=== PATIENT | female | born 1955 | race Caucasian/White ===

== ENCOUNTER → 2021-11-18 11:15 | Outpatient (BNVA) | payer MEDICARE, BC, SELFPAY | PROVIDERS: Visit Provider Family Medicine | DX: E11.9 Type 2 diabetes mellitus without complications (principal); E78.2 Mixed hyperlipidemia; I48.91 Unspecified atrial fibrillation; Z76.89 Persons encountering health services in other specified circumstances; Z85.3 Personal history of malignant neoplasm of breast | CPT/HCPCS: 80053; 80061; 83036; 85025 ==

== ENCOUNTER → 2022-02-05 14:11 | Outpatient (BNVA) | payer MEDICARE, BC, SELFPAY | PROVIDERS: PCP Family Medicine; Visit Provider Internal Medicine | DX: I48.11 Longstanding persistent atrial fibrillation (principal); Z79.01 Long term (current) use of anticoagulants; E78.2 Mixed hyperlipidemia; E11.9 Type 2 diabetes mellitus without complications; Z79.84 Long term (current) use of oral hypoglycemic drugs; R06.02 Shortness of breath | CPT/HCPCS: 93005; 99203; 99204 ==

== ENCOUNTER 2022-03-11 08:36 | Outpatient (CLI) | payer MEDICARE, BC, SELFPAY ==
--- NOTE | 2022-03-11 08:48 | MM_ITS ---
WS: [id number] DIAGNOSTIC RIGHT DIGITAL TOMOSYNTHESIS MAMMOGRAPHY WITH CAD. HISTORY: previous history of breast cancer. LT mastectomy. COMPARISON: 02/11/2021, 01/05/2020 and 11/29/2018 Technique: CC, MLO and ML views. Breast composition: There are scattered areas of fibroglandular density. Stable RIGHT breast. There is a well-circumscribed 6 mm nodule in the central breast which has been present over multiple prior years. No suspicious mass or calcification. No distortion. MM/[place] [id number] IMPRESSION: BI-RADS: 2-Benign FOLLOW UP: 1 Year Follow-up
== END 2022-03-11 08:37 | disposition home or self-care (01) ==
LOC: RAD 08:36
PROVIDERS: PCP Family Medicine; Visit Provider Family Medicine
DX: Z85.3 Personal history of malignant neoplasm of breast (principal)
CPT/HCPCS: 77061

== ENCOUNTER 2022-04-02 14:04 | Outpatient (CLI) | payer MEDICARE, BC, SELFPAY ==
--- NOTE | 2022-04-02 14:30 | USCV_ITS ---
Alix Kearns Age: 66 Gender: F : 1955 Exam Date: 04/02/2022 14:37 Ordering Phys: Balbir Major M.D ([email or web address]) Technologist: Alec Muñoz Exam Location: [facility] – [place] Indication: sob BP: 130 / 82 HR: 62 Rhythm: Sinus Technical Quality: Adequate MEASUREMENTS (Male / Female) Normal Values 2D ECHO LV Diastolic Diameter PLAX 3.0 cm 4.2 - 5.9 / 3.9 - 5.3 cm LV Systolic Diameter PLAX 1.8 cm IVS Diastolic Thickness 1.1 cm 0.6 - 1.0 / 0.6 - 0.9 cm IVS Systolic Thickness 1.1 cm LVPW Diastolic Thickness 1.0 cm 0.6 - 1.0 / 0.6 - 0.9 cm LVPW Systolic Thickness 1.8 cm LVOT Diameter 2.0 cm LV Ejection Fraction 2D Teich 73.0 % LV Ejection Fraction MOD 2C 53.9 % LV Ejection Fraction 2C AL 55.4 % LA Diameter 3.4 cm LA Width 3.8 cm LA Height 5.9 cm RA Width 4.7 cm RA Height 5.1 cm Aorta at Sinotubular Diameter 2.0 cm IVC Diameter 2.0 cm M-MODE Aortic Annulus Diameter 2.7 cm LA Ao Ratio MM 1.3 MV E Point Septal Separation 1.0 cm DOPPLER AV Peak Velocity 133.0 cm/s LVOT Peak Velocity 77.0 cm/s AV Area Cont Eq vti 1.8 cm squared AV Area Cont Eq pk 1.8 cm squared MV Peak Velocity 169.0 cm/s MV Area PHT 6.3 cm squared Mitral E to A Ratio 2.8 MV E' Velocity 70.0 cm/s Mitral E to MV E' Ratio 12.3 Mitral E to LV E' Lateral Ratio 11.0 Mitral E to LV E' Septal Ratio 14.0 TR Peak Velocity 357.7 cm/s TR Peak Gradient 51.2 mmHg TR Mean Velocity 279.9 cm/s TR Mean Gradient 34.2 mmHg TR Velocity Time Integral 120.4 cm Right Atrial Pressure 3.0 mmHg Pulmonary Artery Systolic Pressu 54.2 mmHg PV Peak Velocity 90.0 cm/s RV Acceleration Time 0.1 s RV Ejection Time 0.3 s RV AcT/ET 0.3 FINDINGS Left Ventricle Left ventricle is normal in size. LV systolic function is normal with EF 55 to 60%. No regional wall motion abnormalities are seen. Right Ventricle Normal in size and function Right Atrium Normal in size Left Atrium Normal in size Mitral Valve Mild mitral annular calcification. Mild mitral regurgitation. Aortic Valve Aortic valve is thickened. No significant aortic stenosis. Mild aortic regurgitation seen. Tricuspid Valve Mild tricuspid regurgitation. RVSP is 50 to 55 mmHg. This is consistent with moderate pulmonary hypertension Pulmonic Valve Not well-visualized. Mild pulmonic regurgitation. Pericardium Normal Aorta Normal in size IVC Appears to be normal. RA pressure is normal. CONCLUSIONS LV systolic function is normal with EF of 55-60% Mild mitral annular calcification. Mild mitral regurgitation Mild aortic regurgitation Mild tricuspid regurgitation. Moderate pulmonary hypertension Mild pulmonic regurgitation No comparison studies are available Balbir Major MD (Electronically Signed) Final Date: 15 April 2022 11:57 S
== END 2022-04-02 14:05 | disposition home or self-care (01) ==
PROVIDERS: PCP Family Medicine; Visit Provider Internal Medicine
DX: I08.3 Combined rheumatic disorders of mitral, aortic and tricuspid valves (principal); R06.02 Shortness of breath
CPT/HCPCS: 93306

== ENCOUNTER → 2022-07-30 08:09 | Outpatient (BNVA) | payer MEDICARE, SELFPAY | PROVIDERS: PCP Family Medicine; Visit Provider Family Medicine | DX: E11.9 Type 2 diabetes mellitus without complications (principal); Z85.3 Personal history of malignant neoplasm of breast; E55.9 Vitamin D deficiency, unspecified; E78.2 Mixed hyperlipidemia; I48.11 Longstanding persistent atrial fibrillation | CPT/HCPCS: 80053; 80061; 82306; 83036; 85025 ==

== ENCOUNTER → 2022-08-06 14:49 | Outpatient (BNVA) | payer MEDICARE, SELFPAY | PROVIDERS: PCP Family Medicine; Visit Provider Internal Medicine | DX: I48.11 Longstanding persistent atrial fibrillation (principal); E78.2 Mixed hyperlipidemia; E11.9 Type 2 diabetes mellitus without complications; Z79.01 Long term (current) use of anticoagulants; Z79.84 Long term (current) use of oral hypoglycemic drugs | CPT/HCPCS: 99214 ==

== ENCOUNTER → 2022-09-25 08:44 | Outpatient (BNVA) | payer MEDICARE, SELFPAY | PROVIDERS: PCP Family Medicine; Visit Provider Family Medicine | DX: R30.0 Dysuria (principal) | CPT/HCPCS: 81000; 87077; 87086; 87184 ==

== ENCOUNTER 2022-10-13 05:50 | Inpatient (IN) | payer MEDICARE, SELFPAY ==
[2022-10-13] VITALS (15 sets, daily range): BP systolic 125–183; BP diastolic 75–111; PULSE 78–116; RESP 16–22; TEMP 36.4–36.8; O2SAT 86–99; BMI 35.4
--- NOTE | 2022-10-13 06:05 | ED_ITS ---
HPI - Epistaxis General: Chief complaint: Epistaxis Stated complaint: Nose Bleed Time Seen by Provider: 10/13/22 05:52 Source: patient Mode of arrival: ambulatory History of Present Illness: 67-year-old female presents to the emergency room with complaints of epistaxis. However on account of the patient she has minimal bleeding from the right nare. Patient is on Eliquis she tells me she has been on that for quite some time for atrial fibrillation. She is also noted to be extremely short of breath tachypneic and chronically hypoxic. She denies any chest pain she states with any activity she gets extremely short of breath this is been the case for the past 10 months since she had COVID she had COVID while at [facility] and was treated at [place] her she was not hospitalized. She denies any hemoptysis denies any fevers sweats or chills. She does have a history of previous breast cancer. MD complaint: epistaxis Location: right nostril Onset (ago): hour(s) Duration: intermittent Context: other anticoagulant use Associated symptoms: Deny fever(s), headache(s), sinus pain, syncope, vomiting or weakness Treatment prior to arrival: nose pinching Review of Systems Const: Denies: fever(s) or chills ENMT: Denies: throat pain, nasal congestion, nasal obstruction or sinus pain Card: Denies: chest pain, palpitations or syncope Resp: Denies: dyspnea, productive cough or non-productive cough GI: Denies: vomiting : Denies: flank pain, difficulty voiding, dysuria, urinary frequency or urinary urgency Skin/Breast: Denies: rash or pruritus Neuro: Denies: headache(s) [facility] ED PFSH: Medical History Acquired deviated nasal septum Atrial fibrillation Bipolar 1 disorder Deafness in left ear Glaucoma Heart failure with preserved ejection fraction EF 55-60% on echo 04/2022 History of breast cancer left sided, had mastectomy in 2010, no chemo or radiation History of colon polyps on endoscopy in 2020, benign Insomnia takes trazodone Mixed hyperlipidemia Type 2 diabetes mellitus without complications Surgical History H/O sternectomy History of D&C (1993) History of ear surgery (1984) left History of hernia surgery abdominal hernia repair x 4 between [id number] History of mastectomy (2010) left Family History Denies family history of Clotting disorder Bleeding disorder Social History Smoking and tobacco status: never smoked Alcohol intake: never Substance/Drug Use: never Housing: Assisted Living Facility Marital status: Marital status details: spouse has Parkinson's Previous occupational history: worked for [employer] Physical Exam Const: GENERAL APPEARANCE: cooperative and comfortable ORIENTATION/CONSCIOUSNESS: Yes awake, Yes oriented to person, Yes oriented to place and Yes oriented to time HENMT: COMMON NORMALS: normocephalic, atraumatic and hearing grossly normal bilaterally HEAD & SCALP: normocephalic and atraumatic OTHER: Scant bleeding from the right nare Resp: EFFORT & INSPECTION: Yes tachypneic AUSCULTATION: diminished lung sounds on the right Cardio: COMMON NORMALS: regular rate, regular rhythm and No murmurs present (Cardio) RATE: regular rate RHYTHM: regular rhythm GI: COMMON NORMALS: Soft to palpation and No hepatosplenomegaly present AUSCULTATION: Yes normoactive bowel sounds PALPATION: Yes Soft to palpation, No Tenderness to palpation present (GI), No Guarding due to palpation present (GI) and Yes No hepatosplenomegaly present Extremity: COMMON NORMALS: normal to inspection, capillary refill normal, no clubbing, cyanosis or edema, no calf tenderness and no pedal edema Neuro: SENSORIUM/ORIENTATION: Yes oriented to person, Yes oriented to place and Yes oriented to time Skin: COMMON NORMALS: no rashes or lesions noted GENERAL SKIN EXAM: no rashes or lesions noted Course Vital Signs: Vital signs: Vital Signs Temperature 97.7 F 10/14/22 03:58 Pulse Rate 90 10/14/22 05:13 Respiratory Rate 18 10/14/22 03:58 Blood Pressure 167/88 10/14/22 03:58 Pulse Oximetry 93 10/14/22 03:58 Oxygen Delivery Me thod Nasal Cannula 10/14/22 03:58 Oxygen Flow Rate 1 10/14/22 03:58 MDM - Epistaxis Medical Decision Making History of atrial fibrillation. Is on Eliquis. Scant bleeding from the right nare also noted to be hypoxic when arrived here. She states she is so short of breath. Oxymetazoline nasal spray 2 sprays in each nostril and a nose clamp applied. Bleeding continued after this. We contacted Dr. Deleon on-call and patient was brought from the ER to a clinic where he cauterized. This was done because Dr. Deleon has better equipment more appropriate equipment to treat the patient in his office than we have available in the emergency room. While the patient was here redosed she was chronically hypoxic and required 2 L by nasal cannula. Chest x-ray showed a large pleural effusion on decub view it did not lay her out really well. CTA of the chest was done that showed pulmonary emboli with right heart strain and what appeared to be a loculated pleural effusion. Discussed with the patient that despite her presenting complaint was a nosebleed she actually has more pressing issues particularly the pulmonary embolism large pleural effusion the right heart strain. This is concerning because she had this occurred evidently while she was still on the Eliquis. She is on anastrozole for her breast cancer. Also and should be considered whether or not this is more related to her recurrence of her breast cancer than the episode of COVID she had 10 months ago. We did give her Lovenox in the emergency room which she tolerated well. Discussed with Dr. Floyd will admit. Lab Data 10/13/22 06:25 10/13/22 06:46 Radiology Impressions Chest X-Ray 10/13/22 07:31 IMPRESSION: Large right pleural effusion. Chest CTA 10/13/22 08:27 IMPRESSION: 1. Quality of the study is compromised by respiratory motion artifact. 2. Pulmonary emboli are present. The exact extent of the embolic burden is difficult to determine secondary to the motion. 3. Marked RIGHT heart enlargement with marked tricuspid regurgitation into hepatic veins. 4. Moderate to large layering RIGHT pleural effusion. 5. Cirrhosis. 6. Soft tissue anasarca and mesenteric edema. Notified Adilson Isaac DO at 10/13/2022 9:36 AM. Laboratory Results WBC 8.2 10^3/uL (4.0-10.0) 10/13/22 06:25 RBC 5.84 10^6/uL (4.1-5.3) H 10/13/22 06:25 Hgb 14.8 g/dL (11.5-15.3) 10/13/22 06:25 Hct 45.5 % (37.0-47.0) 10/13/22 06:25 MCV 77.9 fl (81-99) L 10/13/22 06:25 MCH 25.3 pg (28.0-34.0) L 10/13/22 06:25 MCHC 32.5 g/dL (30.0-36.0) 10/13/22 06:25 RDW 16.8 % (12.1-15.1) H 10/13/22 06:25 Plt Count 240 10^3/cmm (130-400) 10/13/22 06:25 MPV 11.2 fL (7.4-10.4) H 10/13/22 06:25 Neut % (Auto) 71.4 % 10/13/22 06:25 Lymph % (Auto) 18.6 % 10/13/22 06:25 [place] % (Auto) 7.0 % 10/13/22 06:25 Eos % (Auto) 1.8 % 10/13/22 06:25 Baso % (Auto) 1.0 % 10/13/22 06:25 Neut # (Auto) 5.83 10^3/uL (1.8-7.7) 10/13/22 06:25 Lymph # (Auto) 1.5 10^3/uL (0.8-4.8) 10/13/22 06:25 [place] # (Auto) 0.6 10^3/uL (0.2-0.9) 10/13/22 06:25 Eos # (Auto) 0.2 10^3/uL (0.0-0.8) 10/13/22 06:25 Baso # (Auto) 0.1 10^3/uL (0.0-0.1) 10/13/22 06:25 Nucleated RBC % (auto) 0 % 10/13/22 06:25 Nucleated RBCs # 0.0 /100WBC 10/13/22 06:25 Sodium 128 mmol/L (136-145) L 10/13/22 06:46 Potassium 4.3 mmol/L (3.5-5.1) 10/13/22 06:46 Chloride 96 mmol/L (98-107) L 10/13/22 06:46 Carbon Dioxide 18 mmol/L (22-29) L 10/13/22 06:46 Anion Gap 18.3 (5-19) 10/13/22 06:46 BUN 23 mg/dL (8-23) 10/13/22 06:46 Creatinine 0.7 mg/dL (0.5-0.9) 10/13/22 06:46 GFR Calculation 83.0 mL/min (90-130) L 10/13/22 06:46 Glucose 139 mg/dL (65-115) H 10/13/22 06:46 Calculated Osmolality 272 mOsm/kg (285-295) L 10/13/22 06:46 Calcium 9.3 mg/dL (8.5-10.5) 10/13/22 06:46 Total Bilirubin 0.6 mg/dL (0.15-1.2) 10/13/22 06:46 Direct Bilirubin 0.40 mg/dL (0.00-0.30) H 10/13/22 06:46 AST 13 U/L (0-32) 10/13/22 06:46 ALT 11 U/L (0-33) 10/13/22 06:46 Alkaline Phosphatase 111 U/L (35-105) H 10/13/22 06:46 NT-Pro-B Natriuret Pep 75396 pg/mL (0-125) H 10/13/22 06:46 Total Protein 7.3 g/dL (6.6-8.7) 10/13/22 06:46 Albumin 4.1 g/dL (3.5-5.2) 10/13/22 06:46 Globulin 3.2 g/dL (1.3-4.6) 10/13/22 06:46 Discharge Plan Discharge Patient Disposition: Admitted As Inpatient Admit Provider: Amber Floyd Clinical Impression: Pulmonary embolism, Pleural effusion on right, Type 2 diabetes mellitus without complications, Hypoxemia, Atrial fibrillation, Epistaxis, recurrent Condition: Stable Coding Level of Care Code ED Sorter Operator for Chg Ania
--- NOTE | 2022-10-13 06:05 | XR_ITS ---
WS: [id number] XR chest 1V portable [id number] REASON FOR EXAM: dyspnea/cough FINDINGS: Cardiomegaly. Large right pleural effusion and atelectasis in the right lower lung. XR/XR chest 1V portable [id number] IMPRESSION: Cardiomegaly and right pleural effusion.
[2022-10-13] MEDS: oxymetazoline 0.05% Nasal Spray 15 mL 2 SPRAY NOSTRIL-B (06:09)
--- NOTE | 2022-10-13 06:10 | PC.NURSE ---
Patients sats 88% RA. Per pt she does not wear oxygen @ home. Covid within the last year and feels that she has had to work harder to breathe since. States that she has told her pcp about it. Dr Isaac notified.
[2022-10-13 06:30] LABS: Basophils # 0.1 10^3/uL (0.0-0.1); Eosinophils # 0.2 10^3/uL (0.0-0.8); Eosinophils % 1.8 %; Hematocrit 45.5 % (37.0-47.0); Hemoglobin 14.8 g/dL (11.5-15.3); Lymphocytes # 1.5 10^3/uL (0.8-4.8); Lymphocytes % 18.6 %; Mean Corpuscular HGB Conc 32.5 g/dL (30.0-36.0); Mean Corpuscular Hemoglobin 25.3 pg (28.0-34.0); Mean Corpuscular Volume 77.9 fl (81-99); Mean Platelet Volume 11.2 fL (7.4-10.4); Monocytes # 0.6 10^3/uL (0.2-0.9); Neutrophils # 5.83 10^3/uL (1.8-7.7); Neutrophils % 71.4 %; Nucleated Red Blood Cells % 0 %; Platelet Count 240 10^3/cmm (130-400); Red Blood Count 5.84 10^6/uL (4.1-5.3); Red Cell Distribution Width 16.8 % (12.1-15.1); White Blood Count 8.2 10^3/uL (4.0-10.0)
[2022-10-13 07:08] LABS: Anion Gap 18.3 (5-19); Blood Urea Nitrogen 23 mg/dL (8-23); Calcium 9.3 mg/dL (8.5-10.5); Carbon Dioxide 18 mmol/L (22-29); Chloride 96 mmol/L (98-107); Glucose 139 mg/dL (65-115); Osmolality Calculated 272 mOsm/kg (285-295); Potassium 4.3 mmol/L (3.5-5.1); Sodium 128 mmol/L (136-145)
--- NOTE | 2022-10-13 07:31 | XR_ITS ---
WS: [id number] XR chest RT decubitus [id number] REASON FOR EXAM: pleural effusion FINDINGS: Right lateral decubitus examination demonstrates significant free pleural fluid component to right lo wer chest opacity. XR/XR chest RT decubitus [id number] IMPRESSION: Large right pleural effusion.
--- NOTE | 2022-10-13 07:36 | PC.NURSE ---
Took nose clamp off at [address] Isaac.
--- NOTE | 2022-10-13 08:06 | PC.PHAR ---
pt states she takes care of her own medications-pt states she takes lasix 40mg daily prn ext shows last filled 07/28/22 90d/s 40mg daily and kcl 10meq daily prn rx filled 07/28/22 90d/s 10meq daily-pt states not taken kcl for a month-pt states she uses her families albuterol inhaler prn-
--- NOTE | 2022-10-13 08:27 | CT_ITS ---
WS: [id number] CT CHEST ANGIOGRAPHY WITH REFORMATS HISTORY: dyspnea, abnormal CXR TECHNIQUE: Contiguous axial images are obtained through the chest during arterial injection of intrav enous contrast. Images are reconstructed to evaluate the pulmonary arteries. MIP imaging also reviewe d. All CT scans at [facility] use at least one of these dose optimization techniques: automat ed exposure control; mA and/or kV adjustment per patient size (includes targeted exams where dose is matched to clinical indication); or iterative reconstruction. CONTRAST: Omnipaque 350; 100 mL IV. DLP: 462.37 mGy.cm COMPARISON: None available. Mild motion artifact. Filling defects within the pulmonary arterial system. There is no central large pulmonary emboli but there are small filling defects in the segmental branches. There is a defect wi thin the RIGHT main pulmonary artery but this area is also being obscured by motion and contrast from the SVC. Enlarged RIGHT heart with marked tricuspid regurgitation. There is very minimal flattening of the int erventricular septum. Heart is enlarged. No pericardial effusion. Moderate to large layering RIGHT pleural effusion. Scattered mild hazy attenuation throughout the herve gs in part due to the respiratory motion artifact. There is no pneumothorax. No LEFT pleural effusion . Mild atherosclerosis aorta. No mediastinal or hilar adenopathy. Mild soft tissue anasarca throughout the thorax. Prior cholecystectomy. No adrenal mass. Visualized p ancreas is atrophied. Mesenteric edema in the upper abdomen. Cirrhosis. Mild curvature thoracic spine . CT/CT angio chest PE protcl [id number] IMPRESSION: 1. Quality of the study is compromised by respiratory motion artifact. 2. Pulmonary emboli are present. The exact extent of the embolic burden is dif ficult to determine secondary to the motion. 3. Marked RIGHT heart enlargement with marked tricuspid regurgitation into hep atic veins. 4. Moderate to large layering RIGHT pleural effusion. 5. Cirrhosis. 6. Soft tissue anasarca and mesenteric edema. Notified Adilson Isaac DO at 10/13/2022 9:36 AM.
[2022-10-13] MEDS: dexamethasone 10 mg/mL INJ IVP (08:43)
[2022-10-13] MEDS: diphenhydrAMINE 50 mg/mL SDV 1mL IVP (08:43)
[2022-10-13] MEDS: iohexol 350 mg/mL 500 mL Btl (per mL) IV (09:13)
[2022-10-13 10:05] LABS: Alanine Aminotransferase 11 U/L (0-33); Albumin Level 4.1 g/dL (3.5-5.2); Alkaline Phosphatase 111 U/L (35-105); Aspartate Amino Transferase 13 U/L (0-32); Globulin 3.2 g/dL (1.3-4.6); Total Bilirubin 0.6 mg/dL (0.15-1.2); Total Protein 7.3 g/dL (6.6-8.7)
[2022-10-13] MEDS: enoxaparin 100 mg/mL Syringe 90 MG SUBCUT (11:10)
--- NOTE | 2022-10-13 13:14 | PM.HP ---
Providers/Chief Complaint Admitting Physician: Amber Floyd MD Primary Care Provider: Jesus James MD Chief Complaint: Nose Bleed History of Present Illness Alix Kearns is a 67 year old female who presented to the emergency room with chief complaint of epistaxis. She has actually had several nosebleeds over the last week or 2. One occurred maybe a week ago, another 2 days ago and then last night at around 9 PM her right nares started bleeding. She described it as spurting . She is chronically on Eliquis due to a history of atrial fibrillation. With the continued nosebleed overnight she presented to the emergency room this morning. She had bleeding noted from the right nares. Oxine metolazone and some packing helped but was noted to have some bleeding vessels. Hemoglobin was normal. ENT was contacted and she did undergo cautery with silver nitrate to several areas in the right nares by Dr. Deleon. No active bleeding was noted during the procedure. A large clot was removed with suction at the beginning of the process. A contributing factor was severely deviated nasal septum to the right side and prior nasal fracture. During Mrs. Kearns's evaluation in the emergency room she was noted to be hypoxemic. She does not have a known history of hypoxemia. Saturations were as low as 86% on room air. Chest x-ray was performed demonstrating evidence of a large right pleural effusion. In talking with Mrs. Kearns, she has been short of breath particularly with exertion for some time. She had COVID last fall and noted that the shortness of breath started to worsen during that timeframe. She had been on anticoagulation with Eliquis prior to sustaining COVID and maintained anticoagulation thereafter, though has been on 2.5 mg eliquis bid rather than 5mg. She has a history of CHF for which she is on Lasix as needed. Last echocardiogram in March 2022 showed an ejection fraction at 55 to 60% with moderate pulmonary hypertension identified. With the large effusion noted on plain film, patient subsequently underwent CTA of the chest. Study was limited due to motion artifact though notable for pulmonary emboli/filling defects in segmental branches. Patient has no known prior history of PE or blood clots elsewhere. She does not describe any pleuritic type chest pain. No hemoptysis other than that which has been associated after epistaxis episodes the last week and a half or so. She walks with her walker around her house every day though is limited in the number of steps she can take before having to rest. She denies any calf pain or tenderness. No recent surgeries. She does have a history of breast cancer with left mastectomy back in 2010. She is chronically on anastrozole. Not a smoker. No other known malignancy. Marked right-sided heart enlargement was noted on CT imaging with minimal flattening of the interventricular septum. The pleural effusion was noted to be moderate to large with layering. Soft tissue anasarca and mesenteric edema also appreciated. Mrs. Kearns describes progressively worsening shortness of breath over the last 6 months to the point that lately she has only been able to walk a few feet before having to rest due to dyspnea. She has a history of multiple abdominal hernia repairs and reports that the left side of her abdomen is always larger than the right side of her abdomen. She tends to always lie on her left side because of this. Again she has not required home oxygen previously. Given degree of hypoxemia requiring oxygen therapy, large right pleural effusion and newly identified pulmonary emboli while on anticoagulation with Eliquis, patient is being admitted to the hospital for further evaluation and treatment. Review of Systems General: Reports: Other (ROS as per HPI or as otherwise noted here) Const: Reports: change in weight (Reports weight gain not weight loss, 40 pounds since 11/2021), fatigue, night sweats and other (Difficulty sleeping); Denies: fever(s) ENMT: Reports: nasal congestion and epistaxis Card: Reports: edema, dyspnea on exertion and orthopnea; Denies: chest pain or palpitations Resp: Reports: dyspnea and non-productive cough; Denies: hemoptysis GI: Denies: nausea, vomiting, change in bowel habits, hematochezia or melena : Denies: difficulty voiding Musc: Reports: back pain and muscle cramps (Reports occasional charley horse) Neuro: Reports: difficulty walking (Uses a walker at baseline) Psych: Reports: other (Stable mood on Geodon and trazodone + diphenhydramine for sleep) Pradip/Lymph: Reports: easy bruising and easy bleeding (Epistaxis recently) Medications/Allergies Home Medications Medication Instructions Recorded Confirmed Last Taken Type latanoprost 0.005 % eye drops 1 drp ophthalmic (eye) BEDTIME 11/18/21 10/13/22 Unknown History cyanocobalamin (vitamin B-12) 1,000 mcg PO QAM 02/05/22 10/13/22 10/12/22 History 1,000 mcg tablet vitamin E mixed 400 unit capsule 400 unit PO QAM 02/05/22 10/13/22 10/12/22 History metoprolol tartrate 50 mg tablet 50 mg PO BID #180 tabs 07/28/22 10/13/22 10/12/22 Rx amoxicillin 500 mg-potassium 1 tab PO TID #30 tabs 10/06/22 10/13/22 10/12/22 Rx clavulanate 125 mg tablet rx filled (Augmentin) 10/06/22 10d blood sugar diagnostic (Accu-Chek #100 ea 10/06/22 10/13/22 Unknown Rx Patti Plus test strips) lancing device with lancets kit #100 ea 10/06/22 10/13/22 Unknown Rx (Accu-Chek Softclix Lancing Device+Lancets kit) blood sugar diagnostic (Accu-Chek #100 ea 10/08/22 10/13/22 Unknown Rx Guide test strips) lancets (Accu-Chek Softclix #100 ea 10/10/22 10/13/22 Unknown Rx Lancets) albuterol sulfate 90 mcg/actuation 2 puff inhalation QID PRN 10/13/22 10/13/22 Unknown History aerosol inhaler Shortness Of Breath anastrozole 1 mg tablet 1 mg PO QAM 10/13/22 10/13/22 10/12/22 History apixaban 5 mg tablet (Eliquis) 5 mg PO BID 10/13/22 10/13/22 10/12/22 History diltiazem HCl 240 mg capsule,24 240 mg PO QAM 10/13/22 10/13/22 10/12/22 History hr,extended release diphenhydramine HCl 50 mg capsule 100 mg PO BEDTIME 10/13/22 10/13/22 10/12/22 History (Sleep Aid (diphenhydramine)) furosemide 40 mg tablet 40 mg PO DAILY PRN Edema 10/13/22 10/13/22 Unknown History metformin 500 mg tablet 500 mg PO BID 10/13/22 10/13/22 10/12/22 History potassium chloride 10 mEq 10 meq PO DAILY PRN unknown 10/13/22 10/13/22 1 Month Ago History capsule,extended release ~09/12/22 trazodone 100 mg tablet 100 mg PO BEDTIME 10/13/22 10/13/22 10/12/22 History ziprasidone HCl 80 mg capsule 80 mg PO BEDTIME 10/13/22 10/13/22 10/12/22 History Allergies Allergy/AdvReac Type Severity Reaction Status Date / Time aspirin [From Norgesic] Allergy Intermediate vomits Verified 10/13/22 08:05 adhesive Allergy Unknown Verified 10/13/22 08:05 caffeine [From Norgesic] Allergy Unknown Verified 08/06/22 15:04 carrot Allergy Unknown Verified 10/13/22 08:04 iodine Allergy Unknown Verified 10/13/22 08:05 mushroom Allergy Unknown Verified 10/13/22 08:04 orphenadrine [From Norgesic] Allergy Unknown Verified 10/13/22 08:05 Pork/Porcine Containing Allergy Unknown Verified 10/13/22 08:04 Products cephalexin AdvReac Intermediate vomitting Verified 10/13/22 08:05 Sulfa (Sulfonamide AdvReac Intermediate adv-vomitti Verified 10/13/22 08:05 Antibiotics) ng byetta Allergy Intermediate vomitting Uncoded 08/06/22 15:04 all fruits Allergy Unknown Uncoded 10/13/22 08:04 roberson Allergy Unknown Uncoded 10/13/22 08:04 Additional Medication Information Pork allergy is from skin testing. Patient takes multiple medications that contain pork products without known adverse event specifically related to the pork. PFSH Acute PFSH: Medical History (Updated 10/13/22 @ 16:10 by Amber Floyd MD) Acquired deviated nasal septum Atrial fibrillation Bipolar 1 disorder Deafness in left ear Glaucoma Heart failure with preserved ejection fraction EF 55-60% on echo 04/2022 History of breast cancer left sided, had mastectomy in 2010, no chemo or radiation History of colon polyps on endoscopy in 2020, benign Insomnia takes trazodone Mixed hyperlipidemia Type 2 diabetes mellitus without complications Surgical History (Updated 10/13/22 @ 13:37 by Amber Floyd MD) H/O sternectomy History of D&C (1993) History of ear surgery (1984) left History of hernia surgery abdominal hernia repair x 4 between [id number] History of mastectomy (2010) left Family History (Updated 10/13/22 @ 15:24 by Amber Floyd MD) Denies family history of Clotting disorder Bleeding disorder Social History (Updated 10/13/22 @ 16:11 by Amber Floyd MD) Smoking and tobacco status: never smoked Alcohol intake: never Substance/Drug Use: never Marital status: Marital status details: spouse has Parkinson's Previous occupational history: worked for [employer] Vitals/I&O/Wt Last Vital Signs Temp 97.6 F 10/13/22 05:59 Pulse 109 H 10/13/22 12:32 Resp 16 10/13/22 05:59 BP 140/90 10/13/22 12:32 Pulse Ox 95 10/13/22 12:32 O2 Del Method Room Air 10/13/22 07:29 O2 Flow Rate 3 10/13/22 09:19 Weight last 48 hrs Weight 90.718 kg Physical Exam Narrative: Patient is aware he can alert, able to provide history. She looks pale, ill appearance. Hair is short by her choice. Pupils are equally reactive, extraocular movements are intact, oropharynx with moist mucous membranes. Nares with oxygen by nasal cannula in place. Right nares with some dried blood and evidence of recent cautery noted. No active bleeding appreciated. Neck is supple. Lungs with decreased breath sounds on the right, only audible breath sounds on the right or in the apices. Clear on the left. Patient is lying in bed leaning towards the left which she states is her usual. Evidence of left mastectomy. Palpated along old surgical scars. No solid soft tissue mass noted though there is an irregularity in the skin incision medially that if located elsewhere I would think was an incisional hernia. Abdomen is soft, several surgical scars noted. Abdomen is rotund more prominent on the left side of the abdomen than the right. Lower pannus with peau d'orange appearance. There is just to the right of midline under the pannus and area of pinpoint erythema and an approximately 2 x 3 inch area that looks to be healing rather than acute. Remainder of skin underneath the pannus looks clear presently. 4+ pitting edema noted to both lower extremities. Scattered ecchymoses noted to upper extremities predominantly. Capillary refill is brisk. Speech is clear, not pressured. Face is symmetric. Handgrip is equal. Toes are downgoing. Data 10/13/22 06:25 10/13/22 06:46 Other Labs: Radiology Impressions Chest X-Ray 10/13/22 07:31 IMPRESSION: Large right pleural effusion. Chest CTA 10/13/22 08:27 IMPRESSION: 1. Quality of the study is compromised by respiratory motion artifact. 2. Pulmonary emboli are present. The exact extent of the embolic burden is difficult to determine secondary to the motion. 3. Marked RIGHT heart enlargement with marked tricuspid regurgitation into hepatic veins. 4. Moderate to large layering RIGHT pleural effusion. 5. Cirrhosis. 6. Soft tissue anasarca and mesenteric edema. Notified Adilson Isaac DO at 10/13/2022 9:36 AM. Laboratory Results WBC 8.2 10^3/uL (4.0-10.0) 10/13/22 06:25 RBC 5.84 10^6/uL (4.1-5.3) H 10/13/22 06:25 Hgb 14.8 g/dL (11.5-15.3) 10/13/22 06:25 Hct 45.5 % (37.0-47.0) 10/13/22 06:25 MCV 77.9 fl (81-99) L 10/13/22 06:25 MCH 25.3 pg (28.0-34.0) L 10/13/22 06:25 MCHC 32.5 g/dL (30.0-36.0) 10/13/22 06:25 RDW 16.8 % (12.1-15.1) H 10/13/22 06:25 Plt Count 240 10^3/cmm (130-400) 10/13/22 06:25 MPV 11.2 fL (7.4-10.4) H 10/13/22 06:25 Neut % (Auto) 71.4 % 10/13/22 06:25 Lymph % (Auto) 18.6 % 10/13/22 06:25 Scurry % (Auto) 7.0 % 10/13/22 06:25 Eos % (Auto) 1.8 % 10/13/22 06:25 Baso % (Auto) 1.0 % 10/13/22 06:25 Neut # (Auto) 5.83 10^3/uL (1.8-7.7) 10/13/22 06:25 Lymph # (Auto) 1.5 10^3/uL (0.8-4.8) 10/13/22 06:25 Scurry # (Auto) 0.6 10^3/uL (0.2-0.9) 10/13/22 06:25 Eos # (Auto) 0.2 10^3/uL (0.0-0.8) 10/13/22 06:25 Baso # (Auto) 0.1 10^3/uL (0.0-0.1) 10/13/22 06:25 Nucleated RBC % (auto) 0 % 10/13/22 06:25 Nucleated RBCs # 0.0 /100WBC 10/13/22 06:25 Sodium 128 mmol/L (136-145) L 10/13/22 06:46 Potassium 4.3 mmol/L (3.5-5.1) 10/13/22 06:46 Chloride 96 mmol/L (98-107) L 10/13/22 06:46 Carbon Dioxide 18 mmol/L (22-29) L 10/13/22 06:46 Anion Gap 18.3 (5-19) 10/13/22 06:46 BUN 23 mg/dL (8-23) 10/13/22 06:46 Creatinine 0.7 mg/dL (0.5-0.9) 10/13/22 06:46 GFR Calculation 83.0 mL/min (90-130) L 10/13/22 06:46 Glucose 139 mg/dL (65-115) H 10/13/22 06:46 Calculated Osmolality 272 mOsm/kg (285-295) L 10/13/22 06:46 Calcium 9.3 mg/dL (8.5-10.5) 10/13/22 06:46 Total Bilirubin 0.6 mg/dL (0.15-1.2) 10/13/22 06:46 Direct Bilirubin 0.40 mg/dL (0.00-0.30) H 10/13/22 06:46 AST 13 U/L (0-32) 10/13/22 06:46 ALT 11 U/L (0-33) 10/13/22 06:46 Alkaline Phosphatase 111 U/L (35-105) H 10/13/22 06:46 Total Protein 7.3 g/dL (6.6-8.7) 10/13/22 06:46 Albumin 4.1 g/dL (3.5-5.2) 10/13/22 06:46 Globulin 3.2 g/dL (1.3-4.6) 10/13/22 06:46 A&P Assessment and plan (1) Epistaxis, recurrent: In a patient on chronic anticoagulation. Hemostasis has been obtained and she has undergone silver nitrate cautery by Dr. Deleon. Hemoglobin stable though noted to have low MCV suggestive of iron deficiency. Monitor for recurrent bleeding particularly with need to continue full anticoagulation Check TIBC (2) Hypoxemia: Present on admission in a patient describing gradually worsening shortness of breath with exertion over the last 6 months or so. Exact etiology is not clear currently. She has a large right-sided effusion. She also has PE identified on imaging. Either one could be the primary cause of hypoxemia or it is combination of both. Has not required oxygen previously. No known pulmonary disease. Non-smoker. Oxygen supplementation as needed, weaning as able (3) Pulmonary embolism: Present on admission, with filling defects and segmental branches. A defect also seen in the right main pulmonary artery but is obscured by motion and contrast from the superior vena cava. These emboli have occurred while patient has been on anticoagulation for Eliquis, though at 2.5 mg bid with eGFR of 83. Exact onset of pulmonary emboli is not clear at this time. She does have marked right heart and large amount with some mild flattening of the interventricular septum which potentially points to a more acute event but again difficult to ascertain at this time. She has had progressive shortness of breath with less and less exertion over the last 6 months. She is chronically on anastrozole which may be a contributing factor. Her history of breast cancer and a large effusion are also a concern in this regard. No prior history of any form of blood clot. Anticoagulation with heparin currently Aware of pork/porcine allergy, tolerated Lovenox x1 dose in the emergency room; will need to monitor closely with second administration though I will note she is on multiple medications with a port component without issue Heparin drip will need to be held prior to planned thoracentesis with resumption thereafter At discharge from the hospital anticipate transition to subcu Lovenox for minimum of 3 months of treatment given apparent new PE while on eliquis as per discussion with heme-onc. Mrs. Kearns has previously administered shots to herself without difficulty. After 3 months or so, an alternative anticoagulant can be chosen other than Eliquis going forward versus increased dosing of 5mg bid thereafter depending on renal function and consideration of clinical condition at time Current plans as outlined to change anticoagulation upon discharge has been discussed with Mrs. Kearns and her family (4) Pleural effusion on right: Large, no prior imaging for comparison. No prior known history of effusion. Has been on antibiotics recently for skin rash. Has had shortness of breath and a cough but no report of any fever. Does not take diuretics regularly, only when needed. Reviewed with patient and family present in the room that differential includes heart failure, infection, breast cancer or other malignancy among other possibilities. IV diuresis Ultrasound-guided thoracentesis by interventional radiology on Thursday after 48 hours have passed since last dose of Eliquis Orders for pleural fluid entered for morning of 10/15/2022 (5) Chronic anticoagulation: Has been on Eliquis chronically secondary to known history of atrial fibrillation Eliquis will need to be stopped as it appears that Mrs. Kearns has developed pulmonary emboli while on treatment and compliant with it After completion of treatment for PE, alternative chronic anticoagulation should be considered among other direct oral anticoagulants with close follow-up thereafter Check baseline PT and PTT (6) Heart failure with preserved ejection fraction: Acute on chronic,, has as needed furosemide for edema chronically, last ejection fraction 55 to 60% in April 2022 Given right-sided heart enlargement and PE of unclear onset along with large pleural effusion, will repeat echocardiogram IV diuresis, monitoring response Potassium supplementation with diuresis Crowder catheter for accurate monitoring of urine output and an incontinent patient Check BNP (7) History of breast cancer: Left breast, treated with mastectomy and has been on anastrozole. Had previously followed with Dr. Graciela Castillo, oncology in [place], where she moved from in November 2021. Further details are not currently known. Stop anastrozole and do not resume secondary to pulmonary embolism: personally discussed with patient, her and her [id number] Will need outpatient referral to oncology locally to establish ongoing care We will request records from her oncologist in [place] to have available for future care (8) Type 2 diabetes mellitus without complications: [id number]. Chronically on metformin, hemoglobin A1c in July of this year 7.0 Low-dose sliding scale insulin currently She did receive a dose of dexamethasone in the emergency room as pretreatment for contrast administration so sugars may be more elevated transiently (9) Atrial fibrillation: Longstanding persistent atrial fibrillation. Chronically on rate controlling agents of diltiazem and metoprolol and has been on Eliquis chronically until the date of this admission Continue home diltiazem dosing, lower dose of beta-blockade if will tolerate such dosing while on IV diuresis Telemetry monitoring (10) Bipolar 1 disorder: Chronically on Geodon at bedtime Continue home dosing of ziprasidone (11) Glaucoma: Chronically on latanoprost Continue home eyedrops (12) Insomnia: Chronically on trazodone and takes variable amount of diphenhydramine for sleep Continue home trazodone and as needed Benadryl for sleep Plan Inpatient admission VTE prophylaxis: On treatment dose full anticoagulation presently, SCDs also ordered GI Prophylaxis: PPI Telemetry: Telemetry monitoring given pulmonary emboli, pleural effusion, atrial fibrillation Crowder: For close monitoring of accurate urine output in a patient on diuretics Line(s): Peripheral IVs Disposition plan: Currently resides at the [facility] and anticipate disposition back, possibly with home health, possibly with oxygen therapy. Will need follow-up closely with primary care provider, would benefit from referral to local oncology and possibly pulmonology for followup. Follows with Dr. Major from a cardiac standpoint, last seen in 08/2022 Code Status: Full code per discussion with Mrs. Kearns who is very clear about her wishes Attestations Medical Necessity Statement*: Anticipated stay greater than two midnights in this patient presenting with epistaxis while on anticoagulation who was noted to be significantly hypoxemic. She has been found to have large right-sided pleural effusion and evidence of pulmonary emboli despite chronic anticoagulation. Comorbid conditions as a degree of complexity to overall management as patient is at high risk of bleeding from nares with continuation of anticoagulation and at significant risk for further hypoxemia/respiratory compromise without appropriate management of PE and pleural effusion. Given these complexities requires monitoring in the inpatient setting, IV diuresis, continuous heparin drip, and plan for thoracentesis in approximately 48 hours, both diagnostic and therapeutic. and High Time for a total of 80 minutes, includes reviewing past or interval history, examining/interviewing patient, placing orders, communicating with other healthcare providers and documenting encounter Diagnoses Epistaxis, recurrent R04.0 Hypoxemia R09.02 Pulmonary embolism I26.99 Pleural effusion on right J90 Chronic anticoagulation Z79.01 Heart failure with preserved ejection fraction I50.30 History of breast cancer Z85.3 Type 2 diabetes mellitus without complications E11.9 Atrial fibrillation I48.91 Bipolar 1 disorder F31.9 Glaucoma H40.9 Insomnia G47.00
--- NOTE | 2022-10-13 15:46 | USCV_ITS ---
Alix Kearns Age: 67 Gender: F : 1955 Exam Date: 10/13/2022 18:37 Ordering Phys: Amber Floyd MD Technologist: ALBERTO Exam Location: [facility] [place] Indication: CHF, new PE while on anticoagulation, large pleural effusion. No history of cardiac intervention per patient. BP: 140 / 75 HR: 105 Rhythm: Atrial fibrillation Technical Quality: Adequate, Suboptimal MEASUREMENTS (Male / Female) Normal Values 2D ECHO LV Diastolic Diameter PLAX 4.1 cm 4.2 - 5.9 / 3.9 - 5.3 cm LV Systolic Diameter PLAX 3.6 cm IVS Diastolic Thickness 1.5 cm 0.6 - 1.0 / 0.6 - 0.9 cm IVS Systolic Thickness 1.6 cm LVPW Diastolic Thickness 1.1 cm 0.6 - 1.0 / 0.6 - 0.9 cm LVPW Systolic Thickness 1.1 cm LVOT Diameter 1.7 cm LV Ejection Fraction 2D Teich 28.5 % LV Ejection Fraction MOD 2C 41.2 % LV Ejection Fraction 2C AL 42.4 % LA Diameter 4.2 cm LA Width 3.8 cm LA Height 5.8 cm RA Width 4.4 cm RA Height 6.3 cm Aorta at Sinotubular Diameter 2.8 cm IVC Diameter 2.5 cm M-MODE Aortic Annulus Diameter 3.1 cm LA Ao Ratio MM 1.3 MV E Point Septal Separation 0.6 cm DOPPLER AV Peak Velocity 74.0 cm/s LVOT Peak Velocity 51.0 cm/s AV Area Cont Eq vti 1.7 cm squared AV Area Cont Eq pk 1.6 cm squared MV Peak Velocity 97.0 cm/s MV Area PHT 5.9 cm squared MV E' Velocity 54.5 cm/s Mitral E to MV E' Ratio 16.5 Mitral E to LV E' Lateral Ratio 14.4 Mitral E to LV E' Septal Ratio 19.6 TR Peak Velocity 330.3 cm/s TR Peak Gradient 43.6 mmHg TV Peak E Velocity 86.0 cm/s Right Atrial Pressure 10.0 mmHg Pulmonary Artery Systolic Pressu 53.6 mmHg PV Peak Velocity 80.0 cm/s RV Acceleration Time 0.0 s RV Ejection Time 0.2 s RV AcT/ET 0.2 FINDINGS Left Ventricle The exam was technically suboptimal due to the atrial fibrillation. There are no obvious wall motion disturbances. Overall, the ejection fraction appears to be mildly reduced in a global fashion. The ejection fraction is 45 to 50%. Diastolic dysfunction cannot be determined due to the rhythm.flattened septum in systole consistent with right ventricle pressure overload. Right Ventricle Mildly increased right ventricular size. Mildly decreased right ventricular systolic function. Moderate pulmonary hypertension, RVSP 53.6 mmHg. Right Atrium Mildly increased right atrial size. Right atrial pressure 10 mmHg. Left Atrium Moderately increased left atrial size. Mitral Valve Structurally normal mitral valve. Mild mitral valve regurgitation. Aortic Valve Structurally normal trileaflet aortic valve. Thickened aortic valve. No aortic valve stenosis. Trace aortic valve regurgitation. Tricuspid Valve Structurally normal tricuspid valve. Moderate tricuspid valve regurgitation. Pulmonic Valve Pulmonic valve not well visualized. [id number] pulmonary valve regurgitation. Pericardium No pericardial effusion. There is at least a right pleural effusion. Aorta Normal ascending aorta dimension. IVC The inferior vena cava does not quite collapse normally with respiration. Right atrial pressure 10 mmHg. CONCLUSIONS The exam was technically suboptimal due to the atrial fibrillation. There are no obvious wall motion disturbances. Overall, the ejection fraction appears to be mildly reduced in a global fashion. The ejection fraction is 45 to 50%. Diastolic dysfunction cannot be determined due to the rhythm.flattened septum in systole consistent with right ventricle pressure overload. Mildly increased right ventricular size. Mildly decreased right ventricular systolic function. Moderate pulmonary hypertension, RVSP 53.6 mmHg. Mildly increased right atrial size. Right atrial pressure 10 mmHg. Moderately increased left atrial size. Structurally normal mitral valve. Mild mitral valve regurgitation. Structurally normal trileaflet aortic valve. Thickened aortic valve. No aortic valve stenosis. Trace aortic valve regurgitation. Structurally normal tricuspid valve. Moderate tricuspid valve regurgitation. No pericardial effusion. There is at least a right pleural effusion. The inferior vena cava does not quite collapse normally with respiration. Right atrial pressure 10 mmHg. From the previous echo done in April of last year, the overall left ventricular function is probably mildly diminished, atrial fibrillation is new, the biatrial enlargement is new. The pulmonary hypertension is the same. Dr. Rakesh White MD (Electronically Signed) Final Date: 14 October 2022 08:44 S
[2022-10-13 15:48] LABS: NT Pro B Type Natriuretic Pept 12079 pg/mL (0-125)
[2022-10-13 16:11] LABS: INR 2.04 (0.8-1.2); Partial Thromboplastin Time 35.7 SECONDS (23.9-36.7)
[2022-10-13] MEDS: FUROsemide 10 mg/mL SDV 4mL 40 MG IVP (16:27)
[2022-10-13 17:02] LABS: Glucose Point of Care 180 mg/dL (70-110)
[2022-10-13] MEDS: metoprolol tartrate 25 mg Tablet PO ×2 (17:10→21:07)
[2022-10-13] MEDS: insulin lispro 100 unit/1 mL SUBCUT ×2 (17:24→22:52)
[2022-10-13 17:32] LABS: Add Urine Culture? No; Add Urine Microscopic? YES; Bacteria Urine TRACE /hpf; Bilirubin Urine 1+ (Negative); Blood Urine Neg (Negative); Glucose Urine UA Norm (Normal); Ketones Urine 1+ (Negative); Leukocyte Esterase Urine Trace (Negative); Nitrate Urine Negative (Negative); Protein Urine 2+ (Negative); RBC Urine 0-4 /hpf (0-2); Specific Gravity, Urine 1.015 (1.005-1.030); Squamous Epithelial Cell Urine 0-4 /hpf (0-5); Urine Appearance Clear (CLEAR); Urine Color Yellow (Yellow); Urobilinogen Urine 1 mg/dL (Negative); WBC Urine 0-4 /hpf (0-5); pH Urine 5 (5-7)
[2022-10-13 17:39] LABS: Urine Creatinine 99 mg/dL (28-217)
[2022-10-13 17:40] LABS: Urine Random Sodium 16 mmol/L
--- NOTE | 2022-10-13 17:42 | PC.NURSE ---
Patient arrived to unit, SOB, calm and cooperative, on oxygen supplementation and elevated BP with remaining vss. Placed on a heart monitor, chávez placed with good UOP, tolerating diet, moisture damage to groin and perineal area that appears chronic. Patient is incontinent at home. She came from [facility]. at bedside, Room clean and clutter free with call light and tv remote by her.
[2022-10-13] MEDS: diphenhydrAMINE 50 mg Capsule PO (20:39)
[2022-10-13] MEDS: amoxicillin-clav 500-125 mg Tablet 1 TAB PO (20:39)
[2022-10-13] MEDS: ziprasidone hcl 40 mg Capsule 80 MG PO (20:39)
[2022-10-13] MEDS: trazodone 100 mg Tablet PO (20:39)
[2022-10-13 21:13] LABS: Glucose Point of Care 201 mg/dL (70-110)
[2022-10-13] MEDS: latanoprost 0.005% Op Soln 2.5 mL Btl 1 DROP EYE-BOTH (22:53)
[2022-10-13] MEDS: heparin drip 25,000 UNIT/500 ML PREMIX 15 UNIT IV (23:38)
[2022-10-14] VITALS (13 sets, daily range): BP systolic 117–167; BP diastolic 86–101; PULSE 58–94; RESP 14–21; TEMP 36.3–36.7; O2SAT 93–95; BMI 35.1
[2022-10-14 06:40] LABS: Basophils % 0.2 %; Eosinophils % 0.1 %; Hematocrit 41.5 % (37.0-47.0); Hemoglobin 13.4 g/dL (11.5-15.3); Lymphocytes # 0.9 10^3/uL (0.8-4.8); Lymphocytes % 10.3 %; Mean Corpuscular HGB Conc 32.3 g/dL (30.0-36.0); Mean Corpuscular Hemoglobin 25.3 pg (28.0-34.0); Mean Corpuscular Volume 78.3 fl (81-99); Mean Platelet Volume 11.7 fL (7.4-10.4); Monocytes # 0.6 10^3/uL (0.2-0.9); Monocytes % 6.6 %; Neutrophils % 82.4 %; Nucleated Red Blood Cells % 0 %; Platelet Count 254 10^3/cmm (130-400); Red Cell Distribution Width 16.6 % (12.1-15.1)
[2022-10-14 07:01] LABS: Glucose Point of Care 140 mg/dL (70-110)
[2022-10-14 07:07] LABS: Partial Thromboplastin Time 39.3 SECONDS (23.9-36.7)
[2022-10-14 07:12] LABS: Alanine Aminotransferase 11 U/L (0-33); Albumin Level 3.9 g/dL (3.5-5.2); Alkaline Phosphatase 99 U/L (35-105); Anion Gap 16.1 (5-19); Aspartate Amino Transferase 13 U/L (0-32); Blood Urea Nitrogen 21 mg/dL (8-23); Calcium 8.8 mg/dL (8.5-10.5); Carbon Dioxide 23 mmol/L (22-29); Chloride 97 mmol/L (98-107); Globulin 2.9 g/dL (1.3-4.6); Glomerular Filtration Rate 71.1 mL/min (90-130); Glucose 124 mg/dL (65-115); Iron 29 ug/dL (37-145); Magnesium 1.6 mg/dL (1.7-2.3); Osmolality Calculated 278 mOsm/kg (285-295); Percent Saturation 8.8 % (20-50); Potassium 4.1 mmol/L (3.5-5.1); Sodium 132 mmol/L (136-145); Total Bilirubin 0.6 mg/dL (0.15-1.2); Total Iron Binding Capacity 328 mcg/dl; Total Protein 6.8 g/dL (6.6-8.7); Unsaturated Iron Binding 299 ug/dL (112-347)
[2022-10-14] MEDS: potassium chloride ER 20 mEq Tablet PO (08:40)
[2022-10-14] MEDS: amoxicillin-clav 500-125 mg Tablet 1 TAB PO ×3 (08:40→20:59)
[2022-10-14] MEDS: metoprolol tartrate 50 mg Tablet PO ×2 (08:40→21:02)
[2022-10-14] MEDS: dilTIAZem ER (24HR) 240 mg Capsule PO (08:40)
[2022-10-14] MEDS: pantoprazole DR 40 mg Tablet PO (08:40)
[2022-10-14] MEDS: zinc oxide oint 30 gm 1 APPLIC TOPICAL (10:22)
--- NOTE | 2022-10-14 10:29 | PC.CHAP ---
Pastoral Care Encounter/Spiritual Assessment Type of Contact [] Declined beauty school instructor visit [] Patient/Family/Request visit [] Outpatient visit [] Follow-up visit [] Physician referral [] Code/Alert [] Routine visit [] Staff referral [] Actively dying [] Patient sleeping [] Family support [] [] Out of room [] Palliative care [] [x] Receiving care in room [] Pre-surgical visit [] Trauma [] Long length of stay [] ICU visit [] Other: Relational/Emotional Strength [] Patient feels connected with others/family/visitors/staff [] Distress [] Loneliness/isolation [] Abandonment Spirituality of Patient [] Person of Elise [] Attends Lutheran of their Elise [] Believes in Prayer [] Reads Bible or Mormon materials [] There are Spiritual issues to be addressed [place] Interventions [] Prayer [] Active listening [] Non-anxious presence [] Spiritual/emotional support [] Crisis/trauma care [] Spiritual counseling [] Bereavement support [] Provided bereavement packet [] Provided Bible/devotional materials [] Provided toy/stuffed animal, coloring book to patient or family member [] Provided Communion [] Anointing/[place] [] Salvation [] Completed spiritual assessment [] Other: Impact on Illness or Injury [] Angry [] Fearful [] Anxious [] Often cries [] Exhaustion [] Unable to work [] Unable to attend mu-ism [] Unable to walk/stand [] Unable to read [] Unable to drive [] Unable to eat/drink [] Unable to sleep [] Unable to be with family [] Patient intubated [] Other: Summary Time spent with patient
[2022-10-14 11:27] LABS: Glucose Point of Care 111 mg/dL (70-110)
[2022-10-14 13:57] LABS: Partial Thromboplastin Time 60.7 SECONDS (23.9-36.7)
[2022-10-14] MEDS: FUROsemide 10 mg/mL SDV 4mL 40 MG IVP (15:29)
[2022-10-14 16:24] LABS: Glucose Point of Care 141 mg/dL (70-110)
--- NOTE | 2022-10-14 17:03 | P.PN_ITS ---
Subjective Subjective: No new complaints today. Dyspnea stable. Oxygen supplementation at 2 L/min. Awaiting thoracentesis tomorrow. Continue heparin drip. Hemoglobin is stable. Medications: Reviewed: Yes Medication Review Details: Pork allergy is from skin testing. Patient takes multiple medications that co ntain pork products without known adverse event specifically related to the pork. Vitals/I&O/Wt Last Vital Signs Temp 98.1 F 10/14/22 12:00 Pulse 77 10/14/22 14:00 Resp 21 H 10/14/22 12:00 BP 132/90 10/14/22 12:00 Pulse Ox 95 10/14/22 12:00 O2 Del Method Nasal Cannula 10/14/22 11:00 O2 Flow Rate 2 10/14/22 11:00 10/14/22 10/14/22 10/14/22 06:59 14:59 22:59 Intake Total 100 / 700 716.5 / 716.5 Output Total 350 / 450 Balance -250 / 250 716.5 / 716.5 Weight last 48 hrs Weight 89.953 kg Weight 90.718 kg Physical Exam Narrative: General: No acute distress, AO x3 HEENT: PERRLA, pupils bilaterally equal and reactive, pallors not present Chest: Normal vesicular breath sounds, no added sounds, equal good air entry bilaterally CVS: S1-S2 regular, no murmurs, no tachycardia, no gallops, no rubs Abdomen: Soft, nontender, no organomegaly, bowel sounds present Neuro: No focal deficits, no facial deformity, AO x3, power 5/5 in all limbs Urinary Catheter Management: Crowder: Cath Placed During This Visit: yes Reason for Continuing Indwelling Catheter: Acute Urinary Retention or Obstruction Urinary Catheter Date of Insertion: 10/13/22 Urinary Catheter Time of Insertion: 16:00 Data 10/14/22 06:10 10/14/22 06:10 A&P Assessment and plan (1) Epistaxis, recurrent: This is currently resolved after ENT intervention yesterday. (2) Hypoxemia: Multifactorial related to PE, large pleural effusion, pulmonary hypertension and right-sided heart failure (3) Pulmonary embolism: This occurred while patient was on Eliquis. Currently on heparin drip. Once thoracentesis is completed we will change to Lovenox, if patient tolerates will likely discharge with 3 months of anticoagulation. This was discussed by Dr. Floyd with heme-onc yesterday. (4) Pleural effusion on right: 6 large right pleural effusion plan for thoracentesis tomorrow. Pleural fluid analysis to establish nature of effusion. (5) Heart failure with preserved ejection fraction: IV diuresis, monitoring response Crowder catheter for accurate monitoring of urine output and an incontinent patient (6) Type 2 diabetes mellitus without complications: Low-dose sliding scale insulin currently (7) Atrial fibrillation: Longstanding persistent atrial fibrillation. Chronically on rate controlling agents of diltiazem and metoprolol a Attestations Medical Necessity Statement*: planned thoracentesis, iv diuresis, heparin gtt Coding Level of Care Code Acute Code for Chg Fwd Diagnoses Epistaxis, recurrent R04.0 Hypoxemia R09.02 Pulmonary embolism I26.99 Pleural effusion on right J90 Heart failure with preserved ejection fraction I50.30 Type 2 diabetes mellitus without complications E11.9 Atrial fibrillation I48.91
[2022-10-14] MEDS: insulin lispro 100 unit/1 mL SUBCUT (17:06)
[2022-10-14 20:38] LABS: Partial Thromboplastin Time 65.9 SECONDS (23.9-36.7)
[2022-10-14] MEDS: trazodone 100 mg Tablet PO (20:59)
[2022-10-14] MEDS: diphenhydrAMINE 50 mg Capsule PO (20:59)
[2022-10-14] MEDS: latanoprost 0.005% Op Soln 2.5 mL Btl 1 DROP EYE-BOTH (21:00)
[2022-10-14] MEDS: ziprasidone hcl 40 mg Capsule 80 MG PO (21:00)
[2022-10-14 21:39] LABS: Glucose Point of Care 127 mg/dL (70-110)
[2022-10-15] VITALS (11 sets, daily range): BP systolic 122–151; BP diastolic 70–90; PULSE 63–89; RESP 12–26; TEMP 35.9–36.8; O2SAT 91–98
[2022-10-15 02:54] LABS: Partial Thromboplastin Time 68.4 SECONDS (23.9-36.7)
[2022-10-15 06:35] LABS: Glucose Point of Care 90 mg/dL (70-110)
[2022-10-15] MEDS: amoxicillin-clav 500-125 mg Tablet 1 TAB PO ×3 (08:46→21:33)
[2022-10-15] MEDS: pantoprazole DR 40 mg Tablet PO (08:46)
[2022-10-15] MEDS: dilTIAZem ER (24HR) 240 mg Capsule PO (08:46)
[2022-10-15] MEDS: potassium chloride ER 20 mEq Tablet PO (08:46)
[2022-10-15] MEDS: metoprolol tartrate 50 mg Tablet PO ×2 (08:46→21:34)
--- NOTE | 2022-10-15 10:00 | US_ITS ---
WS: [id number] ULTRASOUND-GUIDED THORACENTESIS CLINICAL INFORMATION: large right pleural effusion COMPARISON: CTA October 13, 2022 PROCEDURE: Informed consent: The risks, benefits, and alternatives of the procedure were discussed with the adelaide ent. Verbal and written consent was obtained. Timeout: A timeout was performed to confirm the correct patient, procedure, and site. Site: RIGHT thoracentesis Preparation: A suitable skin site was identified. The patient was prepped and draped in usual sterile fashion. Lidocaine 1% was used for local anesthesia. Catheter: 4 Maltese One-Step catheter. Fluid Volume: 1000 ml Color: Clear yellow Complications: None US/ thoracentesis [id number] IMPRESSION: 1. Uncomplicated ultrasound-guided RIGHT thoracentesis. 2. Removal of 1000 cc. 3. No pneumothorax.
--- NOTE | 2022-10-15 10:56 | XR_ITS ---
WS: [id number] CHEST XRAY TECHNIQUE: Portable chest. CLINICAL INFORMATION: thoracentisis COMPARISON: October 13, 2022 FINDINGS: Heart: Cardiomegaly. Aortic Calcification. Lungs: Post thoracentesis RIGHT lung with drainage of approximately 1000 cc. No pneumothorax. Improve d RIGHT pleural effusion. Subsegmental atelectasis RIGHT middle lobe with focal opacity measuring 2.9 x 2.1 cm. This corresponds to focal atelectasis RIGHT middle lobe on the recent CT. LEFT lung is wel l aerated. Bones: Normal visualized bony structures. XR/XR chest 1V portable [id number] IMPRESSION: 1. Improved RIGHT pleural effusion post thoracentesis. 2. No pneumothorax. 3. Subsegmental atelectasis RIGHT middle lobe 4. Cardiomegaly.
[2022-10-15 11:56] LABS: Glucose Point of Care 97 mg/dL (70-110)
[2022-10-15 12:08] LABS: Body Fluid Polynuclear #Cells 0.079; Body Fluid WBC 225 /uL; Monocytes # Body Fluid 0.146
[2022-10-15 12:16] LABS: Apprearance, Body Fluid CLEAR; Color, Body Fluid PALE YELLOW
[2022-10-15 12:17] LABS: Albumin Body Fluid 2.1 g/dL; Amylase Body Fluid 10 U/L; Cholesterol Body Fluid 53 mg/dL (0-200); Fluid Alkaline Phos. 37 IU/L; LDH Body Fluid 67 U/L; Total Protein Pleural Fluid 3.3 g/dL; Triglycerides Body Fluid 28 mg/dL (0-150); Uric Acid Body Fluid 7 mg/dL
[2022-10-15 12:18] LABS: Cyto Order Verification Order Verified; Fluid Laterality RIGHT THORACENTESIS
[2022-10-15] MEDS: FUROsemide 10 mg/mL SDV 4mL 40 MG IVP (15:14)
[2022-10-15] MEDS: diphenhydrAMINE cream 30 gm 1 APPLIC TOPICAL (15:15)
--- NOTE | 2022-10-15 15:58 | P.PN_ITS ---
Subjective Subjective: Patient underwent right-sided thoracentesis today which she tolerated well, removal of 1 L of pleural fluid. Patient states she feels better since undergoing the procedure. Feels like her breathing is easier. Currently on room air. net -2.5 L over last 24 hours. Medications: Reviewed: Yes Medication Review Details: Pork allergy is from skin testing. Patient takes multiple medications that contain pork products without known adverse event specifically related to the pork. Vitals/I&O/Wt Last Vital Signs Temp 97.9 F 10/15/22 15:04 Pulse 63 10/15/22 15:04 Resp 18 10/15/22 15:04 BP 151/90 10/15/22 15:04 Pulse Ox 91 10/15/22 15:04 O2 Del Method Nasal Cannula 10/15/22 15:04 O2 Flow Rate 1 10/15/22 08:00 10/15/22 10/15/22 10/15/22 06:59 14:59 22:59 Intake Total 382.783 / 1099.283 360 / 360 Output Total 1125 / 2475 400 / 400 400 / 800 Balance -742.217 / -1375.717 -40 / -40 -400 / -440 Weight last 48 hrs Weight 88.995 kg Weight 89.953 kg Physical Exam Narrative: General: No acute distress, AO x3 HEENT: PERRLA, pupils bilaterally equal and reactive, pallors not present Chest: Normal vesicular breath sounds, no added sounds, equal good air entry bilaterally CVS: S1-S2 regular, no murmurs, no tachycardia, no gallops, no rubs Abdomen: Soft, nontender, no organomegaly, bowel sounds present Neuro: No focal deficits, no facial deformity, AO x3, power 5/5 in all limbs Urinary Catheter Management: Crowder: Cath Placed During This Visit: yes Reason for Continuing Indwelling Catheter: Acute Urinary Retention or Obstruction Urinary Catheter Date of Insertion: 10/13/22 Urinary Catheter Time of Insertion: 16:00 Data 10/14/22 06:10 10/14/22 06:10 A&P Assessment and plan (1) Epistaxis, recurrent: This is currently resolved after ENT intervention (2) Hypoxemia: Multifactorial related to PE, large pleural effusion, pulmonary hypertension and right-sided heart failure (3) Pulmonary embolism: This occurred while patient was on Eliquis. Currently on heparin drip---> transition to 1 mg/kg every 12 hours with anticipated discharge on Lovenox. Patient is willing to continue giving herself injections until follow-up with heme-onc. Reports that her past history to poor case with food pork only. This manifested as diarrhea several years ago. Currently she has done well with heparin. (4) Pleural effusion on right: Status post thoracentesis today with removal of 1 L of fluid. Patient feels breathing is improved after removal of fluid Does not appear to be exudative based on pleural fluid analysis. (5) Heart failure with preserved ejection fraction: IV diuresis,tolerating well, change to po today Crowder catheter for accurate monitoring of urine output and an incontinent p atient (6) Type 2 diabetes mellitus without complications: Low-dose sliding scale insulin currently (7) Atrial fibrillation: Longstanding persistent atrial fibrillation. Chronically on rate controlling agents of diltiazem and metoprolol a Attestations Medical Necessity Statement*: change iv to po diuretics, s/p thoracentesis, convert heparin to lovenox Coding Level of Care Code Acute Code for Chg Fwd Diagnoses Epistaxis, recurrent R04.0 Hypoxemia R09.02 Pulmonary embolism I26.99 Pleural effusion on right J90 Heart failure with preserved ejection fraction I50.30 Type 2 diabetes mellitus without complications E11.9 Atrial fibrillation I48.91
[2022-10-15 17:14] LABS: Glucose Point of Care 144 mg/dL (70-110)
[2022-10-15] MEDS: enoxaparin 100 mg/mL Syringe 90 MG SUBCUT (17:41)
[2022-10-15] MEDS: insulin lispro 100 unit/1 mL SUBCUT (17:41)
[2022-10-15 21:17] LABS: Glucose Point of Care 122 mg/dL (70-110)
[2022-10-15] MEDS: ziprasidone hcl 40 mg Capsule 80 MG PO (21:33)
[2022-10-15] MEDS: trazodone 100 mg Tablet PO (21:34)
[2022-10-15] MEDS: diphenhydrAMINE 50 mg Capsule PO (21:34)
[2022-10-15] MEDS: latanoprost 0.005% Op Soln 2.5 mL Btl 1 DROP EYE-BOTH (21:35)
[2022-10-16] VITALS (8 sets, daily range): BP systolic 127–149; BP diastolic 77–94; PULSE 66–79; RESP 17–19; TEMP 36.4–36.9; O2SAT 88–96
[2022-10-16 04:56] LABS: Basophils # 0.1 10^3/uL (0.0-0.1); Basophils % 0.8 %; Eosinophils # 0.3 10^3/uL (0.0-0.8); Eosinophils % 3.6 %; Hematocrit 40.6 % (37.0-47.0); Hemoglobin 12.9 g/dL (11.5-15.3); Lymphocytes # 1.5 10^3/uL (0.8-4.8); Lymphocytes % 18.6 %; Mean Corpuscular HGB Conc 31.8 g/dL (30.0-36.0); Mean Corpuscular Hemoglobin 25.1 pg (28.0-34.0); Mean Corpuscular Volume 79.1 fl (81-99); Mean Platelet Volume 12.1 fL (7.4-10.4); Monocytes # 0.7 10^3/uL (0.2-0.9); Monocytes % 8.2 %; Neutrophils # 5.45 10^3/uL (1.8-7.7); Neutrophils % 68.4 %; Nucleated Red Blood Cells % 0 %; Platelet Count 242 10^3/cmm (130-400); Red Blood Count 5.13 10^6/uL (4.1-5.3); Red Cell Distribution Width 16.6 % (12.1-15.1)
[2022-10-16] MEDS: enoxaparin 100 mg/mL Syringe 90 MG SUBCUT ×2 (05:04→16:37)
[2022-10-16 05:21] LABS: Alanine Aminotransferase 12 U/L (0-33); Albumin Level 3.2 g/dL (3.5-5.2); Alkaline Phosphatase 98 U/L (35-105); Anion Gap 12.8 (5-19); Aspartate Amino Transferase 18 U/L (0-32); Blood Urea Nitrogen 22 mg/dL (8-23); Calcium 8.9 mg/dL (8.5-10.5); Carbon Dioxide 27 mmol/L (22-29); Chloride 99 mmol/L (98-107); Creatinine Clr Calc Pharmacy 70.2386; Globulin 2.8 g/dL (1.3-4.6); Glomerular Filtration Rate 71.1 mL/min (90-130); Glucose 104 mg/dL (65-115); Lactate Dehydrogenase 177 U/L (135-214); Osmolality Calculated 284 mOsm/kg (285-295); Potassium 3.8 mmol/L (3.5-5.1); Sodium 135 mmol/L (136-145); Total Bilirubin 0.6 mg/dL (0.15-1.2)
[2022-10-16 06:47] LABS: Glucose Point of Care 106 mg/dL (70-110)
[2022-10-16] MEDS: dilTIAZem ER (24HR) 240 mg Capsule PO (08:20)
[2022-10-16] MEDS: pantoprazole DR 40 mg Tablet PO (08:20)
[2022-10-16] MEDS: amoxicillin-clav 500-125 mg Tablet 1 TAB PO ×2 (08:20→15:01)
[2022-10-16] MEDS: potassium chloride ER 20 mEq Tablet PO (08:20)
[2022-10-16] MEDS: FUROsemide 40 mg Tablet PO (08:21)
[2022-10-16] MEDS: metoprolol tartrate 50 mg Tablet PO (08:21)
[2022-10-16] MEDS: diphenhydrAMINE cream 30 gm 1 APPLIC TOPICAL (08:22)
--- NOTE | 2022-10-16 08:53 | PC.SOCIAL ---
Imm update Imm updated with patient at bedside. Copy of page 2 provided. Patient verbalized understanding. Copy in chart initialed, dated and timed.
[2022-10-16 11:16] LABS: Glucose Point of Care 131 mg/dL (70-110)
--- NOTE | 2022-10-16 13:22 | PM.DCS ---
Discharge Providers Date of Admission: 10/13/22 15:23 Date of Discharge: October 16, 2022 Attending Provider at Admission: Amber Floyd MD Attending Provider at Discharge: Dai Gardner MD Primary Care Provider: Jesus James MD Diagnoses at Discharge Discharge Diagnosis (1) Epistaxis, recurrent: Status: Acute (2) Hypoxemia: Status: Acute (3) Pulmonary embolism: Status: Acute Permanent problem details: while on anastrazole and eliquis, timing unclear, identified on 10/13/2022 due to hypoxemia during an ED visit (4) Pleural effusion on right: Status: Acute (5) Heart failure with preserved ejection fraction: Status: Chronic Permanent problem details: EF 55-60% on echo 04/2022 (6) Type 2 diabetes mellitus without complications: Status: Chronic (7) Atrial fibrillation: Status: Chronic Reason for Visit Reason for Visit: Nose Bleed Hospital Course Hospital Course 67-year-old lady who presented to the emergency room with chief complaints of epistaxis wherein she had several nosebleeds over the past 2 weeks. She was seen in the emergency room by ENT and she underwent cautery with silver nitrate which controlled her bleeding. During her evaluation in the ER she was noted to be hypoxemic. Saturations were as low as 86% on room air. Chest x-ray was performed which showed evidence of a large right pleural effusion. On review of systems patient endorsed feeling short of breath on exertion for quite some time. CTA of the chest was performed which showed pulmonary emboli/filling defects within the segmental branches. She underwent right-sided thoracentesis on October 14, 2022 with removal of 1 L of pleural fluid. Effusion is transudative per lights criteria. Echocardiogram was performed which showed ejection fraction of 45 to 50%, diastolic dysfunction could not be determined because of A-fib. She had a flattened septum in systole consistent with right ventricular pressure overload and moderate pulmonary hypertension with RVSP of 53. Thickened aortic valve was noted. She was also noted to have dilated biatrial enlargement which was new compared to prior echo in 03/2022. She did not have any complaints of chest pain on this current admission. Following the thoracentesis, she states that her dyspnea was significantly improved. She can breathe easier. She was also given IV diuresis for pulmonary hypertension. This is being transitioned to oral diuretics. Since her PE developed on low-dose Eliquis, case was discussed by Dr. Floyd with heme-onc and it was recommended that patient continue on 3 months of Lovenox and follow-up with hematology as outpatient. A referral has been provided for the same. Recommended to follow-up with primary care provider for pending studies from pleural fluid in the next 1 week and then with heme-onc and cardiology. Physical Exam Narrative: General: No acute distress, AO x3 HEENT: PERRLA, pupils bilaterally equal and reactive, pallors not present Chest: Normal vesicular breath sounds, no added sounds, equal good air entry bilaterally CVS: S1-S2 regular, no murmurs, no tachycardia, no gallops, no rubs Abdomen: Soft, nontender, no organomegaly, bowel sounds present Neuro: No focal deficits, no facial deformity, AO x3, power 5/5 in all limbs Urinary Catheter Management: Crowder: Cath Placed During This Visit: yes, but has since been removed by the nurse Reason for Continuing Indwelling Catheter: Decision to DC Catheter Urinary Catheter Date of Insertion: 10/13/22 Urinary Catheter Time of Insertion: 16:00 Date Urinary Catheter Removed: 10/16/22 Time Urinary Catheter Discontinued: 12:20 Discharge Data Studies Completed and Pending Completed Studies During Hospitalization Category Date Time Status CT angio chest PE protcl [id number] Stat Cat Scan 10/13/22 08:27 Completed CXRP [XR chest 1V portable [id number]] Stat Exams 10/15/22 10:56 Completed XR chest 1V portable [id number] Stat Exams 10/13/22 06:05 Completed XR chest RT decubitus [id number] Stat Exams 10/13/22 07:31 Completed CV. echo complete* [id number] Routine Ultrasound 10/13/22 15:46 Completed US thoracentesis [id number] Routine Ultrasound 10/15/22 Completed Pending at discharge Category Date Time Status Anaerobic Culture Routine Lab 10/15/22 Received Body Fluid Culture & GS Routine Lab 10/15/22 Received Cytology [PTH] Routine Pth 10/15/22 07:00 Received Radiology Impressions Chest CTA 10/13/22 08:27 IMPRESSION: 1. Quality of the study is compromised by respiratory motion artifact. 2. Pulmonary emboli are present. The exact extent of the embolic burden is difficult to determine secondary to the motion. 3. Marked RIGHT heart enlargement with marked tricuspid regurgitation into hepatic veins. 4. Moderate to large layering RIGHT pleural effusion. 5. Cirrhosis. 6. Soft tissue anasarca and mesenteric edema. Notified Adilson Isaac DO at 10/13/2022 9:36 AM. Thoracentesis Ultrasound 10/15/22 10:00 IMPRESSION: 1. Uncomplicated ultrasound-guided RIGHT thoracentesis. 2. Removal of 1000 cc. 3. No pneumothorax. Chest X-Ray 10/15/22 10:56 IMPRESSION: 1. Improved RIGHT pleural effusion post thoracentesis. 2. No pneumothorax. 3. Subsegmental atelectasis RIGHT middle lobe 4. Cardiomegaly. Laboratory Results WBC 8.0 10^3/uL (4.0-10.0) 10/16/22 03:50 RBC 5.13 10^6/uL (4.1-5.3) 10/16/22 03:50 Hgb 12.9 g/dL (11.5-15.3) 10/16/22 03:50 Hct 40.6 % (37.0-47.0) 10/16/22 03:50 MCV 79.1 fl (81-99) L 10/16/22 03:50 MCH 25.1 pg (28.0-34.0) L 10/16/22 03:50 MCHC 31.8 g/dL (30.0-36.0) 10/16/22 03:50 RDW 16.6 % (12.1-15.1) H 10/16/22 03:50 Plt Count 242 10^3/cmm (130-400) 10/16/22 03:50 MPV 12.1 fL (7.4-10.4) H 10/16/22 03:50 Neut % (Auto) 68.4 % 10/16/22 03:50 Lymph % (Auto) 18.6 % 10/16/22 03:50 [place] % (Auto) 8.2 % 10/16/22 03:50 Eos % (Auto) 3.6 % 10/16/22 03:50 Baso % (Auto) 0.8 % 10/16/22 03:50 Neut # (Auto) 5.45 10^3/uL (1.8-7.7) 10/16/22 03:50 Lymph # (Auto) 1.5 10^3/uL (0.8-4.8) 10/16/22 03:50 [place] # (Auto) 0.7 10^3/uL (0.2-0.9) 10/16/22 03:50 Eos # (Auto) 0.3 10^3/uL (0.0-0.8) 10/16/22 03:50 Baso # (Auto) 0.1 10^3/uL (0.0-0.1) 10/16/22 03:50 Nucleated RBC % (auto) 0 % 10/16/22 03:50 Nucleated RBCs # 0.0 /100WBC 10/16/22 03:50 PT 23.80 SECONDS (12.1-14.9) H 10/13/22 15:30 INR 2.04 (0.8-1.2) H 10/13/22 15:30 APTT 68.4 SECONDS (23.9-36.7) H 10/15/22 01:57 Sodium 135 mmol/L (136-145) L 10/16/22 03:50 Potassium 3.8 mmol/L (3.5-5.1) 10/16/22 03:50 Chloride 99 mmol/L (98-107) 10/16/22 03:50 Carbon Dioxide 27 mmol/L (22-29) 10/16/22 03:50 Anion Gap 12.8 (5-19) 10/16/22 03:50 BUN 22 mg/dL (8-23) 10/16/22 03:50 Creatinine 0.8 mg/dL (0.5-0.9) 10/16/22 03:50 GFR Calculation 71.1 mL/min (90-130) L 10/16/22 03:50 Glucose 104 mg/dL (65-115) 10/16/22 03:50 POC Glucose 131 mg/dL (70-110) H 10/16/22 11:13 Calculated Osmolality 284 mOsm/kg (285-295) L 10/16/22 03:50 Calcium 8.9 mg/dL (8.5-10.5) 10/16/22 03:50 Phosphorus 4.0 mg/dL (2.5-4.5) 10/14/22 06:10 Magnesium 1.6 mg/dL (1.7-2.3) L 10/14/22 06:10 Iron 29 ug/dL (37-145) L 10/14/22 06:10 TIBC 328 mcg/dl 10/14/22 06:10 % Saturation 8.8 % (20-50) L 10/14/22 06:10 Unsat Iron Binding 299 ug/dL (112-347) 10/14/22 06:10 Total Bilirubin 0.6 mg/dL (0.15-1.2) 10/16/22 03:50 Direct Bilirubin 0.40 mg/dL (0.00-0.30) H 10/13/22 06:46 AST 18 U/L (0-32) 10/16/22 03:50 ALT 12 U/L (0-33) 10/16/22 03:50 Alkaline Phosphatase 98 U/L (35-105) 10/16/22 03:50 Lactate Dehydrogenase 177 U/L (135-214) 10/16/22 03:50 NT-Pro-B Natriuret Pep 45935 pg/mL (0-125) H 10/13/22 06:46 Total Protein 6.0 g/dL (6.6-8.7) L 10/16/22 03:50 Albumin 3.2 g/dL (3.5-5.2) L 10/16/22 03:50 Globulin 2.8 g/dL (1.3-4.6) 10/16/22 03:50 Urine Color Yellow (Yellow) 10/13/22 16:23 Urine Appearance Clear (CLEAR) 10/13/22 16:23 Urine pH 5 (5-7) 10/13/22 16:23 Ur Specific [place] 1.015 (1.005-1.030) 10/13/22 16:23 Urine Protein 2+ (Negative) H 10/13/22 16:23 Urine Glucose (UA) Norm (Normal) 10/13/22 16:23 Urine Ketones 1+ (Negative) H 10/13/22 16:23 Urine Blood Neg (Negative) 10/13/22 16: Urine Nitrate Negative (Negative) 10/13/22 16:23 Urine Bilirubin 1+ (Negative) H 10/13/22 16:23 Urine Urobilinogen 1 mg/dL (Negative) H 10/13/22 16:23 Ur Leukocyte Esterase Trace (Negative) H 10/13/22 16:23 Urine RBC 0-4 /hpf (0-2) H 10/13/22 16:23 Urine WBC 0-4 /hpf (0-5) H 10/13/22 16:23 Ur Squamous Epith Cells 0-4 /hpf (0-5) H 10/13/22 16:23 Amorphous Sediment Not Reportable 10/13/22 16:23 Urine Bacteria Trace /hpf (NONE) 10/13/22 16:23 Ur Random Sodium 16 mmol/L 10/13/22 16:23 Urine Creatinine 99 mg/dL (28-217) 10/13/22 16:23 Fluid Color Pale yellow 10/15/22 Unknown Fluid Appearance Clear 10/15/22 Unknown Fluid Specific Grav 8.000 10/15/22 Unknown Fluid pH 8.0 10/15/22 Unknown Fluid WBC 225 /uL 10/15/22 Unknown Fluid RBC 1.000 10^3/uL 10/15/22 Unknown Fld Polynuclear WBCs # 0.079 10/15/22 Unknown Fld Polynuclear WBCs % 35.100 % 10/15/22 Unknown Fl Mononucl WBCs #(Auto) 0.146 10/15/22 Unknown Fl Mononuclear % Auto 64.900 % 10/15/22 Unknown Fld Crystal Laterality Right thoracentesis 10/15/22 Unknown Fluid Glucose 91.0 mg/dL 10/15/22 Unknown Fluid Albumin 2.1 g/dL 10/15/22 Unknown Fluid LDH 67 U/L 10/15/22 Unknown Fluid Amylase 10 U/L 10/15/22 Unknown Fluid Alk Phosphatase 37 IU/L 10/15/22 Unknown Fluid Cholesterol 53 mg/dL (0-200) 10/15/22 Unknown Fluid Triglycerides 28 mg/dL (0-150) 10/15/22 Unknown Fluid Uric Acid 7 mg/dL 10/15/22 Unknown Pleural Total Protein 3.3 g/dL 10/15/22 Unknown Vitals Last Vital Signs Temp 98.3 F 10/16/22 11:17 Pulse 66 10/16/22 11:17 Resp 17 10/16/22 03:56 BP 127/89 10/16/22 11:17 Pulse Ox 92 10/16/22 11:17 O2 Del Method Nasal Cannula 10/16/22 08:00 O2 Flow Rate 2 10/16/22 08:00 Discharge Plan Discharge Patient Disposition: Home Condition: Stable Prescriptions: New pantoprazole 40 mg Tablet,Delayed Release (Dr/Ec) 40 mg PO DAILY 30 Days Qty: 30 0RF enoxaparin 100 mg/mL Syringe 90 mg SUBCUT Q12H 90 Days Qty: 162 0RF Continued cyanocobalamin (vitamin B-12) 1,000 mcg tablet 1,000 mcg PO QAM vitamin E mixed 400 unit capsule 400 unit PO QAM metoprolol tartrate 50 mg tablet 50 mg PO BID Qty: 180 3RF latanoprost 0.005 % drops 1 drp ophthalmic (eye) BEDTIME amoxicillin-pot clavulanate [Augmentin] 500-125 mg tablet 1 tab PO TID Qty: 30 0RF (DME) lancing device with lancets [Accu-Chek Soft Dev Lancets] Kit See Rx Instructions .Route Qty: 100 3RF Rx Instructions: to uses once daily to check blood sugar 90 day supply (DME) Accu-Chek Patti Plus test strp Strip See Rx Instructions .Route Qty: 100 3RF Rx Instructions: to use once daily with accu-chek meter 90 day suppy (DME) Accu-Chek Guide test strips Strip See Rx Instructions .Route Qty: 100 3RF Rx Instructions: to use once daily in accu-check meter 90 day supply (DME) lancets [Accu-Chek Softclix Lancets] Misc See Rx Instructions .Route Qty: 100 3RF Rx Instructions: As directed metformin 500 mg tablet 500 mg PO BID Sleep Aid (diphenhydramine) 50 mg Capsule 100 mg PO BEDTIME albuterol sulfate 90 mcg/actuation Hfa Aerosol Inhaler 2 puff INHALATION QID PRN (Reason: Shortness Of Breath) ziprasidone HCl 80 mg capsule 80 mg PO BEDTIME anastrozole 1 mg tablet 1 mg PO QAM potassium chloride 10 mEq capsule, extended release 10 meq PO DAILY PRN (Reason: unknown) diltiazem HCl 240 mg capsule,extended release 24 hr 240 mg PO QAM trazodone 100 mg tablet 100 mg PO BEDTIME Changed furosemide 40 mg tablet 40 mg PO DAILY 15 Days Qty: 15 0RF Discontinued Eliquis 5 mg tablet 5 mg PO BID Discharge Orders: Discharge Order (Routine); Ordered 10/16/22 Ordered By: Dai Gardner Referrals: Jesus James MD [Primary Care Provider] - 1 week Christopher Garcia MD [Hospitalist] - 1 month Balbir Major M.D [Physician] - 1 month Discharge Diet: Usual diet Discharge Activity: Resume usual activity Patient Instructions: Opioid Safety Discharge Attestations Time Spent in Discharge Care*: greater than 30 min Quality Metrics Clinical Quality Measures [ Venous Thromboembolism { Contraindication to Overlap Therapy: None; Overlap threrpy ordered; VTE Discharge Education: Education about anticoagulant therapy/Care Notes given; Deep Vein Thrombosis/Pulmonary Embolism Present on Admission: Yes;}] Coding Level of Care Code Acute Code for Chg Fwd Diagnoses Epistaxis, recurrent R04.0 Hypoxemia R09.02 Pulmonary embolism I26.99 Pleural effusion on right J90 Heart failure with preserved ejection fraction I50.30 Type 2 diabetes mellitus without complications E11.9 Atrial fibrillation I48.91
[2022-10-16 17:02] LABS: Glucose Point of Care 155 mg/dL (70-110)
[2022-10-16] MEDS: insulin lispro 100 unit/1 mL SUBCUT (17:17)
== END 2022-10-16 17:57 | disposition home health service (06) | DRG 186 ==
LOC: ER 11:53 → MEDSURG 17:47
PROVIDERS: Internal Medicine; Admitting Provider Hospitalist; Emergency Provider Family Medicine; PCP Family Medicine; Visit Provider Student in an Organized Health Care Education/Training Program
DX: J90 Pleural effusion, not elsewhere classified (principal); I26.99 Other pulmonary embolism without acute cor pulmonale; I50.33 Acute on chronic diastolic (congestive) heart failure; I48.11 Longstanding persistent atrial fibrillation; Z79.01 Long term (current) use of anticoagulants; Z86.16 Personal history of COVID-19; F31.9 Bipolar disorder, unspecified; H91.92 Unspecified hearing loss, left ear; H40.9 Unspecified glaucoma; G47.00 Insomnia, unspecified; E78.2 Mixed hyperlipidemia; E11.9 Type 2 diabetes mellitus without complications; Z79.84 Long term (current) use of oral hypoglycemic drugs; C50.912 Malignant neoplasm of unspecified site of left female breast; Z90.12 Acquired absence of left breast and nipple; I27.20 Pulmonary hypertension, unspecified; R09.02 Hypoxemia; R04.0 Epistaxis; J34.2 Deviated nasal septum
CPT/HCPCS: 32555; 36415; 36416; 51702; 71045; 71275; 80048; 80053; 80076; 80503; 81001; 82042; 82150; 82465; 82570; 82945; 82962; 83540; 83550; 83615; 83735; 83880; 83986; 84075; 84100; 84157; 84300; 84315; 84478; 84560; 85025; 85610; 85730; 87070; 87075; 87205; 88112; 88305; 89050; 93306; 94760; 96372; 96374; 96375; 99202; 99285; J1100; J1200; J1644; J1650; J1815; J1940; Q0163; Q9967

== ENCOUNTER → 2022-10-13 09:44 | Outpatient (BNVA) | payer MEDICARE, SELFPAY | PROVIDERS: PCP Family Medicine; Visit Provider Otolaryngology | DX: R04.0 Epistaxis (principal); J34.2 Deviated nasal septum; I48.91 Unspecified atrial fibrillation; I48.11 Longstanding persistent atrial fibrillation; E11.9 Type 2 diabetes mellitus without complications; Z79.84 Long term (current) use of oral hypoglycemic drugs | CPT/HCPCS: 30901; 99203 ==

== ENCOUNTER 2022-10-17 23:45 | Emergency (ER) | payer MEDICARE, SELFPAY ==
[2022-10-17 23:48] VITALS: BP 115/86; PULSE 88; RESP 20; TEMP 36.8; O2SAT 92; BMI 35.4
[2022-10-18 00:38] VITALS: BP 115/88; RESP 16; O2SAT 87
[2022-10-18] MEDS: oxymetazoline 0.05% Nasal Spray 15 mL 2 SPRAY NOSTRIL-R (01:02)
[2022-10-18] MEDS: tranexamic acid 1,000 mg/10mL SDV 1000 MG IRRIGATION (01:02)
[2022-10-18] MEDS: gelatin 12-7 mm Sponge 1 EACH TOPICAL (01:02)
[2022-10-18 01:05] VITALS: BP 176/123; PULSE 104; RESP 16; O2SAT 89
[2022-10-18] MEDS: silver nitrate applicator 3 EACH TOPICAL (02:18)
[2022-10-18 02:19] VITALS: BP 132/106; RESP 16; O2SAT 92
[2022-10-18 02:54] VITALS: BP 132/106; PULSE 104; RESP 16; TEMP 36.8; O2SAT 92
--- NOTE | 2022-10-18 03:06 | W.ED.EPISTAX ---
HPI - Epistaxis General: Chief complaint: Epistaxis Stated complaint: NOSE BLEED Time Seen by Provider: 10/17/22 23:53 History of Present Illness: 67-year-old female who is anticoagulated on Lovenox. She had a history of recurrent pulmonary embolism despite being on Eliquis recently. She had a episode of epistaxis requiring cautery by ENT earlier this week. She presents with recurrent epistaxis. She is coughing up some clot. Bleeding is mainly coming from the right side. MD complaint: epistaxis Location: right nostril Onset (ago): hour(s) Duration: constant Context: history of previous and other anticoagulant use Associated symptoms: Deny fever(s), headache(s), sinus pain, syncope, vomiting or weakness Treatment prior to arrival: nose pinching Review of Systems Const: Denies: fever(s) Eyes: Denies: change in vision ENMT: Denies: throat pain or sinus pain Card: Denies: chest pain or syncope Resp: Denies: dyspnea GI: Denies: abdominal pain or vomiting Neuro: Denies: headache(s) PFS ED PFSH: Medical History Acquired deviated nasal septum Atrial fibrillation Bipolar 1 disorder Deafness in left ear Glaucoma Heart failure with preserved ejection fraction EF 55-60% on echo 04/2022 History of breast cancer left sided, had mastectomy in 2010, no chemo or radiation History of colon polyps on endoscopy in 2020, benign Insomnia takes trazodone Mixed hyperlipidemia Type 2 diabetes mellitus without complications Surgical History H/O sternectomy History of D&C (1993) History of ear surgery (1984) left History of hernia surgery abdominal hernia repair x 4 between [id number] History of mastectomy (2010) left Family History Denies family history of Clotting disorder Bleeding disorder Social History Smoking and tobacco status: never smoked Alcohol intake: never Substance/Drug Use: never Housing: Assisted Living Facility Marital status: Marital status details: spouse has Parkinson's Previous occupational history: worked for [employer] Physical Exam Const: COMMON NORMALS: no acute distress GENERAL APPEARANCE: cooperative and frail appearing HENMT: COMMON NORMALS: normocephalic and atraumatic HEAD & SCALP: normocephalic and atraumatic FACE & SINUS: normal facial exam, sinuses nontender and face symmetric NOSE: Epistaxis present on the right anterior source, active bleeding and clots present THROAT: posterior oropharynx normal Eye: COMMON NORMALS: Equal, round and reactive pupils present and EOMs intact bilaterally PUPIL: Yes Equal, round and reactive pupils present Neck/C-Spine: GENERAL: Yes trachea midline Chest: CHEST: Yes Symmetrical chest wall rise Resp: COMMON NORMALS: normal respiratory effort, No use of accessory muscles and clear to auscultation bilaterally AUSCULTATION: clear to auscultation bilaterally Cardio: COMMON NORMALS: regular rate and regular rhythm RATE: regular rate RHYTHM: regular rhythm GI: COMMON NORMALS: Normal to inspection, nondistended, normoactive bowel sounds present and Soft to palpation PALPATION: Yes Soft to palpation Procedures Epistaxis Control Time Out Performed: No Nostril: right Nose Prepped With: phenylephrine Direct Inspection: yes and anterior source identified Clots Removed by: suction Cautery Used: silver nitrate Patient Tolerated Procedure: well and no complications Course Vital Signs: Vital signs: Vital Signs Temperature 98.3 F 10/18/22 02:54 Pulse Rate 104 H 10/18/22 02:54 Respiratory Rate 16 10/18/22 02:54 Blood Pressure 132/106 10/18/22 02:54 Pulse Oximetry 92 10/18/22 02:54 Oxygen Delivery Me thod Room Air 10/17/22 23:48 MDM - Epistaxis Medical Decision Making Patient's nares were prepped with Afrin, followed by tranexamic acid soaked Gelfoam placement. Following this, Gelfoam was removed, and cautery was used post suction with silver nitrate. Bleeding stopped. She will require follow-up with ENT surgeon given return of epistaxis, on Lovenox. No evidence of bleeding from other sources. With resolution, she will be allowed discharge, to return for any worsening symptoms Discharge Plan Discharge Patient Disposition: Home Clinical Impression: Epistaxis, recurrent Condition: Stable Prescriptions: No Action cyanocobalamin (vitamin B-12) 1,000 mcg tablet 1,000 mcg PO QAM vitamin E mixed 400 unit capsule 400 unit PO QAM metoprolol tartrate 50 mg tablet 50 mg PO BID Qty: 180 3RF latanoprost 0.005 % drops 1 drp ophthalmic (eye) BEDTIME amoxicillin-pot clavulanate [Augmentin] 500-125 mg tablet 1 tab PO TID Qty: 30 0RF (DME) lancing device with lancets [Accu-Chek Soft Dev Lancets] Kit See Rx Instructions .Route Qty: 100 3RF Rx Instructions: to uses once daily to check blood sugar 90 day supply (DME) Accu-Chek Patti Plus test strp Strip See Rx Instructions .Route Qty: 100 3RF Rx Instructions: to use once daily with accu-chek meter 90 day suppy (DME) Accu-Chek Guide test strips Strip See Rx Instructions .Route Qty: 100 3RF Rx Instructions: to use once daily in accu-check meter 90 day supply (DME) lancets [Accu-Chek Softclix Lancets] Misc See Rx Instructions .Route Qty: 100 3RF Rx Instructions: As directed metformin 500 mg tablet 500 mg PO BID Sleep Aid (diphenhydramine) 50 mg Capsule 100 mg PO BEDTIME albuterol sulfate 90 mcg/actuation Hfa Aerosol Inhaler 2 puff INHALATION QID PRN (Reason: Shortness Of Breath) ziprasidone HCl 80 mg capsule 80 mg PO BEDTIME anastrozole 1 mg tablet 1 mg PO QAM potassium chloride 10 mEq capsule, extended release 10 meq PO DAILY PRN (Reason: unknown) diltiazem HCl 240 mg capsule,extended release 24 hr 240 mg PO QAM trazodone 100 mg tablet 100 mg PO BEDTIME pantoprazole 40 mg Tablet,Delayed Release (Dr/Ec) 40 mg PO DAILY 30 Days Qty: 30 0RF enoxaparin 100 mg/mL Syringe 90 mg SUBCUT Q12H 90 Days Qty: 162 0RF furosemide 40 mg tablet 40 mg PO DAILY 15 Days Qty: 15 0RF Discharge Orders: Discharge ED (Routine); Ordered 10/18/22 Ordered By: Kvng Aguilar Referrals: Keshawn Deleon MD [Physician] - 1-3 days Jesus James MD [Primary Care Provider] - Discharge Diet: Advance as tolerated Discharge Activity: Limit activity as instructed Patient Instructions: Nosebleed (ED) Activity Restrictions/Additional Instructions: Do not attempt to blow your nose at least for the next 48 hours. Humidified air may help. Return for recurrence of significant bleeding, passing clots, other concerning symptoms. Call the ENT surgery clinic Thursday morning for a follow-up appointment this coming week. Coding Level of Care Code ED Autom[employer] Station Attendant for Brianna Jorge
== END 2022-10-18 02:56 | disposition home or self-care (01) ==
PROVIDERS: Emergency Provider Emergency Medicine; PCP Family Medicine
DX: R04.0 Epistaxis (principal); Z79.84 Long term (current) use of oral hypoglycemic drugs; I50.9 Heart failure, unspecified; Z85.3 Personal history of malignant neoplasm of breast; E11.9 Type 2 diabetes mellitus without complications; E78.2 Mixed hyperlipidemia
CPT/HCPCS: 30901; 36415; 80048; 85025; 85610; 85730; 96374; 96375; 99283; 99284; J2250; J2765; J3010

== ENCOUNTER 2022-10-18 07:59 | Emergency (ER) | payer MEDICARE, SELFPAY ==
[2022-10-18 08:06] VITALS: BP 155/75; PULSE 113; RESP 14; O2SAT 98; BMI 35.4
--- NOTE | 2022-10-18 08:15 | ED_ITS ---
HPI - Epistaxis General: Chief complaint: Epistaxis Stated complaint: nose bleed Time Seen by Provider: 10/18/22 08:14 COUNT INCLUDES THE [facility] ED PFSH: Medical History Acquired deviated nasal septum Atrial fibrillation Bipolar 1 disorder Deafness in left ear Glaucoma Heart failure with preserved ejection fraction EF 55-60% on echo 04/2022 History of breast cancer left sided, had mastectomy in 2010, no chemo or radiation History of colon polyps on endoscopy in 2020, benign Insomnia takes trazodone Mixed hyperlipidemia Type 2 diabetes mellitus without complications Surgical History H/O sternectomy History of D&C (1993) History of ear surgery (1984) left History of hernia surgery abdominal hernia repair x 4 between [id number] History of mastectomy (2010) left Family History Denies family history of Clotting disorder Bleeding disorder Social History Smoking and tobacco status: never smoked Alcohol intake: never Substance/Drug Use: never Housing: Assisted Living Facility Marital status: Marital status details: spouse has Parkinson's Previous occupational history: worked for [employer] Vital Signs: Vital signs: Vital Signs Pulse Rate 113 H 10/18/22 08:06 Respiratory Rate 14 10/18/22 08:06 Blood Pressure 155/75 10/18/22 08:06 Pulse Oximetry 98 10/18/22 08:06 Oxygen Delivery Me thod Room Air 10/18/22 08:06 Discharge Plan Discharge Condition: Stable Prescriptions: No Action cyanocobalamin (vitamin B-12) 1,000 mcg tablet 1,000 mcg PO QAM vitamin E mixed 400 unit capsule 400 unit PO QAM metoprolol tartrate 50 mg tablet 50 mg PO BID Qty: 180 3RF latanoprost 0.005 % drops 1 drp ophthalmic (eye) BEDTIME amoxicillin-pot clavulanate [Augmentin] 500-125 mg tablet 1 tab PO TID Qty: 30 0RF (DME) lancing device with lancets [Accu-Chek Soft Dev Lancets] Kit See Rx Instructions .Route Qty: 100 3RF Rx Instructions: to uses once daily to check blood sugar 90 day supply (DME) Accu-Chek Patti Plus test strp Strip See Rx Instructions .Route Qty: 100 3RF Rx Instructions: to use once daily with accu-chek meter 90 day suppy (DME) Accu-Chek Guide test strips Strip See Rx Instructions .Route Qty: 100 3RF Rx Instructions: to use once daily in accu-check meter 90 day supply (DME) lancets [Accu-Chek Softclix Lancets] Misc See Rx Instructions .Route Qty: 100 3RF Rx Instructions: As directed metformin 500 mg tablet 500 mg PO BID Sleep Aid (diphenhydramine) 50 mg Capsule 100 mg PO BEDTIME albuterol sulfate 90 mcg/actuation Hfa Aerosol Inhaler 2 puff INHALATION QID PRN (Reason: Shortness Of Breath) ziprasidone HCl 80 mg capsule 80 mg PO BEDTIME anastrozole 1 mg tablet 1 mg PO QAM potassium chloride 10 mEq capsule, extended release 10 meq PO DAILY PRN (Reason: unknown) diltiazem HCl 240 mg capsule,extended release 24 hr 240 mg PO QAM trazodone 100 mg tablet 100 mg PO BEDTIME pantoprazole 40 mg Tablet,Delayed Release (Dr/Ec) 40 mg PO DAILY 30 Days Qty: 30 0RF enoxaparin 100 mg/mL Syringe 90 mg SUBCUT Q12H 90 Days Qty: 162 0RF furosemide 40 mg tablet 40 mg PO DAILY 15 Days Qty: 15 0RF Referrals: Jesus James MD [Primary Care Provider] - Coding Level of Care Code ED Picker Machine Operator for Brianna Jorge
--- NOTE | 2022-10-18 08:29 | ED_ITS ---
Documented by User: AMOS Vallecillo 10/18/22 12:56 HPI - Epistaxis General: Chief complaint: Epistaxis Stated complaint: nose bleed Time Seen by Provider: 10/18/22 08:14 Source: patient Mode of arrival: ambulatory Limitations: no limitations History of Present Illness: Patient presents emergency department today for continued epistaxis. Chart review shows patient was seen yesterday for similar complaints. She denied any trauma prior to onset but, is anticoagulated on Lovenox. Patient has a history of recurrent PE and A-fib. Patient has had issues with epistaxis in the past requiring cautery through ENT. Her evaluation yesterday indicated she was treat ed with Afrin, Gelfoam, and cautery here in the ER. It appears the bleeding had resolved at the time of discharge but, patient states on the way home started bleeding again. She comes in now as it had continued bleeding through the night. Patient denies coughing up or spitting up any blood. She denies any pain. Chart review also indicates she had had recent lab work and patient's coagulation studies from the previous 24 hours were used last night as reference-no repeat PT/INR was collected. Review of Systems General: Reports: 10 or more systems reviewed and unremarkable except in HPI and below PFSH ED PFSH: Medical History Acquired deviated nasal septum Atrial fibrillation Bipolar 1 disorder Chronic anticoagulation Impression: Stable Plan: As per Dr. Medina Deafness in left ear Epistaxis Epistaxis, recurrent Glaucoma Heart failure with preserved ejection fraction EF 55-60% on echo 04/2022 History of breast cancer left sided, had mastectomy in 2010, no chemo or radiation History of colon polyps on endoscopy in 2020, benign Insomnia takes trazodone Mixed hyperlipidemia Pleural effusion on right Pulmonary embolism while on anastrazole and eliquis, timing unclear, identified on 10/13/2022 due to hypoxemia during an ED visit Type 2 diabetes mellitus without complications Surgical History H/O sternectomy History of D&C (1993) History of ear surgery (1984) left History of hernia surgery abdominal hernia repair x 4 between [id number] History of mastectomy (2010) left Family History Denies family history of Clotting disorder Bleeding disorder Social History Smoking and tobacco status: never smoked Alcohol intake: never Substance/Drug Use: never Housing: Assisted Living Facility Marital status: Marital status details: spouse has Parkinson's Previous occupational history: worked for [employer] Physical Exam Const: COMMON NORMALS: no acute distress, patient oriented x3 and alert HENMT: OTHER: Upon my arrival to the patient's room, she currently has a nasal clamp in place. She still has a small trickle of bleeding from the right nasal passage. Patient had crusted and dried blood across her face from wiping it away. Eye: COMMON NORMALS: Equal, round and reactive pupils present, EOMs intact bilaterally and conjunctivae normal CONJUNCTIVA: Yes conjunctivae normal PUPIL: Yes Equal, round and reactive pupils present Neck/C-Spine: COMMON NORMALS: no JVD Lymph: LYMPHATIC: no lymphadenopathy noted Resp: COMMON NORMALS: normal respiratory effort, No retractions and No use of accessory muscles Cardio: COMMON NORMALS: no JVD and regular rate RATE: regular rate : COMMON NORMALS: Yes no CVA tenderness BLADDER/KIDNEY EXAM: Yes no CVA tenderness Back/Pelvis: COMMON NORMALS: no CVA tenderness, thoracic and lumbar spine normal to inspection and thoraco-lumbar ROM normal Extremity: COMMON NORMALS: normal to inspection, full ROM and no pedal edema Neuro: COMMON NORMALS: patient oriented x3 SENSORIUM/ORIENTATION: Yes alert Skin: COMMON NORMALS: no rashes or lesions noted and turgor normal GENERAL SKIN EXAM: no rashes or lesions noted and turgor normal Procedures Procedural Sedation Indication: other (Rhino Rocket insertion) Presedation Evaluation: Timeout was performed. Patient's airway was patent at start of sedation. Time of Last PO Intake: 10:00 (Small amount of apple juice, no food since ) Preparation: lunchroom monitor applied, pulse oximeter, capnometry used, supplemental O2 applied, suction/airway equipment at bedside and IV secured Fentanyl: IV Fentanyl dose (mcg): 50 Midazolam: IV Midazolam dose (mg): 2 Patient Tolerated Procedure: well and no complications Complications: none Interventions: oxygen applied (mask held over face occasionally) and airway repositioned Additional Comments: Sedation was administered by Dr. Qureshi. Respiratory, nursing, advanced practitioner, and physician at bedside for entire procedure. Rhino Rocket was placed and secured while patient was under conscious sedation. Patient responded well to coming out of her sedation and quickly returned to her typical baseline. Patient had no loss of airway during her procedure. Vital signs remained stable. Course Vital Signs: Vital signs: Vital Signs Pulse Rate 115 H 10/18/22 11:25 Respiratory Rate 16 10/18/22 11:25 Blood Pressure 100/56 10/18/22 11:25 Pulse Oximetry 91 10/18/22 11:25 Oxygen Delivery Me thod Room Air 10/18/22 11:25 MDM - Epistaxis Medical Decision Making Patient presents with constant epistaxis from the nose. Patient currently has a nasal clamp in place but, is still bleeding. Patient has occasional retching and dry heaving with blood in the posterior pharynx. We did attempt Afrin and 20 minutes of nasal clamping here in the ER without success. Coagulation studies shows patient INR at 1.25. Attempt for Rhino Rocket in the room without success. Patient unable to tolerate placement of the Rhino Rocket with insertion only approximately long term up the balloon. I did reach out to [facility] regarding transfer for further ENT care as we do not currently have ENT specialty services at this time. Transfer services allowed me to speak with the emergency department and talk to Dr. Fuentes. She had concerns that we were not able to place the Rhino Rocket and recommended trying again. Explained patient has a deviated septum and we are struggling to find topical numbing options to comfortably place the Rhino Rocket. She indicated that she would be more comfortable if ENT was consulted and, if ENT believe patient needed the transfer, they would accept the patient. I spoke with Hong, advanced practitioner with ENT services who also indicated patient needs Rhino Rocket in place but, would agree to a patient transfer. I discussed all of this with Dr. Qureshi. Unfortunately, the only option found to give patient the ability to tolerate the procedure was a conscious sedation. We did apply a numbing spray inside the nasal passage prior to the sedation but, sedation was still required. Sedation paperwork was discussed and signed. Respiratory, nurse, PA, and MD all at bedside for procedure. There was still difficulty inserting the Rhino Rocket past half or two thirds up the balloon as the patient's deviated septum does make it very difficult to advance any further. Balloon was inflated and taped/secured to the patient's cheek. Bleeding does appear somewhat improved though there is still some leaking around the balloon. At this time, we are arranging for transfer by EMS to [facility] for further evaluation. Patient tolerated her sedation without any difficulty and had return to her baseline at the time of transfer. Differential Diagnosis Likely anterior epistaxis and posterior epistaxis (Complication of anticoagulation) Lab Data 10/18/22 09:20 10/18/22 09:20 Laboratory Results WBC 8.0 10^3/uL (4.0-10.0) 10/18/22 09:20 RBC 5.66 10^6/uL (4.1-5.3) H 10/18/22 09:20 Hgb 14.1 g/dL (11.5-15.3) 10/18/22 09:20 Hct 44.5 % (37.0-47.0) 10/18/22 09:20 MCV 78.6 fl (81-99) L 10/18/22 09:20 MCH 24.9 pg (28.0-34.0) L 10/18/22 09:20 MCHC 31.7 g/dL (30.0-36.0) 10/18/22 09:20 RDW 16.9 % (12.1-15.1) H 10/18/22 09:20 Plt Count 266 10^3/cmm (130-400) 10/18/22 09:20 MPV 12.3 fL (7.4-10.4) H 10/18/22 09:20 Neut % (Auto) 74.4 % 10/18/22 09:20 Lymph % (Auto) 15.7 % 10/18/22 09:20 [place] % (Auto) 7.8 % 10/18/22 09:20 Eos % (Auto) 0.9 % 10/18/22 09:20 Baso % (Auto) 0.8 % 10/18/22 09:20 Neut # (Auto) 5.93 10^3/uL (1.8-7.7) 10/18/22 09:20 Lymph # (Auto) 1.3 10^3/uL (0.8-4.8) 10/18/22 09:20 [place] # (Auto) 0.6 10^3/uL (0.2-0.9) 10/18/22 09:20 Eos # (Auto) 0.1 10^3/uL (0.0-0.8) 10/18/22 09:20 Baso # (Auto) 0.1 10^3/uL (0.0-0.1) 10/18/22 09:20 Nucleated RBC % (auto) 0 % 10/18/22 09:20 Nucleated RBCs # 0.0 /100WBC 10/18/22 09:20 PT 16.10 SECONDS (12.1-14.9) H 10/18/22 09:20 INR 1.25 (0.8-1.2) H 10/18/22 09:20 APTT 31.2 SECONDS (23.9-36.7) 10/18/22 09:20 Sodium 131 mmol/L (136-145) L 10/18/22 09:20 Potassium 3.5 mmol/L (3.5-5.1) 10/18/22 09:20 Chloride 93 mmol/L (98-107) L 10/18/22 09:20 Carbon Dioxide 27 mmol/L (22-29) 10/18/22 09:20 Anion Gap 14.5 (5-19) 10/18/22 09:20 BUN 21 mg/dL (8-23) 10/18/22 09:20 Creatinine 0.9 mg/dL (0.5-0.9) 10/18/22 09:20 GFR Calculation 62.1 mL/min (90-130) L 10/18/22 09:20 Glucose 142 mg/dL (65-115) H 10/18/22 09:20 Calculated Osmolality 277 mOsm/kg (285-295) L 10/18/22 09:20 Calcium 9.2 mg/dL (8.5-10.5) 10/18/22 09:20 Discharge Plan Discharge Patient Disposition: Transfer to ED Clinical Impression: Chronic anticoagulation, Epistaxis Condition: Stable Prescriptions: No Action cyanocobalamin (vitamin B-12) 1,000 mcg tablet 1,000 mcg PO QAM vitamin E mixed 400 unit capsule 400 unit PO QAM metoprolol tartrate 50 mg tablet 50 mg PO BID Qty: 180 3RF latanoprost 0.005 % drops 1 drp ophthalmic (eye) BEDTIME (DME) lancing device with lancets [Accu-Chek Soft Dev Lancets] Kit See Rx Instructions .Route Qty: 100 3RF Rx Instructions: to uses once daily to check blood sugar 90 day supply (DME) Accu-Chek Patti Plus test strp Strip See Rx Instructions .Route Qty: 100 3RF Rx Instructions: to use once daily with accu-chek meter 90 day suppy (DME) Accu-Chek Guide test strips Strip See Rx Instructions .Route Qty: 100 3RF Rx Instructions: to use once daily in accu-check meter 90 day supply (DME) lancets [Accu-Chek Softclix Lancets] Misc See Rx Instructions .Route Qty: 100 3RF Rx Instructions: As directed amoxicillin-pot clavulanate 875-125 mg tablet 1 tab PO BID Qty: 14 0RF pantoprazole 40 mg tablet,delayed release (DR/EC) 40 mg PO QAM metformin 500 mg tablet 500 mg PO BID diphenhydramine HCl [Sleep Aid (diphenhydramine)] 50 mg Capsule 100 mg PO BEDTIME albuterol sulfate 90 mcg/actuation Hfa Aerosol Inhaler 2 puff INHALATION QID PRN (Reason: Shortness Of Breath) ziprasidone HCl 80 mg capsule 80 mg PO BEDTIME anastrozole 1 mg tablet 1 mg PO QAM potassium chloride 10 mEq capsule, extended release 10 meq PO DAILY diltiazem HCl 240 mg capsule,extended release 24 hr 240 mg PO QAM trazodone 100 mg tablet 100 mg PO BEDTIME enoxaparin 100 mg/mL Syringe 90 mg SUBCUT Q12H 90 Days Qty: 162 0RF Hold Instructions: Resume on 10/26/22. furosemide 40 mg tablet 40 mg PO DAILY 15 Days Qty: 15 0RF Referrals: Jesus James MD [Primary Care Provider] - Coding Level of Care Code ED Micro Computer Specialist for Chg Fwd Documented by User: Silvestre Qureshi MD 10/28/22 02:38 HPI - Epistaxis General: Chief complaint: Epistaxis Stated complaint: nose bleed Time Seen by Provider: 10/18/22 08:14 PFS ED PFSH: Medical History Acquired deviated nasal septum Atrial fibrillation Bipolar 1 disorder Chronic anticoagulation Impression: Stable Plan: As per Dr. Medina Deafness in left ear Epistaxis Epistaxis, recurrent Glaucoma Heart failure with preserved ejection fraction EF 55-60% on echo 04/2022 History of breast cancer left sided, had mastectomy in 2010, no chemo or radiation History of colon polyps on endoscopy in 2020, benign Insomnia takes trazodone Mixed hyperlipidemia Pleural effusion on right Pulmonary embolism while on anastrazole and eliquis, timing unclear, identified on 10/13/2022 due to hypoxemia during an ED visit Type 2 diabetes mellitus without complications Surgical History H/O sternectomy History of D&C (1993) History of ear surgery (1984) left History of hernia surgery abdominal hernia repair x 4 between [id number] History of mastectomy (2010) left Family History Denies family history of Clotting disorder Bleeding disorder Social History Smoking and tobacco status: never smoked Alcohol intake: never Substance/Drug Use: never Housing: Assisted Living Facility Marital status: Marital status details: spouse has Parkinson's Previous occupational history: worked for [employer] Vital Signs: Vital signs: Vital Signs Pulse Rate 115 H 10/18/22 11:25 Respiratory Rate 16 10/18/22 11:25 Blood Pressure 100/56 10/18/22 11:25 Pulse Oximetry 91 10/18/22 11:25 Oxygen Delivery Me thod Room Air 10/18/22 11:25 MDM - Epistaxis Medical Decision Making Patient presents with constant epistaxis from the nose. Patient currently has a nasal clamp in place but, is still bleeding. Patient has occasional retching and dry heaving with blood in the posterior pharynx. We did attempt Afrin and 20 minutes of nasal clamping here in the ER without success. Coagulation studies shows patient INR at 1.25. Attempt for Rhino Rocket in the room without success. Patient unable to tolerate placement of the Rhino Rocket with inse rtion only approximately long term up the balloon. I did reach out to [facility] regarding transfer for further ENT care as we do not currently have ENT specialty services at this time. Transfer services allowed me to speak with the emergency department and talk to Dr. Fuentes. She had concerns that we were not able to place the Rhino Rocket and recommended trying again. Explained patient has a deviated septum and we are struggling to find topical numbing options to comfortably place the Rhino Rocket. She indicated that she would be more comfortable if ENT was consulted and, if ENT believe patient needed the transfer, they would accept the patient. I spoke with Hong, advanced practitioner with ENT services who also indicated patient needs Rhino Rocket in place but, would agree to a patient transfer. I discussed all of this with Dr. Qureshi. Unfortunately, the only option found to give patient the ability to tolerate the procedure was a conscious sedation. We did apply a numbing spray inside the nasal passage prior to the sedation but, sedation was still required. Sedation paperwork was discussed and signed. Respiratory, nurse, PA, and MD all at bedside for procedure. There was still difficulty inserting the Rhino Rocket past half or two thirds up the balloon as the patient's deviated septum does make it very difficult to advance any further. Balloon was inflated and taped/secured to the patient's cheek. Bleeding does appear somewhat improved though there is still some leaking around the balloon. At this time, we are arranging for transfer by EMS to [facility] for further evaluation. Patient tolerated her sedation without any difficulty and had return to her baseline at the time of transfer. I discussed this case with AMOS Weaver. I personally saw and evaluated the patient. I reperformed chapman portions of E/M. Overall challenging situation. Reattempted conservative measures without adequate hemostasis. Unable to visualize a particular bleeding vessel. Attempted placement of Rhino Rocket which the patient did not tolerate. In order to control bleeding Rhino Rocket must be placed and therefore patient consented for procedural sedation. She is not an ideal candidate however risk outweighs benefit. With difficulty and incomplete ability to insert the full length of the Rhino Rocket the Rhino Rocket was placed under procedural sedation with apparent hemostasis. Given clinical history, exam, difficulty with placement, baseline medical conditions including anticoagulation I believe that the patient requires ENT evaluation and therefore requires transfer as we do not have ENT on-call. Silvestre Qureshi MD Emergency Medicine Lab Data 10/18/22 09:20 10/18/22 09:20 Laboratory Results WBC 8.0 10^3/uL (4.0-10.0) 10/18/22 09:20 RBC 5.66 10^6/uL (4.1-5.3) H 10/18/22 09:20 Hgb 14.1 g/dL (11.5-15.3) 10/18/22 09:20 Hct 44.5 % (37.0-47.0) 10/18/22 09:20 MCV 78.6 fl (81-99) L 10/18/22 09:20 MCH 24.9 pg (28.0-34.0) L 10/18/22 09:20 MCHC 31.7 g/dL (30.0-36.0) 10/18/22 09:20 RDW 16.9 % (12.1-15.1) H 10/18/22 09:20 Plt Count 266 10^3/cmm (130-400) 10/18/22 09:20 MPV 12.3 fL (7.4-10.4) H 10/18/22 09:20 Neut % (Auto) 74.4 % 10/18/22 09:20 Lymph % (Auto) 15.7 % 10/18/22 09:20 [place] % (Auto) 7.8 % 10/18/22 09:20 Eos % (Auto) 0.9 % 10/18/22 09:20 Baso % (Auto) 0.8 % 10/18/22 09:20 Neut # (Auto) 5.93 10^3/uL (1.8-7.7) 10/18/22 09:20 Lymph # (Auto) 1.3 10^3/uL (0.8-4.8) 10/18/22 09:20 [place] # (Auto) 0.6 10^3/uL (0.2-0.9) 10/18/22 09:20 Eos # (Auto) 0.1 10^3/uL (0.0-0.8) 10/18/22 09:20 Baso # (Auto) 0.1 10^3/uL (0.0-0.1) 10/18/22 09:20 Nucleated RBC % (auto) 0 % 10/18/22 09:20 Nucleated RBCs # 0.0 /100WBC 10/18/22 09:20 PT 16.10 SECONDS (12.1-14.9) H 10/18/22 09:20 INR 1.25 (0.8-1.2) H 10/18/22 09:20 APTT 31.2 SECONDS (23.9-36.7) 10/18/22 09:20 Sodium 131 mmol/L (136-145) L 10/18/22 09:20 Potassium 3.5 mmol/L (3.5-5.1) 10/18/22 09:20 Chloride 93 mmol/L (98-107) L 10/18/22 09:20 Carbon Dioxide 27 mmol/L (22-29) 10/18/22 09:20 Anion Gap 14.5 (5-19) 10/18/22 09:20 BUN 21 mg/dL (8-23) 10/18/22 09:20 Creatinine 0.9 mg/dL (0.5-0.9) 10/18/22 09:20 GFR Calculation 62.1 mL/min (90-130) L 10/18/22 09:20 Glucose 142 mg/dL (65-115) H 10/18/22 09:20 Calculated Osmolality 277 mOsm/kg (285-295) L 10/18/22 09:20 Calcium 9.2 mg/dL (8.5-10.5) 10/18/22 09:20 Critical Care Time Critical Care Time: Critical Care Time: Yes Total Critical Care Time: 35 Attestation: Due to a high probability of clinically significant, possibly life threatening deterioration, the patient required my highest level of attention and preparedness to intervene emergently and I personally spent this critical care time directly and personally managing the patient. This critical care time included obtaining a history; examining the patient; pulse oximetry; ordering and review of laboratory and imaging studies; arranging urgent treatment with development of a management plan; evaluation of patient's response to treatment; frequent reassessment; and, discussions with other providers as applicable. It was exclusive of separately billable procedures. Primary system involved is vascular. Discharge Plan Discharge Patient Disposition: Transfer to ED Clinical Impression: Chronic anticoagulation, Epistaxis Condition: Stable Prescriptions: No Action cyanocobalamin (vitamin B-12) 1,000 mcg tablet 1,000 mcg PO QAM vitamin E mixed 400 unit capsule 400 unit PO QAM metoprolol tartrate 50 mg tablet 50 mg PO BID Qty: 180 3RF latanoprost 0.005 % drops 1 drp ophthalmic (eye) BEDTIME (DME) lancing device with lancets [Accu-Chek Soft Dev Lancets] Kit See Rx Instructions .Route Qty: 100 3RF Rx Instructions: to uses once daily to check blood sugar 90 day supply (DME) Accu-Chek Patti Plus test strp Strip See Rx Instructions .Route Qty: 100 3RF Rx Instructions: to use once daily with accu-chek meter 90 day suppy (DME) Accu-Chek Guide test strips Strip See Rx Instructions .Route Qty: 100 3RF Rx Instructions: to use once daily in accu-check meter 90 day supply (DME) lancets [Accu-Chek Softclix Lancets] Misc See Rx Instructions .Route Qty: 100 3RF Rx Instructions: As directed amoxicillin-pot clavulanate 875-125 mg tablet 1 tab PO BID Qty: 14 0RF pantoprazole 40 mg tablet,delayed release (DR/EC) 40 mg PO QAM metformin 500 mg tablet 500 mg PO BID diphenhydramine HCl [Sleep Aid (diphenhydramine)] 50 mg Capsule 100 mg PO BEDTIME albuterol sulfate 90 mcg/actuation Hfa Aerosol Inhaler 2 puff INHALATION QID PRN (Reason: Shortness Of Breath) ziprasidone HCl 80 mg capsule 80 mg PO BEDTIME anastrozole 1 mg tablet 1 mg PO QAM potassium chloride 10 mEq capsule, extended release 10 meq PO DAILY diltiazem HCl 240 mg capsule,extended release 24 hr 240 mg PO QAM trazodone 100 mg tablet 100 mg PO BEDTIME enoxaparin 100 mg/mL Syringe 90 mg SUBCUT Q12H 90 Days Qty: 162 0RF Hold Instructions: Resume on 10/26/22. furosemide 40 mg tablet 40 mg PO DAILY 15 Days Qty: 15 0RF Referrals: Jesus James MD [Primary Care Provider] - Coding Level of Care Code ED Micro Computer Specialist for Brianna Jorge
[2022-10-18] MEDS: oxymetazoline 0.05% Nasal Spray 15 mL 2 SPRAY NOSTRIL-B (09:04)
[2022-10-18 09:40] LABS: INR 1.25 (0.8-1.2)
[2022-10-18 09:41] LABS: Partial Thromboplastin Time 31.2 SECONDS (23.9-36.7)
[2022-10-18 10:21] VITALS: BP 144/77; PULSE 113; RESP 14; O2SAT 95
[2022-10-18 10:30] VITALS: BP 154/132; PULSE 119; RESP 16; O2SAT 92
[2022-10-18 11:15] VITALS: BP 168/130; PULSE 130; PULSE 135; RESP 14; O2SAT 95
[2022-10-18] MEDS: midazolam 1 mg/mL INJ 2 mL 2 MG IVP (11:16)
[2022-10-18] MEDS: metoclopramide 5 mg/mL SDV 2 mL 10 MG IVP (11:18)
[2022-10-18] MEDS: fentaNYL 50 mcg/mL INJ 2mL IVP (11:18)
[2022-10-18 11:20] VITALS: BP 156/136; PULSE 131; RESP 14; O2SAT 90
[2022-10-18] MEDS: cetacaine Spray 5 gm Can 1 SPRAY TOPICAL (11:21)
[2022-10-18 11:25] VITALS: BP 100/56; PULSE 115; RESP 16; O2SAT 91
[2022-10-18 11:57] LABS: Basophils # 0.1 10^3/uL (0.0-0.1); Basophils % 0.8 %; Eosinophils # 0.1 10^3/uL (0.0-0.8); Eosinophils % 0.9 %; Hematocrit 44.5 % (37.0-47.0); Hemoglobin 14.1 g/dL (11.5-15.3); Lymphocytes # 1.3 10^3/uL (0.8-4.8); Lymphocytes % 15.7 %; Mean Corpuscular HGB Conc 31.7 g/dL (30.0-36.0); Mean Corpuscular Hemoglobin 24.9 pg (28.0-34.0); Mean Corpuscular Volume 78.6 fl (81-99); Mean Platelet Volume 12.3 fL (7.4-10.4); Monocytes # 0.6 10^3/uL (0.2-0.9); Monocytes % 7.8 %; Neutrophils # 5.93 10^3/uL (1.8-7.7); Neutrophils % 74.4 %; Nucleated Red Blood Cells % 0 %; Platelet Count 266 10^3/cmm (130-400); Red Blood Count 5.66 10^6/uL (4.1-5.3); Red Cell Distribution Width 16.9 % (12.1-15.1)
[2022-10-18 12:18] LABS: Anion Gap 14.5 (5-19); Blood Urea Nitrogen 21 mg/dL (8-23); Calcium 9.2 mg/dL (8.5-10.5); Carbon Dioxide 27 mmol/L (22-29); Chloride 93 mmol/L (98-107); Glomerular Filtration Rate 62.1 mL/min (90-130); Glucose 142 mg/dL (65-115); Osmolality Calculated 277 mOsm/kg (285-295); Potassium 3.5 mmol/L (3.5-5.1); Sodium 131 mmol/L (136-145)
== END 2022-10-18 12:45 ==
PROVIDERS: Emergency Medicine; Emergency Provider Physician Assistant; PCP Family Medicine
DX: R04.0 Epistaxis (principal); Z79.01 Long term (current) use of anticoagulants; Z79.84 Long term (current) use of oral hypoglycemic drugs; I50.9 Heart failure, unspecified; Z85.3 Personal history of malignant neoplasm of breast; E78.2 Mixed hyperlipidemia; E11.9 Type 2 diabetes mellitus without complications
CPT/HCPCS: 36415; 80048; 85025; 85610; 85730; 96374; 96375; 99284; J2250; J2765; J3010

== ENCOUNTER 2022-10-20 06:02 | Emergency (ER) | payer MEDICARE, SELFPAY ==
[2022-10-20 06:03] VITALS: BMI 45.4
[2022-10-20 06:05] VITALS: BP 156/118; PULSE 98; RESP 16; TEMP 36.7; O2SAT 95
[2022-10-20 06:28] LABS: Basophils # 0.1 10^3/uL (0.0-0.1); Basophils % 0.9 %; Eosinophils # 0.2 10^3/uL (0.0-0.8); Eosinophils % 2.9 %; Hematocrit 40.4 % (37.0-47.0); Hemoglobin 12.8 g/dL (11.5-15.3); Lymphocytes # 1.4 10^3/uL (0.8-4.8); Lymphocytes % 18.9 %; Mean Corpuscular HGB Conc 31.7 g/dL (30.0-36.0); Mean Corpuscular Hemoglobin 24.7 pg (28.0-34.0); Mean Corpuscular Volume 77.8 fl (81-99); Mean Platelet Volume 11.5 fL (7.4-10.4); Monocytes # 0.6 10^3/uL (0.2-0.9); Monocytes % 8.3 %; Neutrophils # 5.25 10^3/uL (1.8-7.7); Neutrophils % 68.7 %; Nucleated Red Blood Cells % 0 %; Platelet Count 249 10^3/cmm (130-400); Red Blood Count 5.19 10^6/uL (4.1-5.3); Red Cell Distribution Width 16.8 % (12.1-15.1); White Blood Count 7.6 10^3/uL (4.0-10.0)
[2022-10-20 06:47] LABS: Alanine Aminotransferase 18 U/L (0-33); Albumin Level 3.7 g/dL (3.5-5.2); Alkaline Phosphatase 108 U/L (35-105); Anion Gap 18.3 (5-19); Aspartate Amino Transferase 16 U/L (0-32); Blood Urea Nitrogen 15 mg/dL (8-23); Calcium 9.2 mg/dL (8.5-10.5); Carbon Dioxide 24 mmol/L (22-29); Chloride 95 mmol/L (98-107); Globulin 3.2 g/dL (1.3-4.6); Glucose 123 mg/dL (65-115); Osmolality Calculated 280 mOsm/kg (285-295); Potassium 3.3 mmol/L (3.5-5.1); Sodium 134 mmol/L (136-145); Total Protein 6.9 g/dL (6.6-8.7)
[2022-10-20 06:49] VITALS: BP 165/106; PULSE 110; O2SAT 90
[2022-10-20 06:52] LABS: INR 1.08 (0.8-1.2); Partial Thromboplastin Time 32.1 SECONDS (23.9-36.7)
[2022-10-20 07:20] VITALS: BP 165/100; PULSE 112; O2SAT 92
[2022-10-20] MEDS: oxymetazoline 0.05% Nasal Spray 15 mL 2 SPRAY NOSTRIL-B (07:30)
[2022-10-20] MEDS: saline nasal spray 44mL Btl 1 SPRAY NASAL (07:30)
[2022-10-20 08:36] VITALS: BP 168/102; PULSE 100; O2SAT 94
--- NOTE | 2022-10-20 09:21 | ED_ITS ---
HPI - Epistaxis General: Chief complaint: Epistaxis Stated complaint: Nose bleed Time Seen by Provider: 10/20/22 06:04 Source: patient Mode of arrival: ambulatory History of Present Illness: 67-year-old female returns emergency room she is having a small amount of bleeding from the right nare. She was seen On 10/13 with epistaxis was very minor however she was very short of breath on the course of her work-up she was found to have a PE subpulmonary effusion she was admitted for the PE she had been on Eliquis when she developed a PE she was changed to Lovenox. This time she was admitted Dr. Deleon was consulted we actually had her taken to his office from the ER cautery was done she return to the ER and was admitted. At discharge home she was discharged home on Lovenox she returned over the weekend twice. Dr. Aguilar saw her and cauterized areas of concern. Second time she was sedated and nasal packing was placed she continued to bleed so she was transferred to [place] by the time she arrived there there was no active bleeding and she was discharged home she returns today she has a occasional small amount of bleeding from around the pack the plaque is been displaced anteriorly and part of the balloon is exteriorized. There is no active bleeding posteriorly or anteriorly at this time other than occasionally she will dab at the nare and get a small amount of blood on the paper towel. She denies any fev er sweats or chills. MD complaint: epistaxis Location: right nostril Duration: intermittent Context: history of previous and other anticoagulant use Associated symptoms: Reports no associated symptoms; Deny fever(s) or vomiting Treatment prior to arrival: other (Rhino Rocket in place in the right nare) Review of Systems Const: Denies: fever(s), chills, body aches, change in appetite, fatigue or malaise ENMT: Denies: throat pain, ear or mastoid pain, nasal discharge or nasal congestion Card: Denies: chest pain, edema, dyspnea on exertion or orthopnea Resp: Denies: dyspnea, productive cough or non-productive cough GI: Denies: abdominal pain, nausea, vomiting, hematemesis, coffee ground emesis, diarrhea, constipation, bloating, hematochezia or melena : Denies: flank pain, difficulty voiding, dysuria, urinary frequency or urinary urgency Skin/Breast: Denies: rash or pruritus PFSH ED PFSH: Medical History Acquired deviated nasal septum Atrial fibrillation Bipolar 1 disorder Deafness in left ear Glaucoma Heart failure with preserved ejection fraction EF 55-60% on echo 04/2022 History of breast cancer left sided, had mastectomy in 2010, no chemo or radiation History of colon polyps on endoscopy in 2020, benign Insomnia takes trazodone Mixed hyperlipidemia Type 2 diabetes mellitus without complications Surgical History H/O sternectomy History of D&C (1993) History of ear surgery (1984) left History of hernia surgery abdominal hernia repair x 4 between [id number] History of mastectomy (2010) left Family History Denies family history of Clotting disorder Bleeding disorder Social History Smoking and tobacco status: never smoked Alcohol intake: never Substance/Drug Use: never Housing: Assisted Living Facility Marital status: Marital status details: spouse has Parkinson's Previous occupational history: worked for [employer] Physical Exam Const: GENERAL APPEARANCE: cooperative and comfortable ORIEN TATION/CONSCIOUSNESS: Yes awake, Yes oriented to person, Yes oriented to place and Yes oriented to time HENMT: COMMON NORMALS: normocephalic, atraumatic and hearing grossly normal bilaterally HEAD & SCALP: normocephalic and atraumatic OTHER: Balloon protruding from the right nare of the Rhino Rocket there is a small amount of oozing moderate amount of crusted bloody eschar around the nasal's no active bleeding patient is not expectorating any blood. Resp: COMMON NORMALS: normal respiratory effort, No retractions, No use of accessory muscles and clear to auscultation bilaterally AUSCULTATION: clear to auscultation bilaterally Cardio: COMMON NORMALS: regular rate, regular rhythm and No murmurs present (Cardio) RATE: regular rate RHYTHM: regular rhythm Extremity: COMMON NORMALS: normal to inspection, capillary refill normal, no clubbing, cyanosis or edema, no calf tenderness and no pedal edema Neuro: SENSORIUM/ORIENTATION: Yes oriented to person, Yes oriented to place and Yes oriented to time Skin: COMMON NORMALS: no rashes or lesions noted GENERAL SKIN EXAM: no r ashes or lesions noted Course Vital Signs: Vital signs: Vital Signs Temperature 98.1 F 10/20/22 06:05 Pulse Rate 100 10/20/22 08:36 Respiratory Rate 16 10/20/22 06:05 Blood Pressure 168/102 10/20/22 08:36 Pulse Oximetry 94 10/20/22 08:36 Oxygen Delivery Me thod Room Air 10/20/22 07:20 MDM - Epistaxis Medical Decision Making During last hospitalization we had noted the patient a fairly large PE she had developed this while on Eliquis so she was switched to Lovenox. She is breathing is better but she still is having the epistaxis. It is relatively minor. I consulted with on-call ENT they recommend not removing the balloon and just applying a 4 x 4 inferior to the balloon. She is not bleeding from the left nare at all. I also recommend starting on Augmentin. She has previously seen Dr. Deleon to me to follow-up appoint with Dr. Mondragon reviewed with her that were not going to remove the balloon or repacked the nose because of the previous complication she had and is not a significant mount of bleeding now. Case management make arrangements for a follow-up with ENT within the next couple of days. Medical Records I reviewed the patient's medical records. Lab Data I reviewed the patient's lab results. 10/20/22 06:20 10/20/22 06:20 Laboratory Results WBC 7.6 10^3/uL (4.0-10.0) 10/20/22 06:20 RBC 5.19 10^6/uL (4.1-5.3) 10/20/22 06:20 Hgb 12.8 g/dL (11.5-15.3) 10/20/22 06:20 Hct 40.4 % (37.0-47.0) 10/20/22 06:20 MCV 77.8 fl (81-99) L 10/20/22 06:20 MCH 24.7 pg (28.0-34.0) L 10/20/22 06:20 MCHC 31.7 g/dL (30.0-36.0) 10/20/22 06:20 RDW 16.8 % (12.1-15.1) H 10/20/22 06:20 Plt Count 249 10^3/cmm (130-400) 10/20/22 06:20 MPV 11.5 fL (7.4-10.4) H 10/20/22 06:20 Neut % (Auto) 68.7 % 10/20/22 06:20 Lymph % (Auto) 18.9 % 10/20/22 06:20 [place] % (Auto) 8.3 % 10/20/22 06:20 Eos % (Auto) 2.9 % 10/20/22 06:20 Baso % (Auto) 0.9 % 10/20/22 06:20 Neut # (Auto) 5.25 10^3/uL (1.8-7.7) 10/20/22 06:20 Lymph # (Auto) 1.4 10^3/uL (0.8-4.8) 10/20/22 06:20 [place] # (Auto) 0.6 10^3/uL (0.2-0.9) 10/20/22 06:20 Eos # (Auto) 0.2 10^3/uL (0.0-0.8) 10/20/22 06:20 Baso # (Auto) 0.1 10^3/uL (0.0-0.1) 10/20/22 06:20 Nucleated RBC % (auto) 0 % 10/20/22 06:20 Nucleated RBCs # 0.0 /100WBC 10/20/22 06:20 PT 14.30 SECONDS (12.1-14.9) 10/20/22 06:20 INR 1.08 (0.8-1.2) 10/20/22 06:20 APTT 32.1 SECONDS (23.9-36.7) 10/20/22 06:20 Sodium 134 mmol/L (136-145) L 10/20/22 06:20 Potassium 3.3 mmol/L (3.5-5.1) L 10/20/22 06:20 Chloride 95 mmol/L (98-107) L 10/20/22 06:20 Carbon Dioxide 24 mmol/L (22-29) 10/20/22 06:20 Anion Gap 18.3 (5-19) 10/20/22 06:20 BUN 15 mg/dL (8-23) 10/20/22 06:20 Creatinine 0.7 mg/dL (0.5-0.9) 10/20/22 06:20 GFR Calculation 83.0 mL/min (90-130) L 10/20/22 06:20 Glucose 123 mg/dL (65-115) H 10/20/22 06:20 Calculated Osmolality 280 mOsm/kg (285-295) L 10/20/22 06:20 Calcium 9.2 mg/dL (8.5-10.5) 10/20/22 06:20 Total Bilirubin 1.0 mg/dL (0.15-1.2) 10/20/22 06:20 AST 16 U/L (0-32) 10/20/22 06:20 ALT 18 U/L (0-33) 10/20/22 06:20 Alkaline Phosphatase 108 U/L (35-105) H 10/20/22 06:20 Total Protein 6.9 g/dL (6.6-8.7) 10/20/22 06:20 Albumin 3.7 g/dL (3.5-5.2) 10/20/22 06:20 Globulin 3.2 g/dL (1.3-4.6) 10/20/22 06:20 Discharge Plan Discharge Patient Disposition: Home Clinical Impression: Epistaxis, recurrent, Acquired deviated nasal septum, Pulmonary embolism, Atrial fibrillation Condition: Stable Prescriptions: New amoxicillin-pot clavulanate 875-125 mg tablet 1 tab PO BID Qty: 14 0RF No Action cyanocobalamin (vitamin B-12) 1,000 mcg tablet 1,000 mcg PO QAM vitamin E mixed 400 unit capsule 400 unit PO QAM metoprolol tartrate 50 mg tablet 50 mg PO BID Qty: 180 3RF latanoprost 0.005 % drops 1 drp ophthalmic (eye) BEDTIME amoxicillin-pot clavulanate [Augmentin] 500-125 mg tablet 1 tab PO TID Qty: 30 0RF (DME) lancing device with lancets [Accu-Chek Soft Dev Lancets] Kit See Rx Instructions .Route Qty: 100 3RF Rx Instructions: to uses once daily to check blood sugar 90 day supply (DME) Accu-Chek Patti Plus test strp Strip See Rx Instructions .Route Qty: 100 3RF Rx Instructions: to use once daily with accu-chek meter 90 day suppy (DME) Accu-Chek Guide test strips Strip See Rx Instructions .Route Qty: 100 3RF Rx Instructions: to use once daily in accu-check meter 90 day supply (DME) lancets [Accu-Chek Softclix Lancets] Misc See Rx Instructions .Route Qty: 100 3RF Rx Instructions: As directed metformin 500 mg tablet 500 mg PO BID Sleep Aid (diphenhydramine) 50 mg Capsule 100 mg PO BEDTIME albuterol sulfate 90 mcg/actuation Hfa Aerosol Inhaler 2 puff INHALATION QID PRN (Reason: Shortness Of Breath) ziprasidone HCl 80 mg capsule 80 mg PO BEDTIME anastrozole 1 mg tablet 1 mg PO QAM potassium chloride 10 mEq capsule, extended release 10 meq PO DAILY PRN (Reason: unknown) diltiazem HCl 240 mg capsule,extended release 24 hr 240 mg PO QAM trazodone 100 mg tablet 100 mg PO BEDTIME pantoprazole 40 mg Tablet,Delayed Release (Dr/Ec) 40 mg PO DAILY 30 Days Qty: 30 0RF enoxaparin 100 mg/mL Syringe 90 mg SUBCUT Q12H 90 Days Qty: 162 0RF furosemide 40 mg tablet 40 mg PO DAILY 15 Days Qty: 15 0RF Discharge Orders: Discharge ED (Routine); Ordered 10/20/22 Ordered By: Adilson Isaac Referrals: Jesus James MD [Primary Care Provider] - Discharge Diet: Usual diet Discharge Activity: Increase activity as tolerated Patient Instructions: Opioid Safety, Pain Management Activity Restrictions/Additional Instructions: Case management make arrangements to follow-up with Dr. Deleon in the ENT clinic in the next few days. Start Augmentin 1 pill twice a day continue your other previously prescribed medications. Coding Level of Care Code ED [place] Machine Operator for Brianna Jorge
== END 2022-10-20 08:37 | disposition home or self-care (01) ==
PROVIDERS: Emergency Medicine; Emergency Provider Family Medicine; PCP Family Medicine
DX: R04.0 Epistaxis (principal); J34.2 Deviated nasal septum; I26.99 Other pulmonary embolism without acute cor pulmonale; I48.91 Unspecified atrial fibrillation; Z79.01 Long term (current) use of anticoagulants
CPT/HCPCS: 80053; 85025; 85610; 85730; 99283

== ENCOUNTER 2022-10-21 18:39 | Observation (INO) | payer MEDICARE, SELFPAY ==
[2022-10-21] VITALS (14 sets, daily range): BP systolic 102–202; BP diastolic 77–131; PULSE 68–106; RESP 15–28; TEMP 36.3–36.7; O2SAT 89–100
--- NOTE | 2022-10-21 20:29 | ED_ITS ---
HPI - Epistaxis General: Chief complaint: Epistaxis Stated complaint: Nose bleed Time Seen by Provider: 10/21/22 20:21 History of Present Illness: Patient presents here with complaints of bleeding out of both sides of her nostrils. Patient has had a Rhino Rocket in her right nostril that is bleeding around it. Patient has a stack of 4 x 4's around her nose and they are completely saturated with blood. Patient is on blood thinners at this time for PE. This is the patient's approximate fourth time in the last 3 days of being here for bleeding. Patient's had had to have a Rhino Rocket placed under conscious sedation on the . Patient is currently on Lovenox at this time. Review of Systems General: Reports: 10 or more systems reviewed and unremarkable except in HPI and below PFSH ED PFSH: Medical History Acquired deviated nasal septum Atrial fibrillation Bipolar 1 disorder Deafness in left ear Glaucoma Heart failure with preserved ejection fraction EF 55-60% on echo 04/2022 History of breast cancer left sided, had mastectomy in 2010, no chemo or radiation History of colon polyps on endoscopy in 2020, benign Insomnia takes trazodone Mixed hyperlipidemia Type 2 diabetes mellitus without complications Surgical History H/O sternectomy History of D&C (1993) History of ear surgery (1984) left History of hernia surgery abdominal hernia repair x 4 between [id number] History of mastectomy (2010) left Family History Denies family history of Clotting disorder Bleeding disorder Social History Smoking and tobacco status: never smoked Alcohol intake: never Substance/Drug Use: never Housing: Assisted Living Facility Marital status: Marital status details: spouse has Parkinson's Previous occupational history: worked for [employer] Physical Exam Const: COMMON NORMALS: no acute distress, average body habitus, patient oriented x3, no limitations, healthy appearing, alert and well nourished HENMT: COMMON NORMALS: normocephalic, atraumatic, hearing grossly normal bilaterally and external ears normal HEAD & SCALP: normocephalic and atraumatic EXTERNAL EAR: Yes external ears normal OTHER: Patient is a Rhino Rocket in the right nostril appears to be bleeding from both nostrils. Eye: COMMON NORMALS: Equal, round and reactive pupils present, EOMs intact bi laterally, conjunctivae normal and no scleral icterus CONJUNCTIVA: Yes co njunctivae normal PUPIL: Yes Equal, round and reactive pupils present Neck/C-Spine: COMMON NORMALS: full ROM, no lymphadenopathy, supple, no meningeal signs, no JVD and Thyroid normal THYROID: Thyroid normal Chest: COMMONS NORMALS: normal inspection of the chest and normal palpation of entire chest wall Resp: COMMON NORMALS: normal respiratory effort, No retractions, No use of accessory muscles and clear to auscultation bilaterally AUSCULTATION: clear t o auscultation bilaterally Cardio: COMMON NORMALS: no JVD, regular rate, regular rhythm, S1 normal heart sound present, S2 normal heart sound present, No gallops present (Cardio), No clicks present (Cardio), No murmurs present (Cardio) and No rub (Cardio) RATE: regular rate RHYTHM: regular rhythm HEART SOUNDS: S1 normal heart sound present and S2 normal heart sound present GI: COMMON NORMALS: Normal to inspection, nondistended, normoactive bowel sounds present, Soft to palpation, non-tender, No hepatosplenomegaly present and no masses PALPATION: Yes Soft to palpation and Yes No hepatosplenomegaly present Neuro: COMMON NORMALS: patient oriented x3 SENSORIUM/ORIENTATION: Yes alert MENINGEAL SIGNS: Yes no meningeal signs Procedures Epistaxis Control Time Out Performed: Yes Nostril: bilateral Direct Inspection: yes and unable to visualize Clots Removed by: suction Device Inserted: nasal tampon Patient Tolerated Procedure: well and no complications Procedural Sedation Presedation Evaluation: Patient is a 67-year-old female with bilateral nosebleeds uncontrolled with Rhino Rocket on the left side on daily Lovenox secondary to a PE. Rhino Rocket will be replaced on the right side and a new one inserted on the left side. ASA Class: II Preparation: vehicle monitor technician applied, pulse oximeter, supplemental O2 applied, suction/airway equipment at bedside and IV secured Fentanyl: IV Fentanyl dose (mcg): 25 Midazolam: IV Midazolam dose (mg): 2 Patient Tolerated Procedure: well and no complications Additional Comments: Bilateral Rhino Rocket's placed with no complications. Course Vital Signs: Vital signs: Vital Signs Temperature 98.0 F 10/21/22 18:45 Pulse Rate 91 10/21/22 21:38 Respiratory Rate 15 10/21/22 21:38 Blood Pressure 139/115 10/21/22 21:38 Pulse Oximetry 91 10/21/22 21:38 Oxygen Delivery Me thod Room Air 10/21/22 21:38 Oxygen Flow Rate 5 10/21/22 21:28 MDM - Epistaxis Medical Decision Making Talk with Dr. Farah who recommends is placing a Rhino Rocket on the left side and feeling both reservoirs with saline instead of air. Discussed this with the patient and she will not allow us to even attempt to place a Rhino Rocket without consciously sedating her like they did the last time. Patient was consciously sedated easily with 2 mg of Versed and 25 mcg of fentanyl. Rhino Rocket was removed from right nostril clot was removed and Rhino Rocket's were inserted into bilateral nostrils with saline in the bulb instead of air. Patient tolerated procedure well patient appeared not to be bleeding at the moment. Dr. Farah called back to see how patient was doing he was informed carmen she appeared stable at this moment and he suggested observation since patient has had so many problems. Dr. Arora was consulted he agreed for observation with consult for Dr. Farah in the morning. Differential Diagnosis Likely anterior epistaxis and posterior epistaxis; Unlikely nasal bone fracture Medical Records I reviewed the patient's medical records. Lab Data 10/21/22 22:25 Laboratory Results WBC 7.9 10^3/uL (4.0-10.0) 10/21/22 22:25 RBC 5.00 10^6/uL (4.1-5.3) 10/21/22 22:25 Hgb 12.5 g/dL (11.5-15.3) 10/21/22 22:25 Hct 39.0 % (37.0-47.0) 10/21/22 22:25 MCV 78.0 fl (81-99) L 10/21/22 22:25 MCH 25.0 pg (28.0-34.0) L 10/21/22 22:25 MCHC 32.1 g/dL (30.0-36.0) 10/21/22 22:25 RDW 17.2 % (12.1-15.1) H 10/21/22 22:25 Plt Count 241 10^3/cmm (130-400) 10/21/22 22:25 MPV 11.6 fL (7.4-10.4) H 10/21/22 22:25 Neut % (Auto) 58.3 % 10/21/22 22: Lymph % (Auto) 24.8 % 10/21/22 22:25 [place] % (Auto) 11.2 % 10/21/22 22:25 Eos % (Auto) 4.2 % 10/21/22 22: Baso % (Auto) 1.0 % 10/21/22: Neut # (Auto) 4.63 10^3/uL (1.8-7.7) 10/21/22 22: Lymph # (Auto) 2.0 10^3/uL (0.8-4.8) 10/21/22 22:25 [place] # (Auto) 0.9 10^3/uL (0.2-0.9) 10/21/22 22:25 Eos # (Auto) 0.3 10^3/uL (0.0-0.8) 10/21/22 22:25 Baso # (Auto) 0.1 10^3/uL (0.0-0.1) 10/21/22 22: Nucleated RBC % (auto) 0 % 10/21/22 22: Nucleated RBCs # 0.0 /100WBC 10/21/22 22:25 Discharge Plan Discharge Patient Disposition: Placed in Observation Clinical Impression: Epistaxis, recurrent, Chronic anticoagulation Condition: Stable Prescriptions: No Action cyanocobalamin (vitamin B-12) 1,000 mcg tablet 1,000 mcg PO QAM vitamin E mixed 400 unit capsule 400 unit PO QAM metoprolol tartrate 50 mg tablet 50 mg PO BID Qty: 180 3RF latanoprost 0.005 % drops 1 drp ophthalmic (eye) BEDTIME amoxicillin-pot clavulanate [Augmentin] 500-125 mg tablet 1 tab PO TID Qty: 30 0RF (DME) lancing device with lancets [Accu-Chek Soft Dev Lancets] Kit See Rx Instructions .Route Qty: 100 3RF Rx Instructions: to uses once daily to check blood sugar 90 day supply (DME) Accu-Chek Patti Plus test strp Strip See Rx Instructions .Route Qty: 100 3RF Rx Instructions: to use once daily with accu-chek meter 90 day suppy (DME) Accu-Chek Guide test strips Strip See Rx Instructions .Route Qty: 100 3RF Rx Instructions: to use once daily in accu-check meter 90 day supply (DME) lancets [Accu-Chek Softclix Lancets] Misc See Rx Instructions .Route Qty: 100 3RF Rx Instructions: As directed amoxicillin-pot clavulanate 875-125 mg tablet 1 tab PO BID Qty: 14 0RF metformin 500 mg tablet 500 mg PO BID Sleep Aid (diphenhydramine) 50 mg Capsule 100 mg PO BEDTIME albuterol sulfate 90 mcg/actuation Hfa Aerosol Inhaler 2 puff INHALATION QID PRN (Reason: Shortness Of Breath) ziprasidone HCl 80 mg capsule 80 mg PO BEDTIME anastrozole 1 mg tablet 1 mg PO QAM potassium chloride 10 mEq capsule, extended release 10 meq PO DAILY PRN (Reason: unknown) diltiazem HCl 240 mg capsule,extended release 24 hr 240 mg PO QAM trazodone 100 mg tablet 100 mg PO BEDTIME pantoprazole 40 mg Tablet,Delayed Release (Dr/Ec) 40 mg PO DAILY 30 Days Qty: 30 0RF enoxaparin 100 mg/mL Syringe 90 mg SUBCUT Q12H 90 Days Qty: 162 0RF furosemide 40 mg tablet 40 mg PO DAILY 15 Days Qty: 15 0RF Referrals: Jesus James MD [Primary Care Provider] - Coding Level of Care Code ED Sample Maker Original for Brianna Jorge
[2022-10-21] MEDS: oxymetazoline 0.05% Nasal Spray 15 mL 2 SPRAY NOSTRIL-B (20:49)
[2022-10-21] MEDS: fentaNYL 50 mcg/mL INJ 2mL IVP (21:07)
[2022-10-21] MEDS: midazolam 1 mg/mL INJ 2 mL 2 MG IVP (21:08)
[2022-10-21 22:28] LABS: Basophils # 0.1 10^3/uL (0.0-0.1); Eosinophils # 0.3 10^3/uL (0.0-0.8); Eosinophils % 4.2 %; Hemoglobin 12.5 g/dL (11.5-15.3); Lymphocytes % 24.8 %; Mean Corpuscular HGB Conc 32.1 g/dL (30.0-36.0); Mean Platelet Volume 11.6 fL (7.4-10.4); Monocytes # 0.9 10^3/uL (0.2-0.9); Monocytes % 11.2 %; Neutrophils # 4.63 10^3/uL (1.8-7.7); Neutrophils % 58.3 %; Nucleated Red Blood Cells % 0 %; Platelet Count 241 10^3/cmm (130-400); Red Cell Distribution Width 17.2 % (12.1-15.1); White Blood Count 7.9 10^3/uL (4.0-10.0)
--- NOTE | 2022-10-21 22:51 | P.HP_ITS ---
Providers/Chief Complaint Admitting Physician: Jose Alfredo Medina MD Primary Care Provider: Jesus James MD Chief Complaint: Nose bleed History of Present Illness Alix Kearns is a 67 year old female presenting to the hospital with recurrent nosebleed. Last hospital stay was October 13 through October 16. At that time she was diagnosed with a nosebleed, and pulmonary embolism. It was unclear whether she was a treatment failure on Eliquis, so this was discontinued and Lovenox initiated. She also had a pleural effusion at that time, and thoracentesis was performed. She reports her nose was bleeding on the left today, so came into the emergency department. Her last dose of anticoagulation, Lovenox, was tonight with supper. She reports she is not short of breath. She denies being on any other anticoagulation. In the emergency department course, her Rhino Rocket on the right was removed, and 2 were placed, 1 on each side, filled with saline instead of air. ENT was called and recommended observation overnight, and would consult in the morning. She apparently also has an appointment with ENT at the hospital, Dr. Deleon, as an outpatient tomorrow. Review of Systems General: Reports: 10 or more systems reviewed and unremarkable except in HPI and below ENMT: Reports: epistaxis Card: Denies: chest pain Resp: Denies: dyspnea GI: Denies: abdominal pain Medications/Allergies Home Medications Medication Instructions Recorded Confirmed Last Taken Type latanoprost 0.005 % eye drops 1 drp ophthalmic (eye) BEDTIME 11/18/21 10/13/22 Unknown History cyanocobalamin (vitamin B-12) 1,000 mcg PO QAM 02/05/22 10/13/22 10/12/22 History 1,000 mcg tablet vitamin E mixed 400 unit capsule 400 unit PO QAM 02/05/22 10/13/22 10/12/22 History metoprolol tartrate 50 mg tablet 50 mg PO BID #180 tabs 07/28/22 10/13/22 10/12/22 Rx amoxicillin 500 mg-potassium 1 tab PO TID #30 tabs 10/06/22 10/13/22 10/12/22 Rx clavulanate 125 mg tablet rx filled (Augmentin) 10/06/22 10d blood sugar diagnostic (Accu-Chek #100 ea 10/06/22 10/13/22 Unknown Rx Patti Plus test strips) lancing device with lancets kit #100 ea 10/06/22 10/13/22 Unknown Rx (Accu-Chek Softclix Lancing Device+Lancets kit) blood sugar diagnostic (Accu-Chek #100 ea 10/08/22 10/13/22 Unknown Rx Guide test strips) lancets (Accu-Chek Softclix #100 ea 10/10/22 10/13/22 Unknown Rx Lancets) albuterol sulfate 90 mcg/actuation 2 puff inhalation QID PRN 10/13/22 10/13/22 Unknown History aerosol inhaler Shortness Of Breath anastrozole 1 mg tablet 1 mg PO QAM 10/13/22 10/13/22 10/12/22 History diltiazem HCl 240 mg capsule,24 240 mg PO QAM 10/13/22 10/13/22 10/12/22 History hr,extended release diphenhydramine HCl 50 mg capsule 100 mg PO BEDTIME 10/13/22 10/13/22 10/12/22 History (Sleep Aid (diphenhydramine)) metformin 500 mg tablet 500 mg PO BID 10/13/22 10/13/22 10/12/22 History potassium chloride 10 mEq 10 meq PO DAILY PRN unknown 10/13/22 10/13/22 1 Month Ago History capsule,extended release ~09/12/22 trazodone 100 mg tablet 100 mg PO BEDTIME 10/13/22 10/13/22 10/12/22 History ziprasidone HCl 80 mg capsule 80 mg PO BEDTIME 10/13/22 10/13/22 10/12/22 History enoxaparin 100 mg/mL subcutaneous 90 mg (0.9 mL) SUBCUT Q12H 90 days 10/16/22 Unknown Rx syringe #162 mL furosemide 40 mg tablet 40 mg PO DAILY 15 days #15 tabs 10/16/22 10/13/22 Unknown Rx pantoprazole 40 mg tablet,delayed 40 mg PO DAILY 30 days #30 tabs 10/16/22 Unknown Rx release amoxicillin 875 mg-potassium 1 tab PO BID #14 tabs 10/20/22 Unknown Rx clavulanate 125 mg tablet Allergies Allergy/AdvReac Type Severity Reaction Status Date / Time aspirin [From Norgesic] Allergy Intermediate vomits Verified 10/13/22 08:05 adhesive Allergy Unknown Verified 10/13/22 08:05 caffeine [From Norgesic] Allergy Unknown Verified 08/06/22 15:04 carrot Allergy Unknown Verified 10/13/22 08:04 iodine Allergy Unknown Verified 10/13/22 08:05 mushroom Allergy Unknown Verified 10/13/22 08:04 orphenadrine [From Norgesic] Allergy Unknown Verified 10/13/22 08:05 Pork/Porcine Containing Allergy diarrhea Verified 10/15/22 16:03 Products cephalexin AdvReac Intermediate vomitting Verified 10/13/22 08:05 Sulfa (Sulfonamide AdvReac Intermediate adv-vomitti Verified 10/13/22 08:05 Antibiotics) ng byetta Allergy Intermediate vomitting Uncoded 08/06/22 15:04 all fruits Allergy Unknown Uncoded 10/13/22 08:04 roberson Allergy Unknown Uncoded 10/13/22 08:04 PFSH Acute PFSH: Medical History Acquired deviated nasal septum Atrial fibrillation Bipolar 1 disorder Deafness in left ear Glaucoma Heart failure with preserved ejection fraction EF 55-60% on echo 04/2022 History of breast cancer left sided, had mastectomy in 2010, no chemo or radiation History of colon polyps on endoscopy in 2020, benign Insomnia takes trazodone Mixed hyperlipidemia Type 2 diabetes mellitus without complications Surgical History H/O sternectomy History of D&C (1993) History of ear surgery (1984) left History of hernia surgery abdominal hernia repair x 4 between [id number] History of mastectomy (2010) left Family History Denies family history of Clotting disorder Bleeding disorder Social History Smoking and tobacco status: never smoked Alcohol intake: never Substance/Drug Use: never Housing: Assisted Living Facility Marital status: Marital status details: spouse has Parkinson's Previous occupational history: worked for [employer] Vitals/I&O/Wt Last Vital Signs Temp 98.0 F 10/21/22 18:45 Pulse 91 10/21/22 21:38 Resp 15 10/21/22 21:38 BP 139/115 10/21/22 21:38 Pulse Ox 91 10/21/22 21:38 O2 Del Method Room Air 10/21/22 21:38 O2 Flow Rate 5 10/21/22 21:28 Weight last 48 hrs Weight 81.647 kg Physical Exam Narrative: General exam is a white female, with bilateral Rhino Rocket's, with no evidence of active bleeding HEENT: Atraumatic and normocephalic. Oropharynx clear. Bilateral Rhino Rocke t's are noted. No posterior pharyngeal bleeding. Neck is supple no lymphadenopathy thyromegaly Cardiovascular, irregular without murmur Lungs clear no wheezing or crackles Abdomen: Soft nontender with positive bowel sounds. No obvious organomegaly exam is deferred Extremities no cyanosis clubbing or edema, cap refill brisk Skin no rash Neuro no focal deficits. Data 10/21/22 22:25 Other Labs: Yesterday demonstrated mild hypokalemia, normal LFTs with exception of alk phos of 108 X-ray October 15 demonstrated improved right pleural effusion, cardiomegaly Echo October 13 demonstrated an EF of 45 to 50%, moderate pulmonary hypertension A&P Assessment and plan (1) Epistaxis: Patient has recurrent epistaxis, with multiple visits to the institution for that including ER visits and admissions. ENT recommended observation overnight Observe, repeat CBC tomorrow, continue Rhino Rocket's with saline bilateral nares, ENT consult tomorrow Last dose of Lovenox was tonight. This will need to reorder tomorrow morning if she is not actively bleeding. Dosage decreased to her current weight, approximately 80 mg every 12 hours. This is being given secondary to pulmonary emboli, recent diagnosis. Continue Augmentin, secondary to nosebleed and Rhino Rocket's for infection prevention. (2) Atrial fibrillation: Continue patient's metoprolol and diltiazem (3) Pleural effusion on right: She has had a recent thoracentesis for transudative pleural effusion. Repeat x-ray. It has been approximately 1 week since this was done. Pathology currently is negative. She will need follow-up as previously scheduled. (4) Pulmonary embolism: There was concern she had pulmonary embolism, on Eliquis. She was placed on Lovenox. Dose will need to be decreased to 80 mg every 12 hours consistent with her weight currently. Plan Diabetes mellitus. Mild sliding scale insulin. Multiple other problems as outlined in her past medical history Full code SCDs for DVT prophylaxis, likely continue Lovenox but will reevaluate nose in the morning prior to ordering. Attestations Medical Necessity Statement*: Will need less than 2 midnight stay for evaluation and treatment of epistaxis, recurrent Diagnoses Epistaxis R04.0 Atrial fibrillation I48.91 Pleural effusion on right J90 Pulmonary embolism I26.99 Time Spent (min) 49
--- NOTE | 2022-10-21 22:54 | XRR_ITS ---
PROCEDURE INFORMATION: Exam: XR Chest Exam date and time: 10/21/2022 10:59 PM Age: 67 years old Clinical indication: Other: F/u pleural effusion; Additional info: Follow up pleural effusion TECHNIQUE: Imaging protocol: Radiologic exam of the chest. Views: 1 view. COMPARISON: CR XR chest 1V portable [id number] 10/15/2022 10:07 AM FINDINGS: Lungs: Minimal bibasilar atelectasis versus infiltrate. Pleural spaces: Unremarkable. No pleural effusion. No pneumothorax. Heart/Mediastinum: Unremarkable. No cardiomegaly. Bones/joints: Unremarkable. XR/XR chest 1V portable [id number] IMPRESSION: 1. Minimal bibasilar atelectasis versus infiltrate. 2. Negative for pleural effusion.
--- NOTE | 2022-10-21 23:41 | PC.NURSE ---
@ 4256 provider made aware of patients elevated bp. Dr Sow states that it is due to the pressure on her rhino rockets. Pt has no complaints of pain at this time. MInimal pressure in her nostril.
[2022-10-22] MEDS: ziprasidone hcl 40 mg Capsule 80 MG PO (00:54)
[2022-10-22] MEDS: trazodone 100 mg Tablet PO (00:55)
[2022-10-22 03:53] VITALS: BP 194/88; PULSE 78; RESP 18; TEMP 36.8; O2SAT 97
--- NOTE | 2022-10-22 04:29 | PM.CONSULT ---
Providers/Reason For Consult Consulting Physician/Specialty*: Dr. Danie Farah MD Otolaryngology Reason for Consult*: Epistaxis Requesting Physician: Dr. Jorge Medina MD Attending Physician: Jose Alfredo Medina MD Primary Care Provider: Jesus James MD History of Present Illness History of Present Illness Alix Kearns is a 67 yo wf with a h/o recurrent epistaxis who was admitted last night. The patient has had nasal packing placed on the left 2 days ago and had packing placed on the right last night in the ER. The patient has a h/o PE and is currently on Lovenox for this condition. The patient had the air in her nasal packing replaced with saline and her epistaxis has been controlled overnight. The patient reports that she is currently doing well and has minimal bleeding from her nose at present. Review of Systems General: Reports: 10 or more systems reviewed and unremarkable except in HPI and below Medications/Allergies Home Medications Medication Instructions Recorded Confirmed Last Taken Type latanoprost 0.005 % eye drops 1 drp ophthalmic (eye) BEDTIME 11/18/21 10/13/22 Unknown History cyanocobalamin (vitamin B-12) 1,000 mcg PO QAM 02/05/22 10/13/22 10/12/22 History 1,000 mcg tablet vitamin E mixed 400 unit capsule 400 unit PO QAM 02/05/22 10/13/22 10/12/22 History metoprolol tartrate 50 mg tablet 50 mg PO BID #180 tabs 07/28/22 10/13/22 10/12/22 Rx amoxicillin 500 mg-potassium 1 tab PO TID #30 tabs 10/06/22 10/13/22 10/12/22 Rx clavulanate 125 mg tablet rx filled (Augmentin) 10/06/22 10d blood sugar diagnostic (Accu-Chek #100 ea 10/06/22 10/13/22 Unknown Rx Patti Plus test strips) lancing device with lancets kit #100 ea 10/06/22 10/13/22 Unknown Rx (Accu-Chek Softclix Lancing Device+Lancets kit) blood sugar diagnostic (Accu-Chek #100 ea 10/08/22 10/13/22 Unknown Rx Guide test strips) lancets (Accu-Chek Softclix #100 ea 10/10/22 10/13/22 Unknown Rx Lancets) albuterol sulfate 90 mcg/actuation 2 puff inhalation QID PRN 10/13/22 10/13/22 Unknown History aerosol inhaler Shortness Of Breath anastrozole 1 mg tablet 1 mg PO QAM 10/13/22 10/13/22 10/12/22 History diltiazem HCl 240 mg capsule,24 240 mg PO QAM 10/13/22 10/13/22 10/12/22 History hr,extended release diphenhydramine HCl 50 mg capsule 100 mg PO BEDTIME 10/13/22 10/13/22 10/12/22 History (Sleep Aid (diphenhydramine)) metformin 500 mg tablet 500 mg PO BID 10/13/22 10/13/22 10/12/22 History potassium chloride 10 mEq 10 meq PO DAILY PRN unknown 10/13/22 10/13/22 1 Month Ago History capsule,extended release ~09/12/22 trazodone 100 mg tablet 100 mg PO BEDTIME 10/13/22 10/13/22 10/12/22 History ziprasidone HCl 80 mg capsule 80 mg PO BEDTIME 10/13/22 10/13/22 10/12/22 History enoxaparin 100 mg/mL subcutaneous 90 mg (0.9 mL) SUBCUT Q12H 90 days 10/16/22 Unknown Rx syringe #162 mL furosemide 40 mg tablet 40 mg PO DAILY 15 days #15 tabs 10/16/22 10/13/22 Unknown Rx pantoprazole 40 mg tablet,delayed 40 mg PO DAILY 30 days #30 tabs 10/16/22 Unknown Rx release amoxicillin 875 mg-potassium 1 tab PO BID #14 tabs 10/20/22 Unknown Rx clavulanate 125 mg tablet Allergies Allergy/AdvReac Type Severity Reaction Status Date / Time aspirin [From Norgesic] Allergy Intermediate vomits Verified 10/13/22 08:05 adhesive Allergy Unknown Verified 10/13/22 08:05 caffeine [From Norgesic] Allergy Unknown Verified 08/06/22 15:04 carrot Allergy Unknown Verified 10/13/22 08:04 iodine Allergy Unknown Verified 10/13/22 08:05 mushroom Allergy Unknown Verified 10/13/22 08:04 orphenadrine [From Norgesic] Allergy Unknown Verified 10/13/22 08:05 Pork/Porcine Containing Allergy diarrhea Verified 10/15/22 16:03 Products cephalexin AdvReac Intermediate vomitting Verified 10/13/22 08:05 Sulfa (Sulfonamide AdvReac Intermediate adv-vomitti Verified 10/13/22 08:05 Antibiotics) ng byetta Allergy Intermediate vomitting Uncoded 08/06/22 15:04 all fruits Allergy Unknown Uncoded 10/13/22 08:04 roberson Allergy Unknown Uncoded 10/13/22 08:04 Current Medications Generic Name Dose Route Start Last Admin Trade Name Kristian PRN Reason Stop Dose Admin Trazodone HCl 100 mg 10/21/22 23:40 10/22/22 00:55 Trazodone 100 Mg Tablet PO 100 mg BEDTIME MARIIA Administration PFSH Acute PFSH: Medical History Acquired deviated nasal septum Atrial fibrillation Bipolar 1 disorder Deafness in left ear Glaucoma Heart failure with preserved ejection fraction EF 55-60% on echo 04/2022 History of breast cancer left sided, had mastectomy in 2010, no chemo or radiation History of colon polyps on endoscopy in 2020, benign Insomnia takes trazodone Mixed hyperlipidemia Type 2 diabetes mellitus without complications Surgical History H/O sternectomy History of D&C (1993) History of ear surgery (1984) left History of hernia surgery abdominal hernia repair x 4 between 0593-6495 History of mastectomy (2010) left Family History Denies family history of Clotting disorder Bleeding disorder Social History Smoking and tobacco status: never smoked Alcohol intake: never Substance/Drug Use: never Housing: Assisted Living Facility Marital status: Marital status details: spouse has Parkinson's Previous occupational history: worked for [employer] Vitals/I&O/Wt Last Vital Signs Temp 98.2 F 10/22/22 03:53 Pulse 78 10/22/22 03:53 Resp 18 10/22/22 03:53 BP 194/88 10/22/22 03:53 Pulse Ox 97 10/22/22 03:53 O2 Del Method Room Air 10/22/22 03:53 O2 Flow Rate 5 10/21/22 21:28 Weight last 48 hrs Weight 81.647 kg Physical Exam Const: COMMON NORMALS: no acute distress, patient oriented x3, healthy appearing and alert GENERAL APPEARANCE: cooperative and well developed HENMT: COMMON NORMALS: normocephalic, atraumatic and hearing grossly normal bilaterally HEAD & SCALP: normocephalic and atraumatic FACE & SINUS: normal facial exam NOSE: Other nasal findings present (There are balloon packs present in the nose bilaterally.) MOUTH: other (There is no oral bleeding) Eye: COMMON NORMALS: EOMs intact bilaterally Neck/C-Spine: COMMON NORMALS: no lymphadenopathy Resp: COMMON NORMALS: No retractions and No use of accessory muscles Neuro: COMMON NORMALS: patient oriented x3 SENSORIUM/ORIENTATION: Yes alert Data 10/21/22 22:25 A&P Assessment and plan (1) Epistaxis, recurrent: Impression: 67 yo wf with a h/o recurrent epistaxis now controlled with bilateral nasal balloon packing Plan: - I recommend leaving the packing in place at least 5 days while her Lovenox dose is stabilizing. Consider surgical options at that point if epistaxis is unresolved - The patient has a f/u evaluatino with Dr. Deleon today which she should keep - Contact me for any recurrence of her bleeding until her f/u visit with Dr. Deleon (2) Chronic anticoagulation: Consult Attestations Medical Necessity Statement: I was contacted to assist in the management of the patient's epistaxis Coding Level of Care Code Acute Code for [facility] [place] Fwd Diagnoses Epistaxis, recurrent R04.0 Chronic anticoagulation Z79.01
[2022-10-22] MEDS: enoxaparin 80 mg/0.8 mL Syringe SUBCUT (06:15)
[2022-10-22] MEDS: dilTIAZem ER (24HR) 240 mg Capsule PO (06:15)
[2022-10-22 06:30] LABS: Basophils # 0.1 10^3/uL (0.0-0.1); Basophils % 0.9 %; Eosinophils # 0.1 10^3/uL (0.0-0.8); Eosinophils % 2.5 %; Hematocrit 34.6 % (37.0-47.0); Hemoglobin 10.9 g/dL (11.5-15.3); Lymphocytes # 0.9 10^3/uL (0.8-4.8); Lymphocytes % 16.6 %; Mean Corpuscular HGB Conc 31.5 g/dL (30.0-36.0); Mean Corpuscular Hemoglobin 25.2 pg (28.0-34.0); Mean Corpuscular Volume 79.9 fl (81-99); Mean Platelet Volume 11.8 fL (7.4-10.4); Monocytes # 0.8 10^3/uL (0.2-0.9); Monocytes % 13.4 %; Neutrophils # 3.66 10^3/uL (1.8-7.7); Neutrophils % 65.2 %; Nucleated Red Blood Cells % 0 %; Platelet Count 212 10^3/cmm (130-400); Red Blood Count 4.33 10^6/uL (4.1-5.3); Red Cell Distribution Width 17.2 % (12.1-15.1); White Blood Count 5.6 10^3/uL (4.0-10.0)
[2022-10-22 06:39] LABS: Glucose Point of Care 136 mg/dL (70-110)
[2022-10-22 07:36] VITALS: BP 166/84; PULSE 92; RESP 16; TEMP 36.4; O2SAT 91
[2022-10-22] MEDS: amoxicillin-clav 875-125 mg Tablet 1 TAB PO (08:14)
[2022-10-22] MEDS: FUROsemide 40 mg Tablet PO (08:14)
[2022-10-22] MEDS: pantoprazole DR 40 mg Tablet PO (08:14)
[2022-10-22] MEDS: metoprolol tartrate 50 mg Tablet PO (08:14)
[2022-10-22 10:04] LABS: Alanine Aminotransferase 14 U/L (0-33); Albumin Level 3.4 g/dL (3.5-5.2); Alkaline Phosphatase 86 U/L (35-105); Blood Urea Nitrogen 16 mg/dL (8-23); Calcium 8.4 mg/dL (8.5-10.5); Carbon Dioxide 22 mmol/L (22-29); Chloride 98 mmol/L (98-107); Globulin 2.9 g/dL (1.3-4.6); Glucose 139 mg/dL (65-115); Osmolality Calculated 279 mOsm/kg (285-295); Sodium 133 mmol/L (136-145); Total Bilirubin 0.6 mg/dL (0.15-1.2); Total Protein 6.3 g/dL (6.6-8.7)
[2022-10-22 10:06] LABS: Anion Gap 16.7 (5-19); Aspartate Amino Transferase 16 U/L (0-32); Potassium 3.7 mmol/L (3.5-5.1)
--- NOTE | 2022-10-22 10:08 | PM.DCS ---
Discharge Providers Date of Admission: 10/21/22 23:09 Date of Discharge: October 22, 2022 Attending Provider at Admission: Jose Alfredo Medina MD Attending Provider at Discharge: Sissy Carballo MD Primary Care Provider: Jesus James MD Diagnoses at Discharge Discharge Diagnosis (1) Epistaxis, recurrent: Status: Acute (2) Chronic anticoagulation: Status: Chronic Permanent problem details: Impression: Stable Plan: As per Dr. Medina Reason for Visit Reason for Visit: Nose bleed Hospital Course Hospital Course 67-year female who was admitted for recurrent epistaxis, she has recently started using Lovenox for her PE, her left nasal packing was done 2 days ago, during this ER visit right packing was done and ENT consulted. This morning when I examined the patient there was still minimal bleeding right nostril, Dr. Wan saw her and recommended use of normal saline with air to stop minimal bleeding, I spoke with Dr. Deleon 10/22 9:[address] Deleon is recommending discharging her from the hospital so he could examine her in the clinic, he is agreeable with Augmentin 5 to 6-day course, hold Lovenox until packing is removed, Dr. Deleon has the equipment in the clinic to cauterize if needed which she wont be able to do so in the hospital. I will discharge patient today. she is hemodynamically stable. Daughter is in agreement who is at the bedside Physical Exam Narrative: Rapid Rhino packing Right nostril minimal bleeding Abdomen soft S1, S2 Currently on room air Discharge Data Studies Completed and Pending Completed Studies During Hospitalization Category Date Time Status XR chest 1V portable [id number] Stat Exams 10/21/22 22:54 Completed Radiology Impressions Chest X-Ray 10/21/22 22:54 IMPRESSION: 1. Minimal bibasilar atelectasis versus infiltrate. 2. Negative for pleural effusion. Laboratory Results WBC 5.6 10^3/uL (4.0-10.0) 10/22/22 06:19 RBC 4.33 10^6/uL (4.1-5.3) 10/22/22 06:19 Hgb 10.9 g/dL (11.5-15.3) L 10/22/22 06:19 Hct 34.6 % (37.0-47.0) L 10/22/22 06:19 MCV 79.9 fl (81-99) L 10/22/22 06:19 MCH 25.2 pg (28.0-34.0) L 10/22/22 06:19 MCHC 31.5 g/dL (30.0-36.0) 10/22/22 06:19 RDW 17.2 % (12.1-15.1) H 10/22/22 06:19 Plt Count 212 10^3/cmm (130-400) 10/22/22 06:19 MPV 11.8 fL (7.4-10.4) H 10/22/22 06:19 Neut % (Auto) 65.2 % 10/22/22 06:19 Lymph % (Auto) 16.6 % 10/22/22 06:19 Avery % (Auto) 13.4 % 10/22/22 06:19 Eos % (Auto) 2.5 % 10/22/22 06:19 Baso % (Auto) 0.9 % 10/22/22 06:19 Neut # (Auto) 3.66 10^3/uL (1.8-7.7) 10/22/22 06:19 Lymph # (Auto) 0.9 10^3/uL (0.8-4.8) 10/22/22 06:19 Avery # (Auto) 0.8 10^3/uL (0.2-0.9) 10/22/22 06:19 Eos # (Auto) 0.1 10^3/uL (0.0-0.8) 10/22/22 06:19 Baso # (Auto) 0.1 10^3/uL (0.0-0.1) 10/22/22 06:19 Nucleated RBC % (auto) 0 % 10/22/22 06:19 Nucleated RBCs # 0.0 /100WBC 10/22/22 06:19 Sodium 133 mmol/L (136-145) L 10/22/22 09:23 Potassium 3.7 mmol/L (3.5-5.1) 10/22/22 09:23 Chloride 98 mmol/L (98-107) 10/22/22 09:23 Carbon Dioxide 22 mmol/L (22-29) 10/22/22 09:23 Anion Gap 16.7 (5-19) 10/22/22 09:23 BUN 16 mg/dL (8-23) 10/22/22 09:23 Creatinine 0.7 mg/dL (0.5-0.9) 10/22/22 09:23 GFR Calculation 83.0 mL/min (90-130) L 10/22/22 09:23 Glucose 139 mg/dL (65-115) H 10/22/22 09:23 POC Glucose 136 mg/dL (70-110) H 10/22/22 06:36 Calculated Osmolality 279 mOsm/kg (285-295) L 10/22/22 09:23 Calcium 8.4 mg/dL (8.5-10.5) L 10/22/22 09:23 Total Bilirubin 0.6 mg/dL (0.15-1.2) 10/22/22 09: AST 16 U/L (0-32) 10/22/22 09:23 ALT 14 U/L (0-33) 10/22/22 09:23 Alkaline Phosphatase 86 U/L (35-105) 10/22/22 09:23 Total Protein 6.3 g/dL (6.6-8.7) L 10/22/22 09:23 Albumin 3.4 g/dL (3.5-5.2) L 10/22/22 09:23 Globulin 2.9 g/dL (1.3-4.6) 10/22/22 09:23 Vitals Last Vital Signs Temp 97.6 F 10/22/22 07:36 Pulse 92 10/22/22 07:36 Resp 16 10/22/22 07:36 BP 166/84 10/22/22 07:36 Pulse Ox 91 10/22/22 07:36 O2 Del Method Room Air 10/22/22 07:36 O2 Flow Rate 5 10/21/22 21:28 Discharge Plan Discharge Patient Disposition: Home Condition: Stable Prescriptions: New amoxicillin-pot clavulanate 875-125 mg tablet 1 tab PO BID 6 Days Qty: 12 0RF Continued cyanocobalamin (vitamin B-12) 1,000 mcg tablet 1,000 mcg PO QAM vitamin E mixed 400 unit capsule 400 unit PO QAM metoprolol tartrate 50 mg tablet 50 mg PO BID Qty: 180 3RF latanoprost 0.005 % drops 1 drp ophthalmic (eye) BEDTIME (DME) lancing device with lancets [Accu-Chek Soft Dev Lancets] Kit See Rx Instructions .Route Qty: 100 3RF Rx Instructions: to uses once daily to check blood sugar 90 day supply (DME) Accu-Chek Patti Plus test strp Strip See Rx Instructions .Route Qty: 100 3RF Rx Instructions: to use once daily with accu-chek meter 90 day suppy (DME) Accu-Chek Guide test strips Strip See Rx Instructions .Route Qty: 100 3RF Rx Instructions: to use once daily in accu-check meter 90 day supply (DME) lancets [Accu-Chek Softclix Lancets] Misc See Rx Instructions .Route Qty: 100 3RF Rx Instructions: As directed amoxicillin-pot clavulanate 875-125 mg tablet 1 tab PO BID Qty: 14 0RF pantoprazole 40 mg tablet,delayed release (DR/EC) 40 mg PO QAM metformin 500 mg tablet 500 mg PO BID diphenhydramine HCl [Sleep Aid (diphenhydramine)] 50 mg Capsule 100 mg PO BEDTIME albuterol sulfate 90 mcg/actuation Hfa Aerosol Inhaler 2 puff INHALATION QID PRN (Reason: Shortness Of Breath) ziprasidone HCl 80 mg capsule 80 mg PO BEDTIME anastrozole 1 mg tablet 1 mg PO QAM potassium chloride 10 mEq capsule, extended release 10 meq PO DAILY diltiazem HCl 240 mg capsule,extended release 24 hr 240 mg PO QAM trazodone 100 mg tablet 100 mg PO BEDTIME furosemide 40 mg tablet 40 mg PO DAILY 15 Days Qty: 15 0RF Held enoxaparin 100 mg/mL Syringe 90 mg SUBCUT Q12H 90 Days Qty: 162 0RF Hold Instructions: Resume on 10/26/22. Discharge Orders: Discharge Order (Routine); Ordered 10/22/22 Ordered By: Sissy Carballo Referrals: Jesus James MD [Primary Care Provider] - 10/30/22 10:40 am Discharge Diet: Cardiac Discharge Activity: Increase activity as tolerated Patient Instructions: Opioid Safety Discharge Attestations Time Spent in Discharge Care*: greater than 30 min Quality Metrics Clinical Quality Measures [ No reported AMI, CVA or VTE this stay] Coding Level of Care Code Acute Code for [facility] Fwd Diagnoses Epistaxis, recurrent R04.0 Chronic anticoagulation Z79.01
[2022-10-22 10:49] LABS: INR 1.11 (0.8-1.2)
[2022-10-22 12:09] VITALS: BP 166/84; PULSE 92; RESP 16; TEMP 36.4; O2SAT 91
== END 2022-10-22 11:50 | disposition home health service (06) ==
LOC: ER 22:54 → MEDSURG 23:10
PROVIDERS: Admitting Provider Internal Medicine; Emergency Provider Emergency Medicine; PCP Family Medicine; Visit Provider Internal Medicine
DX: R04.0 Epistaxis (principal); Z79.01 Long term (current) use of anticoagulants; Z79.2 Long term (current) use of antibiotics; Z79.84 Long term (current) use of oral hypoglycemic drugs; I48.91 Unspecified atrial fibrillation; I11.0 Hypertensive heart disease with heart failure; I50.30 Unspecified diastolic (congestive) heart failure; E78.2 Mixed hyperlipidemia; E87.6 Hypokalemia; I26.99 Other pulmonary embolism without acute cor pulmonale
CPT/HCPCS: 12345; 36415; 36416; 71045; 80053; 82962; 85025; 85610; 94799; 96361; 96372; 96374; 96375; 99285; G0378; J1650; J2250; J3010

== ENCOUNTER → 2022-10-27 10:54 | Outpatient (BNVA) | payer MEDICARE, SELFPAY | PROVIDERS: PCP Family Medicine; Visit Provider Otolaryngology | DX: R04.0 Epistaxis (principal); J34.2 Deviated nasal septum | CPT/HCPCS: 99213 ==

== ENCOUNTER → 2022-11-07 12:02 | Outpatient (BNVA) | payer MEDICARE, SELFPAY | PROVIDERS: PCP Family Medicine; Visit Provider Otolaryngology | DX: R04.0 Epistaxis (principal) | CPT/HCPCS: 99213 ==

== ENCOUNTER 2022-12-03 14:24 | Oncology outpatient (recurring) (ONCR) | payer MEDICARE, SELFPAY | END 2023-01-01 23:59 | disposition home or self-care (01) | PROVIDERS: PCP Family Medicine; Visit Provider Internal Medicine Medical Oncology | DX: Z79.01 Long term (current) use of anticoagulants; I26.99 Other pulmonary embolism without acute cor pulmonale; I48.20 Chronic atrial fibrillation, unspecified | CPT/HCPCS: 80048; 83880; 99203 ==

== ENCOUNTER → 2023-01-13 10:23 | Outpatient (BNVA) | payer MEDICARE, SELFPAY | PROVIDERS: PCP Family Medicine; Visit Provider Podiatrist Foot & Ankle Surgery | DX: E11.9 Type 2 diabetes mellitus without complications (principal); L60.3 Nail dystrophy; I73.9 Peripheral vascular disease, unspecified; Z79.84 Long term (current) use of oral hypoglycemic drugs | CPT/HCPCS: 11721; 99203 ==

== ENCOUNTER 2023-01-22 08:49 | Outpatient (CLI) | payer MEDICARE, SELFPAY ==
[2023-01-22 09:03] LABS: Add Urine Microscopic? NO; Charge for UA Resulting for Rev
[2023-01-22 09:15] LABS: Bilirubin Urine Neg (Negative); Blood Urine Neg (Negative); Glucose Urine UA Norm (Normal); Ketones Urine Negative (Negative); Leukocyte Esterase Urine Negative (Negative); Nitrate Urine Negative (Negative); Protein Urine Neg (Negative); Urine Appearance Clear (CLEAR); Urine Color Yellow (Yellow); Urobilinogen Urine Norm (Negative); pH Urine 7 (5-7)
[2023-01-22 09:32] LABS: Estmated Average Glucose 137; Hemoglobin A1C 6.4 % (4.0-6.0)
[2023-01-22 09:40] LABS: Alanine Aminotransferase 9 U/L (0-33); Albumin Level 3.7 g/dL (3.5-5.2); Alkaline Phosphatase 137 U/L (35-105); Anion Gap 16.4 (5-19); Aspartate Amino Transferase 12 U/L (0-32); Blood Urea Nitrogen 16 mg/dL (8-23); Calcium 8.7 mg/dL (8.5-10.5); Carbon Dioxide 26 mmol/L (22-29); Chloride 95 mmol/L (98-107); Globulin 3.5 g/dL (1.3-4.6); Glomerular Filtration Rate 49.2 mL/min (90-130); Glucose 148 mg/dL (65-115); NT Pro B Type Natriuretic Pept 14250 pg/mL (0-125); Osmolality Calculated 282 mOsm/kg (285-295); Potassium 3.4 mmol/L (3.5-5.1); Sodium 134 mmol/L (136-145); Total Bilirubin 0.6 mg/dL (0.15-1.2); Total Protein 7.2 g/dL (6.6-8.7)
== END 2023-01-22 08:50 | disposition home or self-care (01) ==
PROVIDERS: PCP Family Medicine; Visit Provider Family Medicine
DX: Z01.89 Encounter for other specified special examinations (principal)
CPT/HCPCS: 80053; 81003; 83036; 83880; 87077; 87086; 87186

== ENCOUNTER → 2023-02-04 14:37 | Outpatient (BNVA) | payer MEDICARE, SELFPAY | PROVIDERS: Visit Provider Internal Medicine | DX: I48.91 Unspecified atrial fibrillation (principal); E78.2 Mixed hyperlipidemia; E11.9 Type 2 diabetes mellitus without complications; Z79.01 Long term (current) use of anticoagulants; Z79.84 Long term (current) use of oral hypoglycemic drugs | CPT/HCPCS: 99213 ==

== ENCOUNTER → 2023-04-08 09:57 | Outpatient (BNVA) | payer MEDICARE, SELFPAY | PROVIDERS: PCP Family Medicine; Visit Provider Podiatrist Foot & Ankle Surgery | DX: I73.9 Peripheral vascular disease, unspecified (principal); L60.3 Nail dystrophy; E11.9 Type 2 diabetes mellitus without complications; Z79.84 Long term (current) use of oral hypoglycemic drugs | CPT/HCPCS: 11721 ==

== ENCOUNTER 2023-07-02 09:24 | Outpatient (CLI) | payer MEDICARE, SELFPAY ==
[2023-07-02 09:49] LABS: Basophils # 0.1 10^3/uL (0.0-0.1); Basophils % 1.2 %; Eosinophils # 0.4 10^3/uL (0.0-0.8); Eosinophils % 4.2 %; Hematocrit 41.4 % (36-47); Lymphocytes # 2.2 10^3/uL (0.8-4.8); Lymphocytes % 26.3 %; Mean Corpuscular HGB Conc 31.6 g/dL (30-55); Mean Corpuscular Hemoglobin 28.3 pg (27-33); Mean Corpuscular Volume 89.4 fl (85-98); Mean Platelet Volume 11.3 fL (7.4-10.4); Monocytes # 0.6 10^3/uL (0.2-0.9); Monocytes % 7.7 %; Neutrophils # 4.96 10^3/uL (1.8-7.7); Neutrophils % 60.1 %; Nucleated Red Blood Cells % 0 %; Platelet Count 249 10^3/cmm (157-399); Red Blood Count 4.63 10^6/uL (3.85-5.65); Red Cell Distribution Width 13.6 % (12.1-15.1); White Blood Count 8.26 10^3/uL (3.29-11.43)
[2023-07-02 10:41] LABS: Estmated Average Glucose 120; Hemoglobin A1C 5.8 % (4.0-6.0)
[2023-07-02 10:46] LABS: Alanine Aminotransferase 13 U/L (0-33); Albumin Level 4.1 g/dL (3.5-5.2); Alkaline Phosphatase 89 U/L (35-105); Aspartate Amino Transferase 15 U/L (0-32); Blood Urea Nitrogen 21 mg/dL (8-23); Calcium 9.3 mg/dL (8.5-10.5); Carbon Dioxide 20 mmol/L (22-29); Chloride 103 mmol/L (98-107); Chol HDL Ratio 3.25 mg/dL (0.0-4.40); Cholesterol 182 mg/dL (0-200); Globulin 2.8 g/dL (1.3-4.6); Glomerular Filtration Rate 44.4 mL/min (90-130); Glucose 172 mg/dL (65-115); HDL Cholesterol 56 mg/dL (60-100); LDL Cholesterol Calculated 107 mg/dL (50-129); LDL HDL Ratio 1.91 RATIO (0.00-3.22); Magnesium 1.9 mg/dL (1.7-2.3); Osmolality Calculated 291 mOsm/kg (285-295); Sodium 137 mmol/L (136-145); Thyroid Stimulating Hormone 4.25 uIU/mL (0.27-4.20); Total Bilirubin 0.4 mg/dL (0.15-1.2); Total Protein 6.9 g/dL (6.6-8.7); Triglycerides 96 mg/dL (0-150); Vitamin B12 1275 pg/mL (232-1245)
[2023-07-02 10:50] LABS: Anion Gap 18.3 (5-19); Potassium 4.3 mmol/L (3.5-5.1)
== END 2023-07-02 09:25 | disposition home or self-care (01) ==
PROVIDERS: PCP Family Medicine; Visit Provider Family Medicine
DX: I10 Essential (primary) hypertension (principal)
CPT/HCPCS: 80053; 80061; 82607; 83036; 83735; 84443; 85025

== ENCOUNTER → 2023-07-29 11:09 | Outpatient (BNVA) | payer MEDICARE, SELFPAY | PROVIDERS: PCP Family Medicine; Visit Provider Nurse Practitioner Family | DX: D48.5 Neoplasm of uncertain behavior of skin (principal); L40.0 Psoriasis vulgaris; L57.0 Actinic keratosis; Z85.828 Personal history of other malignant neoplasm of skin | CPT/HCPCS: 11102; 17000; 99203 ==

== ENCOUNTER → 2023-08-11 12:43 | Outpatient (BNVA) | payer MEDICARE, SELFPAY | PROVIDERS: PCP Family Medicine; Visit Provider Internal Medicine | DX: I48.91 Unspecified atrial fibrillation (principal); E78.2 Mixed hyperlipidemia; E11.9 Type 2 diabetes mellitus without complications; I26.99 Other pulmonary embolism without acute cor pulmonale; Z79.84 Long term (current) use of oral hypoglycemic drugs; Z79.01 Long term (current) use of anticoagulants | CPT/HCPCS: 99214 ==

== ENCOUNTER 2023-09-09 09:31 | Oncology outpatient (recurring) (ONCR) | payer MEDICARE, SELFPAY ==
--- NOTE | 2023-09-09 09:36 | MM_ITS ---
WS: [id number] DIAGNOSTIC RIGHT DIGITAL TOMOSYNTHESIS MAMMOGRAPHY WITH CAD. HISTORY: History of Breast Cancer. COMPARISON: 03/11/2022, 02/11/2021 Technique: CC, MLO and ML views. Breast composition: There are scattered areas of fibroglandular density. Benign calcifications scatte red throughout the RIGHT breast. No suspicious mass or distortion. MM/[place] [id number] IMPRESSION: BI-RADS: 2-Benign FOLLOW UP: 1 Year Follow-up
== END 2023-10-02 23:59 | disposition home or self-care (01) ==
LOC: RAD 09:31 → ONCMED 09-17 16:46
PROVIDERS: PCP Family Medicine; Visit Provider Internal Medicine Medical Oncology
DX: Z85.3 Personal history of malignant neoplasm of breast (principal); Z53.9 Procedure and treatment not carried out, unspecified reason
CPT/HCPCS: 77061; G0279

== ENCOUNTER 2023-10-23 11:40 | Outpatient (CLI) | payer MEDICARE, SELFPAY ==
[2023-10-23 11:52] LABS: Basophils # 0.1 10^3/uL (0.0-0.1); Basophils % 0.9 %; Eosinophils # 0.4 10^3/uL (0.0-0.8); Eosinophils % 5.4 %; Lymphocytes # 1.6 10^3/uL (0.8-4.8); Lymphocytes % 20.7 %; Mean Corpuscular HGB Conc 31.4 g/dL (30-55); Mean Corpuscular Hemoglobin 25.9 pg (27-33); Mean Corpuscular Volume 82.6 fl (85-98); Mean Platelet Volume 11.1 fL (7.4-10.4); Monocytes # 0.7 10^3/uL (0.2-0.9); Neutrophils # 4.94 10^3/uL (1.8-7.7); Neutrophils % 63.6 %; Nucleated Red Blood Cells % 0 %; Platelet Count 285 10^3/cmm (157-399); Red Blood Count 5.33 10^6/uL (3.85-5.65); Red Cell Distribution Width 16.3 % (12.1-15.1); White Blood Count 7.77 10^3/uL (3.29-11.43)
[2023-10-23 12:14] LABS: Anion Gap 18.4 (5-19); Blood Urea Nitrogen 17 mg/dL (8-23); Calcium 9.4 mg/dL (8.5-10.5); Carbon Dioxide 23 mmol/L (22-29); Chloride 101 mmol/L (98-107); Glomerular Filtration Rate 49.1 mL/min (90-130); Glucose 112 mg/dL (65-115); Osmolality Calculated 288 mOsm/kg (285-295); Potassium 4.4 mmol/L (3.5-5.1); Sodium 138 mmol/L (136-145)
[2023-10-23 12:31] LABS: 25 Hydroxy Vitamin D 36 ng/mL (30-100); Vitamin B12 1214 pg/mL (232-1245)
== END 2023-10-23 11:41 | disposition home or self-care (01) ==
PROVIDERS: PCP Family Medicine; Visit Provider Family Medicine
DX: E55.9 Vitamin D deficiency, unspecified (principal); D50.9 Iron deficiency anemia, unspecified; E83.42 Hypomagnesemia
CPT/HCPCS: 80048; 82306; 82607; 85025

== ENCOUNTER 2023-11-20 16:14 | Outpatient (CLI) | payer MEDICARE, SELFPAY ==
[2023-11-20 16:45] LABS: Blood Urea Nitrogen 28 mg/dL (8-23); Calcium 9.2 mg/dL (8.5-10.5); Carbon Dioxide 19 mmol/L (22-29); Chloride 98 mmol/L (98-107); Glomerular Filtration Rate 34.3 mL/min (90-130); Glucose 125 mg/dL (65-115); Osmolality Calculated 285 mOsm/kg (285-295); Sodium 134 mmol/L (136-145)
[2023-11-20 17:03] LABS: Anion Gap 21.4 (5-19); Potassium 4.4 mmol/L (3.5-5.1)
== END 2023-11-20 16:15 | disposition home or self-care (01) ==
LOC: LAB 16:16
PROVIDERS: PCP Family Medicine; Visit Provider Family Medicine
DX: E87.5 Hyperkalemia (principal)
CPT/HCPCS: 80048

== ENCOUNTER → 2023-11-25 09:42 | Outpatient (BNVA) | payer MEDICARE, SELFPAY | PROVIDERS: PCP Family Medicine; Visit Provider Nurse Practitioner Family | DX: L57.0 Actinic keratosis (principal); L40.0 Psoriasis vulgaris; L82.0 Inflamed seborrheic keratosis; D48.5 Neoplasm of uncertain behavior of skin; Z85.828 Personal history of other malignant neoplasm of skin | CPT/HCPCS: 11102; 17000; 17110; 69100; 99213 ==

== ENCOUNTER → 2023-12-15 09:35 | Outpatient (BNVA) | payer MEDICARE, SELFPAY | PROVIDERS: PCP Family Medicine; Visit Provider Dermatology | DX: C44.212 Basal cell carcinoma of skin of right ear and external auricular canal (principal); C44.41 Basal cell carcinoma of skin of scalp and neck | CPT/HCPCS: 14060; 17272; 17311 ==

== ENCOUNTER → 2023-12-30 13:18 | Outpatient (BNVA) | payer MEDICARE, SELFPAY | PROVIDERS: PCP Family Medicine; Visit Provider Dermatology | DX: Z48.817 Encounter for surgical aftercare following surgery on the skin and subcutaneous tissue (principal); L82.1 Other seborrheic keratosis; L81.4 Other melanin hyperpigmentation | CPT/HCPCS: 99213 ==

== ENCOUNTER 2024-01-23 11:37 | Outpatient (CLI) | payer MEDICARE, SELFPAY ==
[2024-01-23 12:20] LABS: Bilirubin Urine Negative (Negative); Blood Urine Negative (Negative); Glucose Urine UA Negative (Normal); Ketones Urine Negative (Negative); Leukocyte Esterase Urine Negative (Negative); Nitrate Urine Negative (Negative); Protein Urine 2+ (Negative); Specific Gravity, Urine 1.013 (1.005-1.030); Urine Appearance Clear (CLEAR); Urine Color Yellow (Yellow); Urobilinogen Urine 0.2 mg/dL (Negative)
[2024-01-23 12:25] LABS: Add Urine Microscopic? YES; Bacteria Urine 1+ /hpf; Squamous Epithelial Cell Urine 0-5 /hpf (0-5); WBC Urine 0-5 /hpf (0-5)
== END 2024-01-23 11:38 | disposition home or self-care (01) ==
LOC: LAB 11:39
PROVIDERS: PCP Family Medicine; Visit Provider Family Medicine
DX: N39.0 Urinary tract infection, site not specified (principal)
CPT/HCPCS: 81001; 87086

== ENCOUNTER → 2024-02-16 13:53 | Outpatient (BNVA) | payer MEDICARE, SELFPAY | PROVIDERS: PCP Family Medicine; Visit Provider Internal Medicine | DX: I48.91 Unspecified atrial fibrillation (principal); E78.2 Mixed hyperlipidemia; E11.9 Type 2 diabetes mellitus without complications; Z79.84 Long term (current) use of oral hypoglycemic drugs; Z79.01 Long term (current) use of anticoagulants; Z86.711 Personal history of pulmonary embolism | CPT/HCPCS: 99213 ==

== ENCOUNTER 2024-02-23 15:26 | Inpatient (IN) | payer MEDICARE, SELFPAY ==
[2024-02-23] VITALS (18 sets, daily range): BP systolic 84–189; BP diastolic 52–138; PULSE 72–114; RESP 16–22; TEMP 36.9–37; O2SAT 91–99; BMI 37.2
--- NOTE | 2024-02-23 15:34 | XR_ITS ---
WS: [id number] Exam: XR chest 1V portable [id number] Date/Time of Exam: 02/23/2024 3:34 PM Reason For Exam: dyspnea/cough Comparison 10/21/2022. There is total whiteout of the lower two thirds of the RIGHT pleural cavity. This may be due to dense consolidation within the lung or large volume pleural effusion. The LEFT lung is clear and fully exp anded. The RIGHT heart border is obscured but the heart is probably not enlarged. The mediastinum is normal in contour. Bony structures are intact. Recommendations: Contrast CT scan of the chest recommended for further work-up. XR/XR chest 1V portable [id number] IMPRESSION: 1. Total white out of the lower two thirds of the RIGHT pleural cavity. This ma y be due to extensive lung consolidation or large volume pleural effusion.
--- NOTE | 2024-02-23 15:45 | ED_ITS ---
Documented by User: Adilson Isaac, 02/24/24 07:05 HPI - SOB/Dyspnea 2 General: Chief Complaint: Shortness of Breath/Dyspnea Stated Complaint: SOB Time Seen by Provider: 02/23/24 15:32 History of Present Illness: HPI Narrative: 68-year-old female presents emergency ro om complaining of shortness of breath that began a week ago and progressively worsened she is found to be 80% on room air brought in by EMS. She denies any chest pain. She has a history of breast cancer several years ago with stage I she was treated she still is on what she describes as a pill for it she is on anastrozole subcentimeter is estrogen positive cancer will review the old records. She is also on apixaban for history of atrial fibrillation. She tells me about 2 years ago she had a pleural effusion on the right side they drained some fluid off tested it and told her it was not infectious or related to cancer. Normally patient not require oxygen she is now requiring 2 L by nasal cannula to maintain sats in the mid 90s Associated symptoms: Reports chest congestion; Deny abdominal pain, chest pain or fever(s) Related Data Home Medications Medication Instructions Recorded Confirmed cyanocobalamin (vitamin B-12) 1,000 mcg PO QAM 02/05/22 02/16/24 1,000 mcg tablet vitamin E mixed 400 unit capsule 400 unit PO QAM 02/05/22 02/16/24 albuterol sulfate 90 mcg/actuation 2 puff inhalation QID PRN 10/13/22 02/16/24 aerosol inhaler Shortness Of Breath cholecalciferol (vitamin D3) 25 25 mcg PO DAILY 08/11/23 02/16/24 mcg (1,000 unit) capsule Previous Rx's Medication Instructions Recorded blood sugar diagnostic (Accu-Chek #100 ea 10/06/22 Patti Plus test strips) lancing device with lancets kit #100 ea 10/06/22 (Accu-Chek Softclix Lancing Device+Lancets kit) blood sugar diagnostic (Accu-Chek #100 ea 10/08/22 Guide test strips) lancets (Accu-Chek Softclix #100 ea 10/10/22 Lancets) nystatin 100,000 unit/gram topical 1 applic topical BID #30 grams 11/12/22 powder latanoprost 0.005 % eye drops 1 drp ophthalmic (eye) BEDTIME 02/13/23 #7.5 mL potassium chloride 10 mEq See Rx Instructions .Route 07/01/23 capsule,extended release .COMPLEX #90 caps diltiazem HCl 120 mg tablet 120 mg PO BID #180 tabs 09/21/23 furosemide 20 mg tablet 20 mg PO DAILY #90 tabs 10/21/23 apixaban 5 mg tablet (Eliquis) 5 mg PO BID #90 tabs 11/25/23 anastrozole 1 mg tablet 1 mg PO QAM #90 tabs 01/27/24 metformin 500 mg tablet 500 mg PO BID #90 tabs 01/27/24 metoprolol tartrate 50 mg tablet See Rx Instructions .Route 01/27/24 .COMPLEX #180 tabs trazodone 100 mg tablet See Rx Instructions .Route 01/27/24 .COMPLEX #30 tabs ziprasidone HCl 80 mg capsule See Rx Instructions .Route 01/27/24 .COMPLEX #90 caps Allergies Allergy/AdvReac Type Severity Reaction Status Date / Time aspirin [From Norgesic] Allergy Intermediate vomits Verified 02/16/24 14:25 adhesive Allergy Unknown Verified 02/16/24 14:25 caffeine [From Norgesic] Allergy Unknown Verified 02/16/24 14:25 carrot Allergy Unknown Verified 02/16/24 14:25 iodine Allergy Unknown Verified 02/16/24 14:25 mushroom Allergy Unknown Verified 02/16/24 14:25 orphenadrine [From Norgesic] Allergy Unknown Verified 02/16/24 14:25 Pork/Porcine Containing Allergy diarrhea Verified 02/16/24 14:25 Products cephalexin AdvReac Intermediate vomitting Verified 02/16/24 14:25 Sulfa (Sulfonamide AdvReac Intermediate adv-vomitti Verified 02/16/24 14:25 Antibiotics) ng byetta Allergy Intermediate vomitting Uncoded 02/16/24 14:25 all fruits Allergy Unknown Uncoded 02/16/24 14:25 roberson Allergy Unknown Uncoded 02/16/24 14:25 Review of Systems 2 Const: Denies: fever(s) or chills Card: Denies: chest pain Resp: Reports: dyspnea and chest congestion GI: Denies: abdominal pain : Denies: dysuria, urinary frequency or urinary urgency Musc: Denies: neck pain or back pain Skin/Breast: Denies: rash PFSH ED 2 PFSH: Medical History Allergic rhinosinusitis Epistaxis Mixed hyperlipidemia Heart failure with preserved ejection fraction EF 55-60% on echo 04/2022 Pleural effusion on right Pulmonary embolism Chronic anticoagulation Impression: Stable Plan: As per Dr. Medina History of colon polyps on endoscopy in 2020, benign Deafness in left ear Glaucoma Bipolar 1 disorder Acquired deviated nasal septum Epistaxis, recurrent Insomnia takes trazodone History of breast cancer left sided, had mastectomy in 2010, no chemo or radiation Atrial fibrillation Type 2 diabetes mellitus without complications Surgical History History of D&C (1993) History of ear surgery (1984) left History of mastectomy (2010) left H/O sternectomy History of hernia surgery abdominal hernia repair x 4 between [id number] Family History Denies family history of Clotting disorder Bleeding disorder Social History Smoking and tobacco/nicotine status: never used tobacco/nicotine Alcohol intake: never Substance/Drug Use: never Housing: Assisted Living Facility Marital status: Marital status details: spouse has Parkinson's Previous occupational history: worked for [employer] Physical Exam 2 Const: COMMON NORMALS: no acute distress GENERAL APPEARANCE: cooperative and comfortable ORIENTATION/CONSCIOUSNESS: Yes awake, Yes oriented to person, Yes oriented to place and Yes oriented to time HENMT: COMMON NORMALS: normocephalic, atraumatic and hearing grossly normal bilaterally HEAD & SCALP: normocephalic and atraumatic Resp: EFFORT & INSPECTION: Yes uses accessory muscles AUSCULTATION: rhonchi and diminished lung sounds on the right in the lower lung cortes Cardio: COMMON NORMALS: regular rate, regular rhythm and No murmurs present (Cardio) RATE: regular rate RHYTHM: regular rhythm GI: COMMON NORMALS: Soft to palpation and No hepatosplenomegaly present A USCULTATION: Yes normoactive bowel sounds PALPATION: Yes Soft to palpation, No Tenderness to palpation present (GI), No Guarding due to palpation present (GI) and Yes No hepatosplenomegaly present Extremity: COMMON NORMALS: normal to inspection, capillary refill normal, no clubbing, cyanosis or edema, no calf tenderness and no pedal edema Neuro: SENSORIUM/ORIENTATION: Yes oriented to person, Yes oriented to place and Yes oriented to time Skin: COMMON NORMALS: no rashes or lesions noted GENERAL SKIN EXAM: no rashes or lesions noted Course 2 Vital Signs: Vital signs: Vital Signs Temperature 97.8 F 02/24/24 04:00 Pulse Rate 134 H 02/24/24 05:48 Respiratory Rate 28 H 02/24/24 05:41 Blood Pressure 120/96 02/24/24 04:00 Pulse Oximetry 92 02/24/24 05:41 Oxygen Delivery Me thod Oxymask 02/24/24 05:41 Oxygen Flow Rate 6 02/24/24 05:41 MDM - SOB/Dyspnea Medical Decision Making Large right pleural effusion. Patient reported is having had this before she said it was nondiagnostic for cancer or infectious process although we do not have records of that this was done at another facility. CTA is pending. Care signed out to Dr. Sow at change of shift. See final notes for diagnosis and disposition. Case transitioned to myself at shift change, lab work was reviewed, chest x-ray showed total white out of lower two thirds of the right pleural cavity, chest CTA showed large right-sided pleural effusion, blood work was essentially unremarkable. These results was discussed with Dr. Eaton will place patient observation and have radiology see her in the morning for potential thoracentesis. Lab Data 02/23/24 17:34 02/23/24 17:34 Labs/Radiology: Radiology Impressions Chest X-Ray 02/23/24 15:34 IMPRESSION: 1. Total white out of the lower two thirds of the RIGHT pleural cavity. This may be due to extensive lung consolidation or large volume pleural effusion. Chest CTA 02/23/24 16:05 IMPRESSION: 1. No pulmonary emboli. 2. Large right-sided pleural effusion with complete collapse of the right lower lobe and right middle lobe with significant atelectatic changes in the right upper lobe. Laboratory Results WBC 8.44 10^3/uL (3.29-11.43) 02/23/24 17:34 RBC 5.46 10^6/uL (3.85-5.65) 02/23/24 17:34 Hgb 15.00 g/dL (11.27-16.99) 02/23/24 17:34 Hct 46.5 % (36-47) 02/23/24 17:34 MCV 85.2 fl (85-98) 02/23/24 17:34 MCH 27.5 pg (27-33) 02/23/24 17:34 MCHC 32.3 g/dL (30-55) 02/23/24 17:34 RDW 16.2 % (12.1-15.1) H 02/23/24 17:34 Plt Count 306 10^3/cmm (157-399) 02/23/24 17:34 MPV 11.1 fL (7.4-10.4) H 02/23/24 17:34 Neut % (Auto) 68.5 % 02/23/24 17:34 Lymph % (Auto) 20.4 % 02/23/24 17:34 Mccone % (Auto) 8.1 % 02/23/24 17:34 Eos % (Auto) 1.5 % 02/23/24 17:34 Baso % (Auto) 1.3 % 02/23/24 17:34 Neut # (Auto) 5.78 10^3/uL (1.8-7.7) 02/23/24 17:34 Lymph # (Auto) 1.7 10^3/uL (0.8-4.8) 02/23/24 17:34 Mccone # (Auto) 0.7 10^3/uL (0.2-0.9) 02/23/24 17:34 Eos # (Auto) 0.1 10^3/uL (0.0-0.8) 02/23/24 17:34 Baso # (Auto) 0.1 10^3/uL (0.0-0.1) 02/23/24 17:34 Nucleated RBC % (auto) 0 % 02/23/24 17:34 Nucleated RBCs # 0.0 /100WBC 02/23/24 17:34 Sodium 137 mmol/L (136-145) 02/23/24 17:34 Potassium 4.8 mmol/L (3.5-5.1) 02/23/24 17:34 Chloride 101 mmol/L (98-107) 02/23/24 17:34 Carbon Dioxide 24 mmol/L (22-29) 02/23/24 17:34 Anion Gap 16.8 (5-19) 02/23/24 17:34 BUN 19 mg/dL (8-23) 02/23/24 17:34 Creatinine 1.4 mg/dL (0.5-0.9) H 02/23/24 17:34 GFR Calculation 37.2 mL/min (90-130) L 02/23/24 17:34 Glucose 120 mg/dL (65-115) H 02/23/24 17:34 Calculated Osmolality 287 mOsm/kg (285-295) 02/23/24 17:34 Calcium 8.9 mg/dL (8.5-10.5) 02/23/24 17:34 Total Bilirubin 0.6 mg/dL (0.15-1.2) 02/23/24 17:34 AST 13 U/L (0-32) 02/23/24 17:34 ALT 11 U/L (0-33) 02/23/24 17:34 Alkaline Phosphatase 120 U/L (35-105) H 02/23/24 17:34 Lactate Dehydrogenase 141 U/L (135-214) 02/23/24 17:34 Total Protein 7.5 g/dL (6.6-8.7) 02/23/24 17:34 Albumin 4.1 g/dL (3.5-5.2) 02/23/24 17:34 Globulin 3.4 g/dL (1.3-4.6) 02/23/24 17:34 Discharge Plan Discharge Patient Disposition: Placed in Observation Admit Provider: Jason Eaton Clinical Impression: Hypoxemia, Pleural effusion on right Coding Level of Care Code ED Supervisor Cereal for Chg Fwd Documented by User: Kirill Sow DO 02/23/24 23:29 HPI - SOB/Dyspnea 2 General: Chief Complaint: Shortness of Breath/Dyspnea Stated Complaint: SOB Time Seen by Provider: 02/23/24 15:32 Related Data Home Medications Medication Instructions Recorded Confirmed cyanocobalamin (vitamin B-12) 1,000 mcg PO QAM 02/05/22 02/16/24 1,000 mcg tablet vitamin E mixed 400 unit capsule 400 unit PO QAM 02/05/22 02/16/24 albuterol sulfate 90 mcg/actuation 2 puff inhalation QID PRN 10/13/22 02/16/24 aerosol inhaler Shortness Of Breath cholecalciferol (vitamin D3) 25 25 mcg PO DAILY 08/11/23 02/16/24 mcg (1,000 unit) capsule Previous Rx's Medication Instructions Recorded blood sugar diagnostic (Accu-Chek #100 ea 10/06/22 Patti Plus test strips) lancing device with lancets kit #100 ea 10/06/22 (Accu-Chek Softclix Lancing Device+Lancets kit) blood sugar diagnostic (Accu-Chek #100 ea 10/08/22 Guide test strips) lancets (Accu-Chek Softclix #100 ea 10/10/22 Lancets) nystatin 100,000 unit/gram topical 1 applic topical BID #30 grams 11/12/22 powder latanoprost 0.005 % eye drops 1 drp ophthalmic (eye) BEDTIME 02/13/23 #7.5 mL potassium chloride 10 mEq See Rx Instructions .Route 07/01/23 capsule,extended release .COMPLEX #90 caps diltiazem HCl 120 mg tablet 120 mg PO BID #180 tabs 09/21/23 furosemide 20 mg tablet 20 mg PO DAILY #90 tabs 10/21/23 apixaban 5 mg tablet (Eliquis) 5 mg PO BID #90 tabs 11/25/23 anastrozole 1 mg tablet 1 mg PO QAM #90 tabs 01/27/24 metformin 500 mg tablet 500 mg PO BID #90 tabs 01/27/24 metoprolol tartrate 50 mg tablet See Rx Instructions .Route 01/27/24 .COMPLEX #180 tabs trazodone 100 mg tablet See Rx Instructions .Route 01/27/24 .COMPLEX #30 tabs ziprasidone HCl 80 mg capsule See Rx Instructions .Route 01/27/24 .COMPLEX #90 caps Allergies Allergy/AdvReac Type Severity Reaction Status Date / Time aspirin [From Norgesic] Allergy Intermediate vomits Verified 02/16/24 14:25 adhesive Allergy Unknown Verified 02/16/24 14:25 caffeine [From Norgesic] Allergy Unknown Verified 02/16/24 14:25 carrot Allergy Unknown Verified 02/16/24 14:25 iodine Allergy Unknown Verified 02/16/24 14:25 mushroom Allergy Unknown Verified 02/16/24 14:25 orphenadrine [From Norgesic] Allergy Unknown Verified 02/16/24 14:25 Pork/Porcine Containing Allergy diarrhea Verified 02/16/24 14:25 Products cephalexin AdvReac Intermediate vomitting Verified 02/16/24 14:25 Sulfa (Sulfonamide AdvReac Intermediate adv-vomitti Verified 02/16/24 14:25 Antibiotics) ng byetta Allergy Intermediate vomitting Uncoded 02/16/24 14:25 all fruits Allergy Unknown Uncoded 02/16/24 14:25 roberson Allergy Unknown Uncoded 02/16/24 14:25 PFSH ED 2 PFSH: Medical History Allergic rhinosinusitis Epistaxis Mixed hyperlipidemia Heart failure with preserved ejection fraction EF 55-60% on echo 04/2022 Pleural effusion on right Pulmonary embolism Chronic anticoagulation Impression: Stable Plan: As per Dr. Medina History of colon polyps on endoscopy in 2020, benign Deafness in left ear Glaucoma Bipolar 1 disorder Acquired deviated nasal septum Epistaxis, recurrent Insomnia takes trazodone History of breast cancer left sided, had mastectomy in 2010, no chemo or radiation Atrial fibrillation Type 2 diabetes mellitus without complications Surgical History History of D&C (1993) History of ear surgery (1984) left History of mastectomy (2010) left H/O sternectomy History of hernia surgery abdominal hernia repair x 4 between [id number] Family History Denies family history of Clotting disorder Bleeding disorder Social History Smoking and tobacco/nicotine status: never used tobacco/nicotine Alcohol intake: never Substance/Drug Use: never Housing: Assisted Living Facility Marital status: Marital status details: spouse has Parkinson's Previous occupational history: worked for [employer] Course 2 Vital Signs: Vital signs: Vital Signs Temperature 97.8 F 02/24/24 04:00 Pulse Rate 134 H 02/24/24 05:48 Respiratory Rate 28 H 02/24/24 05:41 Blood Pressure 120/96 02/24/24 04:00 Pulse Oximetry 92 02/24/24 05:41 Oxygen Delivery Me thod Oxymask 02/24/24 05:41 Oxygen Flow Rate 6 02/24/24 05:41 MDM - SOB/Dyspnea Medical Decision Making Case transitioned to myself at shift change, lab work was reviewed, chest x-ray showed total white out of lower two thirds of the right pleural cavity, chest CTA showed large right-sided pleural effusion, blood work was essentially unremarkable. These results was discussed with Dr. Eaton will place patient observation and have radiology see her in the morning for potential thoracentesis. Lab Data 02/23/24 17:34 02/23/24 17:34 Labs/Radiology: Radiology Impressions Chest X-Ray 02/23/24 15:34 IMPRESSION: 1. Total white out of the lower two thirds of the RIGHT pleural cavity. This may be due to extensive lung consolidation or large volume pleural effusion. Chest CTA 02/23/24 16:05 IMPRESSION: 1. No pulmonary emboli. 2. Large right-sided pleural effusion with complete collapse of the right lower lobe and right middle lobe with significant atelectatic changes in the right upper lobe. Laboratory Results WBC 8.44 10^3/uL (3.29-11.43) 02/23/24 17:34 RBC 5.46 10^6/uL (3.85-5.65) 02/23/24 17:34 Hgb 15.00 g/dL (11.27-16.99) 02/23/24 17:34 Hct 46.5 % (36-47) 02/23/24 17:34 MCV 85.2 fl (85-98) 02/23/24 17:34 MCH 27.5 pg (27-33) 02/23/24 17:34 MCHC 32.3 g/dL (30-55) 02/23/24 17:34 RDW 16.2 % (12.1-15.1) H 02/23/24 17:34 Plt Count 306 10^3/cmm (157-399) 02/23/24 17:34 MPV 11.1 fL (7.4-10.4) H 02/23/24 17:34 Neut % (Auto) 68.5 % 02/23/24 17:34 Lymph % (Auto) 20.4 % 02/23/24 17:34 Mccone % (Auto) 8.1 % 02/23/24 17:34 Eos % (Auto) 1.5 % 02/23/24 17:34 Baso % (Auto) 1.3 % 02/23/24 17:34 Neut # (Auto) 5.78 10^3/uL (1.8-7.7) 02/23/24 17:34 Lymph # (Auto) 1.7 10^3/uL (0.8-4.8) 02/23/24 17:34 Mccone # (Auto) 0.7 10^3/uL (0.2-0.9) 02/23/24 17:34 Eos # (Auto) 0.1 10^3/uL (0.0-0.8) 02/23/24 17:34 Baso # (Auto) 0.1 10^3/uL (0.0-0.1) 02/23/24 17:34 Nucleated RBC % (auto) 0 % 02/23/24 17:34 Nucleated RBCs # 0.0 /100WBC 02/23/24 17:34 Sodium 137 mmol/L (136-145) 02/23/24 17:34 Potassium 4.8 mmol/L (3.5-5.1) 02/23/24 17:34 Chloride 101 mmol/L (98-107) 02/23/24 17:34 Carbon Dioxide 24 mmol/L (22-29) 02/23/24 17:34 Anion Gap 16.8 (5-19) 02/23/24 17:34 BUN 19 mg/dL (8-23) 02/23/24 17:34 Creatinine 1.4 mg/dL (0.5-0.9) H 02/23/24 17:34 GFR Calculation 37.2 mL/min (90-130) L 02/23/24 17:34 Glucose 120 mg/dL (65-115) H 02/23/24 17:34 Calculated Osmolality 287 mOsm/kg (285-295) 02/23/24 17:34 Calcium 8.9 mg/dL (8.5-10.5) 02/23/24 17:34 Total Bilirubin 0.6 mg/dL (0.15-1.2) 02/23/24 17:34 AST 13 U/L (0-32) 02/23/24 17:34 ALT 11 U/L (0-33) 02/23/24 17:34 Alkaline Phosphatase 120 U/L (35-105) H 02/23/24 17:34 Lactate Dehydrogenase 141 U/L (135-214) 02/23/24 17:34 Total Protein 7.5 g/dL (6.6-8.7) 02/23/24 17:34 Albumin 4.1 g/dL (3.5-5.2) 02/23/24 17:34 Globulin 3.4 g/dL (1.3-4.6) 02/23/24 17:34 All radiology interpretation(s) finalized by discharge Discharge Plan Discharge Patient Disposition: Placed in Observation Admit Provider: Jason Eaton Clinical Impression: Hypoxemia, Pleural effusion on right Coding Level of Care Code ED Supervisor Cereal for Brianna Jorge
--- NOTE | 2024-02-23 15:49 | ECG_ITS ---
[facility] Test Date: 2024-02-23 Pat Name: Alix Kearns Department: Room: Gender: Female [employer]: : 1955 Requested By: Adilson Alvarado Order Number: [id number] Abhishek MD: RYAN PARRISH Measurements Intervals Wells Rate: 77 P: 0 GA: 0 QRS: 96 QRSD: 119 T: -7 QT: 406 QTc: 460 Interpretive Statements ATRIAL FIBRILLATION RIGHT BUNDLE BRANCH BLOCK [120+ ms QRS DURATION, UPRIGHT V1, 40+ ms S IN I/aVL/V4/V5/V6] No previous ECG available for comparison Electronically Signed On 02-23-2024 20:55:26 CDT by RYAN PARRISH [email or web address]
--- NOTE | 2024-02-23 16:05 | CTR_ITS ---
PROCEDURE INFORMATION: Exam: CTA Chest With Contrast Exam date and time: 02/23/2024 8:34 PM Age: 68 years old Clinical indication: Shortness of breath; Additional info: Pleural effusion/dyspnea/hx breast CA TECHNIQUE: Imaging protocol: Computed tomographic angiography of the chest with contrast. Exam focused on the arteries. 3D rendering (Not supervised by radiologist): MIP and/or 3D reconstructed images were created by the technologist. Radiation optimization: All CT scans at this facility use at least one of these dose optimization techniques: automated exposure control; mA and/or kV adjustment per patient size (includes targeted exams where dose is matched to clinical indication); or iterative reconstruction. Contrast material: OMNI 350; Contrast volume: 100 ml; Contrast route: INTRAVENOUS (IV); COMPARISON: CT angio chest PE protcl [id number] 10/13/2022 9:03 AM RADIATION DOSE METRICS: Total DLP (mGy-cm): 426.41 FINDINGS: Pulmonary arteries: No pulmonary emboli. Aorta: Unremarkable. No aortic aneurysm. No aortic dissection. Lungs: Unremarkable. No consolidation. No masses. Pleural spaces: Large right-sided pleural effusion with complete collapse of the right lower lobe and right middle lobe with significant atelectatic changes in the right upper lobe. Heart: Unremarkable. No cardiomegaly. No pericardial effusion. Coronary arteries: Coronary arterial atherosclerotic calcifications are present. Lymph nodes: Unremarkable. No enlarged lymph nodes. Spleen: Multiple punctate calcifications in the spleen consistent with prior granulomatous infection. Intraperitoneal space: Abdominal ascites. Bones/joints: Unremarkable. No acute fracture. Soft tissues: Prior left mastectomy. CT/CT angio chest PE protcl [id number] IMPRESSION: 1. No pulmonary emboli. 2. Large right-sided pleural effusion with complete collapse of the right lower lobe and right middle lobe with significant atelectatic changes in the right upper lobe.
[2024-02-23 17:46] LABS: Basophils # 0.1 10^3/uL (0.0-0.1); Basophils % 1.3 %; Eosinophils # 0.1 10^3/uL (0.0-0.8); Eosinophils % 1.5 %; Hematocrit 46.5 % (36-47); Lymphocytes # 1.7 10^3/uL (0.8-4.8); Lymphocytes % 20.4 %; Mean Corpuscular HGB Conc 32.3 g/dL (30-55); Mean Corpuscular Hemoglobin 27.5 pg (27-33); Mean Corpuscular Volume 85.2 fl (85-98); Mean Platelet Volume 11.1 fL (7.4-10.4); Monocytes # 0.7 10^3/uL (0.2-0.9); Monocytes % 8.1 %; Neutrophils # 5.78 10^3/uL (1.8-7.7); Neutrophils % 68.5 %; Nucleated Red Blood Cells % 0 %; Platelet Count 306 10^3/cmm (157-399); Red Blood Count 5.46 10^6/uL (3.85-5.65); Red Cell Distribution Width 16.2 % (12.1-15.1); White Blood Count 8.44 10^3/uL (3.29-11.43)
[2024-02-23 17:59] LABS: Alanine Aminotransferase 11 U/L (0-33); Albumin Level 4.1 g/dL (3.5-5.2); Alkaline Phosphatase 120 U/L (35-105); Anion Gap 16.8 (5-19); Aspartate Amino Transferase 13 U/L (0-32); Blood Urea Nitrogen 19 mg/dL (8-23); Calcium 8.9 mg/dL (8.5-10.5); Carbon Dioxide 24 mmol/L (22-29); Chloride 101 mmol/L (98-107); Creatinine Clr Calc Pharmacy 41.0489; Globulin 3.4 g/dL (1.3-4.6); Glomerular Filtration Rate 37.2 mL/min (90-130); Glucose 120 mg/dL (65-115); Osmolality Calculated 287 mOsm/kg (285-295); Potassium 4.8 mmol/L (3.5-5.1); Sodium 137 mmol/L (136-145); Total Bilirubin 0.6 mg/dL (0.15-1.2); Total Protein 7.5 g/dL (6.6-8.7)
[2024-02-23] MEDS: iohexol 350 mg/mL 500 mL Btl (per mL) IV (20:40)
--- NOTE | 2024-02-23 22:47 | P.HP_ITS ---
Providers/Chief Complaint 2 Chief Complaint: SOB History of Present Illness Alix Kearns is a 68 year old female with a past medical history significant for right sided pleural effusion, left-sided breast cancer, heart failure with preserved ejection fraction, atrial fibrillation, pulmonary embolism, type 2 diabetes mellitus, and multiple other comorbidities who presents emergency department with shortness of breath x 1 week. Patient reports progressively worsening symptoms. She was reportedly found to have an SpO2 of 80% by EMS on room air. Exertion worsens symptoms. Rest improves. Patient reports a history of stage I left-sided breast cancer. She does have a history of prior right sided pleural effusion. She is previously underwent thoracentesis once on 10/15/2022 1 1000 mL of fluid was removed. At that time, fluid was found to be transudative. It was negative for cytological evidence of malignancy. Review of Systems 2 Narrative: A complete review of systems was obtained and is negative except as stated in HPI. Medications/Allergies Home Medications Medication Instructions Recorded Confirmed Last Taken Type cyanocobalamin (vitamin B-12) 1,000 mcg PO QAM 02/05/22 02/16/24 10/12/22 History 1,000 mcg tablet vitamin E mixed 400 unit capsule 400 unit PO QAM 02/05/22 02/16/24 10/12/22 History blood sugar diagnostic (Accu-Chek #100 ea 10/06/22 02/16/24 Unknown Rx Patti Plus test strips) lancing device with lancets kit #100 ea 10/06/22 02/16/24 Unknown Rx (Accu-Chek Softclix Lancing Device+Lancets kit) blood sugar diagnostic (Accu-Chek #100 ea 10/08/22 02/16/24 Unknown Rx Guide test strips) lancets (Accu-Chek Softclix #100 ea 10/10/22 02/16/24 Unknown Rx Lancets) albuterol sulfate 90 mcg/actuation 2 puff inhalation QID PRN 10/13/22 02/16/24 Unknown History aerosol inhaler Shortness Of Breath nystatin 100,000 unit/gram topical 1 applic topical BID #30 grams 11/12/22 02/16/24 Unknown Rx powder latanoprost 0.005 % eye drops 1 drp ophthalmic (eye) BEDTIME 02/13/23 02/16/24 Unknown Rx #7.5 mL potassium chloride 10 mEq See Rx Instructions .Route 07/01/23 02/16/24 Unknown Rx capsule,extended release .COMPLEX #90 caps cholecalciferol (vitamin D3) 25 25 mcg PO DAILY 08/11/23 02/16/24 Unknown History mcg (1,000 unit) capsule diltiazem HCl 120 mg tablet 120 mg PO BID #180 tabs 09/21/23 02/16/24 Unknown Rx furosemide 20 mg tablet 20 mg PO DAILY #90 tabs 10/21/23 02/16/24 Unknown Rx apixaban 5 mg tablet (Eliquis) 5 mg PO BID #90 tabs 11/25/23 02/16/24 Unknown Rx anastrozole 1 mg tablet 1 mg PO QAM #90 tabs 01/27/24 02/16/24 Unknown Rx metformin 500 mg tablet 500 mg PO BID #90 tabs 01/27/24 02/16/24 Unknown Rx metoprolol tartrate 50 mg tablet See Rx Instructions .Route 01/27/24 02/16/24 Unknown Rx .COMPLEX #180 tabs trazodone 100 mg tablet See Rx Instructions .Route 01/27/24 02/16/24 Unknown Rx .COMPLEX #30 tabs ziprasidone HCl 80 mg capsule See Rx Instructions .Route 01/27/24 02/16/24 Unknown Rx .COMPLEX #90 caps Allergies Allergy/AdvReac Type Severity Reaction Status Date / Time aspirin [From Norgesic] Allergy Intermediate vomits Verified 02/16/24 14:25 adhesive Allergy Unknown Verified 02/16/24 14:25 caffeine [From Norgesic] Allergy Unknown Verified 02/16/24 14:25 carrot Allergy Unknown Verified 02/16/24 14:25 iodine Allergy Unknown Verified 02/16/24 14:25 mushroom Allergy Unknown Verified 02/16/24 14:25 orphenadrine [From Norgesic] Allergy Unknown Verified 02/16/24 14:25 Pork/Porcine Containing Allergy diarrhea Verified 02/16/24 14:25 Products cephalexin AdvReac Intermediate vomitting Verified 02/16/24 14:25 Sulfa (Sulfonamide AdvReac Intermediate adv-vomitti Verified 02/16/24 14:25 Antibiotics) ng byetta Allergy Intermediate vomitting Uncoded 02/16/24 14:25 all fruits Allergy Unknown Uncoded 02/16/24 14:25 roberson Allergy Unknown Uncoded 02/16/24 14:25 PFSH Acute 2 PFSH: Medical History Allergic rhinosinusitis Epistaxis Mixed hyperlipidemia Heart failure with preserved ejection fraction EF 55-60% on echo 04/2022 Pleural effusion on right Pulmonary embolism Chronic anticoagulation Impression: Stable Plan: As per Dr. Medina History of colon polyps on endoscopy in 2020, benign Deafness in left ear Glaucoma Bipolar 1 disorder Acquired deviated nasal septum Epistaxis, recurrent Insomnia takes trazodone History of breast cancer left sided, had mastectomy in 2010, no chemo or radiation Atrial fibrillation Type 2 diabetes mellitus without complications Surgical History History of D&C (1993) History of ear surgery (1984) left History of mastectomy (2010) left H/O sternectomy History of hernia surgery abdominal hernia repair x 4 between [id number] Family History Denies family history of Clotting disorder Bleeding disorder Social History Smoking and tobacco/nicotine status: never used tobacco/nicotine Alcohol intake: never Substance/Drug Use: never Housing: Assisted Living Facility Marital status: Marital status details: spouse has Parkinson's Previous occupational history: worked for [employer] Vitals/I&O/Wt Last Vital Signs Temp 98.6 F 02/23/24 15:29 Pulse 105 H 02/23/24 22:30 Resp 22 H 02/23/24 21:49 BP 145/122 02/23/24 22:30 Pulse Ox 92 02/23/24 22:30 O2 Del Method Nasal Cannula 02/23/24 21:00 O2 Flow Rate 2 02/23/24 15:29 Weight last 48 hrs Weight 95.254 kg Physical Exam 2 Narrative: General: Patient is awake and alert. Head: Normocephalic. Atraumatic. EOM intact. Neck: No JVD. Cardiovascular: RRR. No gallops. No murmurs. Hypertensive. Lungs: Breath sounds are markedly diminished in right lung, no crackles or wheezes. Conversational dyspnea. Tachypnea. Skin: No jaundice. No rashes. Abdomen: Normal bowel sounds, abdomen soft and nontender. Genito Urinary: Genital exam not performed since complaints not related. Rectal: Rectal exam not performed since no symptoms indicated blood loss. Extremities: No cyanosis or clubbing. Musculoskeletal: No swollen or erythematous joints. Neurological: Moves all 4 extremities. No myoclonus. Data 02/23/24 17:34 02/23/24 17:34 A&P Assessment and plan (1) Recurrent right pleural effusion: Recurrent symptomatic right pleural effusion with acute hypoxic respiratory insufficiency IR thoracentesis requested Pleural fluid labs and cytology ordered Continue supplemental oxygen, wean as tolerated (2) Atrial fibrillation: Hold apixaban for thoracentesis Continue metoprolol for rate control Continue diltiazem for rate control (3) Pulmonary embolism: History of pulmonary embolism chronic anticoagulation Chest CTA negative for pulmonary embolism in ED Hold apixaban for procedure tomorrow (4) Bipolar 1 disorder: Continue home Zyprexa (5) Insomnia: Continue home trazodone Plan DVT prophylaxis: Low risk. Residual apixaban effects present. CODE STATUS: Full code Attestations 2 Medical Necessity Statement*: Patient presents with shortness of breath, found to have symptomatic recurrent right pleural effusion and acute hypoxic respiratory insufficiency with expected hospitalization not to cross 2 midnights for which she will be admitted to observation for supplemental oxygen support, thoracentesis, and supportive care. Coding Level of Care Code Acute Code for Chg Fwd Diagnoses Recurrent right pleural effusion J90 Atrial fibrillation I48.91 Pulmonary embolism I26.99 Bipolar 1 disorder F31.9 Insomnia G47.00
[2024-02-23 23:36] LABS: Lactate Dehydrogenase 141 U/L (135-214)
[2024-02-24] VITALS (45 sets, daily range): BP systolic 100–169; BP diastolic 63–120; PULSE 68–134; RESP 15–28; TEMP 36.4–36.9; O2SAT 90–100; BMI 36.9
[2024-02-24] MEDS: trazodone 100 mg Tablet PO (00:37)
[2024-02-24] MEDS: metoprolol tartrate 50 mg Tablet PO ×2 (00:37→08:39)
[2024-02-24] MEDS: OLANZapine 10 mg TABLET 80 MG PO (00:37)
[2024-02-24] MEDS: albuterol 2.5 mg/3 mL Neb INHALATION ×5 (00:47→23:35)
[2024-02-24] MEDS: acetaminophen 325 mg Tablet 650 MG PO (02:33)
[2024-02-24] MEDS: dilTIAZem 30 mg Tablet 120 MG PO (03:41)
[2024-02-24] MEDS: gabapentin 100 mg Capsule PO (03:42)
[2024-02-24 04:25] LABS: Glucose Point of Care 125 mg/dL (70-110)
[2024-02-24 04:39] LABS: ABG PCO2 39.2 mmHg (35-45); ABG PH Result 7.35 (7.35-7.45); Alveolar-Arterial Oxygen Gradi 17.2 mmHg (5-10); Arterial Blood Gas Hematocrit 43.7 % (37-47); Base Excess ABG -3.9 mmol/L (-2.0-2.0); Blood Gas Allen Test Pos; Blood Gas Operator Identificat ED; Blood Gas Sample Site Radial, left; Blood Gas Sample Type Arterial; HCO3 ABG 21.4 mmol/L (22-26); HGB O2 Sat 92.2 % (95-100); Ionized Calcium Level - ABG 1.2 mmol/L (1.1-1.4); Oxygen Device NC; Oxygen Saturation ABG 94.1; PO2 ABG 75.3 mmHg (80.0-100.0); PO2 FiO2 Ratio Arterial Blood 209; Potassium Level - ABG 4.3 mmol/L (3.5-5.0); Total Hemoglobin 14.2 g/dL (12-16)
[2024-02-24] MEDS: levalbuterol 0.63 mg/3 mL Neb INHALATION (05:41)
[2024-02-24] MEDS: nystatin powder 15 gm Btl 1 APPLIC TOPICAL (08:38)
[2024-02-24] MEDS: FUROsemide 20 mg Tablet PO (08:39)
--- NOTE | 2024-02-24 08:48 | PC.NURSE ---
Pt using abdominal muscles muscles for respiration. Currently on 5L oxy mask. VS: P-130, RR 28, BP 145/114. Morning dose of metoprolol given at this time as well as lasix. Dr. Carballo and Dr. Shin advised. New order received from Dr. Shin for BIPAP. Aziza MOTA advised. States will be up shortly to place BIPAP.
--- NOTE | 2024-02-24 09:46 | PC.CHAP ---
Pastoral Care Encounter/Spiritual Assessment Type of Contact [] Declined manager rn case visit [] Patient/Family/Request visit [] Outpatient visit [] Follow-up visit [] Physician referral [] Code/Alert [] Routine visit [] Staff referral [] Actively dying [] Patient sleeping [] Family support [] [] Out of room [] Palliative care [] [x] Receiving care in room [] Pre-surgical visit [] Trauma [] Long length of stay [] ICU visit [] Other: Relational/Emotional Strength [] Patient feels connected with others/family/visitors/staff [] Distress [] Loneliness/isolation [] Abandonment Spirituality of Patient [] Person of Elise [] Attends Catholic of their Elise [] Believes in Prayer [] Reads Bible or Quaker materials [] There are Spiritual issues to be addressed Rose Grader Interventions [] Prayer [] Active listening [] Non-anxious presence [] Spiritual/emotional support [] Crisis/trauma care [] Spiritual counseling [] Bereavement support [] Provided bereavement packet [] Provided Bible/devotional materials [] Provided toy/stuffed animal, coloring book to patient or family member [] Provided Communion [] Anointing/[place] [] Salvation [] Completed spiritual assessment [] Other: Impact on Illness or Injury [] Angry [] Fearful [] Anxious [] Often cries [] Exhaustion [] Unable to work [] Unable to attend zoroastrianism [] Unable to walk/stand [] Unable to read [] Unable to drive [] Unable to eat/drink [] Unable to sleep [] Unable to be with family [] Patient intubated [] Other: Summary Time spent with patient
[2024-02-24 09:59] LABS: INR 1.86 (0.8-1.2)
--- NOTE | 2024-02-24 10:15 | PC.PHAR ---
Addendum entered by Aye Joyner 02/24/24 10:25: Patient's doctor list also states she has a new order for Atorvastatin 20 mg on 02/17/24but not sure if she has received it .She uses mail order pill [facility] [phone] Original Note: Patient is from [place] . They informed me that she takes care of her own medication and contacted the doctor's office that faxed over a current list . On doctors list is an order for Metformin 500 ER that was prescribed on 02/21/24 Not sure if patient has picked it up and started it. She does have a Metformin 500 not ER she picked up on 02/12/24.
--- NOTE | 2024-02-24 10:48 | PC.NURSE ---
Dr. Shin at bedside. Discussed with and pt, risks vs benefits of proceeding with thoracentesis today due to pt last dose of eliquis yesterday morning. Pt and agree to proceed. Will sent pt to ICU for procedure.
[2024-02-24 11:11] LABS: ABG PCO2 40.3 mmHg (35-45); ABG PH Result 7.36 (7.35-7.45); Alveolar-Arterial Oxygen Gradi 20.4 mmHg (5-10); Arterial Blood Gas Hematocrit 40.4 % (37-47); Base Excess ABG -2.6 mmol/L (-2.0-2.0); Blood Gas Allen Test Pos; Blood Gas Operator Identificat glc; Blood Gas Sample Site Radial, left; Blood Gas Sample Type Arterial; HCO3 ABG 22.7 mmol/L (22-26); HGB O2 Sat 94.4 % (95-100); Ionized Calcium Level - ABG 1.2 mmol/L (1.1-1.4); Methemoglobin 0.3 % (0.4-1.5); Oxygen Device BIPAP; Oxygen Saturation ABG 95.6; PO2 ABG 79.5 mmHg (80.0-100.0); PO2 FiO2 Ratio Arterial Blood 198; Potassium Level - ABG 4.1 mmol/L (3.5-5.0); Total Hemoglobin 13.2 g/dL (12-16)
--- NOTE | 2024-02-24 11:14 | PC.NURSE ---
Report called to ICU. Pt going to ICU 2
--- NOTE | 2024-02-24 12:52 | PC.NURSE ---
Bedside thora done. Patient tolerated well.
[2024-02-24 13:06] LABS: Body Fluid Polynuclear #Cells 0.017; Body Fluid WBC 82 /uL; Monocytes # Body Fluid 0.065; RBC, Body Fluid 0 10^3/uL
--- NOTE | 2024-02-24 13:12 | XR_ITS ---
WS: [id number] PORTABLE CHEST HISTORY: follow up, status post RIGHT thoracentesis. COMPARISON: 02/23/2024 Status post RIGHT thoracentesis. There is slightly improved aeration with decrease in the pleural eff usion. There is still moderate pleural effusion remaining with atelectasis. Increasing soft tissue ex tending over the RIGHT apex is probably fluid which has changed position as the patient is supine. LEFT lung is clear. No pneumothorax. Cardiac size: Mildly enlarged cardiac silhouette. Mediastinum/Aorta: Mild atherosclerosis aorta. No osseous abnormality seen. XR/XR chest 1V portable [id number] IMPRESSION: 1. No pneumothorax status post RIGHT thoracentesis. 2. Moderate improvement in aeration of the RIGHT lung with decreased pleural e ffusion. There is still a moderate-sized pleural effusion.
[2024-02-24 13:14] LABS: Glucose Point of Care 84 mg/dL (70-110)
[2024-02-24 13:22] LABS: Body Fluid Specific Gravity 1.025
[2024-02-24 13:23] LABS: Apprearance, Body Fluid CLEAR; Color, Body Fluid PALE YELLOW; PATH Referral YES
[2024-02-24 13:24] LABS: Cyto Order Verification No Order
[2024-02-24 13:29] LABS: Fluid Laterality Right Lower
[2024-02-24 13:43] LABS: Albumin Body Fluid 2.2 g/dL; LDH Body Fluid 57 U/L; Total Protein Pleural Fluid 3.2 g/dL
--- NOTE | 2024-02-24 14:14 | PM.PN ---
Subjective Subjective: Seen this morning. Plan for thoracentesis today. Patient has had Eliquis dose yesterday morning. Ideally she should be 48 hours washout however it has been 24 hours at this time. Patient is requiring BiPAP at this time secondary to hypoxia and increased work of breathing secondary to large right pleural effusion. She had a mastectomy done 10 years ago at [facility]. Will be requesting records. Family at bedside. Discussed with him the risks of thoracentesis and the associated risk of a bleed secondary to patient being on Eliquis. Discussed with patient as well. Both parties would like to proceed at this time. Patient quite lethargic. She was up all night. Blood gas reviewed. Vitals/I&O/Wt Last Vital Signs Temp 97.5 F L 02/24/24 10:58 Pulse 68 02/24/24 12:30 Resp 15 02/24/24 12:30 BP 100/72 02/24/24 12:30 Pulse Ox 96 02/24/24 12:30 O2 Del Method BiPAP 02/24/24 10:58 O2 Flow Rate 5 02/24/24 07:07 FiO2 40 02/24/24 09:21 02/23/24 02/24/24 02/24/24 22:59 06:59 14:59 Intake Total 0 / 0 Balance 0 / 0 Weight last 48 hrs Weight 94.574 kg Weight 94.574 kg Weight 95.254 kg Physical Exam Narrative: General: Patient is awake and alert. Head: Normocephalic. Atraumatic. EOM intact. Cardiovascular: RRR. No gallops. No murmurs. Hypertensive. Lungs: Breath sounds are markedly diminished in right lung, no crackles or wheezes. Conversational dyspnea. Tachypnea. Abdomen: Normal bowel sounds, abdomen soft and nontender. Extremities: No cyanosis or clubbing. Musculoskeletal: No swollen or erythematous joints. Neurological: Moves all 4 extremities. No myoclonus. Urinary Catheter Management: Crowder: Cath Placed During This Visit: yes Urinary Catheter Date of Insertion: 02/24/24 Urinary Catheter Time of Insertion: 06:08 Data 02/23/24 17:34 02/23/24 17:34 A&P Assessment and plan (1) Recurrent right pleural effusion: Recurrent symptomatic right pleural effusion with acute hypoxic respiratory insufficiency IR thoracentesis requested Pleural fluid labs and cytology ordered Continue supplemental oxygen, wean as tolerated (2) Atrial fibrillation: Hold apixaban for thoracentesis Continue metoprolol for rate control Continue diltiazem for rate control (3) Pulmonary embolism: History of pulmonary embolism chronic anticoagulation Chest CTA negative for pulmonary embolism in ED Hold apixaban for procedure tomorrow (4) Bipolar 1 disorder: Continue home Zyprexa (5) Insomnia: Continue home trazodone Plan DVT prophylaxis: Low risk. Residual apixaban effects present. CODE STATUS: Full code 02/24/2024 Plan for thoracentesis today Continue BiPAP at this time ABG reviewed. Will send fluid for cytology. Request records from [facility]. Wean off oxygen as able. At baseline she is on room air. Attestations Medical Necessity Statement*: Thoracentesis today. Diagnoses Recurrent right pleural effusion J90 Atrial fibrillation I48.91 Pulmonary embolism I26.99 Bipolar 1 disorder F31.9 Insomnia G47.00
[2024-02-24 16:10] LABS: Glucose Point of Care 76 mg/dL (70-110)
--- NOTE | 2024-02-24 17:54 | PC.NURSE ---
Medical records request sent to outside facility. Form placed in patients folder.
--- NOTE | 2024-02-24 18:44 | CTR_ITS ---
PROCEDURE INFORMATION: Exam: CT Head Without Contrast Exam date and time: 02/24/2024 8:06 PM Age: 68 years old Clinical indication: Alteration of consciousness; Transient alteration of awareness; Additional info: Lethergia, somnolence TECHNIQUE: Imaging protocol: Computed tomography of the head without contrast. Radiation optimization: All CT scans at this facility use at least one of these dose optimization techniques: automated exposure control; mA and/or kV adjustment per patient size (includes targeted exams where dose is matched to clinical indication); or iterative reconstruction. COMPARISON: No relevant prior studies available. RADIATION DOSE METRICS: Total DLP (mGy-cm): 1126.78 FINDINGS: Brain: Moderate generalized cortical volume loss. No acute intracranial hemorrhage or discrete extra-axial fluid collection. Periventricular and subcortical white matter hypodensities likely represent chronic small vessel ischemic changes. Jacobo-white differentiation is maintained. No mass effect. Cerebral ventricles: No ventriculomegaly. Paranasal sinuses: Visualized sinuses are unremarkable. No fluid levels. Mastoid air cells: Visualized mastoid air cells are well aerated. Bones: Unremarkable. No acute fracture. Soft tissues: Unremarkable. Vasculature: Vascular calcifications along the carotid siphons. CT/CT head wo con* [id number] IMPRESSION: No acute intracranial findings.
[2024-02-24] MEDS: dextrose 10% 125 ML 750 ML IV ×2 (18:51→21:50)
[2024-02-24 18:57] LABS: Glucose Point of Care 77 mg/dL (70-110)
[2024-02-24 19:40] LABS: Glucose Point of Care 125 mg/dL (70-110)
[2024-02-24 20:00] LABS: Glucose Point of Care 119 mg/dL (70-110)
[2024-02-24 21:11] LABS: Glucose Point of Care 93 mg/dL (70-110)
[2024-02-24 22:15] LABS: Glucose Point of Care 105 mg/dL (70-110)
--- NOTE | 2024-02-24 22:59 | US_ITS ---
WS: [id number] ULTRASOUND-GUIDED THORACENTESIS, RIGHT HISTORY: Symptomatic right sided pleural effusion Procedure, risks, and complications were explained to the patient. With the patient in an upright pos ition, the skin over the RIGHT posterior thorax was cleansed with ChloraPrep and anesthetized with 1% buffered lidocaine. A 5 Georgian Yueh needle is inserted into the pleural fluid without complication. Approximately 800 cc of clear pleural fluid is removed without difficulty. After 800 cc the pleural fluid extraction stopped because of atelectatic lung against the catheter tip. The entire container of pleural fluid is sent to the lab for analysis as requested by Dr. Shin. / thoracentesis [id number] IMPRESSION: 1. RIGHT thoracentesis yielding 800 cc of fluid. 2. Chest radiograph to follow to evaluate for pneumothorax.
[2024-02-24 23:01] LABS: Glucose Point of Care 115 mg/dL (70-110)
[2024-02-25] VITALS (51 sets, daily range): BP systolic 84–146; BP diastolic 58–102; PULSE 74–129; RESP 15–31; O2SAT 89–100
[2024-02-25 00:05] LABS: Glucose Point of Care 105 mg/dL (70-110)
[2024-02-25 01:04] LABS: Glucose Point of Care 89 mg/dL (70-110)
[2024-02-25 02:05] LABS: Glucose Point of Care 85 mg/dL (70-110)
[2024-02-25 03:02] LABS: Glucose Point of Care 80 mg/dL (70-110)
[2024-02-25] MEDS: dextrose 10% 250 ML 1000 ML IV (03:06)
[2024-02-25 04:04] LABS: Glucose Point of Care 151 mg/dL (70-110)
[2024-02-25] MEDS: albuterol 2.5 mg/3 mL Neb INHALATION ×6 (04:05→23:53)
[2024-02-25 04:23] LABS: Basophils # 0.1 10^3/uL (0.0-0.1); Eosinophils # 0.3 10^3/uL (0.0-0.8); Eosinophils % 4.4 %; Hematocrit 42.5 % (36-47); Lymphocytes # 0.9 10^3/uL (0.8-4.8); Lymphocytes % 15.8 %; Mean Corpuscular HGB Conc 31.3 g/dL (30-55); Mean Corpuscular Hemoglobin 28.4 pg (27-33); Mean Corpuscular Volume 90.6 fl (85-98); Mean Platelet Volume 11.3 fL (7.4-10.4); Monocytes # 0.4 10^3/uL (0.2-0.9); Monocytes % 7.3 %; Neutrophils % 71.2 %; Nucleated Red Blood Cells % 0 %; Platelet Count 223 10^3/cmm (157-399); Red Blood Count 4.69 10^6/uL (3.85-5.65); Red Cell Distribution Width 16.2 % (12.1-15.1)
[2024-02-25 04:50] LABS: Blood Urea Nitrogen 17 mg/dL (8-23); Calcium 7.9 mg/dL (8.5-10.5); Carbon Dioxide 23 mmol/L (22-29); Chloride 102 mmol/L (98-107); Creatinine Clr Calc Pharmacy 40.8883; Glomerular Filtration Rate 37.2 mL/min (90-130); Glucose 165 mg/dL (65-115); Magnesium 1.7 mg/dL (1.7-2.3); Osmolality Calculated 287 mOsm/kg (285-295); Sodium 136 mmol/L (136-145)
[2024-02-25 04:53] LABS: Anion Gap 14.9 (5-19); Potassium 3.9 mmol/L (3.5-5.1)
[2024-02-25 05:33] LABS: Glucose Point of Care 124 mg/dL (70-110)
[2024-02-25 06:26] LABS: Glucose Point of Care 100 mg/dL (70-110)
[2024-02-25 08:00] LABS: Glucose Point of Care 77 mg/dL (70-110)
[2024-02-25] MEDS: dilTIAZem 60 mg Tablet 120 MG PO ×2 (08:22→17:17)
[2024-02-25] MEDS: FUROsemide 20 mg Tablet PO (08:23)
[2024-02-25] MEDS: metoprolol tartrate 50 mg Tablet PO ×2 (08:23→17:17)
[2024-02-25] MEDS: nystatin powder 15 gm Btl 1 APPLIC TOPICAL ×2 (08:23→17:27)
--- NOTE | 2024-02-25 08:50 | XR_ITS ---
WS: [id number] PORTABLE CHEST HISTORY: follow up pleural effusion COMPARISON: 02/24/2024 Small to moderate RIGHT pleural effusion with atelectasis. Minimal blunting of the LEFT costophrenic angle. Compressive atelectasis at the lung bases. No pneumothorax. Cardiac size: Normal. Mediastinum/Aorta: Mild atherosclerosis aorta. No osseous abnormality seen. XR/XR chest 1V portable [id number] IMPRESSION: 1. Small to moderate RIGHT pleural effusion similar to the prior examination. 2. Minimal blunting of the LEFT costophrenic angle. 3. No pneumothorax.
--- NOTE | 2024-02-25 09:39 | US_ITS ---
WS: [id number] ULTRASOUND-GUIDED THORACENTESIS, RIGHT RIGHT HISTORY: pleural effusion Procedure, risks, and complications were explained to the patient. With the patient in an upright pos ition, the skin over the RIGHT posterior thorax was cleansed with ChloraPrep and anesthetized with 1% buffered lidocaine. A 5 Georgian Yueh needle is inserted into the pleural fluid without complication. Approximately 1000 cc of clear pleural fluid is removed without difficulty. / thoracentesis [id number] IMPRESSION: 1. RIGHT thoracentesis yielding 1000 cc of fluid. 2. Chest radiograph to follow to evaluate for pneumothorax.
--- NOTE | 2024-02-25 10:00 | USCV_ITS ---
Alix Kearns Age: 68 Gender: F : 1955 Exam Date: 02/25/2024 15:03 Ordering Phys: Emilia Shin MD Technologist: [place] [facility] [facility] [place]: BP: 124 / 75 HR: 87 Rhythm: Sinus Technical Quality: Adequate MEASUREMENTS (Male / Female) Normal Values 2D ECHO LV Diastolic Diameter PLAX 4.0 cm 4.2 - 5.9 / 3.9 - 5.3 cm LV Systolic Diameter PLAX 3.3 cm IVS Diastolic Thickness 1.1 cm 0.6 - 1.0 / 0.6 - 0.9 cm IVS Systolic Thickness 1.7 cm LVPW Diastolic Thickness 1.3 cm 0.6 - 1.0 / 0.6 - 0.9 cm LVPW Systolic Thickness 1.5 cm LVOT Diameter 2.0 cm LV Ejection Fraction 2D Teich 36.4 % LV Ejection Fraction MOD 4C 67.2 % LA Diameter 3.5 cm RA Systolic Volume 4C AL 105.1 ml RA Systolic Volume 4C MOD 105.6 ml LA Sys Volume AL 53.1 cm cubed LA Sys Volume Index AL 27.4 cm cubed/m squared IVC Diameter 1.2 cm M-MODE LA Ao Ratio MM 1.5 AV Cusp Separation MM 1.7 cm DOPPLER AV Peak Velocity 141.0 cm/s LVOT Peak Velocity 105.0 cm/s AV Area Cont Eq vti 3.2 cm squared AV Area Cont Eq pk 2.5 cm squared MV Peak Velocity 132.0 cm/s MV Area PHT 2.9 cm squared Mitral E to A Ratio 5.4 TV Peak Velocity 336.0 cm/s TR Peak Velocity 353.0 cm/s TR Peak Gradient 49.8 mmHg TV Peak E Velocity 121.0 cm/s Right Atrial Pressure 3.0 mmHg Pulmonary Artery Systolic Pressu 52.8 mmHg PV Peak Velocity 88.0 cm/s FINDINGS Left Ventricle Normal left ventricular size, systolic function and wall thickness, with no regional wall motion abnormalities. Left ventricular ejection fraction is estimated at 60 %. Grade I/IV diastolic dysfunction (abnormal relaxation filling pattern), normal to mildly elevated filling pressures. Right Ventricle The right ventricle is normal in size and function. Moderate pulmonary hypertension, RVSP 52.8 mmHg. Right Atrium Moderately increased right atrial size. Left Atrium The left atrium is normal in size. Mitral Valve Structurally normal mitral valve without significant stenosis or prolapse. There is no mitral regurgitation. Aortic Valve Moderate aortic valve calcification. No aortic valve stenosis. Trace aortic valve regurgitation. Tricuspid Valve Severe tricuspid valve regurgitation. Pulmonic Valve Structurally normal pulmonic valve without significant stenosis. There is no pulmonic regurgitation. Pericardium Normal pericardium without effusion. Aorta Normal ascending aorta dimension. IVC The inferior vena cava appears normal. CONCLUSIONS Normal left ventricular size, systolic function and wall thickness, with no regional wall motion abnormalities. Left ventricular ejection fraction is estimated at 60 %. Grade I/IV diastolic dysfunction (abnormal relaxation filling pattern), normal to mildly elevated filling pressures. Moderate aortic valve calcification. No aortic valve stenosis. Trace aortic valve regurgitation. There is no pericardial effusion. The right ventricle is normal in size and function. Moderate pulmonary hypertension, RVSP 52.8 mmHg. Right atrial pressure is around 10 mm of mercury. Sissy Akhtar MD (Electronically Signed) Final Date: 25 February 2024 19:57 S
[2024-02-25] MEDS: FUROsemide 10 mg/mL SDV 4mL 40 MG IVP (10:16)
--- NOTE | 2024-02-25 10:20 | PC.NURSE ---
Dr. Drew at bedside to perform ultrasound guided thoracentesis
--- NOTE | 2024-02-25 10:28 | XR_ITS ---
WS: [id number] PORTABLE CHEST HISTORY: Post RIGHT thoracentesis. COMPARISON: None available. Significant improvement in the RIGHT pleural effusion. No significant pleural effusions. Mild bluntin g of the costophrenic angles. No dense consolidation. No pneumothorax. Cardiac size: Mildly enlarged cardiac silhouette. Mediastinum/Aorta: Mild atherosclerosis aorta. No osseous abnormality seen. XR/XR chest 1V portable [id number] IMPRESSION: 1. No pneumothorax status post RIGHT thoracentesis. 2. No residual RIGHT pleural effusion.
--- NOTE | 2024-02-25 10:32 | PC.NURSE ---
1,000 ml removed during thora centesis
[2024-02-25 11:29] LABS: Glucose Point of Care 91 mg/dL (70-110)
--- NOTE | 2024-02-25 13:12 | P.PN_ITS ---
Subjective 2 Subjective: Seen this morning. Patient is off BiPAP and now on nasal cannula. 800 cc clear fluid was removed yesterday. Effusion is transudate. Pathology pending. ? Eliquis was held for 48 hours in anticipation of another thoracentesis session today. ? Patient going for another thoracentesis today. Discussed with Dr. Drew over the phone. Vitals/I&O/Wt Last Vital Signs Temp 98.4 F 02/24/24 20:00 Pulse 78 02/25/24 12:00 Resp 22 H 02/25/24 12:00 BP 110/62 02/25/24 12:00 Pulse Ox 96 02/25/24 12:00 O2 Del Method Nasal Cannula 02/25/24 11:33 O2 Flow Rate 3 02/25/24 11:33 FiO2 30 02/25/24 07:48 02/24/24 02/25/24 02/25/24 22:59 06:59 14:59 Intake Total 185 / 185 450 / 450 Output Total 1900 / 1900 600 / 2500 1000 / 1000 Balance -1715 / -1715 -600 / -2315 -550 / -550 Weight last 48 hrs Weight 92.442 kg Weight 94.574 kg Weight 94.574 kg Weight 95.254 kg Physical Exam 2 Narrative: General: Patient is awake and alert. Head: Normocephalic. Atraumatic. EOM intact. Cardiovascular: RRR. No gallops. No murmurs. Hypertensive. Lungs: Breath sounds are markedly diminished in right lung, no crackles or wheezes. No acute respiratory distress. No conversational dyspnea. Tachypnea has resolved. Abdomen: Normal bowel sounds, abdomen soft and nontender. Extremities: No cyanosis or clubbing. Musculoskeletal: No swollen or erythematous joints. Neurological: Moves all 4 extremities. No myoclonus. Urinary Catheter Management: Crowder: Cath Placed During This Visit: yes Reason for Continuing Indwelling Catheter: Accurate Measurement of Urinary Output in Critically Ill Patients Urinary Catheter Date of Insertion: 02/24/24 Urinary Catheter Time of Insertion: 06:08 Data 02/25/24 03:29 02/25/24 03:29 Micro: Microbiology 02/24/24 12:30 Gram Stain - Final Pleural Fluid Anaerobic Culture - Preliminary Body Fluid Culture - Preliminary A&P Assessment and plan (1) Recurrent right pleural effusion: Recurrent symptomatic right pleural effusion with acute hypoxic respiratory insufficiency IR thoracentesis requested Pleural fluid labs and cytology ordered Continue supplemental oxygen, wean as tolerated (2) Atrial fibrillation: Hold apixaban for thoracentesis Continue metoprolol for rate control Continue diltiazem for rate control (3) Pulmonary embolism: History of pulmonary embolism chronic anticoagulation Chest CTA negative for pulmonary embolism in ED Hold apixaban for procedure tomorrow (4) Bipolar 1 disorder: Continue home Zyprexa (5) Insomnia: Continue home trazodone Plan DVT prophylaxis: Low risk. Residual apixaban effects present. CODE STATUS: Full code 02/25/2024 Plan for thoracentesis today. Patient is status post initial session with 800 cc clear fluid removed. BiPAP has been off. Continue nasal cannula and wean off as able Pleural fluid sent for cytology. Pathology pending. Request records from [facility] ([facility] Wean off oxygen as able. At baseline she is on room air. ? She says she used to be on Lasix 80 in the past and then was transition to 40 mg and now takes 20 mg daily. ? Will order Lasix 40 IV daily at this time. ? Will check echocardiogram. Previous echo does show EF of 40 to 45%. Will restart Eliquis tonight. She takes for previous pulmonary embolism. Recheck x-ray in AM. Attestations 2 Medical Necessity Statement*: Thoracentesis today. Diagnoses Recurrent right pleural effusion J90 Atrial fibrillation I48.91 Pulmonary embolism I26.99 Bipolar 1 disorder F31.9 Insomnia G47.00
[2024-02-25 17:10] LABS: Glucose Point of Care 181 mg/dL (70-110)
[2024-02-25] MEDS: insulin lispro 100 unit/1 mL SUBCUT (17:16)
[2024-02-25 20:59] LABS: Glucose Point of Care 84 mg/dL (70-110)
[2024-02-25] MEDS: apixaban 5 mg Tablet PO (21:04)
[2024-02-25] MEDS: acetaminophen 325 mg Tablet 650 MG PO (21:04)
[2024-02-25] MEDS: trazodone 100 mg Tablet PO (22:34)
[2024-02-25] MEDS: OLANZapine 10 mg TABLET 80 MG PO (22:34)
[2024-02-25] MEDS: gabapentin 100 mg Capsule PO (22:34)
[2024-02-26] VITALS (36 sets, daily range): BP systolic 99–153; BP diastolic 63–96; PULSE 69–126; RESP 14–31; TEMP 36.4–36.9; O2SAT 90–100; BMI 36.1
[2024-02-26 07:05] LABS: Glucose Point of Care 89 mg/dL (70-110)
[2024-02-26 07:06] LABS: Basophils % 0.5 %; Eosinophils # 0.2 10^3/uL (0.0-0.8); Eosinophils % 3.1 %; Hematocrit 39.7 % (36-47); Lymphocytes # 1.4 10^3/uL (0.8-4.8); Lymphocytes % 17.9 %; Mean Corpuscular HGB Conc 32.5 g/dL (30-55); Mean Corpuscular Hemoglobin 27.9 pg (27-33); Mean Corpuscular Volume 85.7 fl (85-98); Mean Platelet Volume 11.3 fL (7.4-10.4); Monocytes # 0.7 10^3/uL (0.2-0.9); Monocytes % 9.3 %; Neutrophils # 5.29 10^3/uL (1.8-7.7); Neutrophils % 68.9 %; Nucleated Red Blood Cells % 0 %; Platelet Count 228 10^3/cmm (157-399); Red Blood Count 4.63 10^6/uL (3.85-5.65); Red Cell Distribution Width 15.8 % (12.1-15.1); White Blood Count 7.67 10^3/uL (3.29-11.43)
[2024-02-26 07:22] LABS: Anion Gap 13.9 (5-19); Blood Urea Nitrogen 21 mg/dL (8-23); Calcium 8.1 mg/dL (8.5-10.5); Carbon Dioxide 25 mmol/L (22-29); Chloride 99 mmol/L (98-107); Creatinine Clr Calc Pharmacy 37.7054; Glomerular Filtration Rate 34.3 mL/min (90-130); Glucose 116 mg/dL (65-115); Osmolality Calculated 282 mOsm/kg (285-295); Potassium 3.9 mmol/L (3.5-5.1); Sodium 134 mmol/L (136-145)
[2024-02-26] MEDS: dilTIAZem 60 mg Tablet 120 MG PO (08:39)
[2024-02-26] MEDS: apixaban 5 mg Tablet PO ×2 (08:39→21:05)
[2024-02-26] MEDS: metoprolol tartrate 50 mg Tablet PO (08:39)
[2024-02-26] MEDS: albuterol 2.5 mg/3 mL Neb INHALATION ×2 (08:40→11:15)
[2024-02-26] MEDS: gabapentin 100 mg Capsule PO ×2 (08:40→21:06)
[2024-02-26] MEDS: nystatin powder 15 gm Btl 1 APPLIC TOPICAL ×2 (08:40→18:02)
--- NOTE | 2024-02-26 08:42 | PC.SOCIAL ---
IMM Update Pg. 2 of IMM updated. Copy provided at bedside.
--- NOTE | 2024-02-26 09:21 | XR_ITS ---
WS: [id number] Exam: XR chest 1V portable [id number] Date/Time of Exam: 02/26/2024 9:23 AM Reason For Exam: follow up Comparison 02/25/2024. Increasing focal infiltrate in the RIGHT lower lung zone suggest pneumonia. There is LEFT lower lobe atelectasis and trace LEFT pleural effusion. Heart size is stable. The mediastinum is normal in conto ur. The lungs remain fully inflated. Unremarkable bony elements. XR/XR chest 1V portable [id number] IMPRESSION: 1. Increasing focal infiltrate in the RIGHT lower lung zone suggesting pneumoni a. 2. LEFT lower lobe plaque atelectasis and trace LEFT basal pleural effusion.
--- NOTE | 2024-02-26 09:36 | CTR_ITS ---
PROCEDURE INFORMATION: Exam: CT Chest Without Contrast; Diagnostic Exam date and time: 02/26/2024 8:39 PM Age: 68 years old Clinical indication: Cough and shortness of breath; Prior surgery; Surgery date: 6+ months; Surgery type: Left mastectomy; Patient HX: Cough with SOB and hypoxia. Pleural effusion on cxr. History of breast cancer. ; Additional info: Pleural effusion, hypoxia, R/O pna, HX of breast CA TECHNIQUE: Imaging protocol: Diagnostic computed tomography of the chest without contrast. Radiation optimization: All CT scans at this facility use at least one of these dose optimization techniques: automated exposure control; mA and/or kV adjustment per patient size (includes targeted exams where dose is matched to clinical indication); or iterative reconstruction. COMPARISON: CT angio chest PE protcl [id number] 02/23/2024 8:34 PM RADIATION DOSE METRICS: Total DLP (mGy-cm): 444.81 FINDINGS: Lungs: Bilateral largely lower lobe atelectasis versus infiltrate. Pleural spaces: Moderate bilateral pleural effusions. Heart: Cardiomegaly. Coronary arteries: Coronary artery atherosclerotic calcifications. Lymph nodes: Scattered subcentimeter short axis nonspecific mediastinal lymph nodes. Vasculature: Aortic atherosclerotic calcifications. 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 Kidneys: Left kidney cyst incompletely visualized. Left kidney perinephric edema reflecting renal insufficiency, please correlate for pyelonephritis. Intestine: Diverticulosis without diverticulitis. Bones/joints: Unremarkable. No acute fracture. Soft tissues: Unremarkable. CT/CT chest wo con [id number] IMPRESSION: 1. Moderate bilateral pleural effusions. 2. Bilateral largely lower lobe atelectasis versus infiltrate. 3. Cardiomegaly. 4. Coronary artery atherosclerotic calcifications. 5. Scattered subcentimeter short axis nonspecific mediastinal lymph nodes. 6. Aortic atherosclerotic calcifications. 7. 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 8. Diverticulosis without diverticulitis. 9. Left kidney cyst incompletely visualized. 10. Left kidney perinephric edema reflecting renal insufficiency, please correlate for pyelonephritis. COMMENTS: Consistent with the [employer]'s Incidental Findings Committee white paper (J Am Stanford Radiol 2018): Any incidental renal lesion less than 1 cm or classified as too small to characterize, or any incidental cystic renal lesion characterized as simple-appearing, is likely benign. No follow-up imaging is recommended for these lesions per consensus recommendations based on imaging criteria.
[2024-02-26] MEDS: FUROsemide 10 mg/mL SDV 4mL 40 MG IVP (09:47)
[2024-02-26 11:11] LABS: Glucose Point of Care 119 mg/dL (70-110)
--- NOTE | 2024-02-26 11:31 | ECG_ITS ---
[employer] Test Date: 2024-02-26 Pat Name: Alix Kearns Department: Room: [facility]08 Gender: Female Medical Technician Assistant: : 1955 Requested By: Emilia Shin Order Number: [id number] Weiss MD: Bon Rodriguez M.D. Measurements Intervals [place] Rate: 86 P: 0 RI: 0 QRS: 79 QRSD: 109 T: -21 QT: 373 QTc: 448 Interpretive Statements ATRIAL FIBRILLATION INCOMPLETE RIGHT BUNDLE BRANCH BLOCK [90+ ms QRS DURATION, TERMINAL R IN V1/V2, 40+ ms S IN I/aVL/V4/V5/V6] ST DEVIATION AND MODERATE T-WAVE ABNORMALITY, CONSIDER ANTERIOR ISCHEMIA [-0.1+ mV T-WAVE IN V3/V4] Compared to ECG 02/23/2024 15:28:32 Incomplete right bundle-branch block now present T-wave abnormality now present Possible ischemia now present Right bundle-branch block no longer present Electronically Signed On 03-01-2024 00:58:20 CDT by Bon Rodriguez M.D. [id number]
[2024-02-26 11:47] LABS: Alanine Aminotransferase 10 U/L (0-33); Alkaline Phosphatase 95 U/L (35-105); Aspartate Amino Transferase 11 U/L (0-32); Total Bilirubin 0.5 mg/dL (0.15-1.2)
[2024-02-26] MEDS: ampicillin-sulbactam 3 GM in sodium chloride 0.9% (plus) 50 ML IV ×3 (13:00→23:36)
--- NOTE | 2024-02-26 13:21 | P.PN_ITS ---
Subjective 2 Subjective: Seen this morning. Patient very sleepy however will open her eyes for me. She received Zyprexa 80 mg dosage overnight. Upon admission this was listed in the orders as a continued home medication. Patient received a dose on Thursday night upon admission and another dose last night. I did discuss with the patient yesterday regarding her Zyprexa dosage being very high in the presence of the family and she did state that he has she takes 80 mg however I have a suspicion she may have misheard as she takes ziprasidone and not Zyprexa. Went over patient's home medications list which lists ziprasidone. Apparently patient received Zyprexa instead. Discussed with the family regarding the medication error and spoke to patient's caregiver on the phone and [id number] at bedside. Poison control was contacted. Discussed with pharmacy as well. Talk with psychiatry regarding dosage. Did discuss with patient's external at bedside regarding medication however she says they get them through the mail and she does not know dosages. Patient does have a history of bipolar disorder for which she takes her antipsychotics. Patient also received a dose of trazodone last night. Going forward Zyprexa obviously has been discontinued. Patient will remain in the ICU today for close observation for vital signs. EKG ordered every 3 hours has been ordered to monitor QT Will hold diltiazem, Lasix at this time. Patient is arousable and will wake up however will fall back asleep. Repeat chest x-ray from this morning is pending. Vitals/I&O/Wt Last Vital Signs Temp 97.5 F L 02/26/24 04:00 Pulse 87 02/26/24 13:00 Resp 18 02/26/24 13:00 BP 101/63 02/26/24 13:00 Pulse Ox 97 02/26/24 13:00 O2 Del Method BiPAP 02/26/24 11:15 O2 Flow Rate 4 02/26/24 08:35 FiO2 30 02/26/24 11:22 02/25/24 02/26/24 02/26/24 22:59 06:59 14:59 Intake Total 815 / 1265 240 / 1505 200 / 200 Output Total 900 / 1900 450 / 2350 Balance -85 / -635 -210 / -845 200 / 200 Weight last 48 hrs Weight 92.5 kg Weight 92.442 kg Physical Exam 2 Narrative: General: Patient is sleeping at this time. Is arousable. Will wake up open her eyes however will fall back asleep. Head: Normocephalic. Atraumatic. Cardiovascular: Regular rate rhythm no gross murmurs, normal S1-S2 Lungs: No wheezes or rhonchi at this time. Abdomen: Normal bowel sounds, abdomen soft and nontender. Extremities: No cyanosis or clubbing. Neurological: Unable to assess as patient is sedated. No myoclonus at this time.. Urinary Catheter Management: Crowder: Cath Placed During This Visit: yes Reason for Continuing Indwelling Catheter: Accurate Measurement of Urinary Output in Critically Ill Patients Urinary Catheter Date of Insertion: 02/24/24 Urinary Catheter Time of Insertion: 06:08 Data 02/26/24 06:56 02/26/24 06:56 Micro: Microbiology 02/24/24 12:30 Gram Stain - Final Pleural Fluid Anaerobic Culture - Preliminary Body Fluid Culture - Preliminary A&P Assessment and plan (1) Accidental drug overdose: (2) Bipolar 1 disorder: Patient does not take Zyprexa at home however she is on ziprasidone 80 mg daily. (3) Atrial fibrillation: Hold apixaban for thoracentesis Continue metoprolol for rate control Continue diltiazem for rate control (4) Pulmonary embolism: History of pulmonary embolism chronic anticoagulation Chest CTA negative for pulmonary embolism in ED Hold apixaban for procedure tomorrow (5) Type 2 diabetes mellitus without complications: (6) Hypoxemia: (7) Pleural effusion on right: (8) Insomnia: Continue home trazodone (9) Lethargy: (10) Recurrent right pleural effusion: Recurrent symptomatic right pleural effusion with acute hypoxic respiratory insufficiency IR thoracentesis requested Pleural fluid labs and cytology ordered Continue supplemental oxygen, wean as tolerated Plan DVT prophylaxis: Low risk. Residual apixaban effects present. CODE STATUS: Full code 02/26/2024 Patient is status post thoracentesis x 2. 800 cc, 1000 cc subsequently removed. Fluid deemed to be transudative at this time. Pathology pending ? Records requested from [facility]. Wean off oxygen as able. At baseline she is on room air. ?Patient is 3 L negative since admission. Will hold further IV Lasix today. ? She did have an accidental overdose iatrogenic on Zyprexa 80 mg. Has received 2 doses since admission. Further orders have been deleted at this time. Please see subjective portion of this note. ? Will place on Ativan 2 mg every 4 hours as needed for possible seizures, benztropine 1 mg every 6 hours as needed for dystonia. Patient does not have a myoclonus at this time. She is arousable and will respond. Will open her eyes. However will fall back asleep. ? Check vitals more frequently. Watch for hypotension. Check EKG every 3 hours watch for QT prolongation ? Continue to monitor in ICU setting secondary to iatrogenic accidental drug overdose. ? Recommend to hold ziprasidone at discharge for at least 5 days prior to restarting. ? Hold on trazodone at this time as well ? Consult psychiatry for guidance with medication. Discussed with Dr. Warner. Repeat echo shows EF of 60% with grade 1 x 4 diastolic dysfunction. Previous echo does show EF of 40 to 45%. Continue Eliquis she takes for previous pulmonary embolism. Chest x-ray does show resolved pleural effusion however does show possible infiltrate on left side. Will check CT chest to rule out other pathology. Updated patient's family at bedside, patient's nurse talk with pharmacy multiple times, psychiatry. Attestations 2 Medical Necessity Statement*: Requires close monitoring in ICU secondary to iatrogenic drug overdose. Diagnoses Accidental drug overdose T50.901A Bipolar 1 disorder F31.9 Atrial fibrillation I48.91 Pulmonary embolism I26.99 Type 2 diabetes mellitus without complications E11.9 Hypoxemia R09.02 Pleural effusion on right J90 Insomnia G47.00 Lethargy R53.83 Recurrent right pleural effusion J90
[2024-02-26 14:17] LABS: ABG PCO2 41.8 mmHg (35-45); ABG PH Result 7.43 (7.35-7.45); Arterial Blood Gas Hematocrit 40.7 % (37-47); Base Excess ABG 2.7 mmol/L (-2.0-2.0); Blood Gas Allen Test Pos; Blood Gas Operator Identificat GD; Blood Gas Sample Site Radial, left; Blood Gas Sample Type Arterial; Carboxyhemoglobin 0.9 %THgb (0.4-20.1); HCO3 ABG 27.4 mmol/L (22-26); HGB O2 Sat 95.8 % (95-100); Ionized Calcium Level - ABG 1.2 mmol/L (1.1-1.4); Methemoglobin 0.2 % (0.4-1.5); Oxygen Device BIPAP; Oxygen Saturation ABG 96.9; PO2 ABG 85.1 mmHg (80.0-100.0); PO2 FiO2 Ratio Arterial Blood 283; Potassium Level - ABG 3.5 mmol/L (3.5-5.0); Total Hemoglobin 13.3 g/dL (12-16)
--- NOTE | 2024-02-26 14:33 | ECG_ITS ---
[employer] Test Date: 2024-02-26 Pat Name: Alix Kearns Department: Room: [facility]08 Gender: Female Food Production Supervisor: : 1955 Requested By: Emilia Shin Order Number: [id number] Abhishek MD: Bon Rodriguez M.D. Measurements Intervals [place] Rate: 63 P: 0 NE: 0 QRS: 78 QRSD: 117 T: -28 QT: 400 QTc: 412 Interpretive Statements ATRIAL FIBRILLATION INCOMPLETE RIGHT BUNDLE BRANCH BLOCK [90+ ms QRS DURATION, TERMINAL R IN V1/V2, 40+ ms S IN I/aVL/V4/V5/V6] NONSPECIFIC ST & T-WAVE ABNORMALITY Compared to ECG 02/26/2024 11:31:07 Possible ischemia no longer present T-wave abnormality still present Electronically Signed On 03-01-2024 00:58:30 CDT by Bon Rodriguez M.D. [id number]
--- NOTE | 2024-02-26 16:09 | W.PM.PSYCONS ---
Providers/Reason for Consult Consulting Physican/Specialty*: Maurice Warner MD/Psychiatry Reason for Consult*: accidental overdose of medication Attending Physician: Emilia Shin MD Psych Consult HPI History of Present Illness Alix Kearns is a 68 year old female admitted with right pleural effusion and shortness of breath. The patient had accidentally received 80 mg of Zyprexa shortly after midnight on 02/24/2024 along with another dose of Zyprexa 80 mg at 9 PM on 02/25/24. The patient had been prescribed ziprasidone 80mg at night for treatment of bipolar disorder. Patient on bipap in ICU and not able to communicate at this time to gather history. Meds Home Medications and Allergies Home Medications Medication Instructions Recorded Confirmed Last Taken Type cyanocobalamin (vitamin B-12) 1,000 mcg PO QAM 02/05/22 02/24/24 10/12/22 History 1,000 mcg tablet vitamin E mixed 400 unit capsule 400 unit PO QAM 02/05/22 02/24/24 10/12/22 History blood sugar diagnostic (Accu-Chek #100 ea 10/06/22 02/24/24 Unknown Rx Patti Plus test strips) lancing device with lancets kit #100 ea 10/06/22 02/24/24 Unknown Rx (Accu-Chek Softclix Lancing Device+Lancets kit) blood sugar diagnostic (Accu-Chek #100 ea 10/08/22 02/24/24 Unknown Rx Guide test strips) lancets (Accu-Chek Softclix #100 ea 10/10/22 02/24/24 Unknown Rx Lancets) albuterol sulfate 90 mcg/actuation 2 puff inhalation QID PRN 10/13/22 02/24/24 Unknown History aerosol inhaler Shortness Of Breath latanoprost 0.005 % eye drops 1 drp ophthalmic (eye) BEDTIME 02/13/23 02/24/24 Unknown Rx #7.5 mL cholecalciferol (vitamin D3) 25 25 mcg PO DAILY 08/11/23 02/24/24 Unknown History mcg (1,000 unit) capsule diltiazem HCl 120 mg tablet 120 mg PO BID #180 tabs 09/21/23 02/24/24 Unknown Rx furosemide 20 mg tablet 20 mg PO DAILY #90 tabs 10/21/23 02/24/24 Unknown Rx apixaban 5 mg tablet (Eliquis) 5 mg PO BID #90 tabs 11/25/23 02/24/24 02/23/24 09:00 Rx anastrozole 1 mg tablet 1 mg PO QAM #90 tabs 01/27/24 02/24/24 Unknown Rx metformin 500 mg tablet 500 mg PO BID #90 tabs 01/27/24 02/24/24 Unknown Rx atorvastatin 20 mg tablet 20 mg PO DAILY 02/24/24 02/24/24 Unknown History fluticasone propionate 50 1 spray intranasal DAILY 02/24/24 02/24/24 Unknown History mcg/actuation nasal spray,suspension gabapentin 300 mg capsule 300 mg PO BEDTIME 02/24/24 02/24/24 Unknown History metoprolol tartrate 50 mg tablet 50 mg PO BID 02/24/24 02/24/24 Unknown History potassium chloride 10 mEq 10 meq PO DAILY 02/24/24 02/24/24 Unknown History capsule,extended release trazodone 100 mg tablet 100 mg PO BEDTIME 02/24/24 02/24/24 Unknown History ziprasidone HCl 80 mg capsule 80 mg PO DAILY 02/24/24 02/24/24 02/23/24 History Allergies Allergy/AdvReac Type Severity Reaction Status Date / Time aspirin [From Norgesic] Allergy Intermediate vomits Verified 02/16/24 14:25 adhesive Allergy Unknown Verified 02/16/24 14:25 caffeine [From Norgesic] Allergy Unknown Verified 02/16/24 14:25 carrot Allergy Unknown Verified 02/16/24 14:25 iodine Allergy Unknown Verified 02/16/24 14:25 mushroom Allergy Unknown Verified 02/16/24 14:25 orphenadrine [From Norgesic] Allergy Unknown Verified 02/16/24 14:25 Pork/Porcine Containing Allergy diarrhea Verified 02/16/24 14:25 Products cephalexin AdvReac Intermediate vomitting Verified 02/16/24 14:25 Sulfa (Sulfonamide AdvReac Intermediate adv-vomitti Verified 02/16/24 14:25 Antibiotics) ng byetta Allergy Intermediate vomitting Uncoded 02/16/24 14:25 all fruits Allergy Unknown Uncoded 02/16/24 14:25 roberson Allergy Unknown Uncoded 02/16/24 14:25 Current Medications Current Medications Generic Name Dose Route Start Last Admin Trade Name Freq PRN Reason Stop Dose Admin Acetaminophen 650 mg 02/23/24 23:59 02/25/24 21:04 Acetaminophen 325 Mg Tablet PO 650 mg Q6H PRN Administration Mild/Mod Pain Or Temp >/= 101 Apixaban 5 mg 02/25/24 21:00 02/26/24 08:39 Apixaban 5 Mg Tablet PO 5 mg BID@0900,2100 MARIIA Administration Diltiazem HCl 120 mg 02/24/24 09:00 02/26/24 08:39 Diltiazem 60 Mg Tablet PO 120 mg BID MARIIA Administration Furosemide 40 mg 02/26/24 09:00 02/26/24 09:47 Furosemide 10 Mg/Ml Sdv 4ml IVP 40 mg DAILY MARIIA Administration Gabapentin 100 mg 02/25/24 22:00 02/26/24 08:40 Gabapentin 100 Mg Capsule PO 100 mg TID MARIIA Administration Dextrose 250 mls @ 1,000 mls/hr 02/24/24 03:41 02/25/24 19:32 D10w IV Infused PRN PRN Infusion Adult Acute Hypoglycemia Nursing Protocol Protocol Ampicillin Sodium/Sulbactam 50 mls @ 100 mls/hr 02/26/24 12:00 02/26/24 13:00 Sodium 3 gm/ Sodium Chloride IV 100 mls/hr Q6H MARIIA Administration Protocol Insulin Human Lispro 0 unit 02/24/24 08:00 02/26/24 11:09 Insulin Lispro 100 Unit/1 Ml SUBCUT Not Given WM&BEDTIME MARIIA Protocol Metoprolol Tartrate 50 mg 02/23/24 23:59 02/26/24 08:39 Metoprolol Tartrate 50 Mg Tablet PO 50 mg BID MARIIA Administration Nystatin 1 applic 02/24/24 09:00 02/26/24 08:40 Nystatin Powder 15 Gm Btl TOPICAL 1 applic BID MARIIA Administration Trazodone HCl 100 mg 02/25/24 22:00 02/25/24 22:34 Trazodone 100 Mg Tablet PO 100 mg BEDTIME MARIIA Administration PFSH NPU PFSH: Medical History Allergic rhinosinusitis Epistaxis Mixed hyperlipidemia Heart failure with preserved ejection fraction EF 55-60% on echo 04/2022 Pleural effusion on right Pulmonary embolism Chronic anticoagulation Impression: Stable Plan: As per Dr. Medina History of colon polyps on endoscopy in 2020, benign Deafness in left ear Glaucoma Bipolar 1 disorder Acquired deviated nasal septum Epistaxis, recurrent Insomnia takes trazodone History of breast cancer left sided, had mastectomy in 2010, no chemo or radiation Atrial fibrillation Type 2 diabetes mellitus without complications Surgical History History of D&C (1993) History of ear surgery (1984) left History of mastectomy (2010) left H/O sternectomy History of hernia surgery abdominal hernia repair x 4 between [id number] Family History Denies family history of Clotting disorder Bleeding disorder Social History Smoking and tobacco/nicotine status: never used tobacco/nicotine Alcohol intake: never Substance/Drug Use: never Housing: Assisted Living Facility Marital status: Marital status details: spouse has Parkinson's Previous occupational history: worked for [employer] Mental Status Exam MSE Comments: She was lying in bed. She was difficult to arouse. She responded to sternal rub briefly and was alert and then fell back asleep. She was unable to describe her mood. Her affect was flat. She did not appear to be responding to internal stimuli. She was not alert able to provide any level of orientation and did not appear to respond to her name when alert. Vitals/I&O/Wt Last Vital Signs Temp 97.5 F L 02/26/24 04:00 Pulse 70 02/26/24 14:00 Resp 19 H 02/26/24 14:00 BP 101/63 02/26/24 13:00 Pulse Ox 94 02/26/24 14:00 O2 Del Method BiPAP 02/26/24 11:15 O2 Flow Rate 4 02/26/24 08:35 FiO2 30 02/26/24 11:22 02/26/24 02/26/24 02/26/24 06:59 14:59 22:59 Intake Total 240 / 1505 200 / 200 Output Total 450 / 2350 Balance -210 / -845 200 / 200 Weight last 48 hrs Weight 92.5 kg Weight 92.442 kg Physical Exam Urinary Catheter Management: Crowder: Cath Placed During This Visit: yes Reason for Continuing Indwelling Catheter: Accurate Measurement of Urinary Output in Critically Ill Patients Urinary Catheter Date of Insertion: 02/24/24 Urinary Catheter Time of Insertion: 06:08 Data NPU 02/26/24 06:56 02/26/24 06:56 Micro: Microbiology 02/24/24 12:30 Gram Stain - Final Pleural Fluid Anaerobic Culture - Preliminary Body Fluid Culture - Preliminary Microbiology 02/24/24 12:30 Pleural Fluid Gram Stain - Final 02/24/24 12:30 Pleural Fluid Anaerobic Culture - Preliminary 02/24/24 12:30 Pleural Fluid Body Fluid Culture - Preliminary A&P Assessment and plan (1) Bipolar disorder, unspecified: Plan 1. Zyprexa has long half life-agree with discontinuation. She appears excessively sedated. Hold ziprasidone as well for now. Patient appears calm at this time, avoid any excessively sedating medications at this time. 2. Will follow. Attestations NPU Medical Necessity Statement*: Continue medical treatment. Coding Level of Care Code Acute Code for [facility] Diagnoses Bipolar disorder, unspecified F31.9
[2024-02-26 17:04] LABS: Glucose Point of Care 78 mg/dL (70-110)
--- NOTE | 2024-02-26 17:30 | ECG_ITS ---
[employer] Test Date: 2024-02-26 Pat Name: Alix Kearns Department: Room: [facility]08 Gender: Female Executive Consultant: : 1955 Requested By: Emilia Shin Order Number: [id number] Abhishek MD: Bon Rodriguez M.D. Measurements Intervals [place] Rate: 83 P: 0 DC: 0 QRS: 82 QRSD: 106 T: -25 QT: 379 QTc: 447 Interpretive Statements ATRIAL FIBRILLATION INCOMPLETE RIGHT BUNDLE BRANCH BLOCK [90+ ms QRS DURATION, TERMINAL R IN V1/V2, 40+ ms S IN I/aVL/V4/V5/V6] ST DEVIATION AND MODERATE T-WAVE ABNORMALITY, CONSIDER ANTERIOR ISCHEMIA [-0.1+ mV T-WAVE IN V3/V4] Compared to ECG 02/26/2024 14:33:54 Possible ischemia now present T-wave abnormality still present Electronically Signed On 03-01-2024 00:58:49 CDT by Bon Rodriguez M.D. [id number]
[2024-02-26] MEDS: dextrose 5% 1,000 ML 30 ML IV (18:11)
--- NOTE | 2024-02-26 21:06 | ECG_ITS ---
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 Measurements Intervals [place] Rate: 89 P: 0 TN: 0 QRS: 92 QRSD: 107 T: -37 QT: 359 QTc: 437 Interpretive Statements ATRIAL FIBRILLATION BORDERLINE RIGHT AXIS DEVIATION [QRS AXIS > 90] PATTERN CONSISTENT WITH PULMONARY DISEASE INCOMPLETE RIGHT BUNDLE BRANCH BLOCK [90+ ms QRS DURATION, TERMINAL R IN V1/V2, 40+ ms S IN I/aVL/V4/V5/V6] ST DEVIATION AND MODERATE T-WAVE ABNORMALITY, CONSIDER ANTERIOR ISCHEMIA [-0.1+ mV T-WAVE IN V3/V4] Compared to ECG 02/26/2024 17:04:13 No significant changes Electronically Signed On 03-01-2024 00:58:14 CDT by Bon Rodriguez M.D. [email or web address]
[2024-02-26 21:07] LABS: Glucose Point of Care 81 mg/dL (70-110)
[2024-02-26 21:07] LABS: Glucose Point of Care 83 mg/dL (70-110)
--- NOTE | 2024-02-26 21:45 | PC.NURSE ---
Upon entering room to prepare patient for cat scan as ordered. Patient noted to be awake and oriented. Removed from bipap and placed on O2 per NC at 4L. Transported to CT via bed, tolerated well, returned to room via bed. V/S remain stable, continue O2 at 4L NC, blood glucose is 83, continue D5W IV fluids and snack given to patient. PO meds taken w/o difficulty.
--- NOTE | 2024-02-26 22:11 | PC.NURSE ---
Poison control called to check on patient status. Updated that patient is awake and alert and off of the bipap. Case closed and reported to call if any changes and is needed again.
[2024-02-26 22:53] LABS: Glucose Point of Care 134 mg/dL (70-110)
--- NOTE | 2024-02-26 23:30 | ECG_ITS ---
[facility] Test Date: 2024-02-27 Pat Name: Alix Kearns Department: Room: 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 Measurements Intervals [place] Rate: 104 P: 0 IN: 0 QRS: 96 QRSD: 107 T: -26 QT: 329 QTc: 433 Interpretive Statements ATRIAL FIBRILLATION WITH RAPID VENTRICULAR RESPONSE BORDERLINE RIGHT AXIS DEVIATION [QRS AXIS > 90] INCOMPLETE RIGHT BUNDLE BRANCH BLOCK [90+ ms QRS DURATION, TERMINAL R IN V1/V2, 40+ ms S IN I/aVL/V4/V5/V6] ST DEVIATION AND MODERATE T-WAVE ABNORMALITY, CONSIDER ANTERIOR ISCHEMIA [-0.1+ mV T-WAVE IN V3/V4] Compared to ECG 02/26/2024 21:06:52 No significant changes Electronically Signed On 03-01-2024 00:58:09 CDT by Bon Rodriguez M.D. [id number]
[2024-02-27] VITALS (28 sets, daily range): BP systolic 91–141; BP diastolic 58–99; PULSE 71–128; RESP 17–31; TEMP 36.1–37.4; O2SAT 86–97
[2024-02-27 01:09] LABS: Glucose Point of Care 121 mg/dL (70-110)
[2024-02-27 04:53] LABS: Basophils % 0.6 %; Eosinophils # 0.3 10^3/uL (0.0-0.8); Hematocrit 41.7 % (36-47); Lymphocytes % 14.7 %; Mean Corpuscular HGB Conc 32.1 g/dL (30-55); Mean Corpuscular Hemoglobin 28.3 pg (27-33); Mean Platelet Volume 11.3 fL (7.4-10.4); Monocytes # 0.6 10^3/uL (0.2-0.9); Monocytes % 8.2 %; Neutrophils # 4.84 10^3/uL (1.8-7.7); Neutrophils % 71.2 %; Nucleated Red Blood Cells % 0 %; Platelet Count 193 10^3/cmm (157-399); Red Blood Count 4.74 10^6/uL (3.85-5.65); Red Cell Distribution Width 15.9 % (12.1-15.1)
[2024-02-27 05:17] LABS: Alanine Aminotransferase 8 U/L (0-33); Alkaline Phosphatase 105 U/L (35-105); Blood Urea Nitrogen 22 mg/dL (8-23); Calcium 8.4 mg/dL (8.5-10.5); Carbon Dioxide 26 mmol/L (22-29); Chloride 101 mmol/L (98-107); Creatinine Clr Calc Pharmacy 39.6667; Globulin 2.9 g/dL (1.3-4.6); Glomerular Filtration Rate 37.2 mL/min (90-130); Glucose 103 mg/dL (65-115); Magnesium 1.6 mg/dL (1.7-2.3); Osmolality Calculated 290 mOsm/kg (285-295); Phosphorus 4.3 mg/dL (2.5-4.5); Sodium 138 mmol/L (136-145); Total Bilirubin 0.5 mg/dL (0.15-1.2); Total Protein 5.9 g/dL (6.6-8.7)
[2024-02-27 05:20] LABS: Anion Gap 14.9 (5-19); Aspartate Amino Transferase 11 U/L (0-32); Potassium 3.9 mmol/L (3.5-5.1)
[2024-02-27] MEDS: ampicillin-sulbactam 3 GM in sodium chloride 0.9% (plus) 50 ML IV ×4 (05:38→23:30)
[2024-02-27] MEDS: metoprolol tartrate 50 mg Tablet PO ×2 (08:00→17:41)
[2024-02-27] MEDS: gabapentin 100 mg Capsule PO ×3 (08:18→20:23)
[2024-02-27] MEDS: nystatin powder 15 gm Btl 1 APPLIC TOPICAL ×2 (08:19→17:50)
[2024-02-27] MEDS: apixaban 5 mg Tablet PO ×2 (08:19→20:23)
--- NOTE | 2024-02-27 08:41 | PC.NURSE ---
remains drowsy this am awaken for am meds and refused to eat at this time
[2024-02-27 09:47] LABS: Glucose Point of Care 96 mg/dL (70-110)
[2024-02-27] MEDS: potassium chloride ER 20 mEq Tablet 40 MEQ PO (10:31)
[2024-02-27] MEDS: FUROsemide 10 mg/mL SDV 4mL 40 MG IVP (10:31)
[2024-02-27 11:21] LABS: Glucose Point of Care 178 mg/dL (70-110)
[2024-02-27] MEDS: insulin lispro 100 unit/1 mL SUBCUT ×2 (11:25→20:23)
--- NOTE | 2024-02-27 12:04 | P.PN_ITS ---
Subjective 2 Subjective: Seen this morning. Patient alert oriented x 3 sitting up in bed. Off the BiPAP on nasal cannula at this time. Discussed with her regarding her home medication once again. And she stated yes I do take Zyprexa 80 mg daily. I again asked her if it is Zyprexa and she said yes it Zyprexa. That I told the patient it is actually ziprasidone that is listed on your home medication list then she corrected herself and said oh yes it is ziprasidone. She says I got confused. I told her that she was given Zyprexa instead and that is when she was sleepy. Patient responded oh okay . She says she feels great today. Still requiring [address] chest reviewed. Does show bilateral pleural effusions. There is also a possible infiltrate on right side. Patient did get a dose of Lasix this morning. Was tachycardic overnight. Diltiazem was held and now has been restarted. Patient required D5 drip overnight secondary to low blood sugar and no oral intake since she slept all day yesterday. D5 drip has been turned off at this point. Vitals/I&O/Wt Last Vital Signs Temp 97.4 F L 02/27/24 04:00 Pulse 91 02/27/24 10:00 Resp 20 H 02/27/24 10:00 BP 117/80 02/27/24 09:00 Pulse Ox 92 02/27/24 10:00 O2 Del Method Nasal Cannula 02/27/24 08:02 O2 Flow Rate 5 02/27/24 08:02 FiO2 30 02/26/24 20:00 02/26/24 02/27/24 02/27/24 22:59 06:59 14:59 Intake Total 540 / 790 200 / 990 250 / 250 Output Total 900 / 900 775 / 1675 Balance -360 / -110 -575 / -685 250 / 250 Weight last 48 hrs Weight 89.4 kg Weight 92.5 kg Physical Exam 2 Narrative: General: Alert oriented x 3 sitting up in bed. Head: Normocephalic. Atraumatic. Cardiovascular: Regular rate rhythm no gross murmurs, normal S1-S2 Lungs: No wheezes or rhonchi at this time. Abdomen: Normal bowel sounds, abdomen soft and nontender. Extremities: No cyanosis or clubbing. Neurological: Nonfocal. Urinary Catheter Management: Crowder: Cath Placed During This Visit: yes Reason for Continuing Indwelling Catheter: Accurate Measurement of Urinary Output in Critically Ill Patients Urinary Catheter Date of Insertion: 02/24/24 Urinary Catheter Time of Insertion: 06:08 Data 02/27/24 04:30 02/27/24 04:30 Micro: Microbiology 02/24/24 12:30 Gram Stain - Final Pleural Fluid Anaerobic Culture - Preliminary Body Fluid Culture - Preliminary A&P Assessment and plan (1) Accidental drug overdose: (2) Bipolar 1 disorder: Patient does not take Zyprexa at home however she is on ziprasidone 80 mg daily. (3) Atrial fibrillation: Hold apixaban for thoracentesis Continue metoprolol for rate control Continue diltiazem for rate control (4) Pulmonary embolism: History of pulmonary embolism chronic anticoagulation Chest CTA negative for pulmonary embolism in ED Hold apixaban for procedure tomorrow (5) Type 2 diabetes mellitus without complications: (6) Hypoxemia: (7) Pleural effusion on right: (8) Insomnia: Continue home trazodone (9) Lethargy: (10) Recurrent right pleural effusion: Recurrent symptomatic right pleural effusion with acute hypoxic respiratory insufficiency IR thoracentesis requested Pleural fluid labs and cytology ordered Continue supplemental oxygen, wean as tolerated Plan DVT prophylaxis: Low risk. Patient on apixaban. CODE STATUS: Full code 02/27/2024 Patient is status post thoracentesis x 2. 800 cc, 1000 cc subsequently removed. Fluid deemed to be transudative at this time. Pathology pending ? Records requested from [facility]. Wean off oxygen as able. At baseline she is on room air. ?Patient is 3 L negative since admission. Lasix 40 IV today. ? Patient did have an accidental overdose yesterday of Zyprexa 80 mg. She is back to her baseline at this point. Alert oriented x 3. ? May transfer to medical surgical floor today. ? Patient requiring IV diuresis. Does have bilateral pleural effusions. Still requiring 5 L nasal cannula. Will place on BiPAP overnight ? Recommend to hold ziprasidone at discharge for at least 5 days prior to restarting. ? Hold on trazodone at this time as well ? Consult psychiatry for guidance with medication. Recommendations appreciated. Repeat echo shows EF of 60% with grade 1 x 4 diastolic dysfunction. Previous echo does show EF of 40 to 45%. Continue Eliquis she takes for previous pulmonary embolism. CT chest reviewed: ? Possible infiltrate and bilateral pleural effusions present. Continue Unasyn at this time. Attestations 2 Medical Necessity Statement*: Continue to diurese patient. Does have bilateral pleural effusions and has oxygen dependency of 5 L at rest. Continue to treat for pneumonia as well. Diagnoses Accidental drug overdose T50.901A Bipolar 1 disorder F31.9 Atrial fibrillation I48.91 Pulmonary embolism I26.99 Type 2 diabetes mellitus without complications E11.9 Hypoxemia R09.02 Pleural effusion on right J90 Insomnia G47.00 Lethargy R53.83 Recurrent right pleural effusion J90
[2024-02-27 12:38] LABS: Procalcitonin 0.08 ng/mL (0-0.5)
[2024-02-27] MEDS: magnesium sulfate premix 2 GM/50 ML PIGGYBACK IV (12:55)
[2024-02-27] MEDS: albuterol 2.5 mg/3 mL Neb INHALATION (14:28)
[2024-02-27] MEDS: dilTIAZem 60 mg Tablet 120 MG PO (15:34)
[2024-02-27 17:40] LABS: Glucose Point of Care 139 mg/dL (70-110)
[2024-02-27 20:23] LABS: Glucose Point of Care 145 mg/dL (70-110)
[2024-02-28] VITALS (26 sets, daily range): BP systolic 95–148; BP diastolic 37–95; PULSE 54–117; RESP 18–31; TEMP 36.8–37.2; O2SAT 86–96
[2024-02-28 04:49] LABS: Basophils % 0.4 %; Eosinophils # 0.5 10^3/uL (0.0-0.8); Eosinophils % 6.3 %; Hematocrit 39.8 % (36-47); Lymphocytes # 1.3 10^3/uL (0.8-4.8); Lymphocytes % 17.7 %; Mean Corpuscular HGB Conc 32.4 g/dL (30-55); Mean Corpuscular Hemoglobin 28.4 pg (27-33); Mean Corpuscular Volume 87.7 fl (85-98); Mean Platelet Volume 11.2 fL (7.4-10.4); Monocytes # 0.7 10^3/uL (0.2-0.9); Monocytes % 10.4 %; Neutrophils # 4.63 10^3/uL (1.8-7.7); Neutrophils % 64.9 %; Nucleated Red Blood Cells % 0 %; Platelet Count 221 10^3/cmm (157-399); Red Blood Count 4.54 10^6/uL (3.85-5.65); Red Cell Distribution Width 15.7 % (12.1-15.1); White Blood Count 7.13 10^3/uL (3.29-11.43)
[2024-02-28 05:09] LABS: Anion Gap 11.3 (5-19); Blood Urea Nitrogen 24 mg/dL (8-23); Calcium 8.7 mg/dL (8.5-10.5); Carbon Dioxide 29 mmol/L (22-29); Chloride 98 mmol/L (98-107); Glomerular Filtration Rate 40.5 mL/min (90-130); Glucose 97 mg/dL (65-115); Magnesium 1.8 mg/dL (1.7-2.3); Osmolality Calculated 282 mOsm/kg (285-295); Potassium 4.3 mmol/L (3.5-5.1); Sodium 134 mmol/L (136-145)
[2024-02-28 05:18] LABS: Creatinine Clr Calc Pharmacy 42.7179
[2024-02-28] MEDS: ampicillin-sulbactam 3 GM in sodium chloride 0.9% (plus) 50 ML IV ×4 (05:42→23:45)
[2024-02-28 07:30] LABS: Glucose Point of Care 133 mg/dL (70-110)
[2024-02-28] MEDS: metoprolol tartrate 50 mg Tablet PO ×2 (09:45→17:29)
[2024-02-28] MEDS: dilTIAZem 60 mg Tablet 120 MG PO ×2 (09:45→17:29)
[2024-02-28] MEDS: gabapentin 100 mg Capsule PO ×3 (09:45→20:15)
[2024-02-28] MEDS: apixaban 5 mg Tablet PO ×2 (09:48→20:14)
[2024-02-28] MEDS: nystatin powder 15 gm Btl 1 APPLIC TOPICAL ×2 (09:50→17:30)
--- NOTE | 2024-02-28 10:24 | PC.NURSE ---
pt up in bed for am breaksfast good appitite at this time lungs with crackles
[2024-02-28] MEDS: FUROsemide 10 mg/mL SDV 4mL 40 MG IVP (11:37)
[2024-02-28 11:53] LABS: Glucose Point of Care 170 mg/dL (70-110)
[2024-02-28] MEDS: insulin lispro 100 unit/1 mL SUBCUT (11:58)
--- NOTE | 2024-02-28 15:31 | P.PN_ITS ---
Subjective 2 Subjective: Awake alert oriented x 3 however does seem to have mild cognitive impairment. Sitting up in bed appearing comfortable at this time. States she feels well and is no longer sleepy. Still has a mild cough. She is 10 L negative since admission. Creatinine down to 1.3. Vitals/I&O/Wt Last Vital Signs Temp 98.2 F 02/28/24 05:00 Pulse 72 02/28/24 14:51 Resp 21 H 02/28/24 14:00 BP 95/67 02/28/24 14:00 Pulse Ox 91 02/28/24 14:00 O2 Del Method Nasal Cannula 02/28/24 10:17 O2 Flow Rate 4 02/28/24 10:17 FiO2 30 02/26/24 20:00 02/28/24 02/28/24 02/28/24 06:59 14:59 22:59 Intake Total 100 / 1400 710 / 710 Output Total 1175 / 3175 4175 / 4175 1700 / 5875 Balance -1075 / -1775 -3465 / -3465 -1700 / -5165 Weight last 48 hrs Weight 89.6 kg Weight 89.4 kg Physical Exam 2 Narrative: General: Alert oriented x 3 sitting up in bed. Head: Normocephalic. Atraumatic. On 4 L nasal cannula saturating 91%. Cardiovascular: Regular rate rhythm no gross murmurs, normal S1-S2 Lungs: Does have bilateral crackles at bases. Abdomen: Normal bowel sounds, abdomen soft and nontender. Extremities: No cyanosis or clubbing. Neurological: Nonfocal. Urinary Catheter Management: Crowder: Cath Placed During This Visit: yes Reason for Continuing Indwelling Catheter: Accurate Measurement of Urinary Output in Critically Ill Patients Urinary Catheter Date of Insertion: 02/24/24 Urinary Catheter Time of Insertion: 06:08 Data 02/28/24 04:25 02/28/24 04:25 Micro: Microbiology 02/24/24 12:30 Gram Stain - Final Pleural Fluid Anaerobic Culture - Preliminary Body Fluid Culture - Final A&P Assessment and plan (1) Accidental drug overdose: (2) Bipolar 1 disorder: Patient does not take Zyprexa at home however she is on ziprasidone 80 mg daily. (3) Atrial fibrillation: Hold apixaban for thoracentesis Continue metoprolol for rate control Continue diltiazem for rate control (4) Pulmonary embolism: History of pulmonary embolism chronic anticoagulation Chest CTA negative for pulmonary embolism in ED Hold apixaban for procedure tomorrow (5) Type 2 diabetes mellitus without complications: (6) Hypoxemia: (7) Pleural effusion on right: (8) Insomnia: Continue home trazodone (9) Lethargy: (10) Recurrent right pleural effusion: Recurrent symptomatic right pleural effusion with acute hypoxic respiratory insufficiency IR thoracentesis requested Pleural fluid labs and cytology ordered Continue supplemental oxygen, wean as tolerated Plan DVT prophylaxis: Low risk. Patient on apixaban. CODE STATUS: Full code 02/28/2024 Patient is status post thoracentesis x 2. 800 cc, 1000 cc subsequently removed. Fluid deemed to be transudative at this time. Pathology pending. Pleural effusion most likely secondary to heart failure. She did state that she used to be on 80 mg of Lasix in the past which was weaned down to 40 and now 20. ? Records requested from [facility]. Wean off oxygen as able. At baseline she is on room air. ? Patient is 10 L negative since admission. I believe she needs continued IV diuresis. Creatinine is finally started to come down. It is 1.3 today. BUN 24. Will continue to diurese. She still has bilateral crackles at bases. She has bilateral pleural effusions. Does have a history of diastolic heart failure and same on echo done done this hospitalization. ? At baseline she is on room air. Currently requiring 4 L nasal cannula saturating 91%. ? For possible pneumonia for right-sided infiltrate I have her on Unasyn at this time. Will continue to complete 7 days total ? Continue to hold ziprasidone at discharge for at least 5 days prior to restarting secondary to accidental Zyprexa 80 mg x 2 administration during hospitalization. Please see previous notes for details. ? Continue Eliquis at this time ? Once adequately diuresed she may able to discharge home in next 24 to 48 hours on home oxygen. I would probably discharge home on Lasix 40 oral twice daily. ? Recommend pulmonology and cardiology consultation as an outpatient. ? May transfer to [facility]. Attestations 2 Medical Necessity Statement*: Continue to diurese patient. Does have bilateral pleural effusions and has oxygen dependency of 4 L at rest. Continue to treat for pneumonia as well. Diagnoses Accidental drug overdose T50.901A Bipolar 1 disorder F31.9 Atrial fibrillation I48.91 Pulmonary embolism I26.99 Type 2 diabetes mellitus without complications E11.9 Hypoxemia R09.02 Pleural effusion on right J90 Insomnia G47.00 Lethargy R53.83 Recurrent right pleural effusion J90
[2024-02-28 16:56] LABS: Glucose Point of Care 102 mg/dL (70-110)
[2024-02-28 20:29] LABS: Glucose Point of Care 131 mg/dL (70-110)
[2024-02-29] VITALS (12 sets, daily range): BP systolic 110–134; BP diastolic 58–90; PULSE 64–97; RESP 17–23; TEMP 36.3–37.2; O2SAT 90–95
--- NOTE | 2024-02-29 00:55 | PC.NURSE ---
Report given to RAJIV Gordon on [employer]. Notified that will bring patient when she wakes up because she is sleeping currently.
[2024-02-29] MEDS: FUROsemide 10 mg/mL SDV 4mL 40 MG IVP (05:00)
[2024-02-29] MEDS: ampicillin-sulbactam 3 GM in sodium chloride 0.9% (plus) 50 ML IV ×3 (05:00→21:49)
--- NOTE | 2024-02-29 05:50 | PC.NURSE ---
Transferred to room 276-2 via bed. Update given to RAJIV Gordon. Patient states that she does not want her family called until 0830 to notify of room number. Notified Heidi of this.
[2024-02-29 06:50] LABS: Glucose Point of Care 91 mg/dL (70-110)
[2024-02-29] MEDS: gabapentin 100 mg Capsule PO ×3 (08:48→21:46)
[2024-02-29] MEDS: apixaban 5 mg Tablet PO ×2 (08:48→21:46)
[2024-02-29] MEDS: nystatin powder 15 gm Btl 1 APPLIC TOPICAL ×2 (08:48→16:54)
[2024-02-29] MEDS: metoprolol tartrate 50 mg Tablet PO ×2 (08:48→16:53)
[2024-02-29] MEDS: dilTIAZem 60 mg Tablet 120 MG PO (08:50)
--- NOTE | 2024-02-29 09:02 | CT_ITS ---
WS: [id number] CT HEAD NONCONTRAST HISTORY: facial droop TECHNIQUE: Contiguous axial imaging performed through the brain. Bone and soft tissue windows. Sagitt al and coronal reformats reviewed. All CT scans at [facility] use at least one of these dose optimization techniques: automated exposure control; mA and/or kV adjustment per patient size (includ es targeted exams where dose is matched to clinical indication); or iterative reconstruction. DLP: 1193.07 mGy COMPARISON: 02/24/2024 No acute intracranial hemorrhage, midline shift or mass effect. Moderate diffuse atrophy. Mild small vessel ischemic disease. No acute edema identified. No lacunar infarcts. Ventricles: Normal size with no hydrocephalus. No inferior displacement of the cerebellar tonsils. Paranasal sinuses: As visualized are clear. Mastoid air cells: Well pneumatized. Calvarium and scalp: Hyperostosis frontalis interna. No destructive lesions. No scalp abnormality. CT/CT head wo con* [id number] IMPRESSION: 1. No acute intracranial hemorrhage or edema. 2. Moderate atrophy with generalized volume loss and mild small vessel disease is unchanged. Notified Kd Mcpherson MD at 02/29/2024 9:22 AM.
[2024-02-29 09:03] LABS: Glucose Point of Care 83 mg/dL (70-110)
--- NOTE | 2024-02-29 09:34 | PM.CCNAC ---
Critical Care Event Note Code stroke called in by the nurse earlier in the morning today. Concern for new facial droop with mild weakness on the left arm. On bedside examination patient is awake and alert, able to have complete conversation. Lower limb power bilateral 3/5. Has been chronic. Upper limb right 4/5, left 3/5. Mild facial droop present. Pupils bilaterally equal and reactive. On review patient has a history of A-fib and on Eliquis 5 mg twice daily. Blood sugars checked of 83. Appreciate vitals. Plan: Will need a CT head to rule out intracranial bleed. Patient is on Eliquis and is not a candidate for thrombolytics. Discussed in detail with Dr. Balbuena/neurologist on-call. Agrees with the plan. Had recent echocardiogram. Full dose aspirin 325 mg one-time followed by 81 mg daily. Atorvastatin 40 mg nightly. Permissible hypertension for next 24 hours. Continue with home dose of metoprolol to prevent reflex tachycardia. Hold off on Cardizem. Carotid Dopplers. Tried calling patient's Mr. Nix over the phone. Unable to get in touch. Left voice message. The high probability of a clinically significant, sudden or life threatening deterioration of the patient's [neurology] system(s) required my full and direct attention, intervention and personal management. The critical care time is as shown. This time is in addition to time spent performing any reported procedures but includes the following: [x] Data and vital sign review and interpretation [x] Patient assessment, examination and intervention [x] Documentation [x] Medication orders and management Critical Care Time Code activated: Yes Critical Care Time (min): 60 Coding Level of Care Code Critical Care
[2024-02-29 10:11] LABS: Estmated Average Glucose 148; Hemoglobin A1C 6.8 % (4.0-6.0)
[2024-02-29 10:14] LABS: INR 1.71 (0.8-1.2)
[2024-02-29 10:38] LABS: Alanine Aminotransferase 10 U/L (0-33); Alkaline Phosphatase 118 U/L (35-105); Anion Gap 11.9 (5-19); Aspartate Amino Transferase 10 U/L (0-32); Blood Urea Nitrogen 24 mg/dL (8-23); Calcium 8.9 mg/dL (8.5-10.5); Carbon Dioxide 34 mmol/L (22-29); Chloride 93 mmol/L (98-107); Creatinine Clr Calc Pharmacy 42.6033; Globulin 3.5 g/dL (1.3-4.6); Glomerular Filtration Rate 40.5 mL/min (90-130); Glucose 120 mg/dL (65-115); Iron 34 ug/dL (37-145); Osmolality Calculated 285 mOsm/kg (285-295); Percent Saturation 14.8 % (20-50); Potassium 3.9 mmol/L (3.5-5.1); Sodium 135 mmol/L (136-145); Thyroid Stimulating Hormone 3.14 uIU/mL (0.27-4.20); Total Bilirubin 0.6 mg/dL (0.15-1.2); Total Iron Binding Capacity 229 mcg/dl; Total Protein 6.5 g/dL (6.6-8.7); Unsaturated Iron Binding 195 ug/dL (112-347); Vitamin B12 1484 pg/mL (232-1245)
[2024-02-29 11:31] LABS: Glucose Point of Care 115 mg/dL (70-110)
--- NOTE | 2024-02-29 11:51 | PC.NURSE ---
At approximately 0820 this morning this nurse went in to assess patient. Patient was requesting in bed. After assessing patient this nurse went out to find help to boost patient in bed. Patient boosted and breakfast was set up for patient. This nurse went out to pull patients meds. This nurse re-entered patients room a few minutes before 0900. She was able to take her medications just fine. This nurse noticed patient to have some left sided facial droop and minimal weakness in the LUE. Patient was complaining of some facial numbness. Vital signs obtained: B/P 106/72, HR 87 (controlled afib), 94% on 4L NC, 96
--- NOTE | 2024-02-29 11:59 | PC.NURSE ---
Upon entering patients room this morning after report, patient was found to be laying asleep in bed. This nurse re-entered patients room at approx 0820. This nurse woke patient and introduced myself to the patient. This nurse performed my mornings assessments on patient and then left to get help to do a thorough skin assessment on patients backside and boost patient in bed for breakfast. Patients assessment was complete and charted. Patient was set up for breakfast. This nurse left to get patient a drink and her medicine. Patient was able to swallow medications without any complications. This nurse re-entered patients room at around 0900. Patient noted to have some L sided facial droop as well as minimal left sided upper extremity weakness. The patient complained of some facial numbess. Vital signs obtained: B/P: 106/72, HR: 87 (controlled afib), 94% on 4L NC, temp 97.9 orally. Patients blood sugar also obtained and a reading of [address] Mcpherson called and notified of findings. Stroke code was called and stroke team responded quickly. Patient assessed by physician and then taken for STAT head CT. Patient is currently resting in bed. This nurse will continue to monitor and follow thru with further orders.
--- NOTE | 2024-02-29 12:53 | PC.SOCIAL ---
IMM Updated Updated pt on IMM. No questions voiced. Provided pt a copy. Initialed, dated, & timed a copy & placed in chart
[2024-02-29 15:47] LABS: Glucose Point of Care 132 mg/dL (70-110)
--- NOTE | 2024-02-29 16:08 | P.PN_ITS ---
Subjective 2 Subjective: Acute events earlier today morning as noted in the separate note. Examination patient is awake and alert. Denies any nausea vomiting, headache. Has remained hemodynamically stable and afebrile. Currently on 2 to 3 L of oxygen supplementation. Appreciate urine output. Vitals/I&O/Wt Last Vital Signs Temp 98.5 F 02/29/24 11:55 Pulse 77 02/29/24 11:55 Resp 19 H 02/29/24 11:55 BP 110/76 02/29/24 11:55 Pulse Ox 91 02/29/24 11:55 O2 Del Method Nasal Cannula 02/29/24 11:55 O2 Flow Rate 4 02/29/24 08:19 FiO2 30 02/26/24 20:00 02/29/24 02/29/24 02/29/24 06:59 14:59 22:59 Intake Total 100 / 1810 600 / 600 Output Total 600 / 7425 1500 / 1500 Balance -500 / -5615 -900 / -900 Weight last 48 hrs Weight 88.949 kg Weight 89.6 kg Physical Exam 2 Narrative: General: No acute distress, AO x 2-3, on nasal cannula HEENT: PERRLA, pupils bilaterally equal and reactive Chest: Normal vesicular breath sounds, decreased air Rebar entry lower zone, fine crackles occasionally to the mid lungs CVS: S1-S2 irregularly irregular, no murmurs, no tachycardia, no gallops, no rubs Abdomen: Soft, nontender, no organomegaly, bowel sounds present Neuro: Pupils bilaterally equal and reactive, mild right-sided facial droop, power: Upper limb left 3/5, right 4/5, bilateral lower limb 4/5 Urinary Catheter Management: Crowder: Cath Placed During This Visit: yes Reason for Continuing Indwelling Catheter: Accurate Measurement of Urinary Output in Critically Ill Patients Urinary Catheter Date of Insertion: 02/24/24 Urinary Catheter Time of Insertion: 06:08 Data 02/28/24 04:25 02/29/24 09:47 Micro: Microbiology 02/24/24 12:30 Gram Stain - Final Pleural Fluid Anaerobic Culture - Preliminary Body Fluid Culture - Final A&P Assessment and plan (1) CVA (cerebral vascular accident): Left-sided weakness with facial droop on 02/28. Discussed with neurology. CT head negative for bleed. Patient not a candidate for thrombolysis given being on Eliquis. Recent echocardiogram appreciated. Carotid Dopplers. Start on aspirin 81 mg daily after 325 mg one-time dose. S atorvastatin 40 mg daily. Permissible hypertension for next 24 hours. PT/OT/speech evaluation. (2) Atrial fibrillation: Currently rate controlled. Continue with home dose of metoprolol. Holding off on Cardizem for permissible hypertension. (3) Pulmonary embolism: Chronic. CTA done during hospitalization negative for PE. Restarted Eliquis 5 mg twice daily. (4) Type 2 diabetes mellitus without complications: Appreciate A1c of 6.8. Continue with current sliding scale. Patient takes metformin 500 mg twice daily at home. Will plan to switch over to Farxiga on discharge. (5) Hypoxemia: Most likely in setting of bilateral pleural effusion due to diastolic heart failure along with pneumonia versus atelectasis. No blood culture present. Urine culture negative. Pleural fluid culture negative. No sputum culture present. Patient has been on Unasyn since 02/25. Day 4 today. Will finish a 5-day course. Low concern for pneumonia for now. Last echocardiogram showed normal EF with grade 1 diastolic dysfunction with moderate pulmonary hypertension. Patient overall around 12 L negative. Postthoracentesis x 2 right side. Overall 1800 cc of fluid removed. Concern for transudative. Patient developing contraction alkalosis now. Strict input output charting, daily weights. Fluid restriction to less than 1500 cc. Switch to Lasix 40 mg oral daily. Add acetazolamide 500 mg oral daily. Will discontinue Diamox once contraction alkalosis resolved. (6) Recurrent right pleural effusion: Recurrent symptomatic right pleural effusion with acute hypoxic respiratory insufficiency IR thoracentesis requested Pleural fluid labs and cytology ordered Continue supplemental oxygen, wean as tolerated (7) Heart failure with preserved ejection fraction: (8) Pleural effusion on right: (9) Accidental drug overdose: Received dose of 80 mg of Zyprexa for 2 nights while she was supposed to get ziprasidone on admission. Appreciate QTc. Repeat EKG. (10) Insomnia: Continue home trazodone (11) Lethargy: (12) Bipolar 1 disorder: Restart home dose of ziprasidone and trazodone. Plan DVT prophylaxis: Eliquis will be sufficient for DVT prophylaxis CODE STATUS: Full code Famotidine for PUD prophylaxis Attestations 2 Medical Necessity Statement*: Requires further hospitalization for management of hypoxia in setting of diastolic heart failure, bilateral pleural effusion, CVA Diagnoses CVA (cerebral vascular accident) I63.9 Atrial fibrillation I48.91 Pulmonary embolism I26.99 Type 2 diabetes mellitus without complications E11.9 Hypoxemia R09.02 Recurrent right pleural effusion J90 Heart failure with preserved ejection fraction I50.30 Pleural effusion on right J90 Accidental drug overdose T50.901A Insomnia G47.00 Lethargy R53.83 Bipolar 1 disorder F31.9
[2024-02-29] MEDS: acetaZOLAMIDE 250 mg Tablet 500 MG PO (16:52)
[2024-02-29] MEDS: aspirin 325 mg EC Tablet PO (16:52)
[2024-02-29 20:36] LABS: Glucose Point of Care 139 mg/dL (70-110)
[2024-02-29] MEDS: atorvastatin 40 mg Tablet PO (21:46)
[2024-03-01] VITALS: BP 109/78; PULSE 75; RESP 17; TEMP 37; O2SAT 92
[2024-03-01 04:00] VITALS: BP 138/80; PULSE 85; RESP 19; TEMP 36.7; O2SAT 92
[2024-03-01] MEDS: ampicillin-sulbactam 3 GM in sodium chloride 0.9% (plus) 50 ML IV ×2 (04:29→09:48)
[2024-03-01 05:44] LABS: Basophils % 0.6 %; Eosinophils # 0.4 10^3/uL (0.0-0.8); Eosinophils % 5.8 %; Hematocrit 41.2 % (36-47); Lymphocytes # 1.4 10^3/uL (0.8-4.8); Lymphocytes % 19.8 %; Mean Corpuscular HGB Conc 31.3 g/dL (30-55); Mean Corpuscular Hemoglobin 27.6 pg (27-33); Mean Platelet Volume 11.6 fL (7.4-10.4); Monocytes # 0.8 10^3/uL (0.2-0.9); Monocytes % 10.8 %; Neutrophils # 4.45 10^3/uL (1.8-7.7); Neutrophils % 62.6 %; Nucleated Red Blood Cells % 0 %; Platelet Count 235 10^3/cmm (157-399); Red Blood Count 4.68 10^6/uL (3.85-5.65); Red Cell Distribution Width 15.5 % (12.1-15.1); White Blood Count 7.11 10^3/uL (3.29-11.43)
--- NOTE | 2024-03-01 06:00 | USCV_ITS ---
Alix Kearns Age: 68 Gender: F : 1955 Exam Date: 03/01/2024 07:23 Ordering Phys: Kd Mcpherson MD Technologist: [place] [facility] [place]: [place] Risk Factors: Previous Vascular Surgery: Right Brachial BP: / Left Brachial BP: / Right Left Velocity (cm/s) Spectral Plaque Velocity (cm/s) Spectral Plaque Syst/Diast Broadening Syst/Diast Broadening 79.10/ 24.50 Prox CCA 115.30/ 33.10 83.00/ 32.30 Mid CCA 102.50/ 35.70 93.40/ 31.00 Hetro Distal CCA 105.10/ 25.40 Hetro 120.60/25.50 Prox ICA 64.90 / 24.80 74.30/ 20.30 Mid ICA 51.90 / 14.70 74.30/ 28.00 Distal ICA 49.40 / 14.70 64.60 ECA 74.90 1.30 ICA/CCA 0.60 Antegrade Vertebral Antegrade 56.30/ 25.40 cm/s 84.20/ 22.10 cm/s Bi Subclavian Bi 81.90 FINDINGS Comparison: none available. Technically very limited exam. Waveforms are blunted but this is probably due to poor windows and motion. Mild calcified plaque in the bifurcations. CONCLUSIONS Bilateral ICA stenosis less than 50%. Technically very diffiucult study. Dr. Zunilda Drew DO (Electronically Signed) Final Date: 01 March 2024 10:48 S
[2024-03-01 06:06] LABS: Alanine Aminotransferase 8 U/L (0-33); Albumin Level 2.8 g/dL (3.5-5.2); Alkaline Phosphatase 106 U/L (35-105); Anion Gap 12.6 (5-19); Aspartate Amino Transferase 14 U/L (0-32); Blood Urea Nitrogen 27 mg/dL (8-23); Carbon Dioxide 31 mmol/L (22-29); Chloride 95 mmol/L (98-107); Creatinine Clr Calc Pharmacy 41.0061; Glomerular Filtration Rate 37.2 mL/min (90-130); Glucose 121 mg/dL (65-115); Osmolality Calculated 286 mOsm/kg (285-295); Potassium 3.6 mmol/L (3.5-5.1); Sodium 135 mmol/L (136-145); Total Bilirubin 0.4 mg/dL (0.15-1.2); Total Protein 5.8 g/dL (6.6-8.7)
[2024-03-01 06:07] LABS: Cholesterol 117 mg/dL (0-200); HDL Cholesterol 39 mg/dL (60-100); LDL Cholesterol Calculated 61 mg/dL (50-129); LDL HDL Ratio 1.56 RATIO (0.00-3.22); Magnesium 1.8 mg/dL (1.7-2.3); Triglycerides 83 mg/dL (0-150); VLDL Cholestrol Calculation 17 mg/dL (0-30)
[2024-03-01 06:15] LABS: Glucose Point of Care 113 mg/dL (70-110)
[2024-03-01 06:24] LABS: Folate Level 4.8 ng/mL (4.8-37.3)
[2024-03-01 07:12] VITALS: BP 102/68; PULSE 83; RESP 18; TEMP 36.6; O2SAT 90
[2024-03-01] MEDS: FUROsemide 40 mg Tablet PO (07:48)
[2024-03-01 08:31] VITALS: PULSE 83; RESP 16; O2SAT 95
[2024-03-01] MEDS: acetaZOLAMIDE 250 mg Tablet 500 MG PO (08:31)
[2024-03-01] MEDS: ziprasidone hcl 40 mg Capsule 80 MG PO (08:31)
[2024-03-01] MEDS: metoprolol tartrate 50 mg Tablet PO (08:34)
[2024-03-01] MEDS: aspirin 81 mg EC Tablet PO (08:34)
[2024-03-01] MEDS: gabapentin 100 mg Capsule PO (08:34)
[2024-03-01] MEDS: nystatin powder 15 gm Btl 1 APPLIC TOPICAL (08:35)
--- NOTE | 2024-03-01 09:38 | P.DS_ITS ---
Discharge Providers Date of Admission: 02/24/24 12:00 Date of Discharge: March 01, 2024 Attending Provider at Admission: Jason Eaton MD Attending Provider at Discharge: Kd Mcpherson MD Diagnoses at Discharge Discharge Diagnosis (1) CVA (cerebral vascular accident): Status: Acute (2) Atrial fibrillation: Status: Chronic (3) Pulmonary embolism: Status: Acute (4) Type 2 diabetes mellitus without complications: Status: Chronic (5) Hypoxemia: Status: Acute (6) Recurrent right pleural effusion: Status: Acute (7) Heart failure with preserved ejection fraction: Status: Chronic Permanent problem details: EF 55-60% on echo 04/2022 (8) Pleural effusion on right: Status: Acute (9) Accidental drug overdose: Status: Acute (10) Insomnia: Status: Chronic Permanent problem details: takes trazodone (11) Lethargy: Status: Acute (12) Bipolar 1 disorder: Status: Chronic Reason for Visit Reason for Visit: SOB Brief History: History as per HPI: Alix Kearns is a 68 year old female with a past medical history significant for right sided pleural effusion, left-sided breast cancer, heart failure with preserved ejection fraction, atrial fibrillation, pulmonary embolism, type 2 diabetes mellitus, and multiple other comorbidities who presents emergency department with shortness of breath x 1 week. Patient reports progressively wor sening symptoms. She was reportedly found to have an SpO2 of 80% by EMS on room air. Exertion worsens symptoms. Rest improves. Patient reports a history of stage I left-sided breast cancer. She does have a history of prior right sided pleural effusion. She is previously underwent thoracentesis once on 10/15/2022 1 1000 mL of fluid was removed. At that time, fluid was found to be transudative. It was negative for cytological evidence of malignancy. Hospital Course Hospital Course Patient was admitted to the hospital further evaluation and management of hypoxia in setting of recurrent right-sided pleural effusion. She was started on IV diuretics. CTA was done which ruled out pulmonary embolism. Her home dose of Eliquis was withheld and she underwent thoracentesis. She was also started on broad-spectrum IV antibiotics with concern for possible pneumonia. During hospitalization her fluid studies and blood cultures remain negative. She overall underwent thoracentesis twice and overall 800 cc of fluid was removed from the right side. Her hospitalization was complicated with her developing altered mental status few days after admission which was later thought to be in setting of accidental overdose of Zyprexa. Patient received 80 mg of Zyprexa rather than 80 mg of ziprasidone which was later corrected after home med rec was completed. Psychiatry was consulted and her medications were gradually changed. Patient's mentation improved and she continued to do better with IV diuresis. Overall patient is around 15 L negative by the time of discharge. Her renal functions have remained stable. Patient's hospitalization was also complicated by her developing strokelike symptoms on 02/28 with mild weakness on the left upper limb and drooping of her face. CT head was done which ruled out acute bleeding. As patient was already on Eliquis she was not a candidate for thrombolytics. Echocardiogram was done during hospitalization which showed normal EF with 60%, grade 1 dysfunction, moderate pulmonary hypertension with RVSP of 52 mmHg. She was discharged back to [place] on oral diuretics. Her metformin has been changed to Farxiga. She is to continue taking Diamox for 3 more days. She should have a repeat BMP in 1 week. Physical Exam Narrative: General: No acute distress, AO x 2-3, on nasal cannula HEENT: PERRLA, pupils bilaterally equal and reactive Chest: Normal vesicular breath sounds, decreased air Rebar entry lower zone, fine crackles occasionally to the mid lungs CVS: S1-S2 irregularly irregular, no murmurs, no tachycardia, no gallops, no rubs Abdomen: Soft, nontender, no organomegaly, bowel sounds present Neuro: Pupils bilaterally equal and reactive, mild right-sided facial droop, power: Upper limb left 3/5, right 4/5, bilateral lower limb 4/5 Urinary Catheter Management: Crowder: Cath Placed During This Visit: yes Reason for Continuing Indwelling Catheter: Acute Urinary Retention or Obstruction Urinary Catheter Date of Insertion: 02/24/24 Urinary Catheter Time of Insertion: 06:08 Discharge Data Studies Completed and Pending Completed Studies During Hospitalization Category Date Time Status CT angio chest PE protcl [id number] Stat Cat Scan 02/23/24 16:[address] chest wo con [id number] Urgent Cat Scan 02/26/24 09:[address] head wo con* [id number] Routine Cat Scan 02/29/24 09:[address] head wo con* [id number] Stat Cat Scan 02/24/24 18:44 Completed CXRP [XR chest 1V portable [id number]] Routine Exams 02/24/24 13:12 Completed CXRP [XR chest 1V portable [id number]] Urgent Exams 02/25/24 10:28 Completed XR chest 1V portable [id number] Routine Exams 02/25/24 08:50 Completed XR chest 1V portable [id number] Routine Exams 02/26/24 09:21 Completed XR chest 1V portable [id number] Stat Exams 02/23/24 15:34 Completed US echo complete [CV. echo complete* [id number]] Routine Ultrasound 02/25/24 10:00 Completed US thoracentesis [id number] Routine Ultrasound 02/25/24 09:39 Completed US thoracentesis [id number] Stat Ultrasound 02/24/24 22:59 Completed Pending at discharge Category Date Time Status Anaerobic Culture Routine Lab 02/23/24 23:59 Results Body Fluid Culture & GS Routine Lab 02/23/24 23:59 Results Complete Blood Count w/Auto AM LABS Lab 03/02/24 04:00 Ordered Comprehensive Metabolic Panel AM LABS Lab 03/02/24 04:00 Ordered MAG [Magnesium] AM LABS Lab 03/02/24 04:00 Ordered MAG [Magnesium] AM LABS Lab 03/03/24 04:00 Ordered CV carotid duplex BI* [id number] Routine Ultrasound 03/01/24 06:00 Taken Radiology Impressions Chest CTA 02/23/24 16:05 IMPRESSION: 1. No pulmonary emboli. 2. Large right-sided pleural effusion with complete collapse of the right lower lobe and right middle lobe with significant atelectatic changes in the right upper lobe. Thoracentesis Ultrasound 02/25/24 09:39 IMPRESSION: 1. RIGHT thoracentesis yielding 1000 cc of fluid. 2. Chest radiograph to follow to evaluate for pneumothorax. Chest X-Ray 02/26/24 09:21 IMPRESSION: 1. Increasing focal infiltrate in the RIGHT lower lung zone suggesting pneumonia. 2. LEFT lower lobe plaque atelectasis and trace LEFT basal pleural effusion. Chest CT 02/26/24 09:36 IMPRESSION: 1. Moderate bilateral pleural effusions. 2. Bilateral largely lower lobe atelectasis versus infiltrate. 3. Cardiomegaly. 4. Coronary artery atherosclerotic calcifications. 5. Scattered subcentimeter short axis nonspecific mediastinal lymph nodes. 6. Aortic atherosclerotic calcifications. 7. 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 8. Diverticulosis without diverticulitis. 9. Left kidney cyst incompletely visualized. 10. Left kidney perinephric edema reflecting renal insufficiency, please correlate for pyelonephritis. COMMENTS: Consistent with the [employer]'s Incidental Findings Committee white paper (J Am [employer] 2018): Any incidental renal lesion less than 1 cm or classified as too small to characterize, or any incidental cystic renal lesion characterized as simple-appearing, is likely benign. No follow-up imaging is recommended for these lesions per consensus recommendations based on imaging criteria. Head CT 02/29/24 09:02 IMPRESSION: 1. No acute intracranial hemorrhage or edema. 2. Moderate atrophy with generalized volume loss and mild small vessel disease is unchanged. Notified Kd Mcpherson MD at 02/29/2024 9:22 AM. Echocardiogram: CONCLUSIONS Normal left ventricular size, systolic function and wall thickness, with no regional wall motion abnormalities. Left ventricular ejection fraction is estimated at 60 %. Grade I/IV diastolic dysfunction (abnormal relaxation filling pattern), normal to mildly elevated filling pressures. Moderate aortic valve calcification. No aortic valve stenosis. Trace aortic valve regurgitation. There is no pericardial effusion. The right ventricle is normal in size and function. Moderate pulmonary hypertension, RVSP 52.8 mmHg. Right atrial pressure is around 10 mm of mercury. Sissy Akhtar MD (Electronically Signed) Final Date: 25 February 2024 Laboratory Results WBC 7.11 10^3/uL (3.29-11.43) 03/01/24 05:10 Corrected WBC Cancelled 02/26/24 03:17 RBC 4.68 10^6/uL (3.85-5.65) 03/01/24 05:10 Hgb 12.90 g/dL (11.27-16.99) 03/01/24 05:10 Hct 41.2 % (36-47) 03/01/24 05:10 MCV 88.0 fl (85-98) 03/01/24 05:10 MCH 27.6 pg (27-33) 03/01/24 05:10 MCHC 31.3 g/dL (30-55) 03/01/24 05:10 RDW 15.5 % (12.1-15.1) H 03/01/24 05:10 Plt Count 235 10^3/cmm (157-399) 03/01/24 05:10 MPV 11.6 fL (7.4-10.4) H 03/01/24 05:10 Gran % Cancelled 02/26/24 03:17 Neut % (Auto) 62.6 % 03/01/24 05:10 Lymph % (Auto) 19.8 % 03/01/24 05:10 [place] % (Auto) 10.8 % 03/01/24 05:10 Eos % (Auto) 5.8 % 03/01/24 05:10 Baso % (Auto) 0.6 % 03/01/24 05:10 Neut # (Auto) 4.45 10^3/uL (1.8-7.7) 03/01/24 05:10 Lymph # (Auto) 1.4 10^3/uL (0.8-4.8) 03/01/24 05:10 [place] # (Auto) 0.8 10^3/uL (0.2-0.9) 03/01/24 05:10 Eos # (Auto) 0.4 10^3/uL (0.0-0.8) 03/01/24 05:10 Baso # (Auto) 0.0 10^3/uL (0.0-0.1) 03/01/24 05:10 Absolute Gran (auto) Cancelled 02/26/24 03:17 Nucleated RBC % (auto) 0 % 03/01/24 05:10 Nucleated RBCs # 0.0 /100WBC 03/01/24 05:10 Differential Comment Yes 02/24/24 12:30 PT 20.60 SECONDS (12.1-14.9) H 02/29/24 09:47 INR 1.71 (0.8-1.2) H 02/29/24 09:47 Specimen Type Arterial 02/26/24 13:55 Sample Site Radial, left 02/26/24 13:55 ABG pH 7.43 (7.35-7.45) 02/26/24 13:55 ABG pCO2 41.8 mmHg (35-45) 02/26/24 13:55 ABG pO2 85.1 mmHg (80.0-100.0) 02/26/24 13:55 ABG PO2/FiO2 Ratio 283 02/26/24 13:55 ABG HCO3 27.4 mmol/L (22-26) H 02/26/24 13:55 ABG O2 Saturation 96.9 02/26/24 13:55 ABG Base Excess 2.7 mmol/L (-2.0-2.0) H 02/26/24 13:55 [place] Test Pos 02/26/24 13:55 A-a O2 Gradient 10.0 mmHg (5-10) 02/26/24 13:55 Hematocrit 40.7 % (37-47) 02/26/24 13:55 Hgb O2 Saturation 95.8 % (95-100) 02/26/24 13:55 Carboxyhemoglobin 0.9 %THgb (0.4-20.1) 02/26/24 13:55 Methemoglobin 0.2 % (0.4-1.5) L 02/26/24 13:55 Total Hemoglobin 13.3 g/dL (12-16) 02/26/24 13:55 Sodium 137.0 mmol/L (131-143) 02/26/24 13:55 Potassium 3.5 mmol/L (3.5-5.0) 02/26/24 13:55 Glucose 94.0 mg/dL (70-115) 02/26/24 13:55 Ionized Calcium 1.2 mmol/L (1.1-1.4) 02/26/24 13:55 O2 Delivery Device Bipap 02/26/24 13:55 O2 Liters/Min 4.0 % 02/24/24 04:28 FiO2 30.0 % 02/26/24 13:55 Pool Technician ID Gd 02/26/24 13:55 Sodium 135 mmol/L (136-145) L 03/01/24 05:10 Potassium 3.6 mmol/L (3.5-5.1) 03/01/24 05:10 Chloride 95 mmol/L (98-107) L 03/01/24 05:10 Carbon Dioxide 31 mmol/L (22-29) H 03/01/24 05:10 Anion Gap 12.6 (5-19) 03/01/24 05:10 BUN 27 mg/dL (8-23) H 03/01/24 05:10 Creatinine 1.4 mg/dL (0.5-0.9) H 03/01/24 05:10 GFR Calculation 37.2 mL/min (90-130) L 03/01/24 05:10 Glucose 121 mg/dL (65-115) H 03/01/24 05:10 POC Glucose 113 mg/dL (70-110) H 03/01/24 06:08 Estimat Average Glucose 148 02/29/24 09:47 Hemoglobin A1c 6.8 % (4.0-6.0) H 02/29/24 09:47 Calculated Osmolality 286 mOsm/kg (285-295) 03/01/24 05:10 Calcium 9.0 mg/dL (8.5-10.5) 03/01/24 05:10 Phosphorus 4.3 mg/dL (2.5-4.5) 02/27/24 04:30 Magnesium 1.8 mg/dL (1.7-2.3) 03/01/24 05:10 Iron 34 ug/dL (37-145) L 02/29/24 09:47 TIBC 229 mcg/dl 02/29/24 09:47 % Saturation 14.8 % (20-50) L 02/29/24 09:47 Unsat Iron Binding 195 ug/dL (112-347) 02/29/24 09:47 Total Bilirubin 0.4 mg/dL (0.15-1.2) 03/01/24 05:10 Direct Bilirubin 0.30 mg/dL (0.00-0.30) 02/26/24 06:56 AST 14 U/L (0-32) 03/01/24 05:10 ALT 8 U/L (0-33) 03/01/24 05:10 Alkaline Phosphatase 106 U/L (35-105) H 03/01/24 05:10 Lactate Dehydrogenase 141 U/L (135-214) 02/23/24 17:34 Total Protein 5.8 g/dL (6.6-8.7) L 03/01/24 05:10 Albumin 2.8 g/dL (3.5-5.2) L 03/01/24 05:10 Globulin 3.0 g/dL (1.3-4.6) 03/01/24 05:10 Triglycerides 83 mg/dL (0-150) 03/01/24 05:10 Cholesterol 117 mg/dL (0-200) 03/01/24 05:10 LDL Cholesterol, Calc 61 mg/dL (50-129) 03/01/24 05:10 Total VLDL Cholesterol 17 mg/dL (0-30) 03/01/24 05:10 HDL Cholesterol 39 mg/dL (60-100) L 03/01/24 05:10 LDL/HDL Ratio 1.56 RATIO (0.00-3.22) 03/01/24 05:10 Cholesterol/HDL Ratio 3.00 mg/dL (0.0-4.40) 03/01/24 05:10 Vitamin B12 1484 pg/mL (232-1245) H 02/29/24 09:47 Folate 4.8 ng/mL (4.8-37.3) 03/01/24 05:10 Procalcitonin 0.08 ng/mL (0-0.5) 02/27/24 04:30 TSH 3.14 uIU/mL (0.27-4.20) 02/29/24 09:47 Fluid Color Pale yellow 02/24/24 12:30 Fluid Appearance Clear 02/24/24 12:30 Fluid Specific Grav 1.025 02/24/24 12:30 Fluid WBC 82 /uL 02/24/24 12:30 Fluid RBC 0 10^3/uL 02/24/24 12:30 Fld Polynuclear WBCs # 0.017 02/24/24 12:30 Fld Polynuclear WBCs % 20.700 % 02/24/24 12:30 Fl Mononucl WBCs #(Auto) 0.065 02/24/24 12:30 Fl Mononuclear % Auto 79.300 % 02/24/24 12:30 Fld Crystal Laterality Right lower 02/24/24 12:30 Fluid Glucose 111.0 mg/dL 02/24/24 12:30 Fluid Albumin 2.2 g/dL 02/24/24 12:30 Fluid LDH 57 U/L 02/24/24 12:30 Pleural Total Protein 3.2 g/dL 02/24/24 12:30 Vitals Last Vital Signs Temp 97.8 F 03/01/24 07:12 Pulse 83 03/01/24 08:31 Resp 16 03/01/24 08:31 BP 102/68 03/01/24 07:12 Pulse Ox 95 03/01/24 08:31 O2 Del Method Nasal Cannula 03/01/24 08:31 O2 Flow Rate 3 03/01/24 08:31 FiO2 30 02/26/24 20:00 Discharge Plan Discharge Patient Disposition: Home Condition: Stable Prescriptions: New furosemide 40 mg Tablet 40 mg PO DAILY@0800 Qty: 30 0RF dapagliflozin propanediol [Farxiga] 10 mg tablet 10 mg PO DAILY Qty: 30 0RF clopidogrel [Plavix] 75 mg tablet 75 mg PO DAILY Qty: 30 0RF acetazolamide 250 mg tablet 250 mg PO DAILY 3 Days Qty: 3 0RF Continued cyanocobalamin (vitamin B-12) 1,000 mcg tablet 1,000 mcg PO QAM vitamin E mixed 400 unit capsule 400 unit PO QAM cholecalciferol (vitamin D3) 25 mcg (1,000 unit) capsule 25 mcg PO DAILY (DME) lancing device with lancets [Accu-Chek Soft Dev Lancets] Kit See Rx Instructions .Route Qty: 100 3RF Rx Instructions: to uses once daily to check blood sugar 90 day supply (DME) Accu-Chek Patti Plus test strp Strip See Rx Instructions .Route Qty: 100 3RF Rx Instructions: to use once daily with accu-chek meter 90 day suppy (DME) Accu-Chek Guide test strips Strip See Rx Instructions .Route Qty: 100 3RF Rx Instructions: to use once daily in accu-check meter 90 day supply (DME) lancets [Accu-Chek Softclix Lancets] Misc See Rx Instructions .Route Qty: 100 3RF Rx Instructions: As directed latanoprost 0.005 % drops 1 drp ophthalmic (eye) BEDTIME Qty: 7.5 1RF Eliquis 5 mg tablet 5 mg PO BID Qty: 90 1RF anastrozole 1 mg tablet 1 mg PO QAM Qty: 90 0RF potassium chloride 10 mEq capsule, extended release 10 meq PO DAILY trazodone 100 mg tablet 100 mg PO BEDTIME metoprolol tartrate 50 mg tablet 50 mg PO BID gabapentin 300 mg capsule 300 mg PO BEDTIME fluticasone propionate 50 mcg/actuation spray,suspension 1 spray INTRANASAL DAILY ziprasidone HCl 80 mg capsule 80 mg PO DAILY albuterol sulfate 90 mcg/actuation Hfa Aerosol Inhaler 2 puff INHALATION QID PRN (Reason: Shortness Of Breath) Changed atorvastatin 20 mg Tablet 40 mg PO DAILY Qty: 60 0RF Discontinued diltiazem HCl 120 mg tablet 120 mg PO BID Qty: 180 3RF furosemide 20 mg tablet 20 mg PO DAILY Qty: 90 1RF metformin 500 mg tablet 500 mg PO BID Qty: 90 0RF Discharge Orders: Discharge Order (Routine); Ordered 03/01/24 Ordered By: Kd Mcpherson Other Ambulatory Orders: DME: Oxygen (Order) Location: None Selected Ordered By: Emilia Shin Discharge Diet: Cardiac Discharge Activity: Resume usual activity and Increase activity as tolerated Discharge Attestations Time Spent in Discharge Care*: greater than 30 min Specific Discharge Activities: educating patient, discussing with pcp/other providers, discussing with rehabilitation caseworker/social workers/dc planners, documenting/other paperwork and evaluating patient/reviewing data Status at Discharge: Cognitive status at discharge: cognitively intact , Behavioral status at discharge: cooperative , Functional status at discharge: uses cane/walker , Overall status at discharge: patient is progressing back to baseline Quality Metrics Clinical Quality Measures [ No reported AMI, CVA or VTE this stay] Coding Level of Care Code 56221 Total time (in minutes) for Discharge: 60 Diagnoses CVA (cerebral vascular accident) I63.9 Atrial fibrillation I48.91 Pulmonary embolism I26.99 Type 2 diabetes mellitus without complications E11.9 Hypoxemia R09.02 Recurrent right pleural effusion J90 Heart failure with preserved ejection fraction I50.30 Pleural effusion on right J90 Accidental drug overdose T50.901A Insomnia G47.00 Lethargy R53.83 Bipolar 1 disorder F31.9
[2024-03-01] MEDS: apixaban 5 mg Tablet PO (09:44)
[2024-03-01 11:09] VITALS: BP 104/68; PULSE 94; RESP 18; TEMP 36.6; O2SAT 95
[2024-03-01 11:31] VITALS: BP 104/68; PULSE 94; RESP 18; TEMP 36.6; O2SAT 95
[2024-03-01 11:48] LABS: Glucose Point of Care 147 mg/dL (70-110)
== END 2024-03-01 13:10 | disposition intermediate care facility (04) | DRG 291 ==
LOC: ER 22:47 → MEDSURG 23:12 → ICU 02-24 11:54 → MEDSURG 02-29 05:46
PROVIDERS: Internal Medicine; Admitting Provider Internal Medicine; Emergency Provider Family Medicine; Visit Provider Student in an Organized Health Care Education/Training Program
DX: I50.32 Chronic diastolic (congestive) heart failure (principal); I63.9 Cerebral infarction, unspecified; J18.9 Pneumonia, unspecified organism; J91.8 Pleural effusion in other conditions classified elsewhere; F31.89 Other bipolar disorder; E87.3 Alkalosis; R29.810 Facial weakness; G83.24 Monoplegia of upper limb affecting left nondominant side; I48.91 Unspecified atrial fibrillation; R09.02 Hypoxemia; T43.591A Poisoning by other antipsychotics and neuroleptics, accidental (unintentional), initial encounter; Y92.230 Patient room in hospital as the place of occurrence of the external cause; G47.00 Insomnia, unspecified; G31.84 Mild cognitive impairment of uncertain or unknown etiology; E11.9 Type 2 diabetes mellitus without complications; Z79.84 Long term (current) use of oral hypoglycemic drugs; Z86.711 Personal history of pulmonary embolism; Z79.01 Long term (current) use of anticoagulants; Z85.3 Personal history of malignant neoplasm of breast
CPT/HCPCS: 32555; 36415; 36416; 36600; 51702; 70450; 71045; 71250; 71275; 80048; 80051; 80053; 80061; 80076; 80503; 82042; 82330; 82607; 82746; 82805; 82945; 82962; 83036; 83540; 83550; 83615; 83735; 84100; 84145; 84157; 84315; 84443; 85025; 85610; 87070; 87075; 87205; 89050; 92610; 93005; 93306; 93880; 94640; 94660; 94760; 96372; 96374; 96376; 97116; 97161; 97530; 99285; G0378; J0295; J1815; J1940; J3475; J7070; J7613; J7614; J7799

== ENCOUNTER 2024-03-02 05:55 | Emergency (ER) | payer MEDICARE, SELFPAY ==
[2024-03-02 05:56] VITALS: BP 124/67; PULSE 106; RESP 19; TEMP 36.9; O2SAT 91
--- NOTE | 2024-03-02 06:20 | XRR_ITS ---
PROCEDURE INFORMATION: Exam: XR Chest Exam date and time: 03/02/2024 6:24 AM Age: 68 years old Clinical indication: Cough and dyspnea; Additional info: Dyspnea/cough TECHNIQUE: Imaging protocol: Radiologic exam of the chest. Views: 1 view. COMPARISON: CT chest wo con [id number] 02/26/2024 8:39 PM FINDINGS: Lungs: Mild left basilar airspace opacity. Pleural spaces: Query small bilateral pleural effusions. No pneumothorax. Heart/Mediastinum: Cardiomegaly. Bones/joints: Unremarkable. XR/XR chest 1V portable [id number] IMPRESSION: 1. Query small bilateral pleural effusions. 2. Mild left basilar airspace opacity is favored to reflect atelectasis.
--- NOTE | 2024-03-02 06:21 | ECG_ITS ---
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 Measurements Intervals [place] Rate: 108 P: 0 MT: 0 QRS: 49 QRSD: 107 T: -50 QT: 347 QTc: 467 Interpretive Statements ATRIAL FIBRILLATION WITH RAPID VENTRICULAR RESPONSE INCOMPLETE RIGHT BUNDLE BRANCH BLOCK NONSPECIFIC ST & T-WAVE ABNORMALITY Compared to ECG 02/27/2024 01:03:57 No significant change Electronically Signed On 03-02-2024 08:30:14 CDT by Justo Soler M.D. [email or web address]
[2024-03-02 06:36] LABS: Basophils # 0.1 10^3/uL (0.0-0.1); Basophils % 0.7 %; Eosinophils % 0.2 %; Lymphocytes # 1.4 10^3/uL (0.8-4.8); Lymphocytes % 15.4 %; Mean Corpuscular Hemoglobin 27.7 pg (27-33); Mean Corpuscular Volume 89.5 fl (85-98); Mean Platelet Volume 11.6 fL (7.4-10.4); Monocytes # 0.8 10^3/uL (0.2-0.9); Monocytes % 9.2 %; Neutrophils # 6.51 10^3/uL (1.8-7.7); Neutrophils % 74.2 %; Nucleated Red Blood Cells % 0 %; Platelet Count 233 10^3/cmm (157-399); Red Blood Count 4.58 10^6/uL (3.85-5.65); Red Cell Distribution Width 15.3 % (12.1-15.1); White Blood Count 8.78 10^3/uL (3.29-11.43)
[2024-03-02] MEDS: metoprolol tartrate 50 mg Tablet PO (06:37)
[2024-03-02 06:39] VITALS: BP 111/67; PULSE 112; RESP 13; O2SAT 91
[2024-03-02 06:41] LABS: Alanine Aminotransferase 13 U/L (0-33); Albumin Level 3.1 g/dL (3.5-5.2); Alkaline Phosphatase 124 U/L (35-105); Aspartate Amino Transferase 22 U/L (0-32); Blood Urea Nitrogen 31 mg/dL (8-23); Calcium 9.4 mg/dL (8.5-10.5); Carbon Dioxide 29 mmol/L (22-29); Chloride 96 mmol/L (98-107); Globulin 3.4 g/dL (1.3-4.6); Glomerular Filtration Rate 34.3 mL/min (90-130); Glucose 135 mg/dL (65-115); Osmolality Calculated 291 mOsm/kg (285-295); Sodium 136 mmol/L (136-145); Total Bilirubin 0.6 mg/dL (0.15-1.2); Total Protein 6.5 g/dL (6.6-8.7)
[2024-03-02 07:05] VITALS: BP 111/67; PULSE 93; RESP 12; O2SAT 95
--- NOTE | 2024-03-02 07:28 | PC.PHAR ---
patient as of yesterday 03/01/24 went to [facility]
--- NOTE | 2024-03-02 07:31 | ED_ITS ---
HPI - Epistaxis 2 General: Chief complaint: Epistaxis Stated complaint: nose bleed Time Seen by Provider: 03/02/24 06:05 History of Present Illness: 68-year-old female presents to the [facility] ency room with complaint of epistaxis. Patient has a known history of breast cancer. She has had pulmonary effusions that developed recently. Her breast cancer also been complicated by PEs and she had episodes of epistaxis when she was treated with Eliquis. Approximately 1 week ago she was admitted for a large right pleural effusion this was drained. It had previously happened as well there is no finding conclusive for metastasis of her cancer on the most recent thoracentesis. She was discharged to a residential. She is still a full code. She presents with blood at the nares and in the mouth no active bleeding. She is also mildly hypoxic requiring 2 L by nasal cannula to maintain sats in the upper 90s with a room air she decreases to 89 to 91%. She denies chest pain or abdominal pain. At the time of the most recent hospitalization a repeat repeat CTA of the chest was done and was negative for pulmonary embolism she is currently continuing on Eliquis at 5 mg p.o. twice daily for her atrial fibrillation. Associated symptoms: Deny fever(s) Related Data Home Medications Medication Instructions Recorded Confirmed cyanocobalamin (vitamin B-12) 1,000 mcg PO QAM 02/05/22 03/02/24 1,000 mcg tablet vitamin E mixed 400 unit capsule 400 unit PO QAM 02/05/22 03/02/24 albuterol sulfate 90 mcg/actuation 2 puff inhalation QID PRN 10/13/22 03/02/24 aerosol inhaler Shortness Of Breath cholecalciferol (vitamin D3) 25 25 mcg PO DAILY 08/11/23 03/02/24 mcg (1,000 unit) capsule fluticasone propionate 50 1 spray intranasal DAILY 02/24/24 03/02/24 mcg/actuation nasal spray,suspension gabapentin 300 mg capsule 300 mg PO BEDTIME 02/24/24 03/02/24 metoprolol tartrate 50 mg tablet 50 mg PO BID 02/24/24 03/02/24 potassium chloride 10 mEq 10 meq PO DAILY 02/24/24 03/02/24 capsule,extended release trazodone 100 mg tablet 100 mg PO BEDTIME 02/24/24 03/02/24 ziprasidone HCl 80 mg capsule 80 mg PO DAILY 02/24/24 03/02/24 Previous Rx's Medication Instructions Recorded blood sugar diagnostic (Accu-Chek #100 ea 10/06/22 Patti Plus test strips) lancing device with lancets kit #100 ea 10/06/22 (Accu-Chek Softclix Lancing Device+Lancets kit) blood sugar diagnostic (Accu-Chek #100 ea 10/08/22 Guide test strips) lancets (Accu-Chek Softclix #100 ea 10/10/22 Lancets) latanoprost 0.005 % eye drops 1 drp ophthalmic (eye) BEDTIME 02/13/23 #7.5 mL anastrozole 1 mg tablet 1 mg PO QAM #90 tabs 01/27/24 acetazolamide 250 mg tablet 250 mg PO DAILY 3 days #3 tabs 03/01/24 atorvastatin 20 mg tablet 40 mg (2 x 20 mg) PO DAILY #60 tabs 03/01/24 clopidogrel 75 mg tablet (Plavix) 75 mg PO DAILY #30 tabs 03/01/24 dapagliflozin propanediol 10 mg 10 mg PO DAILY #30 tabs 03/01/24 tablet (Farxiga) furosemide 40 mg tablet 40 mg PO DAILY@0800 #30 tabs 03/01/24 aspirin 81 mg tablet,delayed 81 mg PO DAILY #30 tabs 03/02/24 release Allergies Allergy/AdvReac Type Severity Reaction Status Date / Time aspirin [From Norgesic] Allergy Intermediate vomits Verified 02/16/24 14:25 adhesive Allergy Unknown Verified 02/16/24 14:25 caffeine [From Norgesic] Allergy Unknown Verified 02/16/24 14:25 carrot Allergy Unknown Verified 02/16/24 14:25 iodine Allergy Unknown Verified 02/16/24 14:25 mushroom Allergy Unknown Verified 02/16/24 14:25 orphenadrine [From Norgesic] Allergy Unknown Verified 02/16/24 14:25 Pork/Porcine Containing Allergy diarrhea Verified 02/16/24 14:25 Products cephalexin AdvReac Intermediate vomitting Verified 02/16/24 14:25 Sulfa (Sulfonamide AdvReac Intermediate adv-vomitti Verified 02/16/24 14:25 Antibiotics) ng byetta Allergy Intermediate vomitting Uncoded 02/16/24 14:25 all fruits Allergy Unknown Uncoded 02/16/24 14:25 roberson Allergy Unknown Uncoded 02/16/24 14:25 Review of Systems 2 Const: Denies: fever(s) or chills Card: Denies: chest pain Resp: Denies: dyspnea GI: Denies: abdominal pain : Denies: dysuria, urinary frequency or urinary urgency Musc: Denies: neck pain or back pain Skin/Breast: Denies: rash PFSH ED 2 PFSH: Medical History Bipolar disorder, unspecified Allergic rhinosinusitis Epistaxis Mixed hyperlipidemia Heart failure with preserved ejection fraction EF 55-60% on echo 04/2022 Pleural effusion on right Pulmonary embolism Chronic anticoagulation Impression: Stable Plan: As per Dr. Medina History of colon polyps on endoscopy in 2020, benign Deafness in left ear Glaucoma Bipolar 1 disorder Acquired deviated nasal septum Epistaxis, recurrent Insomnia takes trazodone History of breast cancer left sided, had mastectomy in 2010, no chemo or radiation Atrial fibrillation Type 2 diabetes mellitus without complications Surgical History History of D&C (1993) History of ear surgery (1984) left History of mastectomy (2010) left H/O sternectomy History of hernia surgery abdominal hernia repair x 4 between [id number] Family History Denies family history of Clotting disorder Bleeding disorder Social History Smoking and tobacco/nicotine status: never used tobacco/nicotine Alcohol intake: never Substance/Drug Use: never Housing: Assisted Living Facility Marital status: Marital status details: spouse has Parkinson's Previous occupational history: worked for [employer] Physical Exam 2 Const: GENERAL APPEARANCE: cooperative ORIENTATION/CONSCIOUSNESS: Yes awake HENMT: COMMON NORMALS: normocephalic, atraumatic and hearing grossly normal bilaterally HEAD & SCALP: normocephalic and atraumatic OTHER: Dried blood at the mouth and naris no active bleeding Resp: COMMON NORMALS: normal respiratory effort, No retractions, No use of accessory muscles and clear to auscultation bilaterally AUSCULTATION: clear to auscultation bilaterally Cardio: COMMON NORMALS: regular rhythm and No murmurs present (Cardio) R ATE: bradycardic RHYTHM: regular rhythm GI: COMMON NORMALS: Soft to palpation and No hepatosplenomegaly present A USCULTATION: Yes normoactive bowel sounds PALPATION: Yes Soft to palpation, No Tenderness to palpation present (GI), No Guarding due to palpation present (GI) and Yes No hepatosplenomegaly present Extremity: COMMON NORMALS: normal to inspection, capillary refill normal, no clubbing, cyanosis or edema, no calf tenderness and no pedal edema Skin: COMMON NORMALS: no rashes or lesions noted GENERAL SKIN EXAM: no rashes or lesions noted Course 2 Vital Signs: Vital signs: Vital Signs Temperature 98.4 F 03/02/24 05:56 Pulse Rate 89 03/02/24 07:35 Respiratory Rate 12 03/02/24 07:05 Blood Pressure 114/79 03/02/24 07:35 Pulse Oximetry 96 03/02/24 07:35 Oxygen Delivery Me thod Room Air 03/02/24 06:39 Oxygen Flow Rate 4 03/02/24 05:56 MDM - Epistaxis Medical Decision Making Patient again having recurrent problems with Eliquis with bleeding. This has been a problem in the past. When she was recently admitted CTA showed no recurrence of PE. Discussed with the patient while there is some risk involved recommend stopping her Eliquis. The risk would be stroke or recurrent PE. She understands the risk and is accepting of the recommendation. Would recommend that she change to full aspirin for now. Medical Records I reviewed the patient's medical records. Lab Data I reviewed the patient's lab results. 03/02/24 05:37 03/02/24 05:37 Radiology Impressions Chest X-Ray 03/02/24 06:20 IMPRESSION: 1. Query small bilateral pleural effusions. 2. Mild left basilar airspace opacity is favored to reflect atelectasis. Laboratory Results WBC 8.78 10^3/uL (3.29-11.43) 03/02/24 05:37 RBC 4.58 10^6/uL (3.85-5.65) 03/02/24 05:37 Hgb 12.70 g/dL (11.27-16.99) 03/02/24 05:37 Hct 41.0 % (36-47) 03/02/24 05:37 MCV 89.5 fl (85-98) 03/02/24 05:37 MCH 27.7 pg (27-33) 03/02/24 05:37 MCHC 31.0 g/dL (30-55) 03/02/24 05:37 RDW 15.3 % (12.1-15.1) H 03/02/24 05:37 Plt Count 233 10^3/cmm (157-399) 03/02/24 05:37 MPV 11.6 fL (7.4-10.4) H 03/02/24 05:37 Neut % (Auto) 74.2 % 03/02/24 05:37 Lymph % (Auto) 15.4 % 03/02/24 05:37 [place]eman % (Auto) 9.2 % 03/02/24 05:37 Eos % (Auto) 0.2 % 03/02/24 05:37 Baso % (Auto) 0.7 % 03/02/24 05:37 Neut # (Auto) 6.51 10^3/uL (1.8-7.7) 03/02/24 05:37 Lymph # (Auto) 1.4 10^3/uL (0.8-4.8) 03/02/24 05:37 [place]eman # (Auto) 0.8 10^3/uL (0.2-0.9) 03/02/24 05:37 Eos # (Auto) 0.0 10^3/uL (0.0-0.8) 03/02/24 05:37 Baso # (Auto) 0.1 10^3/uL (0.0-0.1) 03/02/24 05:37 Nucleated RBC % (auto) 0 % 03/02/24 05:37 Nucleated RBCs # 0.0 /100WBC 03/02/24 05:37 Sodium 136 mmol/L (136-145) 03/02/24 05:37 Potassium 4.0 mmol/L (3.5-5.1) 03/02/24 05:37 Chloride 96 mmol/L (98-107) L 03/02/24 05:37 Carbon Dioxide 29 mmol/L (22-29) 03/02/24 05:37 Anion Gap 15.0 (5-19) 03/02/24 05:37 BUN 31 mg/dL (8-23) H 03/02/24 05:37 Creatinine 1.5 mg/dL (0.5-0.9) H 03/02/24 05:37 GFR Calculation 34.3 mL/min (90-130) L 03/02/24 05:37 Glucose 135 mg/dL (65-115) H 03/02/24 05:37 Calculated Osmolality 291 mOsm/kg (285-295) 03/02/24 05:37 Calcium 9.4 mg/dL (8.5-10.5) 03/02/24 05:37 Total Bilirubin 0.6 mg/dL (0.15-1.2) 03/02/24 05:37 AST 22 U/L (0-32) 03/02/24 05:37 ALT 13 U/L (0-33) 03/02/24 05:37 Alkaline Phosphatase 124 U/L (35-105) H 03/02/24 05:37 Total Protein 6.5 g/dL (6.6-8.7) L 03/02/24 05:37 Albumin 3.1 g/dL (3.5-5.2) L 03/02/24 05:37 Globulin 3.4 g/dL (1.3-4.6) 03/02/24 05:37 All radiology interpretation(s) finalized by discharge Discharge Plan Discharge Patient Disposition: Home Clinical Impression: Recurrent epistaxis, Atrial fibrillation, Pulmonary embolism, Type 2 diabetes mellitus without complications, History of breast cancer Condition: Stable Prescriptions: New aspirin 81 mg tablet,delayed release (DR/EC) 81 mg PO DAILY Qty: 30 0RF Discontinued Eliquis 5 mg tablet 5 mg PO BID Qty: 90 1RF No Action cyanocobalamin (vitamin B-12) 1,000 mcg tablet 1,000 mcg PO QAM vitamin E mixed 400 unit capsule 400 unit PO QAM cholecalciferol (vitamin D3) 25 mcg (1,000 unit) capsule 25 mcg PO DAILY (DME) lancing device with lancets [Accu-Chek Soft Dev Lancets] Kit See Rx Instructions .Route Qty: 100 3RF Rx Instructions: to uses once daily to check blood sugar 90 day supply (DME) Accu-Chek Patti Plus test strp Strip See Rx Instructions .Route Qty: 100 3RF Rx Instructions: to use once daily with accu-chek meter 90 day suppy (DME) Accu-Chek Guide test strips Strip See Rx Instructions .Route Qty: 100 3RF Rx Instructions: to use once daily in accu-check meter 90 day supply (DME) lancets [Accu-Chek Softclix Lancets] Misc See Rx Instructions .Route Qty: 100 3RF Rx Instructions: As directed latanoprost 0.005 % drops 1 drp ophthalmic (eye) BEDTIME Qty: 7.5 1RF anastrozole 1 mg tablet 1 mg PO QAM Qty: 90 0RF potassium chloride 10 mEq capsule, extended release 10 meq PO DAILY trazodone 100 mg tablet 100 mg PO BEDTIME metoprolol tartrate 50 mg tablet 50 mg PO BID gabapentin 300 mg capsule 300 mg PO BEDTIME fluticasone propionate 50 mcg/actuation spray,suspension 1 spray INTRANASAL DAILY ziprasidone HCl 80 mg capsule 80 mg PO DAILY furosemide 40 mg Tablet 40 mg PO DAILY@0800 Qty: 30 0RF dapagliflozin propanediol [Farxiga] 10 mg tablet 10 mg PO DAILY Qty: 30 0RF clopidogrel [Plavix] 75 mg tablet 75 mg PO DAILY Qty: 30 0RF atorvastatin 20 mg Tablet 40 mg PO DAILY Qty: 60 0RF acetazolamide 250 mg tablet 250 mg PO DAILY 3 Days Qty: 3 0RF albuterol sulfate 90 mcg/actuation Hfa Aerosol Inhaler 2 puff INHALATION QID PRN (Reason: Shortness Of Breath) Discharge Orders: Discharge ED (Routine); Ordered 03/02/24 Ordered By: Adilson Isaac Patient Instructions: Opioid Safety, Pain Management Activity Restrictions/Additional Instructions: Thank you for choosing [facility] for your healthcare needs today. It is very important that you follow up as instructed or that you return to the Emergency Department should you have concerns or if your condition changes or worsens in any way. You were seen in the emergency room with episode of epistaxis. It had stopped by the time he arrived here you observed for a time and did not recur your hemoglobin at this time is stable. You had multiple complications with Eliquis concerning epistaxis. At this point recommend that you stop the Eliquis. Your recent CT of the chest did not show any persistent PE. The risk with stopping the Eliquis is a recurrence of PE and/or stroke related to your atrial fibrillation to mitigate this risk recommend you continue on your Plavix and take baby aspirin daily. Coding Level of Care Code ED Crusher Machine Operator for Brianna Jorge
[2024-03-02 07:35] VITALS: BP 114/79; PULSE 89; O2SAT 96
[2024-03-02 09:58] VITALS: BP 112/75; PULSE 85; O2SAT 94
== END 2024-03-02 11:30 | disposition home or self-care (01) ==
PROVIDERS: Emergency Provider Family Medicine
DX: R04.0 Epistaxis (principal); I48.91 Unspecified atrial fibrillation; I26.99 Other pulmonary embolism without acute cor pulmonale; E11.9 Type 2 diabetes mellitus without complications; Z85.3 Personal history of malignant neoplasm of breast; Z79.01 Long term (current) use of anticoagulants; Z79.02 Long term (current) use of antithrombotics/antiplatelets; I50.30 Unspecified diastolic (congestive) heart failure
CPT/HCPCS: 71045; 80053; 85025; 93005; 99285

== ENCOUNTER 2024-03-08 17:29 | Outpatient (CLI) | payer MEDICARE, SELFPAY ==
[2024-03-08 17:43] LABS: Basophils # 0.1 10^3/uL (0.0-0.1); Basophils % 0.6 %; Eosinophils # 0.5 10^3/uL (0.0-0.8); Eosinophils % 5.2 %; Hematocrit 34.9 % (36-47); Lymphocytes # 1.7 10^3/uL (0.8-4.8); Lymphocytes % 19.4 %; Mean Corpuscular HGB Conc 31.5 g/dL (30-55); Mean Corpuscular Hemoglobin 27.4 pg (27-33); Mean Platelet Volume 10.9 fL (7.4-10.4); Monocytes # 0.7 10^3/uL (0.2-0.9); Monocytes % 7.6 %; Neutrophils # 5.68 10^3/uL (1.8-7.7); Neutrophils % 66.2 %; Nucleated Red Blood Cells % 0 %; Platelet Count 366 10^3/cmm (157-399); Red Blood Count 4.01 10^6/uL (3.85-5.65); Red Cell Distribution Width 15.3 % (12.1-15.1); White Blood Count 8.59 10^3/uL (3.29-11.43)
[2024-03-08 18:09] LABS: Alanine Aminotransferase 13 U/L (0-33); Albumin Level 2.9 g/dL (3.5-5.2); Alkaline Phosphatase 113 U/L (35-105); Anion Gap 12.8 (5-19); Aspartate Amino Transferase 15 U/L (0-32); Blood Urea Nitrogen 22 mg/dL (8-23); Calcium 7.8 mg/dL (8.5-10.5); Carbon Dioxide 29 mmol/L (22-29); Chloride 99 mmol/L (98-107); Globulin 2.2 g/dL (1.3-4.6); Glomerular Filtration Rate 44.4 mL/min (90-130); Glucose 116 mg/dL (65-115); Osmolality Calculated 288 mOsm/kg (285-295); Potassium 3.8 mmol/L (3.5-5.1); Sodium 137 mmol/L (136-145); Total Bilirubin 0.6 mg/dL (0.15-1.2); Total Protein 5.1 g/dL (6.6-8.7)
== END 2024-03-08 17:30 | disposition home or self-care (01) ==
LOC: LAB 17:32
PROVIDERS: Visit Provider Family Medicine
DX: E11.9 Type 2 diabetes mellitus without complications (principal); D64.9 Anemia, unspecified
CPT/HCPCS: 80053; 85025

== ENCOUNTER → 2024-03-23 12:56 | Outpatient (BNVA) | payer MEDICARE, SELFPAY | PROVIDERS: Visit Provider Podiatrist Foot & Ankle Surgery | DX: S82.51XA Displaced fracture of medial malleolus of right tibia, initial encounter for closed fracture; W05.0XXA Fall from non-moving wheelchair, initial encounter; E11.9 Type 2 diabetes mellitus without complications | CPT/HCPCS: 73610; 99213 ==

== ENCOUNTER 2024-03-31 13:49 | Inpatient (IN) | payer MEDICARE, SELFPAY ==
[2024-03-31] VITALS (11 sets, daily range): BP systolic 97–131; BP diastolic 73–98; PULSE 63–179; RESP 16–25; TEMP 36.7; O2SAT 93–96; BMI 30.4
--- NOTE | 2024-03-31 13:50 | XRR_ITS ---
PROCEDURE INFORMATION: Exam: XR Chest Exam date and time: 03/31/2024 1:55 PM Age: 68 years old Clinical indication: Dyspnea; Prior surgery; Surgery date: 6+ months; Surgery type: Lt mast; Additional info: Dyspnea/cough TECHNIQUE: Imaging protocol: Radiologic exam of the chest. Views: 1 view. COMPARISON: CR (CHEST, ) 03/02/2024 6:24 AM FINDINGS: Lungs: Unremarkable. No consolidation or mass. Pleural spaces: Unremarkable. No pleural effusion. No pneumothorax. Heart/Mediastinum: Unremarkable. No cardiomegaly. Bones/joints: Unremarkable. XR/XR chest 1V portable [id number] IMPRESSION: No acute findings.
--- NOTE | 2024-03-31 13:54 | ECG_ITS ---
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 Measurements Intervals [place] Rate: 164 P: 0 MA: 0 QRS: 102 QRSD: 97 T: -41 QT: 221 QTc: 366 Interpretive Statements ATRIAL FIBRILLATION WITH RAPID VENTRICULAR RESPONSE INCOMPLETE RIGHT BUNDLE BRANCH BLOCK [90+ ms QRS DURATION, TERMINAL R IN V1/V2, 40+ ms S IN I/aVL/V4/V5/V6] Compared to ECG 03/02/2024 06:20:28 T-wave abnormality no longer present Electronically Signed On 04-03-2024 18:57:45 LEAF SUCKER OPERATOR by Balbir Major M.D. [email or web address]
--- NOTE | 2024-03-31 14:11 | PC.PHAR ---
Varinder BUSTAMANTE states pt insists on using [facility] mail [facility] pharmacy, who is failing the patient. She has not received her rx for Atorvastatin 20mg which was sent in on 03/01/24. She is completely out of several other medications. External med list shows 8 or 9 meds in process from 03/29/24 but not mailed out yet.
[2024-03-31] MEDS: metoprolol tartrate 1 mg/1 mL SDV 5 mL 2.5 MG IVP (14:17)
[2024-03-31] MEDS: metoprolol tartrate 50 mg Tablet PO (14:18)
--- NOTE | 2024-03-31 14:21 | ED_ITS ---
HPI - Arrhythmia/Palpitations 2 General: Chief Complaint: Arrhythmia/Palpitations Stated Complaint: a-fib Time Seen by Provider: 03/31/24 13:50 History of Present Illness: 68-year-old female presents emergency ro om [facility] She is in A-fib with RVR she has a known history of A-fib with RVR she tells me she takes Eliquis although I did not see it on her medicine list from the jail on first glance. She states she has not had any of her medications yesterday or today there was some sort of mixup. She usually is on metoprolol tartrate 50 mg twice a day for rate control and has not had it. She denies any chest pain or shortness of breath does have significant palpitations. She had told the nurses that earlier today she had some chest pain about 2 hours prior to arrival. Related Data Home Medications Medication Instructions Recorded Confirmed cyanocobalamin (vitamin B-12) 1,000 mcg PO QAM 02/05/22 03/31/24 1,000 mcg tablet vitamin E mixed 400 unit capsule 400 unit PO QAM 02/05/22 03/31/24 albuterol sulfate 90 mcg/actuation 2 puff inhalation QID PRN 10/13/22 03/31/24 aerosol inhaler Shortness Of Breath fluticasone propionate 50 1 spray intranasal DAILY 02/24/24 03/31/24 mcg/actuation nasal spray,suspension gabapentin 300 mg capsule 300 mg PO BEDTIME 02/24/24 03/31/24 metoprolol tartrate 50 mg tablet 50 mg PO BID 02/24/24 03/31/24 potassium chloride 10 mEq 10 meq PO DAILY 02/24/24 03/31/24 capsule,extended release trazodone 100 mg tablet 100 mg PO BEDTIME 02/24/24 03/31/24 ziprasidone HCl 80 mg capsule 80 mg PO DAILY 02/24/24 03/31/24 latanoprost 0.005 % eye drops 1 drp ophthalmic (eye) DAILY 03/31/24 03/31/24 Previous Rx's Medication Instructions Recorded blood sugar diagnostic (Accu-Chek #100 ea 10/06/22 Patti Plus test strips) lancing device with lancets kit #100 ea 10/06/22 (Accu-Chek Softclix Lancing Device+Lancets kit) blood sugar diagnostic (Accu-Chek #100 ea 10/08/22 Guide test strips) lancets (Accu-Chek Softclix #100 ea 10/10/22 Lancets) anastrozole 1 mg tablet 1 mg PO QAM #90 tabs 01/27/24 atorvastatin 20 mg tablet 40 mg (2 x 20 mg) PO DAILY #60 tabs 03/01/24 dapagliflozin propanediol 10 mg 10 mg PO DAILY #30 tabs 03/01/24 tablet (Farxiga) furosemide 40 mg tablet 40 mg PO DAILY@0800 #30 tabs 03/01/24 aspirin 81 mg tablet,delayed 81 mg PO DAILY #30 tabs 03/02/24 release clopidogrel 75 mg tablet 75 mg PO DAILY #30 tabs 03/02/24 Allergies Allergy/AdvReac Type Severity Reaction Status Date / Time aspirin [From Norgesic] Allergy Intermediate vomits Verified 03/23/24 12:58 adhesive Allergy Unknown Verified 03/23/24 12:58 caffeine [From Norgesic] Allergy Unknown Verified 03/23/24 12:58 carrot Allergy Unknown Verified 03/23/24 12:58 iodine Allergy Unknown Verified 03/23/24 12:58 mushroom Allergy Unknown Verified 03/23/24 12:58 orphenadrine [From Norgesic] Allergy Unknown Verified 03/23/24 12:58 Pork/Porcine Containing Allergy diarrhea Verified 03/23/24 12:58 Products cephalexin AdvReac Intermediate vomitting Verified 03/23/24 12:58 Sulfa (Sulfonamide AdvReac Intermediate adv-vomitti Verified 03/23/24 12:58 Antibiotics) ng byetta Allergy Intermediate vomitting Uncoded 03/23/24 12:58 all fruits Allergy Unknown Uncoded 03/23/24 12:58 roberson Allergy Unknown Uncoded 03/23/24 12:58 Review of Systems 2 Const: Denies: fever(s) or chills Card: Reports: palpitations, irregular heart rhythm, edema and swelling of feet/ankles; Denies: chest pain Resp: Reports: dyspnea GI: Denies: abdominal pain : Denies: dysuria, urinary frequency or urinary urgency Musc: Denies: neck pain or back pain Skin/Breast: Denies: rash PFSH ED 2 PFSH: Medical History (Updated 03/31/24 @ 16:48 by Adilson Isaac DO) Bipolar disorder, unspecified Allergic rhinosinusitis Epistaxis Mixed hyperlipidemia Heart failure with preserved ejection fraction EF 55-60% on echo 04/2022 Pleural effusion on right Pulmonary embolism Chronic anticoagulation Impression: Stable Plan: As per Dr. Medina History of colon polyps on endoscopy in 2020, benign Deafness in left ear Glaucoma Bipolar 1 disorder Acquired deviated nasal septum Epistaxis, recurrent Insomnia takes trazodone History of breast cancer left sided, had mastectomy in 2010, no chemo or radiation Atrial fibrillation Type 2 diabetes mellitus without complications Surgical History (Updated 03/31/24 @ 16:47 by Adilson Isaac DO) History of cholecystectomy History of D&C (1993) History of ear surgery (1984) left History of mastectomy (2010) left H/O sternectomy History of hernia surgery abdominal hernia repair x 4 between [id number] Family History Denies family history of Clotting disorder Bleeding disorder Social History Smoking and tobacco/nicotine status: tobacco/nicotine user, details unknown Alcohol intake: never Substance/Drug Use: never Housing: Assisted Living Facility Marital status: Marital status details: spouse has Parkinson's Previous occupational history: worked for [employer] Physical Exam 2 Const: COMMON NORMALS: no acute distress GENERAL APPEARANCE: cooperative and comfortable ORIENTATION/CONSCIOUSNESS: Yes awake, Yes oriented to person, Yes oriented to place and Yes oriented to time HENMT: COMMON NORMALS: normocephalic, atraumatic and hearing grossly normal bilaterally HEAD & SCALP: normocephalic and atraumatic Resp: COMMON NORMALS: normal respiratory effort, No retractions, No use of accessory muscles and clear to auscultation bilaterally AUSCULTATION: clear to auscultation bilaterally Cardio: COMMON NORMALS: No murmurs present (Cardio) RATE: tachycardic R HYTHM: abnormal rhythm irregularly irregular GI: COMMON NORMALS: Soft to palpation and No hepatosplenomegaly present A USCULTATION: Yes normoactive bowel sounds PALPATION: Yes Soft to palpation, No Tenderness to palpation present (GI), No Guarding due to palpation present (GI) and Yes No hepatosplenomegaly present Extremity: COMMON NORMALS: normal to inspection, capillary refill normal and no calf tenderness OTHER: Trace edema lower extremities Neuro: SENSORIUM/ORIENTATION: Yes oriented to person, Yes oriented to place and Yes oriented to time Skin: COMMON NORMALS: no rashes or lesions noted GENERAL SKIN EXAM: no rashes or lesions noted Course 2 Vital Signs: Vital signs: Vital Signs Temperature 98.1 F 03/31/24 14:09 Pulse Rate 121 H 03/31/24 15:39 Respiratory Rate 18 03/31/24 14:09 Blood Pressure 131/98 03/31/24 14:09 Pulse Oximetry 95 03/31/24 14:09 Oxygen Delivery Me thod Room Air 03/31/24 14:09 MDM - Arrhythmia/Palpitations Medical Decision Making Initially gave patient an IV dose of metoprolol and her regular p.o. metoprolol she did not show any response to this. We added diltiazem with a 20 mg bolus and titrated on a drip. She finally began to respond and get relatively decent rate control at 15 mg. Up to she was still having breakthrough with her heart rate going randomly up to the 120s and low 130s. She had a mild chest discomfort earlier first troponin was 38. Chest x-ray read is negative there does appear to be may be a little bit of increased vascular markings she is not particularly short of breath at this time. Her T. bili is elevated as well as her alk phos she has previously had a cholecystectomy ultrasound did not show any significant abnormality no clinically significant dilation of the common bile duct. She is not having any right upper quadrant pain. Discussed with hospitalist will admit to [facility] A-fib with RVR on IV Cardizem. Medical Records I reviewed the patient's medical records. Lab Data I reviewed the patient's lab results. 03/31/24 14:34 03/31/24 14:34 Radiology Impressions Chest X-Ray 03/31/24 13:50 IMPRESSION: No acute findings. Gallbladder Ultrasound 03/31/24 15:51 IMPRESSION: No acute findings. Laboratory Results WBC 15.59 10^3/uL (3.29-11.43) H 03/31/24 14:34 RBC 3.26 10^6/uL (3.85-5.65) L 03/31/24 14:34 Hgb 8.90 g/dL (11.27-16.99) L 03/31/24 14:34 Hct 28.6 % (36-47) L 03/31/24 14:34 MCV 87.7 fl (85-98) 03/31/24 14:34 MCH 27.3 pg (27-33) 03/31/24 14:34 MCHC 31.1 g/dL (30-55) 03/31/24 14:34 RDW 17.1 % (12.1-15.1) H 03/31/24 14:34 Plt Count 452 10^3/cmm (157-399) H 03/31/24 14:34 MPV 10.2 fL (7.4-10.4) 03/31/24 14:34 Neut % (Auto) 76.5 % 03/31/24 14:34 Lymph % (Auto) 14.4 % 03/31/24 14:34 [place] % (Auto) 6.0 % 03/31/24 14:34 Eos % (Auto) 0.6 % 03/31/24 14:34 Baso % (Auto) 0.6 % 03/31/24 14:34 Neut # (Auto) 11.93 10^3/uL (1.8-7.7) H 03/31/24 14:34 Lymph # (Auto) 2.2 10^3/uL (0.8-4.8) 03/31/24 14:34 [place] # (Auto) 0.9 10^3/uL (0.2-0.9) 03/31/24 14:34 Eos # (Auto) 0.1 10^3/uL (0.0-0.8) 03/31/24 14:34 Baso # (Auto) 0.1 10^3/uL (0.0-0.1) 03/31/24 14:34 Nucleated RBC % (auto) 0.6 % 03/31/24 14:34 Nucleated RBCs # 0.1 /100WBC 03/31/24 14:34 Sodium 135 mmol/L (136-145) L 03/31/24 14:34 Potassium 3.5 mmol/L (3.5-5.1) 03/31/24 14:34 Chloride 95 mmol/L (98-107) L 03/31/24 14:34 Carbon Dioxide 23 mmol/L (22-29) 03/31/24 14:34 Anion Gap 20.5 (5-19) H 03/31/24 14:34 BUN 34 mg/dL (8-23) H 03/31/24 14:34 Creatinine 1.2 mg/dL (0.5-0.9) H 03/31/24 14:34 GFR Calculation 44.4 mL/min (90-130) L 03/31/24 14:34 Glucose 137 mg/dL (65-115) H 03/31/24 14:34 Calculated Osmolality 290 mOsm/kg (285-295) 03/31/24 14:34 Calcium 9.0 mg/dL (8.5-10.5) 03/31/24 14:34 Total Bilirubin 1.8 mg/dL (0.15-1.2) H 03/31/24 14:34 AST 33 U/L (0-32) H 03/31/24 14:34 ALT 18 U/L (0-33) 03/31/24 14:34 Alkaline Phosphatase 137 U/L (35-105) H 03/31/24 14:34 Troponin T Baseline 37 ng/L (0-10) H 03/31/24 14:34 Total Protein 7.1 g/dL (6.6-8.7) 03/31/24 14:34 Albumin 3.6 g/dL (3.5-5.2) 03/31/24 14:34 Globulin 3.5 g/dL (1.3-4.6) 03/31/24 14:34 Lipase 24 U/L (13-60) 03/31/24 14:34 All radiology interpretation(s) finalized by discharge Discharge Plan Discharge Patient Disposition: Admitted As Inpatient Clinical Impression: Atrial fibrillation with rapid ventricular response Condition: Stable Prescriptions: No Action cyanocobalamin (vitamin B-12) 1,000 mcg tablet 1,000 mcg PO QAM vitamin E mixed 400 unit capsule 400 unit PO QAM (DME) lancing device with lancets [Accu-Chek Soft Dev Lancets] Kit See Rx Instructions .Route Qty: 100 3RF Rx Instructions: to uses once daily to check blood sugar 90 day supply (DME) Accu-Chek Patti Plus test strp Strip See Rx Instructions .Route Qty: 100 3RF Rx Instructions: to use once daily with accu-chek meter 90 day suppy (DME) Accu-Chek Guide test strips Strip See Rx Instructions .Route Qty: 100 3RF Rx Instructions: to use once daily in accu-check meter 90 day supply (DME) lancets [Accu-Chek Softclix Lancets] Misc See Rx Instructions .Route Qty: 100 3RF Rx Instructions: As directed anastrozole 1 mg tablet 1 mg PO QAM Qty: 90 0RF potassium chloride 10 mEq capsule, extended release 10 meq PO DAILY trazodone 100 mg tablet 100 mg PO BEDTIME metoprolol tartrate 50 mg tablet 50 mg PO BID gabapentin 300 mg capsule 300 mg PO BEDTIME fluticasone propionate 50 mcg/actuation spray,suspension 1 spray INTRANASAL DAILY ziprasidone HCl 80 mg capsule 80 mg PO DAILY furosemide 40 mg Tablet 40 mg PO DAILY@0800 Qty: 30 0RF dapagliflozin propanediol [Farxiga] 10 mg tablet 10 mg PO DAILY Qty: 30 0RF atorvastatin 20 mg Tablet 40 mg PO DAILY Qty: 60 0RF albuterol sulfate 90 mcg/actuation Hfa Aerosol Inhaler 2 puff INHALATION QID PRN (Reason: Shortness Of Breath) aspirin 81 mg tablet,delayed release (DR/EC) 81 mg PO DAILY Qty: 30 0RF clopidogrel 75 mg tablet 75 mg PO DAILY Qty: 30 0RF latanoprost 0.005 % drops 1 drp ophthalmic (eye) DAILY Coding Level of Care Code ED Job Development Specialist for Brianna Jorge
[2024-03-31 14:40] LABS: Basophils # 0.1 10^3/uL (0.0-0.1); Basophils % 0.6 %; Eosinophils # 0.1 10^3/uL (0.0-0.8); Eosinophils % 0.6 %; Hematocrit 28.6 % (36-47); Lymphocytes # 2.2 10^3/uL (0.8-4.8); Lymphocytes % 14.4 %; Mean Corpuscular HGB Conc 31.1 g/dL (30-55); Mean Corpuscular Hemoglobin 27.3 pg (27-33); Mean Corpuscular Volume 87.7 fl (85-98); Mean Platelet Volume 10.2 fL (7.4-10.4); Monocytes # 0.9 10^3/uL (0.2-0.9); Neutrophils # 11.93 10^3/uL (1.8-7.7); Neutrophils % 76.5 %; Nucleated Red Blood Cells # 0.1 /100WBC; Nucleated Red Blood Cells % 0.6 %; Platelet Count 452 10^3/cmm (157-399); Red Blood Count 3.26 10^6/uL (3.85-5.65); Red Cell Distribution Width 17.1 % (12.1-15.1); White Blood Count 15.59 10^3/uL (3.29-11.43)
[2024-03-31] MEDS: dilTIAZem 5 mg/mL SDV 5 mL 20 MG IVP (14:46)
[2024-03-31] MEDS: dilTIAZem 100 MG in sodium chloride 0.9% (add-van) 100 ML IV (14:54)
[2024-03-31 15:01] LABS: Alanine Aminotransferase 18 U/L (0-33); Albumin Level 3.6 g/dL (3.5-5.2); Alkaline Phosphatase 137 U/L (35-105); Anion Gap 20.5 (5-19); Aspartate Amino Transferase 33 U/L (0-32); Blood Urea Nitrogen 34 mg/dL (8-23); Carbon Dioxide 23 mmol/L (22-29); Chloride 95 mmol/L (98-107); Creatinine Clr Calc Pharmacy 43.1425; Globulin 3.5 g/dL (1.3-4.6); Glomerular Filtration Rate 44.4 mL/min (90-130); Glucose 137 mg/dL (65-115); Osmolality Calculated 290 mOsm/kg (285-295); Potassium 3.5 mmol/L (3.5-5.1); Sodium 135 mmol/L (136-145); Total Bilirubin 1.8 mg/dL (0.15-1.2); Total Protein 7.1 g/dL (6.6-8.7)
[2024-03-31 15:02] LABS: Troponin(5th) Baseline 37 ng/L (0-10)
--- NOTE | 2024-03-31 15:51 | USR_ITS ---
PROCEDURE INFORMATION: Exam: US Abdomen, Limited; Right Upper Quadrant Exam date and time: 03/31/2024 4:16 PM Age: 68 years old Clinical indication: Abnormal findings; Abnormal lab test; Elevated liver enzymes; Additional info: Elevated t bili TECHNIQUE: Imaging protocol: Real time ultrasound of the abdomen with image documentation. Limited exam focused on the right upper quadrant. COMPARISON: US thoracentesis [id number] 02/25/2024 10:12 AM FINDINGS: Liver: Normal. No masses. Gallbladder: The gallbladder has been resected. Biliary ducts: Normal. No stones. No dilation. Pancreas: Visualized pancreas is unremarkable. Right kidney: Normal. No mass. No hydronephrosis. US/US gall bladder [id number] IMPRESSION: No acute findings.
--- NOTE | 2024-03-31 16:25 | P.HP_ITS ---
Providers/Chief Complaint 2 Chief Complaint: a-fib History of Present Illness Alix Kearns is a 68 year old female with past medical history of breast cancer, diastolic heart failure, atrial fibrillation, pulmonary embolism, type 2 diabetes mellitus, recent CVA, recurrent right-sided pleural effusion who was last discharged from the hospital in February 2024 was sent into the hospital from [place] today because of palpitations and difficulty in breathing. Patient states she was not given her morning medications including metoprolol today morning and trazodone overnight. Usually she is wheelchair-bound. States usually she does not have any issues with palpitations but today because of the missing medication she believes she started having palpitations. In the ER she was found to have A-fib with heart rate going up to 170s for which she started on Cardizem drip, given the dose of metoprolol. Currently patient on examination is awake and alert, on room air saturating 95% with Cardizem of 15 and a heart rate running between 75 to 90 bpm. Currently patient denies any difficulty in breathing. Patient herself denies any diarrhea, bleeding. She states she had last had a bowel movement yesterday and did not have diarrhea. She did have old dried blood on left nostril. Review of Systems 2 General: Reports: 10 or more systems reviewed and unremarkable except in HPI and below Const: Denies: fever(s), chills, body aches, change in appetite, change in weight, malaise, night sweats, diaphoresis, change in sleep pattern, daytime sleepiness or snoring Eyes: Denies: change in vision, blurry vision, photophobia, eye discomfort or eye discharge ENMT: Denies: throat pain, enlarged tonsils, hoarseness, mouth pain, oral sores, dry mouth, tinnitus, nasal congestion or post nasal drip Card: Denies: chest pain, palpitations, irregular heart rhythm, edema, swelling of feet/ankles, lightheadedness, syncope, pre-syncope, dyspnea on exertion, orthopnea, leg pain with exertion or acrocyanosis Resp: Denies: dyspnea, productive cough, non-productive cough, wheezing, stridor, pain on inspiration, change in phlegm color, hemoptysis or chest congestion GI: Denies: abdominal pain, nausea, vomiting, hematemesis, coffee ground emesis, dysphagia, heartburn, diarrhea, constipation, bloating, GI cramping, change in bowel habits, pain on defecation, hematochezia or melena : Denies: flank pain, dysuria, urinary frequency, urinary urgency, urinary hesitancy, nocturia or hematuria Musc: Denies: neck pain, back pain, extremity pain, joint pain, joint swelling, joint redness, joint stiffness or limited range of motion Neuro: Denies: headache(s), numbness in extremities, weakness in extremities, sensory changes, lack of coordination, difficulty walking, frequent falls, dizziness, vertigo, confusion, Slurred speech present, difficulty communicating thoughts or seizure-like activity Psych: Denies: anxiety, depression, mood swings, panic attacks, hopelessness or irritability Endo: Denies: polyuria, polydipsia, tired all the time, cold intolerance, excessive sweating, flushing or heat intolerance Pradip/Lymph: Denies: easy bruising or easy bleeding All/Imm: Denies: tongue swelling, facial swelling or acute wheezing Medications/Allergies Home Medications Medication Instructions Recorded Confirmed Last Taken Type cyanocobalamin (vitamin B-12) 1,000 mcg PO QAM 02/05/22 03/31/24 03/31/24 History 1,000 mcg tablet vitamin E mixed 400 unit capsule 400 unit PO QAM 02/05/22 03/31/24 03/31/24 History blood sugar diagnostic (Accu-Chek #100 ea 10/06/22 03/31/24 Unknown Rx Patti Plus test strips) lancing device with lancets kit #100 ea 10/06/22 03/31/24 Unknown Rx (Accu-Chek Softclix Lancing Device+Lancets kit) blood sugar diagnostic (Accu-Chek #100 ea 10/08/22 03/31/24 Unknown Rx Guide test strips) lancets (Accu-Chek Softclix #100 ea 10/10/22 03/31/24 Unknown Rx Lancets) albuterol sulfate 90 mcg/actuation 2 puff inhalation QID PRN 10/13/22 03/31/24 03/16/24 History aerosol inhaler Shortness Of Breath anastrozole 1 mg tablet 1 mg PO QA #90 tabs 01/27/24 03/31/24 03/31/24 Rx fluticasone propionate 50 1 spray intranasal DAILY 02/24/24 03/31/24 03/31/24 History mcg/actuation nasal spray,suspension gabapentin 300 mg capsule 300 mg PO BEDTIME 02/24/24 03/31/24 03/27/24 History metoprolol tartrate 50 mg tablet 50 mg PO BID 02/24/24 03/31/24 03/28/24 History potassium chloride 10 mEq 10 meq PO DAILY 02/24/24 03/31/24 03/31/24 History capsule,extended release trazodone 100 mg tablet 100 mg PO BEDTIME 02/24/24 03/31/24 03/27/24 History ziprasidone HCl 80 mg capsule 80 mg PO DAILY 02/24/24 03/31/24 03/27/24 History atorvastatin 20 mg tablet 40 mg (2 x 20 mg) PO DAILY #60 tabs 03/01/24 03/31/24 Unknown Rx dapagliflozin propanediol 10 mg 10 mg PO DAILY #30 tabs 03/01/24 03/31/24 03/31/24 Rx tablet (Farxiga) furosemide 40 mg tablet 40 mg PO DAILY@0800 #30 tabs 03/01/24 03/31/24 03/31/24 Rx aspirin 81 mg tablet,delayed 81 mg PO DAILY #30 tabs 03/02/24 03/31/24 03/31/24 Rx release clopidogrel 75 mg tablet 75 mg PO DAILY #30 tabs 03/02/24 03/31/24 03/31/24 Rx latanoprost 0.005 % eye drops 1 drp ophthalmic (eye) DAILY 03/31/24 03/31/24 Unknown History Allergies Allergy/AdvReac Type Severity Reaction Status Date / Time aspirin [From Norgesic] Allergy Intermediate vomits Verified 03/23/24 12:58 adhesive Allergy Unknown Verified 03/23/24 12:58 caffeine [From Norgesic] Allergy Unknown Verified 03/23/24 12:58 carrot Allergy Unknown Verified 03/23/24 12:58 iodine Allergy Unknown Verified 03/23/24 12:58 mushroom Allergy Unknown Verified 03/23/24 12:58 orphenadrine [From Norgesic] Allergy Unknown Verified 03/23/24 12:58 Pork/Porcine Containing Allergy diarrhea Verified 03/23/24 12:58 Products cephalexin AdvReac Intermediate vomitting Verified 03/23/24 12:58 Sulfa (Sulfonamide AdvReac Intermediate adv-vomitti Verified 03/23/24 12:58 Antibiotics) ng byetta Allergy Intermediate vomitting Uncoded 03/23/24 12:58 all fruits Allergy Unknown Uncoded 03/23/24 12:58 roberson Allergy Unknown Uncoded 03/23/24 12:58 PFSH Acute 2 PFSH: Medical History Bipolar disorder, unspecified Allergic rhinosinusitis Epistaxis Mixed hyperlipidemia Heart failure with preserved ejection fraction EF 55-60% on echo 04/2022 Pleural effusion on right Pulmonary embolism Chronic anticoagulation Impression: Stable Plan: As per Dr. Medina History of colon polyps on endoscopy in 2020, benign Deafness in left ear Glaucoma Bipolar 1 disorder Acquired deviated nasal septum Epistaxis, recurrent Insomnia takes trazodone History of breast cancer left sided, had mastectomy in 2010, no chemo or radiation Atrial fibrillation Type 2 diabetes mellitus without complications Surgical History History of D&C (1993) History of ear surgery (1984) left History of mastectomy (2010) left H/O sternectomy History of hernia surgery abdominal hernia repair x 4 between [id number] Family History Denies family history of Clotting disorder Bleeding disorder Social History Smoking and tobacco/nicotine status: tobacco/nicotine user, details unknown Alcohol intake: never Substance/Drug Use: never Housing: Assisted Living Facility Marital status: Marital status details: spouse has Parkinson's Previous occupational history: worked for [employer] Vitals/I&O/Wt Last Vital Signs Temp 98.1 F 03/31/24 14:09 Pulse 121 H 03/31/24 15:39 Resp 18 03/31/24 14:09 BP 131/98 03/31/24 14:09 Pulse Ox 95 03/31/24 14:09 O2 Del Method Room Air 03/31/24 14:09 03/31/24 03/31/24 03/31/24 06:59 14:59 22:59 Intake Total 8.958 / 8.958 Balance 8.958 / 8.958 Weight last 48 hrs Weight 78.018 kg Physical Exam 2 Narrative: General: No acute distress, AO x3 HEENT: PERRLA, pupils bilaterally equal and reactive Chest: Normal vesicular breath sounds, no added sounds, equal good air entry bilaterally CVS: S1-S2 irregularly irregular no murmurs, no tachycardia, no gallops, no rubs Abdomen: Soft, nontender, no organomegaly, bowel sounds present Neuro: No focal deficits, no facial deformity, AO x3, power 5/5 in all limbs Data 03/31/24 14:34 03/31/24 14:34 A&P Assessment and plan (1) Atrial fibrillation with RVR: Takes metoprolol 50 mg twice daily at home. On previous discharge home dose of Cardizem 120 mg twice daily was discontinued. Currently heart rate stable on 15 of Cardizem drip. Increase home dose of metoprolol to 75 mg daily. Start on Cardizem 30 mg oral every 6 hour. Wean Cardizem drip keeping heart rate below 100 bpm. Patient does have acute anemia today with hemoglobin down to 8.5. Hold off on anticoagulation for now. (2) Heart failure with preserved ejection fraction: No active exacerbation. Patient is on room air. Echocardiogram from previous admission back in February 2084 appreciated. Continue with home dose of Lasix. Fluid restriction up to 1500 cc. Strict input output charting. (3) Anemia: Hemoglobin down to 8.5. Baseline hemoglobin seems to be around 11. Denies any melena. Check stool for occult blood. Target hemoglobin more than 8. Transfuse accordingly. Protonix 40 mg twice daily, Carafate before meals and at bedtime. Check hemoglobin every 12 hours. (4) Pulmonary embolism: History of PE. Currently on room air. Holding off on Eliquis given anemia. Will continue to monitor. (5) Type 2 diabetes mellitus without complications: A1c 6.8 recently. Continue with insulin sliding scale. Carb consistent diet. (6) Recurrent epistaxis: No active bleeding. Does have old blood on left nostril. Will continue to monitor. History of deviated nasal septum. (7) Pressure ulcer of sacral region, stage 3: Follows up with wound care clinic as an outpatient. Last seen on 03/21. Continue dressing changes as per wound care. Plan Leukocytosis: Patient does have mild leukocytosis. Denies any dysuria. No consolidation on chest x-ray. Low concerns for pneumonia for now. Could be in setting of acute anemia. Check procalcitonin, urinalysis, blood culture. Start antibiotics if patient has fever. Hold off for now. CODE STATUS: Discussed in detail with the patient. She wants to remain full code. with the DPOA. Protonix will be sufficient for DVT prophylaxis Heparin 5000 Q12 hourly for DVT prophylaxis Carb consistent cardiac diet. Attestations 2 Medical Necessity Statement*: Admission for more than 2 midnights for management of A-fib with RVR in a patient with history of diastolic heart failure, acute anemia Diagnoses Atrial fibrillation with RVR I48.91 Heart failure with preserved ejection fraction I50.30 Anemia D64.9 Pulmonary embolism I26.99 Type 2 diabetes mellitus without complications E11.9 Recurrent epistaxis R04.0 Pressure ulcer of sacral region, stage 3 L89.153
[2024-03-31 16:26] LABS: Lipase 24 U/L (13-60)
--- NOTE | 2024-03-31 16:26 | ECG_ITS ---
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 Measurements Intervals [place] Rate: 95 P: 0 NH: 0 QRS: 97 QRSD: 113 T: 0 QT: 380 QTc: 478 Interpretive Statements ATRIAL FIBRILLATION RIGHT BUNDLE BRANCH BLOCK [120+ ms QRS DURATION, UPRIGHT V1, 40+ ms S IN I/aVL/V4/V5/V6] Compared to ECG 03/31/2024 13:54:30 Right bundle-branch block now present Incomplete right bundle-branch block no longer present Electronically Signed On 04-03-2024 19:13:54 EMERGENCY COMMUNICATIONS OPERATOR by Balbir Major M.D. [id number]
[2024-03-31 16:53] LABS: D Dimer 3.85 ug/mLFEU (0-0.59)
[2024-03-31 17:07] LABS: Procalcitonin 0.35 ng/mL (0-0.5)
[2024-03-31] MEDS: FUROsemide 10 mg/mL SDV 4mL 40 MG IVP (17:31)
[2024-03-31] MEDS: pantoprazole 40 mg SDV IVP (17:32)
[2024-03-31] MEDS: dilTIAZem 30 mg Tablet PO ×2 (17:34→22:08)
[2024-03-31] MEDS: metoprolol tartrate 50 mg Tablet 75 MG PO (17:35)
[2024-03-31] MEDS: heparin 5,000 unit/mL INJ 1 mL 5000 UNIT SUBCUT (17:37)
--- NOTE | 2024-03-31 20:23 | ECG_ITS ---
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 [email or web address]
[2024-03-31] MEDS: gabapentin 300 mg Capsule PO (20:43)
[2024-03-31] MEDS: trazodone 100 mg Tablet PO (20:43)
[2024-04-01] VITALS (9 sets, daily range): BP systolic 102–106; BP diastolic 59–74; PULSE 60–76; RESP 16–22; TEMP 35.6–36.6; O2SAT 96–100
[2024-04-01] MEDS: pantoprazole 40 mg SDV IVP (04:18)
[2024-04-01] MEDS: heparin 5,000 unit/mL INJ 1 mL 5000 UNIT SUBCUT (04:21)
[2024-04-01 05:38] LABS: Basophils # 0.1 10^3/uL (0.0-0.1); Basophils % 0.6 %; Eosinophils # 0.4 10^3/uL (0.0-0.8); Eosinophils % 3.5 %; Hematocrit 26.9 % (36-47); Lymphocytes % 17.6 %; Mean Corpuscular HGB Conc 30.9 g/dL (30-55); Mean Corpuscular Hemoglobin 27.8 pg (27-33); Mean Platelet Volume 10.4 fL (7.4-10.4); Monocytes # 0.6 10^3/uL (0.2-0.9); Monocytes % 5.4 %; Neutrophils # 7.85 10^3/uL (1.8-7.7); Neutrophils % 70.5 %; Nucleated Red Blood Cells # 0.1 /100WBC; Nucleated Red Blood Cells % 0.4 %; Platelet Count 394 10^3/cmm (157-399); Red Blood Count 2.99 10^6/uL (3.85-5.65); Red Cell Distribution Width 17.4 % (12.1-15.1); White Blood Count 11.14 10^3/uL (3.29-11.43)
[2024-04-01 05:55] LABS: Alanine Aminotransferase 16 U/L (0-33); Alkaline Phosphatase 114 U/L (35-105); Anion Gap 16.3 (5-19); Aspartate Amino Transferase 25 U/L (0-32); Blood Urea Nitrogen 33 mg/dL (8-23); Calcium 8.4 mg/dL (8.5-10.5); Carbon Dioxide 24 mmol/L (22-29); Chloride 98 mmol/L (98-107); Creatinine Clr Calc Pharmacy 40.2968; Globulin 3.6 g/dL (1.3-4.6); Glomerular Filtration Rate 40.5 mL/min (90-130); Glucose 84 mg/dL (65-115); Magnesium 2.3 mg/dL (1.7-2.3); Osmolality Calculated 286 mOsm/kg (285-295); Potassium 3.3 mmol/L (3.5-5.1); Sodium 135 mmol/L (136-145); Total Bilirubin 1.4 mg/dL (0.15-1.2); Total Protein 6.6 g/dL (6.6-8.7)
[2024-04-01] MEDS: morphine 4 mg/mL SDV 1 mL 2 MG IVP (06:00)
[2024-04-01 06:02] LABS: Procalcitonin 0.31 ng/mL (0-0.5)
[2024-04-01] MEDS: metoprolol tartrate 50 mg Tablet 75 MG PO (07:58)
[2024-04-01] MEDS: dilTIAZem 30 mg Tablet PO (07:59)
[2024-04-01] MEDS: atorvastatin 40 mg Tablet PO (07:59)
[2024-04-01] MEDS: ziprasidone hcl 40 mg Capsule 80 MG PO (07:59)
[2024-04-01] MEDS: FUROsemide 40 mg Tablet PO (07:59)
--- NOTE | 2024-04-01 10:36 | PC.NURSE ---
No PO medications given this morning. Patient sedated at this time and is unable to swallow safely. Dr Miles aware. Patient placed from chair to bed x2 assists. Crodwer catheter placed per MD orders. Patient tolerated all well and was cooperative and agreeable at this time. Will continue to monitor.
[2024-04-01] MEDS: potassium chloride ER 20 mEq Tablet 40 MEQ PO (11:00)
[2024-04-01 11:32] LABS: Glucose Point of Care 153 mg/dL (70-110)
--- NOTE | 2024-04-01 13:02 | P.DS_ITS ---
Discharge Providers Date of Admission: 03/31/24 17:36 Date of Discharge: April 01, 2024 Attending Provider at Admission: Kd Mcpherson MD Attending Provider at Discharge: Kd Mcpherson MD Diagnoses at Discharge Discharge Diagnosis (1) Atrial fibrillation with RVR: Status: Acute (2) Heart failure with preserved ejection fraction: Status: Chronic Permanent problem details: EF 55-60% on echo 04/2022 (3) Anemia: Status: Acute (4) Pulmonary embolism: Status: Acute (5) Type 2 diabetes mellitus without complications: Status: Chronic (6) Recurrent epistaxis: Status: Acute (7) Pressure ulcer of sacral region, stage 3: Status: Acute Reason for Visit Reason for Visit: a-fib Hospital Course Hospital Course Alix Kearns is a 68 year old female with past medical history of breast cancer, diastolic heart failure, atrial fibrillation, pulmonary embolism, type 2 diabetes mellitus, recent CVA, recurrent right-sided pleural effusion who was last discharged from the hospital in February 2024 was sent into the hospital from [place] today because of palpitations and difficulty in breathing. Patient states she was not given her morning medications including metoprolol today morning and trazodone overnight. Usually she is wheelchair-bound. States usually she does not have any issues with palpitations but today because of the missing medication she believes she started having palpitations. In the ER she was found to have A-fib with heart rate going up to 170s for which she started on Cardizem drip, given the dose of metoprolol. Currently patient on examination is awake and alert, on room air saturating 95% with Cardizem of 15 and a heart rate running between 75 to 90 bpm. Currently patient denies any difficulty in breathing. Patient herself denies any diarrhe a, bleeding. She states she had last had a bowel movement yesterday and did not have diarrhea. She did have old dried blood on left nostril. Patient was continued on her home dose of metoprolol and Cardizem was transitioned over to oral. Cardizem drip was gradually weaned off. Her hemoglobin during hospitalization remained stable with stool for occult blood negative. She has been discharged back to [facility] in hemodynamically stable condition on oral metoprolol 50 mg twice daily along with Cardizem 120 mg oral daily. It is advised for patient to get her medications on time. She is also to follow-up with a primary care provider within next 1 week for repeat CBC. Physical Exam Narrative: General: No acute distress, AO x3 HEENT: PERRLA, pupils bilaterally equal and reactive Chest: Normal vesicular breath sounds, no added sounds, equal good air entry bilaterally CVS: S1-S2 irregularly irregular no murmurs, no tachycardia, no gallops, no rubs Abdomen: Soft, nontender, no organomegaly, bowel sounds present Neuro: No focal deficits, no facial deformity, AO x3, power 5/5 in all limbs Discharge Data Studies Completed and Pending Completed Studies During Hospitalization Category Date Time Status XR chest 1V portable [id number] Stat Exams 03/31/24 13:50 Completed US gall bladder [id number] Stat Ultrasound 03/31/24 15:51 Completed Pending at discharge Category Date Time Status Urinalysis Routine Lab 03/31/24 16:24 Uncollected Radiology Impressions Chest X-Ray 03/31/24 13:50 IMPRESSION: No acute findings. Gallbladder Ultrasound 03/31/24 15:51 IMPRESSION: No acute findings. Laboratory Results WBC 11.14 10^3/uL (3.29-11.43) 04/01/24 05:30 Corrected WBC Cancelled 04/01/24 04:44 RBC 2.99 10^6/uL (3.85-5.65) L 04/01/24 05:30 Hgb 8.30 g/dL (11.27-16.99) L 04/01/24 05:30 Hct 26.9 % (36-47) L 04/01/24 05:30 MCV 90.0 fl (85-98) 04/01/24 05:30 MCH 27.8 pg (27-33) 04/01/24 05:30 MCHC 30.9 g/dL (30-55) 04/01/24 05:30 RDW 17.4 % (12.1-15.1) H 04/01/24 05:30 Plt Count 394 10^3/cmm (157-399) 04/01/24 05:30 MPV 10.4 fL (7.4-10.4) 04/01/24 05:30 Gran % Cancelled 04/01/24 04:44 Neut % (Auto) 70.5 % 04/01/24 05:30 Lymph % (Auto) 17.6 % 04/01/24 05:30 Donley % (Auto) 5.4 % 04/01/24 05:30 Eos % (Auto) 3.5 % 04/01/24 05:30 Baso % (Auto) 0.6 % 04/01/24 05:30 Neut # (Auto) 7.85 10^3/uL (1.8-7.7) H 04/01/24 05:30 Lymph # (Auto) 2.0 10^3/uL (0.8-4.8) 04/01/24 05:30 Donley # (Auto) 0.6 10^3/uL (0.2-0.9) 04/01/24 05:30 Eos # (Auto) 0.4 10^3/uL (0.0-0.8) 04/01/24 05:30 Baso # (Auto) 0.1 10^3/uL (0.0-0.1) 04/01/24 05:30 Absolute Gran (auto) Cancelled 04/01/24 04:44 Nucleated RBC % (auto) 0.4 % 04/01/24 05:30 Nucleated RBCs # 0.1 /100WBC 04/01/24 05:30 D-Dimer 3.85 ug/mLFEU (0-0.59) H 03/31/24 14:34 Sodium 135 mmol/L (136-145) L 04/01/24 05:30 Potassium 3.3 mmol/L (3.5-5.1) L 04/01/24 05:30 Chloride 98 mmol/L (98-107) 04/01/24 05:30 Carbon Dioxide 24 mmol/L (22-29) 04/01/24 05:30 Anion Gap 16.3 (5-19) 04/01/24 05:30 BUN 33 mg/dL (8-23) H 04/01/24 05:30 Creatinine 1.3 mg/dL (0.5-0.9) H 04/01/24 05:30 GFR Calculation 40.5 mL/min (90-130) L 04/01/24 05:30 Glucose 84 mg/dL (65-115) 04/01/24 05:30 POC Glucose 153 mg/dL (70-110) H 04/01/24 11:15 Calculated Osmolality 286 mOsm/kg (285-295) 04/01/24 05:30 Calcium 8.4 mg/dL (8.5-10.5) L 04/01/24 05:30 Phosphorus 4.0 mg/dL (2.5-4.5) 04/01/24 05:30 Magnesium 2.3 mg/dL (1.7-2.3) 04/01/24 05:30 Total Bilirubin 1.4 mg/dL (0.15-1.2) H 04/01/24 05:30 AST 25 U/L (0-32) 04/01/24 05:30 ALT 16 U/L (0-33) 04/01/24 05:30 Alkaline Phosphatase 114 U/L (35-105) H 04/01/24 05:30 Troponin T Baseline 37 ng/L (0-10) H 03/31/24 14:34 Troponin T 120 Minute 37.60 ng/L (0-10) H 03/31/24 16:32 Delta Troponin T 0.60 ABS# (0-10) 03/31/24 16:32 Troponin T Hi Sens 6Hr 40.60 ng/L (0-10) H 03/31/24 21:00 Troponin T Hi Sens 6Hr Delta 3.60 ng/L (0-12) 03/31/24 21:00 Total Protein 6.6 g/dL (6.6-8.7) 04/01/24 05:30 Albumin 3.0 g/dL (3.5-5.2) L 04/01/24 05:30 Globulin 3.6 g/dL (1.3-4.6) 04/01/24 05:30 Lipase 24 U/L (13-60) 03/31/24 14:34 Procalcitonin 0.31 ng/mL (0-0.5) 04/01/24 05:30 Vitals Last Vital Signs Temp 96.1 F L 04/01/24 12:00 Pulse 72 04/01/24 12:00 Resp 16 04/01/24 12:00 BP 105/59 04/01/24 12:00 Pulse Ox 100 04/01/24 12:00 O2 Del Method Nasal Cannula 04/01/24 12:00 O2 Flow Rate 2 04/01/24 04:00 Discharge Plan Discharge Patient Disposition: Home Condition: Stable Prescriptions: New diltiazem HCl [Cardizem CD] 120 mg capsule,extended release 24hr 120 mg PO DAILY Qty: 30 0RF Continued cyanocobalamin (vitamin B-12) 1,000 mcg tablet 1,000 mcg PO QAM vitamin E mixed 400 unit capsule 400 unit PO QAM (DME) lancing device with lancets [Accu-Chek Soft Dev Lancets] Kit See Rx Instructions .Route Qty: 100 3RF Rx Instructions: to uses once daily to check blood sugar 90 day supply (DME) Accu-Chek Patti Plus test strp Strip See Rx Instructions .Route Qty: 100 3RF Rx Instructions: to use once daily with accu-chek meter 90 day suppy (DME) Accu-Chek Guide test strips Strip See Rx Instructions .Route Qty: 100 3RF Rx Instructions: to use once daily in accu-check meter 90 day supply (DME) lancets [Accu-Chek Softclix Lancets] Misc See Rx Instructions .Route Qty: 100 3RF Rx Instructions: As directed anastrozole 1 mg tablet 1 mg PO QAM Qty: 90 0RF potassium chloride 10 mEq capsule, extended release 10 meq PO DAILY trazodone 100 mg tablet 100 mg PO BEDTIME metoprolol tartrate 50 mg tablet 50 mg PO BID gabapentin 300 mg capsule 300 mg PO BEDTIME fluticasone propionate 50 mcg/actuation spray,suspension 1 spray INTRANASAL DAILY ziprasidone HCl 80 mg capsule 80 mg PO DAILY furosemide 40 mg Tablet 40 mg PO DAILY@0800 Qty: 30 0RF dapagliflozin propanediol [Farxiga] 10 mg tablet 10 mg PO DAILY Qty: 30 0RF atorvastatin 20 mg Tablet 40 mg PO DAILY Qty: 60 0RF albuterol sulfate 90 mcg/actuation Hfa Aerosol Inhaler 2 puff INHALATION QID PRN (Reason: Shortness Of Breath) aspirin 81 mg tablet,delayed release (DR/EC) 81 mg PO DAILY Qty: 30 0RF clopidogrel 75 mg tablet 75 mg PO DAILY Qty: 30 0RF latanoprost 0.005 % drops 1 drp ophthalmic (eye) DAILY Discharge Orders: Discharge Order (Routine); Ordered 04/01/24 Ordered By: Kd Mcpherson Discharge Diet: Cardiac Discharge Activity: Resume usual activity and Increase activity as tolerated Patient Instructions: Diltiazem (By mouth) (Cardizem, Cardizem CD, Cardizem LA, Cardizem SR), A-fib (Atrial Fibrillation) (DC), Opioid Safety Activity Restrictions/Additional Instructions: Take metoprolol 50 mg twice daily along with Cardizem 120 mg oral daily. Follow-up with a primary care provider within next 1 week for repeat CBC. You should be getting her medications on time. Discharge Attestations Time Spent in Discharge Care*: greater than 30 min Specific Discharge Activities: educating patient, discussing with pcp/other providers, discussing with case management manager/social workers/dc planners, documenting/other paperwork and evaluating patient/reviewing data Status at Discharge: Cognitive status at discharge: cognitively intact , Behavioral status at discharge: cooperative , Functional status at discharge: wheelchair bound , Overall status at discharge: patient is back to baseline Quality Metrics Clinical Quality Measures [ No reported AMI, CVA or VTE this stay] Coding Level of Care Code 21869 Total time (in minutes) for Discharge: 60 Diagnoses Atrial fibrillation with RVR I48.91 Heart failure with preserved ejection fraction I50.30 Anemia D64.9 Pulmonary embolism I26.99 Type 2 diabetes mellitus without complications E11.9 Recurrent epistaxis R04.0 Pressure ulcer of sacral region, stage 3 L89.153
--- NOTE | 2024-04-01 13:47 | PC.NURSE ---
Report called to Jazzy at [facility]. patient to be discharged back to [facility].
--- NOTE | 2024-04-01 14:30 | PC.NURSE ---
Patient taken by ambulance to [facility]. Patient denies pain or needs. No distress observed.
== END 2024-04-01 14:31 | disposition intermediate care facility (04) | DRG 308 ==
LOC: ER 16:59 → CSU 17:36
PROVIDERS: Admitting Provider Student in an Organized Health Care Education/Training Program; Emergency Provider Family Medicine; Visit Provider Student in an Organized Health Care Education/Training Program
DX: I48.91 Unspecified atrial fibrillation (principal); L89.153 Pressure ulcer of sacral region, stage 3; I50.32 Chronic diastolic (congestive) heart failure; D64.9 Anemia, unspecified; E11.9 Type 2 diabetes mellitus without complications; R04.0 Epistaxis; G47.00 Insomnia, unspecified; F31.9 Bipolar disorder, unspecified; E78.2 Mixed hyperlipidemia; H40.9 Unspecified glaucoma; Z85.3 Personal history of malignant neoplasm of breast; Z86.73 Personal history of transient ischemic attack (TIA), and cerebral infarction without residual deficits; Z86.711 Personal history of pulmonary embolism; Z99.3 Dependence on wheelchair; Z79.82 Long term (current) use of aspirin; Z79.02 Long term (current) use of antithrombotics/antiplatelets; Z79.84 Long term (current) use of oral hypoglycemic drugs; Z79.890 Hormone replacement therapy
CPT/HCPCS: 36415; 36416; 71045; 76705; 80053; 82274; 82962; 83690; 83735; 84100; 84145; 84484; 85025; 85378; 93005; 94664; 96372; 96374; 96375; 99285; J1644; J1940; J2270; J2470; J3490

== ENCOUNTER → 2024-05-25 12:58 | Outpatient (BNVA) | payer MEDICARE, SELFPAY | PROVIDERS: PCP Family Medicine; Visit Provider Podiatrist Foot & Ankle Surgery | DX: L60.3 Nail dystrophy (principal); G62.9 Polyneuropathy, unspecified; E11.42 Type 2 diabetes mellitus with diabetic polyneuropathy | CPT/HCPCS: 11721 ==

== ENCOUNTER → 2024-06-02 10:42 | Outpatient (BNVA) | payer MEDICARE, SELFPAY | PROVIDERS: PCP Family Medicine; Visit Provider Nurse Practitioner Family | DX: L82.1 Other seborrheic keratosis (principal); L81.4 Other melanin hyperpigmentation; L57.8 Other skin changes due to chronic exposure to nonionizing radiation; Z08 Encounter for follow-up examination after completed treatment for malignant neoplasm; Z85.828 Personal history of other malignant neoplasm of skin; L57.0 Actinic keratosis | CPT/HCPCS: 17000; 99213 ==

== ENCOUNTER 2024-06-18 09:53 | Outpatient (CLI) | payer MEDICARE, SELFPAY ==
[2024-06-18 10:30] LABS: Estmated Average Glucose 128; Hemoglobin A1C 6.1 % (4.0-6.0)
== END 2024-06-18 09:54 | disposition home or self-care (01) ==
PROVIDERS: PCP Family Medicine; Visit Provider Family Medicine
DX: E11.9 Type 2 diabetes mellitus without complications (principal)
CPT/HCPCS: 83036

== ENCOUNTER → 2024-08-10 11:24 | Outpatient (BNVA) | payer MEDICARE, SELFPAY | PROVIDERS: PCP Family Medicine; Visit Provider Podiatrist Foot & Ankle Surgery | DX: E11.42 Type 2 diabetes mellitus with diabetic polyneuropathy (principal); L60.3 Nail dystrophy; G62.9 Polyneuropathy, unspecified | CPT/HCPCS: 11721 ==

== ENCOUNTER 2024-08-12 20:19 | Outpatient (CLI) | payer MEDICARE, SELFPAY ==
[2024-08-12 20:43] LABS: Bacteria Urine 4+ /hpf; Hyaline Casts Urine 4.52 /lpf; RBC Urine 0-2 /hpf (0-2)
[2024-08-12 20:44] LABS: Urine Color Yellow (Yellow)
[2024-08-12 20:45] LABS: Add Urine Culture? Yes; Add Urine Microscopic? YES; Bilirubin Urine Neg (Negative); Blood Urine 2+ (Negative); Glucose Urine UA 4+ (Normal); Ketones Urine Negative (Negative); Leukocyte Esterase Urine Trace (Negative); Nitrate Urine Positive (Negative); Protein Urine 1+ (Negative); Urine Appearance Slightly Cloudy (CLEAR); Urobilinogen Urine Norm (Negative); pH Urine 5 (5-7)
== END 2024-08-12 20:20 | disposition home or self-care (01) ==
PROVIDERS: PCP Family Medicine; Visit Provider Family Medicine
DX: N39.3 Stress incontinence (female) (male) (principal); N39.0 Urinary tract infection, site not specified
CPT/HCPCS: 81001; 87077; 87086; 87186

== ENCOUNTER → 2024-08-16 10:52 | Outpatient (BNVA) | payer MEDICARE, SELFPAY | PROVIDERS: PCP Family Medicine; Visit Provider Nurse Practitioner Family | DX: I48.91 Unspecified atrial fibrillation (principal); Z79.01 Long term (current) use of anticoagulants; Z79.82 Long term (current) use of aspirin; I11.0 Hypertensive heart disease with heart failure; I50.30 Unspecified diastolic (congestive) heart failure; E78.2 Mixed hyperlipidemia; Z86.711 Personal history of pulmonary embolism | CPT/HCPCS: 93005; 99214 ==

== ENCOUNTER 2024-08-20 09:50 | Outpatient (CLI) | payer MEDICARE, SELFPAY ==
[2024-08-20 10:12] LABS: Estmated Average Glucose 151; Hemoglobin A1C 6.9 % (4.0-6.0)
== END 2024-08-20 09:51 | disposition home or self-care (01) ==
PROVIDERS: PCP Family Medicine; Visit Provider Family Medicine
DX: E11.9 Type 2 diabetes mellitus without complications (principal); D64.9 Anemia, unspecified
CPT/HCPCS: 83036

== ENCOUNTER → 2024-08-31 08:49 | Outpatient (BNVA) | payer MEDICARE, SELFPAY | PROVIDERS: PCP Family Medicine; Visit Provider Nurse Practitioner Family | DX: I11.0 Hypertensive heart disease with heart failure (principal); I50.33 Acute on chronic diastolic (congestive) heart failure; I48.91 Unspecified atrial fibrillation; Z79.01 Long term (current) use of anticoagulants; Z79.82 Long term (current) use of aspirin; R00.1 Bradycardia, unspecified; I25.10 Atherosclerotic heart disease of native coronary artery without angina pectoris; E78.2 Mixed hyperlipidemia | CPT/HCPCS: 93005; 99214 ==

== ENCOUNTER → 2024-09-14 09:57 | Outpatient (BNVA) | payer MEDICARE, SELFPAY | PROVIDERS: PCP Family Medicine; Visit Provider Nurse Practitioner Family | DX: I48.0 Paroxysmal atrial fibrillation (principal); I11.0 Hypertensive heart disease with heart failure; I50.32 Chronic diastolic (congestive) heart failure; E78.2 Mixed hyperlipidemia | CPT/HCPCS: 36415; 80048; 85025; 99214 ==

== ENCOUNTER 2024-09-27 09:08 | Outpatient (CLI) | payer MEDICARE, SELFPAY ==
[2024-09-27 10:05] LABS: Basophils # 0.1 10^3/uL (0.0-0.1); Eosinophils # 0.6 10^3/uL (0.0-0.8); Eosinophils % 8.9 %; Hematocrit 49.1 % (36-47); Lymphocytes # 1.7 10^3/uL (0.8-4.8); Lymphocytes % 24.1 %; Mean Corpuscular HGB Conc 31.6 g/dL (30-55); Mean Corpuscular Hemoglobin 26.5 pg (27-33); Mean Corpuscular Volume 83.9 fl (85-98); Mean Platelet Volume 10.6 fL (7.4-10.4); Monocytes # 0.5 10^3/uL (0.2-0.9); Monocytes % 7.2 %; Neutrophils # 4.09 10^3/uL (1.8-7.7); Neutrophils % 58.7 %; Nucleated Red Blood Cells % 0 %; Platelet Count 230 10^3/cmm (157-399); Red Blood Count 5.85 10^6/uL (3.85-5.65); Red Cell Distribution Width 16.3 % (12.1-15.1); White Blood Count 6.97 10^3/uL (3.29-11.43)
[2024-09-27 10:23] LABS: Anion Gap 17.9 (5-19); Blood Urea Nitrogen 38 mg/dL (8-23); Calcium 9.3 mg/dL (8.5-10.5); Carbon Dioxide 20 mmol/L (22-29); Chloride 100 mmol/L (98-107); Glucose 175 mg/dL (65-115); Osmolality Calculated 291 mOsm/kg (285-295); Potassium 3.9 mmol/L (3.5-5.1); Sodium 134 mmol/L (136-145)
== END 2024-09-27 09:09 | disposition home or self-care (01) ==
PROVIDERS: PCP Family Medicine; Visit Provider Nurse Practitioner Family
DX: I48.0 Paroxysmal atrial fibrillation (principal)
CPT/HCPCS: 36415; 80048; 85025

== ENCOUNTER → 2024-10-20 09:42 | Outpatient (BNVA) | payer MEDICARE, SELFPAY | PROVIDERS: PCP Family Medicine; Visit Provider Podiatrist Foot & Ankle Surgery | DX: E11.42 Type 2 diabetes mellitus with diabetic polyneuropathy (principal); L60.3 Nail dystrophy; G62.9 Polyneuropathy, unspecified | CPT/HCPCS: 11721 ==

== ENCOUNTER → 2024-11-01 08:54 | Outpatient (BNVA) | payer MEDICARE, SELFPAY | PROVIDERS: PCP Family Medicine; Visit Provider Nurse Practitioner Family | DX: I48.0 Paroxysmal atrial fibrillation (principal); Z79.82 Long term (current) use of aspirin; I11.0 Hypertensive heart disease with heart failure; I50.32 Chronic diastolic (congestive) heart failure; E78.2 Mixed hyperlipidemia | CPT/HCPCS: 36415; 80053; 85025; 99213 ==

== ENCOUNTER → 2024-12-06 10:26 | Outpatient (BNVA) | payer MEDICARE, SELFPAY | PROVIDERS: PCP Family Medicine; Visit Provider Nurse Practitioner Family | DX: L81.4 Other melanin hyperpigmentation (principal); L57.8 Other skin changes due to chronic exposure to nonionizing radiation; Z08 Encounter for follow-up examination after completed treatment for malignant neoplasm; Z85.828 Personal history of other malignant neoplasm of skin; L82.0 Inflamed seborrheic keratosis | CPT/HCPCS: 17110; 99213 ==

== ENCOUNTER 2024-12-19 10:24 | Outpatient (CLI) | payer MEDICARE, SELFPAY ==
[2024-12-19 11:19] LABS: Estmated Average Glucose 157; Hemoglobin A1C 7.1 % (4.0-6.0)
== END 2024-12-19 10:25 | disposition home or self-care (01) ==
PROVIDERS: PCP Family Medicine; Visit Provider Family Medicine
DX: E11.9 Type 2 diabetes mellitus without complications (principal)
CPT/HCPCS: 83036

== ENCOUNTER 2024-12-22 10:29 | Emergency (ER) | payer MEDICARE, SELFPAY ==
[2024-12-22] VITALS (7 sets, daily range): BP systolic 159–183; BP diastolic 80–146; PULSE 98–115; RESP 16; TEMP 36.9; O2SAT 91–95
--- NOTE | 2024-12-22 10:34 | W.ED.EPISTAX ---
HPI - Epistaxis General: Chief complaint: Epistaxis Stated complaint: nosebleed Time Seen by Provider: 12/22/24 10:31 History of Present Illness: 69-year-old female with a history of breast cancer, anemia, type 2 diabetes mellitus, obesity, hyperlipidemia, bipolar disorder, extraparametal movement disorder, neuropathy, atrial fibrillation, congestive heart failure, recurrent epistaxis who presents to the emergency room with epistaxis by ambulance from the intermediate. She is on Plavix and aspirin spars anticoagulation goes. She has had a nosebleed since 8:00 this morning that has been intermittent coming and going. Related Data Home Medications ?Medication ?Instructions ?Recorded ?Confirmed cyanocobalamin (vitamin B-12) 1,000 mcg PO QAM 02/05/22 11/01/24 1,000 mcg tablet albuterol sulfate 90 mcg/actuation 2 puff inhalation QID PRN 10/13/22 11/01/24 aerosol inhaler Shortness Of Breath fluticasone propionate 50 1 spray intranasal DAILY 02/24/24 11/01/24 mcg/actuation nasal spray,suspension gabapentin 300 mg capsule 300 mg PO BEDTIME 02/24/24 11/01/24 potassium chloride 10 mEq 10 meq PO DAILY 02/24/24 11/01/24 capsule,extended release trazodone 100 mg tablet 100 mg PO BEDTIME 02/24/24 11/01/24 ziprasidone HCl 80 mg capsule 80 mg PO DAILY 02/24/24 11/01/24 latanoprost 0.005 % eye drops 1 drp ophthalmic (eye) DAILY 03/31/24 11/01/24 mirabegron 25 mg tablet,extended 25 mg PO 05/03/24 11/01/24 release 24 hr (Myrbetriq) Previous Rx's ?Medication ?Instructions ?Recorded blood sugar diagnostic (Accu-Chek #100 ea 10/06/22 Patti Plus test strips) lancing device with lancets kit #100 ea 10/06/22 (Accu-Chek Softclix Lancing Device+Lancets kit) blood sugar diagnostic (Accu-Chek #100 ea 10/08/22 Guide test strips) lancets (Accu-Chek Softclix #100 ea 10/10/22 Lancets) anastrozole 1 mg tablet 1 mg PO QAM #90 tabs 01/27/24 atorvastatin 20 mg tablet 40 mg (2 x 20 mg) PO DAILY #60 tabs 03/01/24 dapagliflozin propanediol 10 mg 10 mg PO DAILY #30 tabs 03/01/24 tablet (Farxiga) furosemide 40 mg tablet 40 mg PO DAILY@0800 #30 tabs 03/01/24 aspirin 81 mg tablet,delayed 81 mg PO DAILY #30 tabs 03/02/24 release diltiazem HCl 120 mg 120 mg PO DAILY #30 caps 04/01/24 capsule,extended release 24 hr (Cardizem CD) losartan 25 mg tablet 25 mg PO DAILY #90 tabs 10/06/24 metoprolol succinate 25 mg 12.5 mg (1/2 x 25 mg) PO DAILY #90 11/01/24 tablet,extended release 24 hr tabs clonidine HCl 0.1 mg tablet 0.1 mg PO DAILY #20 tabs 12/22/24 Allergies Allergy/AdvReac Type Severity Reaction Status Date / Time aspirin (From [place]) Allergy Intermediate vomits Verified 11/01/24 09:05 exenatide (From [place]) Allergy Intermediate ADR-Vomitin Verified 11/01/24 09:05 g acetaminophen Allergy Unknown Verified 12/22/24 10:37 adhesive Allergy Unknown Verified 11/01/24 09:05 caffeine (From [place]) Allergy Unknown Verified 11/01/24 09:05 carrot Allergy Unknown Verified 11/01/24 09:05 cayenne pepper fruits Allergy Unknown Verified 11/01/24 09:05 iodine Allergy Unknown Verified 11/01/24 09:05 mushroom Allergy Unknown Verified 11/01/24 09:05 orphenadrine (From [place]) Allergy Unknown Verified 11/01/24 09:05 Pork/Porcine Containing Allergy diarrhea Verified 11/01/24 09:05 Products sheep derived (ovine) Allergy Unknown Verified 11/01/24 09:05 cephalexin AdvReac Intermediate vomitting Verified 11/01/24 09:05 Sulfa (Sulfonamide AdvReac Intermediate adv-vomitti Verified 11/01/24 09:05 Antibiotics) ng Review of Systems Narrative: Constitutional symptoms: Negative except as documented in HPI. Skin symptoms: Negative except as documented in HPI. Eye symptoms: Negative except as documented in HPI. ENMT symptoms: Negative except as documented in HPI. Respiratory symptoms: Negative except as documented in HPI. Cardiovascular symptoms: Negative except as documented in HPI. Gastrointestinal symptoms: Negative except as documented in HPI. Genitourinary symptoms: Negative except as documented in HPI. Musculoskeletal symptoms: Negative except as documented in HPI. Neurologic symptoms: Negative except as documented in HPI. Psychiatric symptoms: Negative except as documented in HPI. Endocrine symptoms: Negative except as documented in HPI. PFS ED PFSH: Medical History (Updated 12/22/24 @ 13:00 by Anna Hayes MD) Bipolar disorder, unspecified Allergic rhinosinusitis Epistaxis Mixed hyperlipidemia Heart failure with preserved ejection fraction EF 55-60% on echo 04/2022 Pleural effusion on right Pulmonary embolism Chronic anticoagulation Impression: Stable Plan: As per Dr. Medina History of colon polyps on endoscopy in 2020, benign Deafness in left ear Glaucoma Bipolar 1 disorder Acquired deviated nasal septum Epistaxis, recurrent Insomnia takes trazodone History of breast cancer left sided, had mastectomy in 2010, no chemo or radiation Atrial fibrillation Type 2 diabetes mellitus without complications Surgical History History of cholecystectomy History of D&C (1993) History of ear surgery (1984) left History of mastectomy (2010) left H/O sternectomy History of hernia surgery abdominal hernia repair x 4 between [id number] Family History Denies family history of Clotting disorder Bleeding disorder Social History Smoking and tobacco/nicotine status: never used tobacco/nicotine Alcohol intake: never Substance/Drug Use: never Housing: Assisted Living Facility Marital status: Marital status details: spouse has Parkinson's Previous occupational history: worked for [employer] Physical Exam Narrative: EXAM NARRATIVE: General: Alert, no acute distress. Skin: warm and dry Head: Normocephalic Neck: Trachea midline Eye: Extraocular movements are intact. Ears, nose, mouth and throat: Oral mucosa moist. There is some dried blood in the right nare but she is not actively bleeding on presentation. Respiratory: Respirations are non-labored Musculoskeletal: Normal ROM Gastrointestinal: Abdomen does not appear distended Neurological: Alert and oriented, No focal neurological deficit observed. Psychiatric: Cooperative, appropriate mood & affect. Course Vital Signs: Vital signs: Vital Signs Temperature 98.5 F 12/22/24 10:31 Pulse Rate 106 H 12/22/24 12:55 Respiratory Rate 16 12/22/24 10:31 Blood Pressure 164/80 12/22/24 12:55 Pulse Oximetry 91 12/22/24 12:55 Oxygen Delivery Me thod Room Air 12/22/24 10:31 MDM - Epistaxis Medical Decision Making Medical decision making: Differential diagnosis including but not limited to and based on the above HPI, review of systems and physical exam: In this patient with nosebleed would have concern for accelerated hypertension causing the nosebleed, coagulopathy or thrombocytopenia. Also would have concern for anemia secondary to bleeding. Orders placed to evaluate differential diagnosis based on the above differential, HPI and physical exam EKG: Time 10:45 AM. Rate 114. Atrial fibrillation with rapid ventricular response, nonspecific ST changes, no ectopy, This was reviewed and interpreted by myself the ER physician at 10:50 AM Lab Review: Laboratory results were reviewed and interpreted by myself the emergency room physician. No leukocytosis. No anemia. Stable chronic renal insufficiency with a BUN/creatinine of 40 and 1.4. I reviewed the patient's medical record. Reexamination: Patient remained stable. No increased work of breathing. No altered mental status. No focal motor deficits. Blood pressure has come down with treatment. She says she was decreased on her diltiazem a couple of months ago and has had worsening blood pressure issues since. She is going to talk to her primary about increasing that. In the meantime we will give her some clonidine for the intermediate to use as needed. No further nosebleeds and she has been here for over couple of hours. Assessment and plan: Hypertension Nosebleed ? Afrin to nare and no further bleeding. ? Clonidine and labetalol with improvement in blood pressure and heart rate. - Discharged home - Discussed plan with patient. Answered any questions. - Evaluation and treatment of this problem were appropriate in the emergency setting. Lab Data 12/22/24 10:53 12/22/24 10:53 Laboratory Results WBC 7.02 10^3/uL (3.29-11.43) 12/22/24 10:53 RBC 5.44 10^6/uL (3.85-5.65) 12/22/24 10:53 Hgb 14.50 g/dL (11.27-16.99) 12/22/24 10:53 Hct 45.5 % (36-47) 12/22/24 10:53 MCV 83.6 fl (85-98) L 12/22/24 10:53 MCH 26.7 pg (27-33) L 12/22/24 10:53 MCHC 31.9 g/dL (30-55) 12/22/24 10:53 RDW 17.2 % (12.1-15.1) H 12/22/24 10:53 Plt Count 211 10^3/cmm (157-399) 12/22/24 10:53 MPV 10.0 fL (7.4-10.4) 12/22/24 10:53 Neut % (Auto) 61.2 % 12/22/24 10:53 Lymph % (Auto) 22.4 % 12/22/24 10:53 [place] % (Auto) 8.1 % 12/22/24 10:53 Eos % (Auto) 6.8 % 12/22/24 10:53 Baso % (Auto) 1.1 % 12/22/24 10:53 Neut # (Auto) 4.29 10^3/uL (1.8-7.7) 12/22/24 10:53 Lymph # (Auto) 1.6 10^3/uL (0.8-4.8) 12/22/24 10:53 [place] # (Auto) 0.6 10^3/uL (0.2-0.9) 12/22/24 10:53 Eos # (Auto) 0.5 10^3/uL (0.0-0.8) 12/22/24 10:53 Baso # (Auto) 0.1 10^3/uL (0.0-0.1) 12/22/24 10:53 Nucleated RBC % (auto) 0 % 12/22/24 10:53 Nucleated RBCs # 0.0 /100WBC 12/22/24 10:53 PT Cancelled 12/22/24 10:53 INR Cancelled 12/22/24 10:53 APTT Cancelled 12/22/24 10:53 Sodium 137 mmol/L (136-145) 12/22/24 10:53 Potassium 3.9 mmol/L (3.5-5.1) 12/22/24 10:53 Chloride 99 mmol/L (98-107) 12/22/24 10:53 Carbon Dioxide 25 mmol/L (22-29) 12/22/24 10:53 Anion Gap 16.9 (5-19) 12/22/24 10:53 BUN 40 mg/dL (8-23) H 12/22/24 10:53 Creatinine 1.4 mg/dL (0.5-0.9) H 12/22/24 10:53 GFR Calculation Not Reportable 12/22/24 10:53 Glucose 125 mg/dL (65-115) H 12/22/24 10:53 Calculated Osmolality 295 mOsm/kg (285-295) 12/22/24 10:53 Calcium 9.4 mg/dL (8.5-10.5) 12/22/24 10:53 Total Bilirubin 0.4 mg/dL (0.15-1.2) 12/22/24 10:53 AST 15 U/L (0-32) 12/22/24 10:53 ALT 16 U/L (0-33) 12/22/24 10:53 Alkaline Phosphatase 117 U/L (35-105) H 12/22/24 10:53 Total Protein 8.0 g/dL (6.6-8.7) 12/22/24 10:53 Albumin 4.2 g/dL (3.5-5.2) 12/22/24 10:53 Globulin 3.8 g/dL (1.3-4.6) 12/22/24 10:53 No radiology studies performed this visit Discharge Plan Discharge Patient Disposition: Home Clinical Impression: Epistaxis, Accelerated hypertension Condition: Stable Prescriptions: New clonidine HCl 0.1 mg tablet 0.1 mg PO DAILY Qty: 20 0RF Rx Instructions: For Systolic >185 diastolic >100. If you are needing this more than once a day you need to follow with your primary care provider No Action cyanocobalamin (vitamin B-12) 1,000 mcg tablet 1,000 mcg PO QAM lidocaine HCl [Lidocaine Viscous] 2 % solution 1 applic topical ONCE Qty: 1 0RF lidocaine HCl [Lidocaine Viscous] 2 % solution 1 applic topical ONCE Qty: 1 0RF lidocaine HCl [Lidocaine Viscous] 2 % solution 1 applic topical ONCE Qty: 1 0RF mirabegron [Myrbetriq] 25 mg tablet extended release 24 hr 25 mg PO lidocaine HCl [Lidocaine Viscous] 2 % solution 1 applic topical ONCE Qty: 1 0RF lidocaine HCl [Lidocaine Viscous] 2 % solution 1 applic topical ONCE Qty: 1 0RF metoprolol succinate 25 mg tablet extended release 24 hr 12.5 mg PO DAILY Qty: 90 0RF Rx Instructions: Hold if heart rate less than 60 (DME) lancing device with lancets [Accu-Chek Soft Dev Lancets] Kit See Rx Instructions .Route Qty: 100 3RF Rx Instructions: to uses once daily to check blood sugar 90 day supply (DME) Accu-Chek Patti Plus test strp Strip See Rx Instructions .Route Qty: 100 3RF Rx Instructions: to use once daily with accu-chek meter 90 day suppy (DME) Accu-Chek Guide test strips Strip See Rx Instructions .Route Qty: 100 3RF Rx Instructions: to use once daily in accu-check meter 90 day supply (DME) lancets [Accu-Chek Softclix Lancets] Misc See Rx Instructions .Route Qty: 100 3RF Rx Instructions: As directed anastrozole 1 mg tablet 1 mg PO QAM Qty: 90 0RF losartan 25 mg tablet 25 mg PO DAILY Qty: 90 0RF potassium chloride 10 mEq capsule, extended release 10 meq PO DAILY trazodone 100 mg tablet 100 mg PO BEDTIME gabapentin 300 mg capsule 300 mg PO BEDTIME fluticasone propionate 50 mcg/actuation spray,suspension 1 spray INTRANASAL DAILY ziprasidone HCl 80 mg capsule 80 mg PO DAILY furosemide 40 mg Tablet 40 mg PO DAILY@0800 Qty: 30 0RF dapagliflozin propanediol [Farxiga] 10 mg tablet 10 mg PO DAILY Qty: 30 0RF atorvastatin 20 mg Tablet 40 mg PO DAILY Qty: 60 0RF albuterol sulfate 90 mcg/actuation Hfa Aerosol Inhaler 2 puff INHALATION QID PRN (Reason: Shortness Of Breath) aspirin 81 mg tablet,delayed release (DR/EC) 81 mg PO DAILY Qty: 30 0RF latanoprost 0.005 % drops 1 drp ophthalmic (eye) DAILY diltiazem HCl [Cardizem CD] 120 mg capsule,extended release 24hr 120 mg PO DAILY Qty: 30 0RF Discharge Orders: Discharge ED (Routine); Ordered 12/22/24 Ordered By: Anna Hayes Referrals: Leo Cavazos MD [Primary Care Provider, Family Practice] Discharge Diet: Usual diet Discharge Activity: Increase activity as tolerated Patient Instructions: Nosebleed (ED), Opioid Safety, Pain Management, Patient Portal & Rissa Instructions Activity Restrictions/Additional Instructions: Thank you for choosing [facility] for your healthcare needs today. You have been screened and evaluated and felt safe for discharge. Health conditions do change or evolve sometimes and as such it is important that you follow up with your Primary Doctor to be re checked, 3-5 days is a general good time frame for follow up. You are always welcome to return to the ED for re assessment if your symptoms are worsening or you have new concerns Print Language: Swedish Coding Level of Care Code ED Commercial Construction Superintendent for Brianna Jorge
--- OUTSIDE RECORDS SUMMARY | 2024-12-22 10:36 | XMS_ITS | Clinical Summary ---
Author Organization [facility] Address [address] Attn: Epic Prelude ADT SARAH GARCIA [id number] Care Team Providers Care Engineering Team Supervisor Name Role Phone Non-Staff, Physician Primary Care Provider Unava ilable Allergies Active Allergy Reactions Criticality Noted Date Comments Acetaminophen Nausea and Vomiting Low 02/22/2008 Cephalexin Hives High 10/18/2022 Iodine Hives High 10/18/2022 Sulfa (Sulfonamide Antibiotics) Nausea and Vomiting Low 02/22/2008 Medications metFORMIN (GLUCOPHAGE XR) 500 mg Extended Release 24 hour tablet Take 500 mg by mouth daily. Active metoprolol (LOPRESSOR) 1.25 mg/mL Suspension Take by mouth. Active traZODone (DESYREL) 50 mg tablet Take 50 mg by mouth daily at bedtime. Active ziprasidone (GEODON) 20 mg Capsule Take 20 mg by mouth 2 times daily with meals. Active aspirin (ECOTRIN EC) 81 mg Tablet, Delayed Release (E.C.) Take 81 mg by mouth daily. Active Immunizations Immunization Administration Dates Next Due Influenza Seasonal Unspecified Formulation IM ,03/08/2002 Family History Medical History Relation Name Comments Other Father Diabetes Mother Relation Name Status Comments Father Alive Mother Social History Tobacco Use Types Packs/Day Years Used Date Smoking Tobacco: Never Alcohol Use Standard Drinks/Week Comments No 0 (1 standard drink = 0.6 oz pur e alcohol) Feeling Safe Answer Date Recorded Are you in a relationship wi th someone who hurts you emotionally and/or physically? 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 Gender Identity Not on file Sexual Orientation Not on file Last Filed Vital Signs Vital Sign Reading Time Taken Comments Blood Pressure 152/79 10/18/2022 4:25 PM CDT Pulse 108 10/18/2022 4:25 PM CDT Temperature 37.2 C (98.9 F) 10/18/2022 2:18 PM CDT Respiratory Rate 18 10/18/2022 2:18 PM CDT Oxygen Saturation 94% 10/18/2022 4:25 PM CDT Inhaled Oxygen Concentration - - Weight 89 kg (196 lb 3.4 oz) 10/18/2022 2:18 PM CDT Height - - Body Mass Index - - Plan of Treatment Health Maintenance Due Date Last Done Comments DTAP/TDAP/TD VACCINES (1 - Tdap) 1972 COLORECTAL SCREENING 1998 Colorectal Cancer Screening 1998 FIT-DNA Q 3 years 1998 FIT/FOBT Q 1 year 1998 Flex Sig/CT Colonography Q 5 years 1998 PNEUMOCOCCAL VACCINE 50+ YEA RS (1 of 1 - PCV) 2003 ZOSTER VACCINE (1 of 2) 2003 BREAST CANCER SCREENING 02/11/2022 02/12/20 21, 01/05/2020, 11/29/2018, Additional history exists INFLUENZA VACCINE (#1) 2024 02/09/2007, 2001 OSTEOPOROSIS SCREENING 01/04/2025 0, 06/01/2017, 05/25/2014 RSV VACCINE (60+ or ) (1 - 1-dose 75+ series) [address] [place] [id number] Care Teams Engineering Team Supervisor Relationship Specialty Start Date End Date Non-Staff, Physician NO ADDRESS ON FILE PCP - General 10/25/10
--- OUTSIDE RECORDS SUMMARY | 2024-12-22 10:36 | XMS_ITS | CCD ---
Author Name Interface, [email or web address] [address] Organization [facility] [place] [address] Care Team Providers Care Paradichlorobenzene Machine Operator Name Role Phone Ramon TAPIA, Reynaldo Lackey Unavailable Unavailable Reason for Visit Social History
--- OUTSIDE RECORDS SUMMARY | 2024-12-22 10:37 | XMS_ITS | Patient Health Record ---
Author Organization [facility] Address [address] [place] [address] Care Team Providers Care Normalizer Name Role Phone Aaa, Provider Primary Care Provider Doris Jane Unavailable [phone] Graciela Castillo Unavailable [phone] Allergies Allergen (clinical drug ingredient) Drug/Non Drug Allergy documented on EMR Reaction Allergy Type Onset Date Status Amoxil Unknown Drug Allergy Active diphenhydramine Benadryl Unknown Drug Allergy A ctive Byetta 5 MCG Pen vomiting Drug Allergy Active losartan Cozaar Unknown Drug Allergy Active metronidazole Flagyl Unknown Drug Allergy Act sharmaine hydrochlorothiazide / losartan Hyzaar Unknown Drug Allergy Active Keflex Unknown Drug Allergy Active Mirapex Unknown Drug Allergy Active Quinine Sulfate Dihydrate Unknown Drug Allergy Active aspirin / caffeine / orphenadrine Norgesic Forte Unknown Drug Allergy Active angiotensin-converting enzyme inhibitor (FN) DEDRICK Inhibitors Unknown Drug Allergy Acti ve acetaminophen Acetaminophen Unknown Drug Allergy Active cyclobenzaprine Cyclobenzaprine sob Drug Allergy Active erythromycin Erythromycin Unknown Drug Allergy A ctive Iodine rash Drug Allergy Active metronidazole Metronidazole Unknown Drug Allergy Active omeprazole Omeprazole diarrhea Drug Allergy Activ e Substance with sulfonamide structure and antibacterial mechanism of action (substance) Sulfa Antibiotics Unknown Drug Allergy A ctive Reason For Referral No Information Medications Medication SIG (Take, Route, Frequency, Duration) Notes Start Date End Date Status Vitamin E 400 UNIT 1 capsule Orally Once a day Active Ziprasidone HCl 80 MG 1 capsule with food Orally daily Active Vitamin D3 25 MCG (1000 UT) 1 capsule Orally Once a day Active Eliquis 2.5 MG Take 1 tablet by mouth twice daily for 30 days Active Metoprolol Tartrate 50 MG 1 tablet with food Oral two times daily for 90 days for HTN 04/06/2020 Active metFORMIN HCl 500 MG 1 tablet Oral two times daily for 90 days Active dilTIAZem HCl ER Coated Beads 240 MG Take 1 capsule by mouth once daily for 90 Active Xalatan 0.005 % instill one drop Ophthalmic in both eyes at bedtime for dry eyes Xalatan/ Latanoprost 12/18/2019 Active Vitamin B-12 Active Trazadone 100 mg 1 at bedtime *please review for potential _update for e-prescription and drug interaction check* Active Immunizations Vaccine Route Administration Date Status Comme nts *Influenza, high dose seasonal (Fluzone) IM Intramuscular 01/25/2021 Administered *Tdap (Boostrix) OTH Other/Miscellaneous 07/04/2010 Administered *Tdap (Boostrix) IM Intramuscular 06/16/[address] [facility]: 31846-727-16 Influenza (split), seasonal, intradermal, preservative free IM Intramuscular 01/13/[address] [facility]#[id number] -[id number] Influenza, high dose seasonal OTH Other/Miscellaneous 02/04/2019 Pending Influenza, high dose seasonal IM Intramuscular 02/08/2020 Administered Influenza, injectable, quadrivalent IM Intramuscular 04/17/2014 Administered Influenza, injectable, quadrivalent IM Intramuscular 01/29/2015 Administered Influenza, injectable, quadrivalent IM Intramuscular 01/10/2016 Administered influenza, injectable, quadrivalent, preservative free IM Intramuscular 01/15/2017 Administered influenza, recombinant, quadrivalent, injectable, preservative free IM Intramuscular 02/24/2018 Administered Influenza, seasonal, injectable (split), for 3 yrs and up SC Subcutaneous 03/23/2012 Administered Novel [id number], all formulations IM Intramuscular 04/06/2009 Administered Pfizer-BioNTech COVID-19 30mcg/0.3ml (Old) IM Intramuscular 05/26/2020 Administered Pfizer-BioNTech COVID-19 30mcg/0.3ml (Old) IM Intramuscular 06/16/2020 Administered Pfizer-BioNTech COVID-19 30mcg/0.3ml (Old) IM Intramuscular 02/06/2021 Administered Pneumococcal conjugate PCV 13 IM Intramuscular 01/10/2016 Administered Pneumococcal polysaccharide PPV23 IM Intramuscular 03/23/2012 Administered Social History Tobacco Use: Social History Observation Description Date Details (start date - stop date) Never Smoker NA - NA Tobacco Use/Smoking Question Answer Notes Are you a: never smoker Problems Problem Type SNOMED Code ICD Code Onset Dates Problem Status W/U Status Risk Notes Problem Neoplasm of uncertain behavior of skin (86137074) Neoplasm of uncertain behavior of skin (D48.5) Inactive confirmed Comment:5mm punch biopsy, right upper arm., Problem Hypomagnesemia (677060724) Hypomagnesemia (E83.42) Inactive confirmed Problem Metabolic syndrome (469307006) Metabolic syndrome (E88.81) Inactive confirmed Comment:we are monitoring components of metabolic syndrome weight blood pressure lipids glucose Encourage healthy diet and regular exercise.,Story :we are monitoring components of metabolic syndrome weight blood pressure lipids glucose Encourage healthy diet and regular exercise. Encouraged weight loss., Problem 191470510 Bipolar disorder, in full remission, most recent episode manic (F31.74) Active confirmed Problem 3181639 Supraventricula r tachycardia (I47.1) Active confirmed Problem 808652510076655 Primary osteoarthritis, left shoulder (M19.012) Active confirmed Problem 86245538 Cervicalgia (M54.2) Active confirmed Problem Muscle weakness (12787329) Muscle weakness (generalized) (M62.81) Inactive confirmed Problem Nocturnal enuresis (3300403) Nocturnal enuresis (N39.44) Inactive confirmed Comment:trial of DDAVP discussed risks never take more than once per day, Problem 38365063 Unspecified fall, subsequent encounter (W19.XXXD) Active confirmed Problem Viral screening (378882529) Encounter for screening for other viral diseases (Z11.59) Inactive confirmed Problem Postmenopausal state (30968815) Asymptomatic menopausal state (Z78.0) Inactive confirmed Problem Psoriasis (1041315) Psoriasis (L40.9) Inactive confirmed Comment:Interes tingly she says her psoriasis is better since she started on actos, Problem Dry eyes (112150890) DRY EYES (H04.123) Inactive confirmed Problem Counseling (104449121) ENCOUNTER FOR EDUCATION (Z71.9) Inactive confirmed Problem Annual health maintenance examination (37163841) ANNUAL PHYSICAL EXAM (Z00.00) Inactive confirmed Problem Closed fracture of lateral malleolus of right fibula (disorder) (3142490392608715 4) CLOSED NONDISPLACED FRACTURE OF LATERAL MALLEOLUS OF RIGHT FIBULA WITH ROUTINE HEALING, SUBSEQUENT ENCOUNTER (S82.64XD) Inactive confirmed Description:MANUEL SED NONDISPLACED FRACTURE OF LATERAL MALLEOLUS OF RIGHT FIBULA WITH ROUTINE HEALING, SUBSEQUENT ENCOUNTER - HEALED Problem Nonvenomous insect bite of trunk without infection (85683366) INSECT BITE OF BREAST, UNSPECIFIED LATERALITY, INITIAL ENCOUNTER (S20.169A) Inactive confirmed Problem 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 Plan: The patient will be converted to a functional brace. They were educated on activity precautions and range of motion exercises. She may continue weightbearing as tolerated with her rolling walker. All of their questions were answered. I will see them back per the protocol with new x-rays: AP, lateral, and oblique of the left ankle. 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) Inactive confirmed Problem Tubular adenoma (040037036) TUBULAR ADENOMA (D36.9) Inactive confirmed Comment:She is going to be referred to a specialist for removal of a large tubular adenoma, Problem Depression screening (145702349) SCREENING FOR DEPRESSION (Z13.31) Inactive confirmed Description:DEP RESSION SCREEN (V79.0 Z13.89) Problem Hypertriglyceride hai (935912717) HYPERTRIGLYCERI DEMIA (E78.1) Inactive confirmed Comment:contin u e current medication, Problem Type II diabetes mellitus (54595270) TYPE II DIABETES MELLITUS (E11.9) Active confirmed Comment:Hemoglo bin A1C looks good at 6.2, but she complains of hypoglycemia we will stop her glipizide return to clinic 3 months 30 minute visit, Problem Arthralgia of the pelvic region and thigh (599670146) BILATERAL HIP PAIN (M25.551) Inactive confirmed Problem Adult health examination (839812877) ENCOUNTER FOR HEALTH MAINTENANCE EXAMINATION (Z00.00) Inactive confirmed Description:HEA LTH MAINTENANCE EXAMINATION (Z00.00) Problem Type II diabetes mellitus uncontrolled (534218735) DIABETES MELLITUS TYPE 2, UNCONTROLLED, WITHOUT COMPLICATIONS (250.02) Inactive confirmed Problem Type II diabetes mellitus without complication (224063294) TYPE II DIABETES MELLITUS, WELL CONTROLLED (E11.9) Inactive confirmed Comment:she was having some hypoglycemic symptoms we stopped her glipizide at the last visit no more hypoglycemic episodes, but her Hemoglobin A1C went from 5.9 to 7.3 we will increase the actos from 1/2 to a full 30 mg daily, Problem Nausea and vomiting (77899076) POSTOPERATIVE NAUSEA AND VOMITING (787.01) (787.01) Inactive confirmed Problem Dietary management surveillance (982239490) ENCOUNTER FOR DIETARY COUNSELING AND SURVEILLANCE (Z71.3) Inactive confirmed Description: TARY COUNSELING Problem Gastritis (7230217) GASTRITIS (K29.70) Active confirmed Problem Osteoarthrosis (658005378) OSTEOARTHROSIS (M19.90) Inactive confirmed Problem Depressive disorder (50841759) DISORDER, DEPRESSIVE NEC (311.) (311) Inactive confirmed Problem Personal history of primary malignant neoplasm of breast (135472307) PERSONAL HISTORY OF BREAST CANCER (Z85.3) Inactive confirmed Problem Vitamin D deficiency (07672941) VITAMIN D DEFICIENCY (E55.9) Active confirmed Comment:check lab in 6 months, Problem Personal history of primary malignant neoplasm of breast (265502962) HISTORY OF LEFT BREAST CANCER (Z85.3) Inactive confirmed Problem Mammographic microcalcificatio n of breast (47987921793445) ABNORMAL MAMMOGRAM WITH MICROCALCIFICAT ION (R92.0) Inactive confirmed Problem TREMOR OF RIGHT HAND (R25.1) Inactive confirmed Comment:consult neurology, Problem Acute urinary tract infection (496709308) ACUTE UTI (N39.0) Inactive confirmed Description:ACU TE UTI Problem Limited mobility (32252537) LIMITED MOBILITY (Z74.09) Inactive confirmed Comment:very limited ability to walk uses a walker and has a wheelchair she is renting a wheelchair interested in owning a wheelchair, Problem Osteopenia (898887715) OSTEOPENIA (M85.80) Active confirmed Problem Thoracic back pain (700811567) UPPER BACK PAIN (M54.9) Inactive confirmed Problem Functional bowel disease (75475205) FUNCTIONAL BOWEL DISEASE (K58.9) Inactive confirmed Description:IRR ITABLE BOWEL SYNDROME Problem Pneumococcal conjugate vaccination (791444895020044) NEED FOR PROPHYLACTIC VACCINATION AGAINST STREPTOCOCCUS PNEUMONIAE (PNEUMOCOCCUS) (Z23) Inactive confirmed Description:PRO PHYLACTIC VACCINATION AGAINST STREPTOCOCCUS PNEUMONIAE (V03.82) Problem Gynecological examination normal (633687319258987) ENCOUNTER FOR GYNECOLOGICAL EXAMINATION WITHOUT ABNORMAL FINDING (Z01.419) Inactive confirmed Problem 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, 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) (333.99) Inactive confirmed Problem Morbid obesity (787941034) OBESITY, MORBID (E66.01) Inactive confirmed Comment:continu e current medication, Problem 679376257 LEUKOCYTOSIS, UNSPECIFIED TYPE (D72.829) Active confirmed Problem Increased body mass index (07636533) HIGH BMI (V49.89) Active confirmed Problem Malignant neoplastic disease (disorder) (540088211) NEOPLASM OF BONE, SOFT TISSUE, AND SKIN (D49.2) Inactive confirmed Description:AUSTIN PLASM OF UNSPECIFIED BEHAVIOR OF BONE, SOFT TISSUE, AND SKIN Problem Immunization education (446634561) IMMUNIZATION COUNSELING (Z71.89) Inactive confirmed Problem Hearing loss (79889729) BILATERAL HEARING LOSS, UNSPECIFIED HEARING LOSS TYPE (H91.93) Inactive confirmed Problem Gastroesophageal reflux disease (085977754) GASTROESOPHAGEA L REFLUX DISEASE, ESOPHAGITIS PRESENCE NOT SPECIFIED (K21.9) Inactive confirmed Comment:continu e current medication symptoms controlled, Problem Iron deficiency anemia (78382437) IRON DEFICIENCY ANEMIA, UNSPECIFIED IRON DEFICIENCY ANEMIA TYPE (D50.9) Inactive confirmed Problem Depression screening positive (484498251526159) POSITIVE DEPRESSION SCREENING (Z13.31) Inactive confirmed Comment:my nurse did a depression screen all positives were related to sleep and energy she is already followed by psychiatry and mood is stable, Problem Breast cancer screening (574732888) BREAST CANCER SCREENING (Z12.39) Inactive confirmed Problem Closed fracture of lateral malleolus (62058417) CLOSED NONDISPLACED FRACTURE OF LATERAL MALLEOLUS (S82.66XA) Inactive confirmed Problem History of left mastectomy (231057048) H/O LEFT MASTECTOMY (Z90.12) Inactive confirmed Problem Obstructed incisional hernia (202001017) HERNIA, INCISIONAL VENTRAL W/OBST W/O GNGR (552.21) (552.21) Active confirmed Story:Chronic infected mesh with draining sinus. Turned down for surgery at [facility] to remove mesh/repair unless she got her weight <200 lbs., Problem Malignant neoplasm of upper-outer quadrant of female breast (580205614) MALIGNANT NEOPLASM OF UPPER-OUTER QUADRANT OF LEFT FEMALE BREAST, UNSPECIFIED ESTROGEN RECEPTOR STATUS (C50.412) Inactive confirmed Comment:keep scheduled appointment with Dr. Castillo of oncology, Problem Pain in limb (85467813) PAIN OF RIGHT THUMB (729.5) Inactive confirmed Comment:This should get better over the next few weeks., Problem Personal history of primary malignant neoplasm of breast (902759401) H/O MALIGNANT NEOPLASM OF BREAST (Z85.3) Inactive confirmed Comment:I explained my findings impressions and recommendations to the patient. Pathophysiology , natural history, implications & treatment explained. Given the high risk oncotype, chemo may be recommended. Defer to Dr. Castillo. Advised monthly breast self exam and explained changes to expect as well as those that should be brought to our attention. Advised annual breast clinical exams and routine mammograms. Patient seems to have poor insight to the pro blem. See me prn. cc: Dr. Castillo.,Story: Laterality: Left Histologic Type: Invasive ductal carcinoma Stage: 1 T:1b N:0 M:0 Grade: III/III ER/AL: Positive / Negative Her2-Tosha: IHC positive, Fish negative. LVI:Present Oncotype Score: 33 (High risk) Surgery: Mastectomy with sentinel lymph node biopsy Date: 11/2010 Radiation: No Chemo: Defer to Anna. Patient has poor performance status. Estrogen Blocking Drug: Arimidex Oncologist: Anna,Descrip tion:PERSONAL HISTORY OF MALIGNANT NEOPLASM OF BREAST Problem Insomnia (204494094) INSOMNIA, UNSPECIFIED TYPE (G47.00) Inactive confirmed Problem Mammography abnormal (957743337) ABNORMAL FINDING ON BREAST IMAGING (R92.8) Inactive confirmed Comment:Nodular density has to be proved benign with stereo biopsy before she could be a candidate for breast conserving surgery., Problem Mixed bipolar I disorder (65669190) BIPOLAR I, MIXED, MOST RECENT EPSD NOS (296.60) (296.60) Active confirmed Problem Iron deficiency anemia (08542192) CHRONIC IRON DEFICIENCY ANEMIA (D50.9) Inactive confirmed Problem Poor balance (923824165) POOR BALANCE (R26.89) Inactive confirmed Comment:Physica l therapy, Problem Panniculitis (22535521) PANNICULITIS (M79.3) Inactive confirmed Comment:resolve d, Problem Long-term current use of aromatase inhibitor (569190543902183) AROMATASE INHIBITOR USE (Z79.811) Inactive confirmed Problem Benign essential hypertension (4227550) HYPERTENSION, ESSENTIAL, BENIGN (I10) Active confirmed Problem Incisional hernia (445126080) VENTRAL HERNIA, RECURRENT (K43.2) Inactive confirmed Problem HERNIA, VENTRAL (553.20) (553.20) Inactive confirmed Comment:??truss ?, Problem Chronic atrial fibrillation (975787207) CHRONIC ATRIAL FIBRILLATION (I48.20) Active confirmed Comment:rate controlled she is on eliquis we discussed the need for this, Problem Morbid obesity (683944383) MORBID OBESITY DUE TO EXCESS CALORIES (E66.01) Inactive confirmed Problem Postmenopausal bleeding (87970613) POST-MENOPAUSAL BLEEDING (N95.0) Inactive confirmed Problem Long-term current use of drug therapy (133515264) USES NEBULIZER AND INHALER AT HOME (Z79.899) Inactive confirmed Problem Shoulder joint pain (190927754) PAIN, JOINT, SHOULDER, LEFT (M25.512) Inactive confirmed Comment:left shoulder xrays shows some degenerative joint disease no acute changes, Problem Malignant neoplasm of female breast (458644458) INVASIVE DUCTAL CARCINOMA OF LEFT BREAST, STAGE 1 (C50.912) Active confirmed Problem Body mass index 40+ - severely obese (822040606) BODY MASS INDEX (BMI) OF 45.0-49.9 IN ADULT (Z68.42) Inactive confirmed Problem Gynecological examination normal (825151299338126) ENCOUNTER FOR ROUTINE GYNECOLOGICAL EXAMINATION (Z01.419) Inactive confirmed Problem Bipolar disorder (42932925) DISORDER, BIPOLAR NEC (296.89) (296.89) Inactive confirmed Problem Influenza immunization (04628298) NEED FOR PROPHYLACTIC VACCINATION AND INOCULATION AGAINST INFLUENZA (Z23) Inactive confirmed Description: PRO PHYLACTIC VACCINATION AGAINST INFLUENZA (V04.81) Problem Atrophic gastritis (83303391) CHRONIC GASTRITIS WITHOUT BLEEDING, UNSPECIFIED GASTRITIS TYPE (K29.50) Active confirmed Problem Arthropathy (361498474) Arthropathy NOS, unspecified site (716.90) (716.90) Inactive confirmed Problem Asthma without status asthmaticus (22467402) ASTHMA NOS W/O STATUS ASTHMATICUS (493.90) (493.90) Inactive confirmed Problem HISTORY OF USE OF HEARING AID IN BOTH EARS (Z92.89) Inactive confirmed Story:Alix presented to the clinic today for a two-week recheck on her recently fit Phonak [employer] hearing aids. She reported that she loved them, and she is hearing so much better. She reported that she can turn down the television and her family has noticed that she can hear better. She reported that her left ear was a little sore; therefore, the dome was changed to a small closed dome from a medium closed dome. She noticed an improvement. She did not want any changes made today. She was provided with extra domes for each hearing aid to change at home as necessary and informed that if the hearing aids are doing good for her by the next appointment and she does not want to come into the office then she may just call and let us know. It was recommended that she return to the office in six months for her cleaning and in a year for an updated audiogram. She was encouraged to contact the clinic with any concerns., Problem Deficiency anemias (062588355) DEFICIENCY ANEMIA (D53.9) Inactive confirmed Problem Estrogen receptor positive tumor (disorder) (676476969) ESTROGEN RECEPTOR POSITIVE (Z17.0) Inactive confirmed Problem Requires vaccination (289067957) NEED FOR IMMUNIZATION AGAINST INFLUENZA (Z23) Inactive confirmed Description: PRO PHYLACTIC VACCINATION AGAINST INFLUENZA Problem Incisional hernia (562221979) INCISIONAL HERNIA, WITHOUT OBSTRUCTION OR GANGRENE (K43.2) Inactive confirmed Comment:She is followed by Dr. Mariscal in [place] apparently she is advised to lose weight before even considering surgery she apparently was in the weight loss program at [facility], but did not do well with it., Problem Primary malignant neoplasm of left breast (5738061376) PRIMARY MALIGNANT NEOPLASM OF LEFT BREAST (C50.912) Inactive confirmed Problem History of malignant neoplasm of skin (331820704) HISTORY OF MALIGNANT NEOPLASM OF SKIN (Z85.828) Inactive confirmed Story:h/o bas al cell carcinoma R arm,Description :PERSONAL HISTORY OF SKIN CANCER Problem Melanocytic nevus of trunk (348858086) MELANOCYTIC NEVUS OF TRUNK (D22.5) Inactive confirmed Description:JUAN R ANOCYTIC NEVI OF TRUNK Problem 440280546 OSTEOARTHRITIS OF CERVICAL SPINE, UNSPECIFIED SPINAL OSTEOARTHRITIS COMPLICATION STATUS (M47.812) Active confirmed Problem Colon cancer screening (208567905) COLON CANCER SCREENING (Z12.11) Inactive confirmed Comment:colonos copy in 2006 consider repeat in 2017 this may be technically difficult due to her size and very large ventral hernia, Problem Sciatica (31184989) SCIATICA OF LEFT SIDE (M54.32) Inactive confirmed Comment:Do the exercises on the handout. schedule physical therapy for sciatica, Problem History and physical examination, follow-up (640535584) FOLLOW-UP EXAMINATION FOLLOWING SURGERY (Z09) Inactive confirmed Problem Seborrheic keratosis (60709792) SEBORRHEIC KERATOSIS (L82.1) Inactive confirmed Description:GERRY ORRHEIC KERATOSES Problem Obesity (846697357) OBESITY NOS (278.00) (278.00) Inactive confirmed Problem Bipolar I disorder (310181535) BIPOLAR DISORDER IN PARTIAL REMISSION, MOST RECENT EPISODE UNSPECIFIED TYPE (F31.70) Inactive confirmed Problem Hypercholesterole hai (05041583) HYPERCHOLESTERO LEMIA (E78.00) Active confirmed Comment:monit or lab, Problem Radiology result abnormal (948914553) ABNORMAL CHEST CT (R93.89) Active confirmed Problem Incisional hernia (880070256) VENTRAL INCISIONAL HERNIA WITHOUT OBSTRUCTION OR GANGRENE (K43.2) Active confirmed Problem Malignant neoplasm of female breast (314733366) MALIGNANT NEOPLASM OF BREAST (FEMALE) (C50.919) Inactive confirmed Comment:Healing well at this point. I would like to leave the suture and the VAMSI in for just a little while longer. Will follow up with Dr. Muñoz again on Thursday.,Story: Laterality: left, but multicentric Histologic Type: Invasive ductal carcinoma & Ductal carcinoma in situ Stage: 1a pT:1b pN:0 cM:0 Grade: III/III ER/AL: Positive / Negative Her2-Tosha: Negative LV Invasion: Present Oncologist: Anna Problem Essential hypertension (13453939) HYPERTENSION, ESSENTIAL NOS (401.9) (401.9) Inactive confirmed Problem Diabetic peripheral neuropathy (701391514) DIABETIC PERIPHERAL NEUROPATHY (E11.42) Inactive confirmed Problem Tinnitus of left ear (3618365314968) TINNITUS, LEFT (H93.12) Inactive confirmed Description:TIN NITUS OF LEFT EAR Problem ABFND, RADIOLOGICAL, ORGANS (793.5) (793.5) Inactive confirmed Problem Needs influenza immunization (031374620) INFLUENZA (V04.81) - 3 YEARS AND OLDER - NOT [facility] OR MEDICARE (V04.81) Inactive confirmed Description:PRO PHYLACTIC VACCINATION AGAINST INFLUENZA (V04.81) Problem Esophagitis (79710298) ESOPHAGITIS (K20.90) Inactive confirmed Comment:continu e PPI She said she had some nausea after taking the pantoprazole once we will restart and see if she tolerates it endoscopic gastroduodenosc opy in 2022, Problem Screening for malignant neoplasm of cervix (007619896) CERVICAL CANCER SCREENING (Z12.4) Inactive confirmed Problem Rash (901475063) RASH (R21) Inactive confirmed Problem Malignant neoplasm of female breast (327824474) INVASIVE DUCTAL CARCINOMA OF LEFT BREAST IN FEMALE (C50.912) Inactive confirmed Comment:continu e arimidex 1mg po daily., Problem Functional assessment (12041316) ENCOUNTER FOR RISK AND FUNCTIONAL ASSESSMENT OF PATIENT (Z13.9) Inactive confirmed Description: RIS K AND FUNCTIONAL ASSESSMENT Problem CANDIDIASIS, CUTANEOUS (B37.2) Inactive confirmed Comment:difluca n we expored potential interactions we will start with very low dose also discussed over the counter selsun blue or similar selenium containing dandruff shampoo as a daily body wash, Problem Sensorineural hearing loss (52526051) HEARING LOSS, SENSORINEURAL, ASYMMETRICAL (H90.5) Inactive confirmed Plan Of Treatment Pending Test Test Name Order Date DRAIN/INJECT MAJOR JOINT OR BURSA - 2060 0 04/29/2021 [facility] ECG - 06509 02/28/2021 [facility] ECG - 10467 03/25/2021 CMP (Comprehensive Metabolic Panel) 05/05 CMP (Comprehensive Metabolic Panel) 11/2020 CMP (Comprehensive Metabolic Panel) 10/2020 CMP (Comprehensive Metabolic Panel) 05/04 CMP (Comprehensive Metabolic Panel) 07/02 CMP (Comprehensive Metabolic Panel) 10/02 Manual Differential 10/11/2020 Manual Differential 07/11/2020 Manual Differential 01/08/2021 Manual Differential 05/22/2020 ONCOLOGY CBC 01/08/2021 ONCOLOGY CBC 07/11/2020 ONCOLOGY CBC 05/22/2020 ONCOLOGY CBC 10/11/2020 Venipuncture[i] 10/22/2020 Venipuncture[i] 02/06/2021 CMP (Comprehensive Metabolic Panel) 08/03 Future Test Test Name Order Date MM MAMMO DIGITAL DIAG UNILAT - [id number] 02/2021 MM MAMMO DIGITAL DIAG UNILAT - [id number] 10/2020 CBC (Complete Blood Count) 04/17/2021 CMP (Comprehensive Metabolic Panel) 04/03 Ferritin 04/17/2021 IRON 04/17/2021 VITAMIN D 25-HYDROXY TOTAL 04/17/2021 CBC (Complete Blood Count) 05/08/2021 CMP (Comprehensive Metabolic Panel) 09/2021 Ferritin 05/08/2021 IRON 05/08/2021 CBC (Complete Blood Count) 06/28/2021 CMP (Comprehensive Metabolic Panel) 06/05 Hemoglobin A1C 06/28/2021 Lipid Profile 06/28/2021 T4 Free 06/28/2021 TSH 06/28/2021 VITAMIN D 25-HYDROXY TOTAL 06/28/2021 CMP (Comprehensive Metabolic Panel) 11/02 Ferritin 11/28/2021 IRON 11/28/2021 Hemoglobin A1C 01/11/2022 Lipid Profile 01/11/2022 VITAMIN D 25-HYDROXY TOTAL 01/11/2022 Insurance Providers Payer Name Payer Address Payer Phone Subscriber Number Group Number Insured Name Patient Relationship to Insured Coverage Start Date Coverage End Date [employer] MEDICARE PART B [address] [address] [place] [address] [id number] ALIX POND Self - patient is the insured 9 [employer] [address] [place] [address] [id number] ALIX POND Self - patient is the insured Medications Administered Medication Instructions Date of Administration Dosage Notes dexAMETHasone 04/29/2021 10 mg Medical (General) History Medical History History ICD Code Problems: Acute oliguric sushant al failure secondary to acute tubular necrosis, ProblemStatus: Active, Acute Respiratory failure with hypoxia, ProblemStatus: Active, AROMATASE INHIBITOR USE, ProblemStatus: Active, ARTHROPATHY NOS, UNSPECIFIED SITE (716.9 0), ProblemStatus: Active, ASTHMA NOS W/O STATUS ASTHMATICUS (493.9 0), ProblemStatus: Active, Atrial Fibrillation with rapid ventricul ar response, ProblemStatus: Active, BIPOLAR DISORDER IN PARTIAL REMISSION, MOST RECENT EPISODE UNSPECIFIED TYPE, ProblemStatus: Active, BIPOLAR I, MIXED, MOST RECENT EPSD NOS ( 296.60), ProblemStatus: Active, BODY MASS INDEX (BMI) OF 45.0-49.9 IN AD ULT, ProblemStatus: Active, CHRONIC ATRIAL FIBRILLATION, ProblemStat us: Active, CHRONIC GASTRITIS WITHOUT BL EEDING, UNSPECIFIED GASTRITIS TYPE, ProblemStatus: Active, DEFICIENCY ANEMIA, ProblemStatus: Active , DIABETES MELLITUS TYPE 2, UN CONTROLLED, WITHOUT COMPLICATIONS, COMMENTS: Eye exam 01/06, 02-10, 04/15 ARB-Hyzaar Microalbumin-neg 02/04, 05/09, 05/10, 09/09 Neuropathy . Treated by [facility] in April with Dr. Ghanshyam Kong. , ProblemStatus: Active, DIABETIC PERIPHERAL NEUROPATHY, ProblemS tatus: Active, DISEASE, EXTRAPYRAMIDAL NEC (333.99), Pr oblemStatus: Active, DRY EYES, ProblemStatus: Active, Elevated LFTs secondary to i schemic hepatitis versus medication, ProblemStatus: Active, ENCOUNTER FOR RISK AND FUNCT IONAL ASSESSMENT OF PATIENT, DESCRIPTION: RISK AND FUNCTIONAL ASSESSMENT, ProblemStatus: Active, ESTROGEN RECEPTOR POSITIVE, ProblemStatu s: Active, Fractured distal fibular fra cture and right 4th toe fracture, ProblemStatus: Active, FUNCTIONAL BOWEL DISEASE, DE SCRIPTION: IRRITABLE BOWEL SYNDROME, ProblemStatus: Active, GASTROESOPHAGEAL REFLUX DISE ASE, ESOPHAGITIS PRESENCE NOT SPECIFIED, ProblemStatus: Active, H/O LEFT MASTECTOMY, ProblemStatus: Acti ve, HEARING LOSS, SENSORINEURAL, ASYMMETRICA L, ProblemStatus: Active, HERNIA, 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 Turned down for surgery at [place] to remove mesh/repair unless she got her weight < 200 lbs., ProblemStatus: Active, High anion gap metabolic acidosis, Probl emStatus: Active, HIGH BMI, ProblemStatus: Active, HISTORY OF LEFT BREAST CANCER, ProblemSt atus: Active, HISTORY OF MALIGNANT NEOPLAS M OF SKIN, DESCRIPTION: PERSONAL HISTORY OF SKIN CANCER, COMMENTS: h/o basal cell carcinoma R arm, ProblemStatus: Active, HISTORY OF USE OF HEARING AI D IN BOTH EARS, COMMENTS: Alix presented to the clinic today for a two-week recheck on her recently fit [employer] hearing aids. She reported that she loved them, and she is hearing so much better. She reported that she can turn down the television and her family has noticed that she can hear better. She reported that her left ear was a little sore; therefore, the dome was changed to a small closed dome from a medium closed dome. She noticed an improvement. She did not want any changes made today. She was provided with extra domes for each hearing aid to change at home as necessary and informed that if the hearing aids are doing good for her by the next appointment and she does not want to come into the office then she may just call and let us know. It was recommended that she return to the office in six months for her cleaning and in a year for an updated audiogram. 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, ProblemStatus: Active, IRON DEFICIENCY ANEMIA, UNSP ECIFIED IRON DEFICIENCY ANEMIA TYPE, ProblemStatus: Active, Lactic acidosis, ProblemStatus: Active, LIMITED MOBILITY, ProblemStatus: Active, MALIGNANT NEOPLASM OF BREAST (FEMALE), COMMENTS: Laterality: left, but multicentric Histologic Type: Invasive ductal carcino ma & Ductal carcinoma in situ Stage: 1a pT:1b pN:0 cM:0 Grade: III/III ER/AL: Positive / Negative Her2-Tosha: Negative LV Invasion: Present Oncologist: Anna, ProblemStatus: Acti ve, MALIGNANT NEOPLASM OF UPPER- OUTER QUADRANT OF LEFT FEMALE BREAST, UNSPECIFIED ESTROGEN RECEPTOR STATUS, ProblemStatus: Active, METABOLIC SYNDROME, COMMENTS : we are monitoring components of metabolic syndrome weight blood pressure lipids glucose Encourage healthy diet and regular exerc ise. Encouraged weight loss., ProblemStatus: Active, NEOPLASM OF BONE, SOFT TISSU E, AND SKIN, DESCRIPTION: NEOPLASM OF UNSPECIFIED BEHAVIOR OF BONE, SOFT TISSUE, AND SKIN, ProblemStatus: Active, NEOPLASM OF UNCERTAIN BEHAVI OR OF SKIN, COMMENTS: 5mm punch biopsy, right upper arm., ProblemStatus: Active, OBESITY, MORBID, ProblemStatus: Active, OSTEOARTHROSIS, ProblemStatus: Active, OSTEOPENIA, ProblemStatus: Active, PANNICULITIS, ProblemStatus: Active, PERSONAL HISTORY OF BREAST CANCER, Probl emStatus: Active, POOR BALANCE, ProblemStatus: Active, Problems Reconciled, ProblemStatus: Acti ve, PSORIASIS, ProblemStatus: Active, SEBORRHEIC KERATOSIS, DESCRI PTION: SEBORRHEIC KERATOSES, ProblemStatus: Active, Sepsis, ProblemStatus: Active, Skin Cancer, COMMENTS: BCC R arm- yrs ag o, ProblemStatus: Active, SQUAMOUS CELL CARCINOMA IN S ITU OF SKIN OF LEFT CHEEK, ProblemStatus: Active, TINNITUS, LEFT, DESCRIPTION: TINNITUS OF LEFT EAR, ProblemStatus: Active, TREMOR OF RIGHT HAND, ProblemStatus: Act sharmaine, TYPE II DIABETES MELLITUS, ProblemStatus : Active, TYPE II DIABETES MELLITUS, WELL CONTROLL ED, ProblemStatus: Active, 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, ProblemStatus: Active, VITAMIN D DEFICIENCY, ProblemStatus: Act sharmaine, Surgical History Surgery Date(Month/Year) Umbilical Hernia Repair, ProblemStatus: Active, Ultrasound-guided left breas t vacuum-assisted biopsy, ProblemStatus: Active, : Performed at [facility], 2010-10-23 Simple Mastectomy with Axill jovani [place] Lymph Node Biopsy, ProblemStatus: Active, : Performed at [facility], 2010-11-20 Simple Mastectomy with Axill jovani [place] Lymph Node Biopsy, ProblemStatus: Active, : Left, 2010-11-20 Left Stapedectomy, COMMENTS: 1994-prosthesis 4.5 x 0.6mm jena rosemary piston, ProblemStatus: Active, LEFT EAR STEPDECTOMY, DESCRI PTION: Left Ear Stepdectomy, COMMENTS: [facility], ProblemStatus: Active, 1984-05-04 Hernia Repair, COMMENTS: [19 99][2000] Patient now has a huge recurrent ventral hernia with infected mesh & a chronically draining sinus., ProblemStatus: Active, : Performed at [facility], 1997-05-04 Epidural Injections in back, ProblemStat us: Active, DISC INJECTION, DESCRIPTION: Disc Injection, COMMENTS: [facility], ProblemStatus: Active, 1982-05-04 Dilation and Curettage of Uterus, Proble mStatus: Active, Cholecystectomy, ProblemStatus: Active, 1998-05-04 Breast Stereotacic Biopsy, Darya Pantoja: Active, : Performed at [facility], 2010-11-12 Breast Stereotacic Biopsy, ProblemStatus : Active, : Left, 2010-11-12 Breast Biopsy, COMMENTS: 10/2007-benign, ProblemStatus: Active,
--- OUTSIDE RECORDS SUMMARY | 2024-12-22 10:37 | XMS_ITS | CCD ---
Author Name Interface, [id number] [address] Organization [facility] [place] [address] Care Team Providers Care Detective Private Eye Name Role Phone Ramon TAPIA, Reynaldo Lackey Unavailable Unavailable Reason for Visit Social History
--- NOTE | 2024-12-22 10:43 | ECG_ITS ---
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 Measurements Intervals [place] Rate: 114 P: 0 TN: 0 QRS: 85 QRSD: 111 T: 7 QT: 375 QTc: 517 Interpretive Statements ATRIAL FLUTTER WITH RAPID VENTRICULAR RESPONSE MODERATE INTRAVENTRICULAR CONDUCTION DELAY [110+ ms QRS DURATION] MODERATE ST DEPRESSION [0.05+ mV ST DEPRESSION] Compared to ECG 08/31/2024 08:53:52 Intraventricular conduction delay now present ST (T wave) deviation now present Sinus bradycardia no longer present First degree AV block no longer present Right bundle-branch block no longer present Left posterior fascicular block no longer present T-wave abnormality no longer present Possible ischemia no longer present Electronically Signed On 12-24-2024 08:46:43 CDT by Balbir Major M.D. [email or web address]
[2024-12-22 10:58] LABS: Hematocrit 45.5 % (36-47); Hemoglobin 14.50 g/dL (11.27-16.99); Mean Corpuscular HGB Conc 31.9 g/dL (30-55); Mean Corpuscular Hemoglobin 26.7 pg (27-33); Mean Corpuscular Volume 83.6 fl (85-98); Nucleated Red Blood Cells % 0 %; Platelet Count 211 10^3/cmm (157-399); Red Blood Count 5.44 10^6/uL (3.85-5.65); White Blood Count 7.02 10^3/uL (3.29-11.43)
[2024-12-22 11:15] LABS: Alanine Aminotransferase 16 U/L (0-33); Albumin Level 4.2 g/dL (3.5-5.2); Alkaline Phosphatase 117 U/L (35-105); Anion Gap 16.9 (5-19); Aspartate Amino Transferase 15 U/L (0-32); Blood Urea Nitrogen 40 mg/dL (8-23); Calcium 9.4 mg/dL (8.5-10.5); Carbon Dioxide 25 mmol/L (22-29); Chloride 99 mmol/L (98-107); Creatinine Clr Calc Pharmacy 38.2456; Globulin 3.8 g/dL (1.3-4.6); Glucose 125 mg/dL (65-115); Osmolality Calculated 295 mOsm/kg (285-295); Potassium 3.9 mmol/L (3.5-5.1); Sodium 137 mmol/L (136-145); Total Protein 8.0 g/dL (6.6-8.7)
[2024-12-22] MEDS: labetalol 5 mg/mL SDV 20mL 20 MG IVP (12:04)
== END 2024-12-22 13:12 | disposition home or self-care (01) ==
PROVIDERS: Emergency Provider Emergency Medicine; PCP Family Medicine
DX: R04.0 Epistaxis (principal); Z79.82 Long term (current) use of aspirin; E78.2 Mixed hyperlipidemia; I11.0 Hypertensive heart disease with heart failure; I50.30 Unspecified diastolic (congestive) heart failure; E11.9 Type 2 diabetes mellitus without complications; Z85.3 Personal history of malignant neoplasm of breast
CPT/HCPCS: 36415; 80053; 85025; 93005; 96374; 99284; J3490; J9999

== ENCOUNTER → 2024-12-28 13:09 | Outpatient (BNVA) | payer MEDICARE, SELFPAY | PROVIDERS: PCP Family Medicine; Visit Provider Podiatrist Foot & Ankle Surgery | DX: E11.42 Type 2 diabetes mellitus with diabetic polyneuropathy (principal); L60.3 Nail dystrophy; G62.9 Polyneuropathy, unspecified | CPT/HCPCS: 11721 ==

== ENCOUNTER → 2025-02-14 14:08 | Outpatient (BNVA) | payer MEDICARE, SELFPAY | PROVIDERS: PCP Family Medicine; Visit Provider Internal Medicine | DX: I48.91 Unspecified atrial fibrillation (principal); E78.5 Hyperlipidemia, unspecified; E11.9 Type 2 diabetes mellitus without complications; Z86.711 Personal history of pulmonary embolism | CPT/HCPCS: 99214 ==

== ENCOUNTER → 2025-03-02 14:08 | Outpatient (BNVA) | payer MEDICARE, SELFPAY | PROVIDERS: PCP Family Medicine; Visit Provider Podiatrist Foot & Ankle Surgery | DX: E11.42 Type 2 diabetes mellitus with diabetic polyneuropathy (principal); L60.3 Nail dystrophy; L60.0 Ingrowing nail; G62.9 Polyneuropathy, unspecified; Z79.85 Long-term (current) use of injectable non-insulin antidiabetic drugs | CPT/HCPCS: 11721; 11750; 99214; J9999 ==

== ENCOUNTER → 2025-03-15 13:29 | Outpatient (BNVA) | payer MEDICARE, SELFPAY | PROVIDERS: PCP Family Medicine; Visit Provider Podiatrist Foot & Ankle Surgery | DX: E11.42 Type 2 diabetes mellitus with diabetic polyneuropathy (principal); L60.3 Nail dystrophy; L60.0 Ingrowing nail; G62.9 Polyneuropathy, unspecified; Z79.85 Long-term (current) use of injectable non-insulin antidiabetic drugs | CPT/HCPCS: 99213 ==

== ENCOUNTER 2025-03-16 12:43 | Outpatient (CLI) | payer MEDICARE, SELFPAY ==
--- NOTE | 2025-03-16 | MM_ITS ---
WS: [id number] RIGHT 3D TOMOSYNTHESIS DIGITAL MAMMOGRAPHY WITH CAD CLINICAL INFORMATION: HX OF BREAST CANCER HISTORY: History of LEFT mastectomy COMPARISON: 2023 TECHNIQUE: 3 views of the right breast were obtained. FINDINGS: Scattered fibroglandular densities of the right breast. Incidental punctate calcifications RIGHT breast No suspicious focal mass, asymmetry, calcifications, or architectural distortion. No evidence of malignancy. MM/MM diag RT tomosynthesis [id number] IMPRESSION: DENSITY: There are scattered areas of fibroglandular density. BI-RADS: 2 - Benign. FOLLOW UP: 1 Year Follow-up Recommend return to annual diagnostic mammography.
== END 2025-03-16 12:44 | disposition home or self-care (01) ==
LOC: RAD 12:43
PROVIDERS: PCP Family Medicine; Visit Provider Family Medicine
DX: Z12.31 Encounter for screening mammogram for malignant neoplasm of breast (principal); R92.323 Mammographic fibroglandular density, bilateral breasts; R92.1 Mammographic calcification found on diagnostic imaging of breast
CPT/HCPCS: 77061; G0279

== ENCOUNTER 2025-03-25 09:48 | Outpatient (CLI) | payer MEDICARE, SELFPAY ==
[2025-03-25 10:19] LABS: Estmated Average Glucose 148; Hemoglobin A1C 6.8 % (4.0-6.0)
== END 2025-03-25 09:49 | disposition home or self-care (01) ==
PROVIDERS: PCP Family Medicine; Visit Provider Family Medicine
DX: E11.9 Type 2 diabetes mellitus without complications (principal)
CPT/HCPCS: 83036